=== PATIENT | male | born 2000 | race African-American/Black ===

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

== ENCOUNTER 2022-03-05 02:10 | Emergency (ER) | payer OTHER ==
--- OUTSIDE RECORDS SUMMARY | 2022-03-05 02:15 | XMS REPORT | Continuity of Care Document ---
:2000 Author Organization [facility] t Address [address] [place] [address] Care Team Providers Name Role Phone ZION Primary Care Physician Unavailable Provider, [facility] Attending Clinician Unavailable Zion OATES Attending Clinician Pita PROJECTION WELDING MACHINE OPERATOR Attending Clinician PITA Attending Clinician Unavailable Eddie CLARK, D Attending Clinician Unavailable Marko PROJECTION WELDING MACHINE OPERATOR Attending Clinician EBRAHIM Attending Clinician Unavailable Emely MEDINA Attending Clinician Roger MEDINA, N Attending Clinician Payers Payer Name Policy Type Policy Number Effective Date Expiration Date S ource Problems Condition Condition Condition Status Onset Resolution Last Treating Co mments Source Name Details Category Date Date Treatment Clinician Date No known No known Disease Unive rs active active ity of problems problems [facility] Allergies, Adverse Reactions, Alerts Allergy Allergy Status Severity Reaction(s) Onset Inactive Treating Comm ents Source Name Type Date Date Clinician NO KNOWN Drug Active Univers ALLERGIE Class ity of [facility] Social History Social Habit Start Date Stop Date Quantity Comments Source Exposure to 2022-01-21 2022-01-31 Not sure [facility] SARS-CoV-2 (event) 00:00:00 10:48:00 Medica l Branch Tobacco use and 2015-05-10 2015-05-10 Never used [facility] [place] exposure 00:00:00 00:00:00 Medical Branch Sex Assigned At [birth year] [facility] [place] 00:00:00 00:00:00 [facility] Branch Smoking Status Start Date Stop Date Source Never smoker [facility] Medications Ordered Filled Start Stop Current Ordering Indication Dosage Frequency Signature Comments Components Source Medication Medication Date Date Medication? Clinician (SIG) Name Name clotrimazol Yes Univer s e 1 % 12-18 ity of topical 00:00: [place] cream [facility] clotrimazol Yes Univer s e 1 % 12-18 ity of topical 00:00: [place] cream [facility] clotrimazol Yes Univer s e 1 % 12-18 ity of topical 00:00: [place] cream [facility] clotrimazol No [id number] Apply to Univers e 1 % 10-11 area(s) 2 ity of topical 00:00: 04:59 (two) [place] cream 00 :00 times Medical daily for Branch 28 days. azithromyci Yes [id number] Take 500 Univers n 9-13 mg day 1, ity of (ZITHROMAX 00:00: then 250 [facility] as Z-DEANNA) 250 00 mg days 2 Medi connor mg tablet to 5. [place] azithromyci Yes [id number] Take 500 Univers n 9-13 mg day 1, ity of (ZITHROMAX 00:00: then 250 [place] [facility] Z-DEANNA) 250 00 mg days 2 Medi connor mg tablet to 5. [place] azithromyci Yes [id number] Take 500 Univers n 9-13 mg day 1, ity of (ZITHROMAX 00:00: then 250 [place] [facility] Z-DEANNA) 250 00 mg days 2 Medi connor mg tablet to 5. [place] azithromyci Yes [id number] Take 500 Univers n 9-13 mg day 1, ity of (ZITHROMAX 00:00: then 250 [place] [facility] Z-DEANNA) 250 00 mg days 2 Medi connor mg tablet to 5. [place] azithromyci Yes [id number] Take 500 Univers n 9-13 mg day 1, ity of (ZITHROMAX 00:00: then 250 [place] [facility] Z-DEANNA) 250 00 mg days 2 Medi connor mg tablet to 5. Branch azithromyci Yes [id number] Take 500 Univers n 9-13 mg day 1, ity of (ZITHROMAX 00:00: then 250 [place] [facility] Z-DEANNA) 250 00 mg days 2 Medi connor mg tablet to 5. Branch azithromyci Yes [id number] Take 500 Univers n 9-13 mg day 1, ity of (ZITHROMAX 00:00: then 250 [place] [facility] Z-DEANNA) 250 00 mg days 2 Medi connor mg tablet to 5. Branch acetaminoph Yes Take by Un dunia en (TYLENOL 9-12 mouth. ity of CHILDREN'S 14:57: [place] ORAL) 59 Medical Branch acetaminoph Yes Take by Un [place] en (TYLENOL 9-12 mouth. ity of CHILDREN'S 14:57: [place] ORAL) 59 Medical Branch acetaminoph Yes Take by Un [place]ia en (TYLENOL 9-12 mouth. ity of CHILDREN'S 14:57: [place] ORAL) 59 Medical Branch acetaminoph Yes Take by Un [place] en (TYLENOL 9-12 mouth. ity of CHILDREN'S 14:57: [place] ORAL) 59 Medical Branch acetaminoph Yes Take by Un [place] en (TYLENOL 9-12 mouth. ity of CHILDREN'S 14:57: [place] ORAL) 59 Medical Branch acetaminoph Yes Take by Un [place] en (TYLENOL 9-12 mouth. ity of CHILDREN'S 14:57: [place] ORAL) 59 Medical Branch acetaminoph Yes Take by Un [place]ia en (TYLENOL 9-12 mouth. ity of CHILDREN'S 14:57: [place] ORAL) 59 Medical Branch PROAIR HFA Yes Univers 90 9-11 ity of mcg/actuati 00:00: [place] on inhaler 00 Medical Branch PROAIR HFA Yes Univers 90 9-11 ity of mcg/actuati 00:00: [place] on inhaler 00 Medical Branch PROAIR HFA Yes Univers 90 9-11 ity of mcg/actuati 00:00: [place] on inhaler 00 Medical Branch PROAIR HFA Yes Univers 90 9-11 ity of mcg/actuati 00:00: [place] on inhaler 00 Medical Branch PROAIR HFA 2019-0 Yes Univers 90 9-11 ity of mcg/actuati 00:00: [place] on inhaler 00 Medical Branch PROAIR HFA 2018-0 Yes Univers 90 9-11 ity of mcg/actuati 00:00: [place] on inhaler 00 Medical Branch PROAIR HFA 2018-0 Yes Univers 90 9-11 ity of mcg/actuati 00:00: [place] on inhaler 00 Medical Branch cetirizine Yes [id number] 10mg Take 1 U nivers (ZYRTEC) 10 1-30 tablet by [place] of mg tablet [place] bed[place] Medical needed for Branch Allergies or Runny nose. cetirizine Yes [id number] 10mg Take 1 U nivers (ZYRTEC) 10 1-30 tablet by [place] of mg tablet [place] bed[place] Medical needed for Branch Allergies or Runny nose. cetirizine Yes [id number] 10mg Take 1 U nivers (ZYRTEC) 10 1-30 tablet by [place] of mg tablet [place] bed[place] Medical needed for Branch Allergies or Runny nose. cetirizine Yes [id number] 10mg Take 1 U nivers (ZYRTEC) 10 1-30 tablet by [place]y of mg tablet [place] bed[place] Medical needed for Branch Allergies or Runny nose. cetirizine Yes [id number] 10mg Take 1 U nivers (ZYRTEC) 10 1-30 tablet by [place]y of mg tablet [place] bedtime as Medical needed for Branch Allergies or Runny nose. cetirizine Yes [id number] 10mg Take 1 U nivers (ZYRTEC) 10 1-30 tablet by [place]y of mg tablet [place] bedtime as Medical needed for Branch Allergies or Runny nose. cetirizine Yes [id number] 10mg Take 1 U nivers (ZYRTEC) 10 1-30 tablet by [place]y of mg tablet [place] bedtime as Medical needed for Branch Allergies or Runny nose. Immunizations Ordered Immunization Filled Immunization Date Status Commen ts Source Name Name SARS-COV-2 COVID-19 2021-10-11 Completed Unive rsity of PFIZER VACCINE 00:00:00 [facility] SARS-COV-2 COVID-19 2021-10-11 Completed Unive rsity of PFIZER VACCINE 00:00:00 [facility] SARS-COV-2 COVID-19 2021-10-11 Completed Unive rsity of PFIZER VACCINE 00:00:00 [facility] SARS-COV-2 COVID-19 2021-10-11 Completed Unive rsity of PFIZER VACCINE 00:00:00 [facility] SARS-COV-2 COVID-19 2021-10-11 Completed Unive rsity of PFIZER VACCINE 00:00:00 [facility] SARS-COV-2 COVID-19 2021-10-11 Completed Unive rsity of PFIZER VACCINE 00:00:00 [facility] SARS-COV-2 COVID-19 2021-10-11 Completed Unive rsity of PFIZER VACCINE 00:00:00 [facility] SARS-COV-2 COVID-19 2021-02-22 Completed Unive rsity of PFIZER VACCINE 00:00:00 [facility] SARS-COV-2 COVID-19 2021-02-22 Completed Unive rsity of PFIZER VACCINE 00:00:00 [facility] SARS-COV-2 COVID-19 2021-02-22 Completed Unive rsity of PFIZER VACCINE 00:00:00 [facility] SARS-COV-2 COVID-19 2021-02-22 Completed Unive rsity of PFIZER VACCINE 00:00:00 [facility] SARS-COV-2 COVID-19 2021-02-22 Completed Unive rsity of PFIZER VACCINE 00:00:00 [facility] SARS-COV-2 COVID-19 2021-02-22 Completed Unive rsity of PFIZER VACCINE 00:00:00 [facility] SARS-COV-2 COVID-19 2021-02-22 Completed Unive rsity of PFIZER VACCINE 00:00:00 [facility] Influenza Virus 2019-09-04 Completed Universit y of Vaccine Quad .5 mL IM 00:00:00 [facility] 6+ MO Branch Meningococcal B, OMV 2019-09-04 Completed Univ ersity of 00:00:00 [facility] Influenza Virus 2019-09-04 Completed Universit y of Vaccine Quad .5 mL IM 00:00:00 [place] [facility] 6+ MO Branch Meningococcal B, OMV 2019-09-04 Completed Univ ersity of 00:00:[address] [facility] Influenza Virus 2019-09-04 Completed Universit y of Vaccine Quad .5 mL IM 00:00:00 [place] [facility] 6+ MO Branch Meningococcal B, OMV 2019-09-04 Completed Univ ersity of 00:00:00 [facility] Influenza Virus 2019-09-04 Completed Universit y of Vaccine Quad .5 mL IM 00:00:00 [place] [facility] 6+ MO Branch Meningococcal B, OMV 2019-09-04 Completed Univ ersity of 00:00:00 [facility] Influenza Virus 2019-09-04 Completed Universit y of Vaccine Quad .5 mL IM 00:00:00 [place] [facility] 6+ MO Branch Meningococcal B, OMV 2019-09-04 Completed Univ ersity of 00:00:00 [facility] Influenza Virus 2019-09-04 Completed Universit y of Vaccine Quad .5 mL IM 00:00:00 [place] [facility] 6+ MO Branch Meningococcal B, OMV 2019-09-04 Completed Univ ersity of 00:00:00 [facility] Influenza Virus 2019-09-04 Completed Universit y of Vaccine Quad .5 mL IM 00:00:00 [place] [facility] 6+ MO Branch Meningococcal B, OMV 2019-09-04 Completed Univ ersity of 00:00:00 [facility] Meningococcal 2018-04-09 Completed University of Polysaccharide 00:00:00 [facility] connor (groups A, C, Y and Branc h W-135) conjugate vaccine (MCV4P) Meningococcal B, OMV 2018-04-09 Completed Univ ersity of 00:00:00 [facility] Meningococcal 2018-04-09 Completed University of Polysaccharide 00:00:00 [place] [facility] connor (groups A, C, Y and Branc h W-135) conjugate vaccine (MCV4P) Meningococcal B, OMV 2018-04-09 Completed Univ ersity of 00:00:[address] [facility] Meningococcal 2018-04-09 Completed University of Polysaccharide 00:00:00 [place] Med[facility] connor (groups A, C, Y and Branc h W-135) conjugate vaccine (MCV4P) Meningococcal B, OMV 2018-04-09 Completed Univ ersity of 00:00:[address] [facility] Meningococcal 2018-04-09 Completed University of Polysaccharide 00:00:00 [place] [facility] con[facility] (groups A, C, Y and Branc h W-135) conjugate vaccine (MCV4P) Meningococcal B, OMV 2018-04-09 Completed Univ ersity of 00:00:00 [facility] [place] [facility] Meningococcal 2018-04-09 Completed University of Polysaccharide 00:00:00 [place] [facility] (groups A, C, Y and Branc h W-135) conjugate vaccine (MCV4P) Meningococcal B, OMV 2018-04-09 Completed Univ ersity of 00:00:[address] [facility] Meningococcal 2018-04-09 Completed University of Polysaccharide 00:00:00 [place] [facility] (groups A, C, Y and Branc h W-135) conjugate vaccine (MCV4P) Meningococcal B, OMV 2018-04-09 Completed Univ ersity of 00:00:00 [facility] Meningococcal 2018-04-09 Completed University of Polysaccharide 00:00:00 [place] [facility] (groups A, C, Y and Branc h W-135) conjugate vaccine (MCV4P) Meningococcal B, OMV 2018-04-09 Completed Univ ersity of 00:00:00 [facility] HPV9 2017-03-27 Completed University of 00:00:00 [facility] HPV9 2017-03-27 Completed University of 00:00:00 [facility] [place] [facility] HPV9 2017-03-27 Completed University of 00:00:00 [facility] [place] [facility] HPV9 2017-03-27 Completed University of 00:00:00 [facility] [place] [facility] HPV9 2017-03-27 Completed University of 00:00:00 [facility] [place] [facility] HPV9 2017-03-27 Completed University of 00:00:00 [facility] [place] [facility] HPV9 2017-03-27 Completed University of 00:00:00 [facility] [place] [facility] HPV9 2016-03-08 Completed University of 00:00:00 [facility] [place] [facility] HPV 2016-03-08 Completed University of 00:00:00 [facility] [place] [facility] HPV9 2016-03-08 Completed University of 00:00:00 [facility] [place] [facility] HPV 2016-03-08 Completed University of 00:00:00 [facility] [place] [facility] HPV9 2016-03-08 Completed University of 00:00:00 [place] [facility] HPV 2016-03-08 Completed University of 00:00:00 [place] [facility] HPV9 2016-03-08 Completed University of 00:00:00 [place] [facility] HPV 2016-03-08 Completed University of 00:00:00 [place] [facility] HPV9 2016-03-08 Completed University of 00:00:00 [place] [facility] HPV 2016-03-08 Completed University of 00:00:00 [place] [facility] HPV9 2016-03-08 Completed University of 00:00:00 [place] [facility] HPV 2016-03-08 Completed University of 00:00:00 [place] [facility] HPV9 2016-03-08 Completed University of 00:00:00 [place] [facility] HPV 2016-03-08 Completed University of 00:00:00 [place] [facility] HPV 2014-04-07 Completed University of 00:00:00 [place] [facility] HPV 2014-04-07 Completed University of 00:00:00 [place] [facility] HPV 2014-04-07 Completed University of 00:00:00 [place] [facility] HPV 2014-04-07 Completed University of 00:00:00 [place] [facility] HPV 2014-04-07 Completed University of 00:00:00 [place] [facility] HPV 2014-04-07 Completed University of 00:00:00 [place] [facility] HPV 2014-04-07 Completed University of 00:00:00 [place] [facility] HPV 2013-11-11 Completed University of 00:00:00 [place] [facility] HPV 2013-11-11 Completed University of 00:00:00 [place] [facility] HPV 2013-11-11 Completed University of 00:00:00 [place] [facility] HPV 2013-11-11 Completed University of 00:00:00 [place] [facility] HPV 2013-11-11 Completed University of 00:00:00 [place] [facility] HPV 2013-11-11 Completed University of 00:00:00 [place] [facility] HPV 2013-11-11 Completed University of 00:00:00 [facility] Meningococcal Vaccine 2013-03-31 Completed Uni versity of 00:00:00 [facility] [place] [facility] TDAP 2013-03-31 Completed University of 00:00:00 [facility] [place] [facility] Meningococcal Vaccine 2013-03-31 Completed Uni versity of 00:00:00 [facility] [place] [facility] TDAP 2013-03-31 Completed University of 00:00:00 [facility] [place] [facility] Meningococcal Vaccine 2013-03-31 Completed Uni versity of 00:00:00 [facility] TDAP 2013-03-31 Completed University of 00:00:00 [facility] Meningococcal Vaccine 2013-03-31 Completed Uni versity of 00:00:00 [facility] TDAP 2013-03-31 Completed University of 00:00:00 [facility] Meningococcal Vaccine 2013-03-31 Completed Uni versity of 00:00:00 [facility] TDAP 2013-03-31 Completed University of 00:00:00 [facility] Meningococcal Vaccine 2013-03-31 Completed Uni versity of 00:00:00 [facility] TDAP 2013-03-31 Completed University of 00:00:00 [facility] Meningococcal Vaccine 2013-03-31 Completed Uni versity of 00:00:00 [facility] TDAP 2013-03-31 Completed University of 00:00:00 [facility] HEPATITIS A 2010-09-19 Completed University of 00:00:00 [facility] HEPATITIS A 2010-09-19 Completed University of 00:00:00 [facility] HEPATITIS A 2010-09-19 Completed University of 00:00:00 [facility] HEPATITIS A 2010-09-19 Completed University of 00:00:00 [facility] HEPATITIS A 2010-09-19 Completed University of 00:00:00 [facility] HEPATITIS A 2010-09-19 Completed University of 00:00:00 [facility] HEPATITIS A 2010-09-19 Completed University of 00:00:00 [facility] HEPATITIS A 2006-12-10 Completed University of 00:00:00 [facility] HEPATITIS A 2006-12-10 Completed University of 00:00:00 [facility] HEPATITIS A 2006-12-10 Completed University of 00:00:00 [facility] HEPATITIS A 2006-12-10 Completed University of 00:00:00 [facility] HEPATITIS A 2006-12-10 Completed University of 00:00:00 [facility] HEPATITIS A 2006-12-10 Completed University of 00:00:00 [facility] HEPATITIS A 2006-12-10 Completed University of 00:00:00 [facility] Varicella 2006-09-12 Completed University of (varivax)(chicken 00:00:00 [place] [facility] pox) Branch Varicella 2006-09-12 Completed University of (varivax)(chicken 00:00:00 [place] [facility] pox) Branch Varicella 2006-09-12 Completed University of (varivax)(chicken 00:00:00 [place] M [facility] pox) Branch Varicella 2006-09-12 Completed University of (varivax)(chicken 00:00:00 [place] M [facility] pox) Branch Varicella 2006-09-12 Completed University of (varivax)(chicken 00:00:00 [place] M [facility]ical pox) Branch Varicella 2006-09-12 Completed University of (varivax)(chicken 00:00:00 [place] M [facility]ical pox) Branch Varicella 2006-09-12 Completed University of (varivax)(chicken 00:00:00 [place] M [facility]ical pox) Branch DTAP 2006-02-04 Completed University of 00:00:00 [facility] HEPATITIS A 2006-02-04 Completed University of 00:00:00 [facility] MMR 2006-02-04 Completed University of 00:00:00 [facility] Polio (IPV/OPV) 2006-02-04 Completed Universit y of 00:00:00 [facility] DTAP 2006-02-04 Completed University of 00:00:00 [facility] HEPATITIS A 2006-02-04 Completed University of 00:00:00 [facility] MMR 2006-02-04 Completed University of 00:00:00 [facility] Polio (IPV/OPV) 2006-02-04 Completed Universit y of 00:00:00 [facility] DTAP 2006-02-04 Completed University of 00:00:00 [facility] HEPATITIS A 2006-02-04 Completed University of 00:00:00 [facility] MMR 2006-02-04 Completed University of 00:00:00 [facility] Polio (IPV/OPV) 2006-02-04 Completed Universit y of 00:00:00 [facility] DTAP 2006-02-04 Completed University of 00:00:00 [facility] HEPATITIS A 2006-02-04 Completed University of 00:00:00 [facility] MMR 2006-02-04 Completed University of 00:00:00 [facility] Polio (IPV/OPV) 2006-02-04 Completed Universit y of 00:00:00 [facility] DTAP 2006-02-04 Completed University of 00:00:00 [facility] HEPATITIS A 2006-02-04 Completed University of 00:00:00 [facility] MMR 2006-02-04 Completed University of 00:00:00 [facility] Polio (IPV/OPV) 2006-02-04 Completed Universit y of 00:00:00 [facility] DTAP 2006-02-04 Completed University of 00:00:00 [facility] HEPATITIS A 2006-02-04 Completed University of 00:00:00 [facility] MMR 2006-02-04 Completed University of 00:00:00 [facility] Polio (IPV/OPV) 2006-02-04 Completed Universit y of 00:00:00 [facility] DTAP 2006-02-04 Completed University of 00:00:00 [facility] HEPATITIS A 2006-02-04 Completed University of 00:00:00 [facility] MMR 2006-02-04 Completed University of 00:00:00 [facility] Polio (IPV/OPV) 2006-02-04 Completed Universit y of 00:00:00 [facility] DTAP 2003-06-15 Completed University of 00:00:00 [facility] HIB 4 Dose Schedule 2003-06-15 Completed Unive rsity of 00:00:00 [facility] Pneumococcal 13 2003-06-15 Completed Universit y of Conjugate, PCV13 00:00:00 [facility] dical (Prevnar 13) Branch DTAP 2003-06-15 Completed University of 00:00:00 [facility] HIB 4 Dose Schedule 2003-06-15 Completed Unive rsity of 00:00:00 [facility] Pneumococcal 13 2003-06-15 Completed Universit y of Conjugate, PCV13 00:00:00 [facility] dical (Prevnar 13) Branch DTAP 2003-06-15 Completed University of 00:00:00 [facility] HIB 4 Dose Schedule 2003-06-15 Completed Unive rsity of 00:00:00 [facility] Pneumococcal 13 2003-06-15 Completed Universit y of Conjugate, PCV13 00:00:00 [place] dical (Prevnar 13) Branch DTAP 2003-06-15 Completed University of 00:00:00 [facility] HIB 4 Dose Schedule 2003-06-15 Completed Unive rsity of 00:00:00 [facility] Pneumococcal 13 2003-06-15 Completed Universit y of Conjugate, PCV13 00:00:00 [place] [facility] dical (Prevnar 13) Branch DTAP 2003-06-15 Completed University of 00:00:00 [facility] HIB 4 Dose Schedule 2003-06-15 Completed Unive rsity of 00:00:00 [facility] Pneumococcal 13 2003-06-15 Completed Universit y of Conjugate, PCV13 00:00:00 [place] [facility] dical (Prevnar 13) Branch DTAP 2003-06-15 Completed University of 00:00:00 [facility] HIB 4 Dose Schedule 2003-06-15 Completed Unive rsity of 00:00:00 [facility] Pneumococcal 13 2003-06-15 Completed Universit y of Conjugate, PCV13 00:00:00 [place] [facility]ical (Prevnar 13) Branch DTAP 2003-06-15 Completed University of 00:00:00 [facility] HIB 4 Dose Schedule 2003-06-15 Completed Unive rsity of 00:00:00 [facility] Pneumococcal 13 2003-06-15 Completed Universit y of Conjugate, PCV13 00:00:00 [facility] dical (Prevnar 13) Branch MMR 2003-03-10 Completed University of 00:00:00 [facility] Polio (IPV/OPV) 2003-03-10 Completed Universit y of 00:00:00 [facility] Varicella 2003-03-10 Completed University of (varivax)(chicken 00:00:00 [place] [facility] [place] pox) Branch [facility] 2003-03-10 Completed University of 00:00:00 [facility] Polio (IPV/OPV) 2003-03-10 Completed Universit y of 00:00:00 [facility] Varicella 2003-03-10 Completed University of (varivax)(chicken 00:00:00 [place] [facility] [place] pox) Branch MMR 2003-03-10 Completed University of 00:00:00 [facility] Polio (IPV/OPV) 2003-03-10 Completed Universit y of 00:00:00 [facility] Varicella 2003-03-10 Completed University of (varivax)(chicken 00:00:00 [facility] edical pox) Branch MMR 2003-03-10 Completed University of 00:00:00 [facility] Polio (IPV/OPV) 2003-03-10 Completed Universit y of 00:00:00 [facility] Varicella 2003-03-10 Completed University of (varivax)(chicken 00:00:00 [place] [facility] [place] pox) Branch MMR 2003-03-10 Completed University of 00:00:00 [facility] Polio (IPV/OPV) 2003-03-10 Completed Universit y of 00:00:00 [facility] Varicella 2003-03-10 Completed University of (varivax)(chicken 00:00:00 [place] [facility] pox) Branch MMR 2003-03-10 Completed University of 00:00:00 [facility] Polio (IPV/OPV) 2003-03-10 Completed Universit y of 00:00:00 [facility] Varicella 2003-03-10 Completed University of (varivax)(chicken 00:00:00 [place] [facility] pox) Branch MMR 2003-03-10 Completed University of 00:00:00 [facility] Polio (IPV/OPV) 2003-03-10 Completed Universit y of 00:00:00 [facility] Varicella 2003-03-10 Completed University of (varivax)(chicken 00:00:00 [place] [facility] edical pox) Branch DTAP 2002 Completed University of 00:00:00 [facility] HIB 4 Dose Schedule 2002 Completed Unive rsity of 00:00:00 [facility] Hep B, Adol or Pedi 2002 Completed Unive rsity of Dosage 00:00:00 [facility] DTAP 2002 Completed University of 00:00:00 [facility] HIB 4 Dose Schedule 2002 Completed Unive rsity of 00:00:00 [facility] Hep B, Adol or Pedi 2002 Completed [facility]ive [facility]ity of Dosage 00:00:00 [facility] DTAP 2002 Completed [facility] 00:00:00 [facility] HIB 4 Dose Schedule 2002 Completed [facility] 00:00:00 [facility] Hep B, Adol or Pedi 2002 Completed [facility] of Dosage 00:00:00 [facility] DTAP 2002 Completed [facility] 00:00:00 [facility] HIB 4 Dose Schedule 2002 Completed [facility] of 00:00:00 [facility] Hep B, Adol or Pedi 2002 Completed [facility] of Dosage 00:00:00 [facility] DTAP 2002 Completed [facility] 00:00:00 [facility] HIB 4 Dose Schedule 2002 Completed [facility] 00:00:00 [facility] Hep B, Adol or Pedi 2002 Completed [facility] of Dosage 00:00:00 [facility] DTAP 2002 Completed [facility] 00:00:00 [facility] HIB 4 Dose Schedule 2002 Completed [facility] of 00:00:00 [facility] Hep B, Adol or Pedi 2002 Completed [facility] of Dosage 00:00:00 [facility] DTAP 2002 Completed [facility] 00:00:00 [facility] HIB 4 Dose Schedule 2002 Completed [facility] of 00:00:00 [facility] Hep B, Adol or Pedi 2002 Completed [facility] of Dosage 00:00:00 [facility] DTAP 2002 Completed [facility] 00:00:00 [facility] HIB 4 Dose Schedule 2002 Completed [facility] 00:00:00 [facility] Polio (IPV/OPV) 2002 Completed [facility] 00:00:00 [facility] DTAP 2002 Completed [facility] 00:00:00 [facility] HIB 4 Dose Schedule 2002 Completed [facility] 00:00:00 [facility] Polio (IPV/OPV) 2002 Completed [facility] 00:00:00 [facility] DTAP 2002 Completed [facility] 00:00:00 [facility] HIB 4 Dose Schedule 2002 Completed [facility] 00:00:00 [facility] Polio (IPV/OPV) 2002 Completed [facility] 00:00:00 [facility] DTAP 2002 Completed [facility] 00:00:00 [facility] HIB 4 Dose Schedule 2002 Completed [facility] 00:00:00 [facility] Polio (IPV/OPV) 2002 Completed [facility] 00:00:00 [facility] DTAP 2002 Completed [facility] 00:00:00 [facility] HIB 4 Dose Schedule 2002 Completed [facility] 00:00:00 [facility] Polio (IPV/OPV) 2002 Completed [facility] 00:00:00 [facility] DTAP 2002 Completed [facility] 00:00:00 [facility] [place] HIB 4 Dose Schedule 2002 Completed [facility] of 00:00:00 [facility] Polio (IPV/OPV) 2002 Completed [facility] 00:00:00 [facility] DTAP 2002 Completed [facility] 00:00:00 [facility] HIB 4 Dose Schedule 2002 Completed [facility] of 00:00:00 [facility] Polio (IPV/OPV) 2002 Completed [facility] 00:00:00 [facility] DTAP 2002 Completed [facility] 00:00:00 [facility] HIB 4 Dose Schedule 2002 Completed [facility] 00:00:00 [facility] Hep B, Adol or Pedi 2002 Completed [facility] of Dosage 00:00:00 [facility] Polio (IPV/OPV) 2002 Completed [facility] 00:00:00 [facility] DTAP 2002 Completed [facility] 00:00:00 [facility] HIB 4 Dose Schedule 2002 Completed [facility] 00:00:00 [facility] Hep B, Adol or Pedi 2002 Completed [facility] Dosage 00:00:00 [facility] Polio (IPV/OPV) 2002 Completed [facility] 00:00:00 [facility] DTAP 2002 Completed [facility] 00:00:00 [facility] HIB 4 Dose Schedule 2002 Completed [facility] 00:00:00 [facility] Hep B, Adol or Pedi 2002 Completed [facility] of Dosage 00:00:00 [facility] Polio (IPV/OPV) 2002 Completed [facility]it [facility] 00:00:00 [facility] DTAP 2002 Completed [facility] 00:00:00 [facility] HIB 4 Dose Schedule 2002 Completed [facility] of 00:00:00 [facility] Hep B, Adol or Pedi 2002 Completed [facility] of Dosage 00:00:00 [facility] Polio (IPV/OPV) 2002 Completed [facility] 00:00:00 [facility] DTAP 2002 Completed [facility] 00:00:00 [facility] HIB 4 Dose Schedule 2002 Completed [facility] 00:00:00 [facility] Hep B, Adol or Pedi 2002 Completed [facility] of Dosage 00:00:00 [facility] Polio (IPV/OPV) 2002 Completed [facility] 00:00:00 [facility] DTAP 2002 Completed [facility] 00:00:00 [facility] HIB 4 Dose Schedule 2002 Completed [facility] 00:00:00 [facility] Hep B, Adol or Pedi 2002 Completed [facility] of Dosage 00:00:00 [facility] Polio (IPV/OPV) 2002 Completed [facility] 00:00:00 [facility] DTAP 2002 Completed [facility] 00:00:00 [facility] HIB 4 Dose Schedule 2002 Completed [facility] 00:00:00 [facility] Hep B, Adol or Pedi 2002 Completed [facility] of Dosage 00:00:00 [facility] Polio (IPV/OPV) 2002 Completed [facility] 00:00:00 [facility] Hep B, Adol or Pedi 2002 Completed [facility] Dosage 00:00:00 [facility] Hep B, Adol or Pedi 2002 Completed [facility] of Dosage 00:00:00 [facility] Hep B, Adol or Pedi 2002 Completed [facility]ity of Dosage 00:00:00 [facility] Hep B, Adol or Pedi 2002 Completed [facility]ity of Dosage 00:00:00 [facility] Hep B, Adol or Pedi 2002 Completed [facility]ity of Dosage 00:00:00 [facility] Hep B, Adol or Pedi 2002 Completed [facility] of Dosage 00:00:00 [facility] Hep B, Adol or Pedi 2002 Completed [facility] Dosage 00:00:00 [facility] Vital Signs Vital Name Observation Time Observation Value Comments Source Systolic blood 2022-01-31 21:40:00 129 mm[Hg] Univer [facility]ity of pressure [facility] Diastolic blood 2022-01-31 21:40:00 79 mm[Hg] [facility] rs[facility] of pressure [facility] Heart rate 2022-01-31 21:40:00 94 /min [facility]i ty of [facility] Body temperature 2022-01-31 21:40:00 37.17 [address] [facility] Respiratory rate 2022-01-31 21:40:00 16 /min Univ ersity of [facility] Body height 2022-01-31 21:40:00 177.[address] [facility] Body weight 2022-01-31 21:40:00 85[address] [facility] BMI 2022-01-31 21:40:00 26.88 kg/m2 [facility]i ty of [facility] Body mass index 2022-01-31 21:40:00 84.21 % Unive rsity of (BMI) [Percentile] [place] [facility] Oxygen saturation in 2022-01-31 21:40:00 98 /min University Arterial blood by [facility] Pulse oximetry Branch Systolic blood 2021-12-19 22:56:00 117 mm[Hg] Univer sity of pressure [facility] Diastolic blood 2021-12-19 22:56:00 71 mm[Hg] Unive rsity of pressure [facility] Heart rate 2021-12-19 22:56:00 88 /min [facility]i ty of [facility] Body temperature 2021-12-19 22:56:00 36.56 Patricia [facility] [address] Respiratory rate 2021-12-19 22:56:00 18 /min Univ ersity of [facility] Body height 2021-12-19 22:56:00 177.[address] [facility] Body weight 2021-12-19 22:56:[address] [facility] BMI 2021-12-19 22:56:00 29.15 kg/m2 [facility]i ty of [facility] Body mass index 2021-12-19 22:56:00 92.52 % Unive rsity of (BMI) [Percentile] [place] [facility] Oxygen saturation in 2021-12-19 22:56:00 98 /min [facility] Arterial blood by [facility] Pulse oximetry Branch Oxygen saturation in 2021-10-11 20:22:00 95 /min [facility] Arterial blood by [facility] Pulse oximetry Branch Systolic blood 2021-10-11 20:22:00 125 mm[Hg] Univer sity of pressure [facility] Diastolic blood 2021-10-11 20:22:00 75 mm[Hg] Unive rsity of pressure [facility] Heart rate 2021-10-11 20:22:00 89 /min [facility] Body temperature 2021-10-11 20:22:00 36.5 [facility] 2021-10-11 20:22:00 177 cm [facility] Body weight 2021-10-11 20:22:00 85.73 kg [facility] BMI 2021-10-11 20:22:00 27.36 kg/m2 [facility] Body mass index 2021-10-11 20:22:00 87.40 % Unive rsity of (BMI) [Percentile] [place] [facility] Per [facility] Procedures Procedure Date / Time Performed Performing Clinician [facility] e SARS-COV-2 COVID-19 2021-10-11 20:43:25 Robert Han [facility] VACCINE,0.3ML,IM Medical Branch (PFIZER) Encounters Start End Encounter Admission Attending Care Care Encounter Source Date/Time Date/Time Type Type Clinicians Facility Department ID 2022 2022 Letter Provider, [facility] [id number] Univers 00:00:00 00:00:00 (Out) [facility] [id number] it y of Urgent Care [place] [id number] [place] DOV?BLEA [id number] [place] HOLT [facility] Branch MEDICAL OFFICE BUILDING 2022-02-01 2022-02-01 Telephone [place], [facility] [id number] Univers 00:00:00 00:00:00 Shivani ARAUZ [id number] [place] [facility] [id number] [facility] [id number] [facility] [address] 2022-01-31 2022-01-31 [facility] [id number] Univers 17:20:00 17:40:00 Care Herlinda HEALTH [id number] it y [facility] [id number] Jaret as DOV?BLEA [id number] [address] MEDICAL OFFICE [facility] 2022-01-31 2022-01-31 Outpatient R [facility] [id number] Univers 17:20:00 17:20:00 [id number] ity [facility] 2022-01-31 2022-01-31 [facility] [id number] Univers 17:20:00 17:11:16 HERLINDA ity [facility] 2021-12-20 2021-12-20 Telephone WESLY Morgan [id number] Univers 00:00:00 00:00:00 Nenita WOOD [id number] i ty of [facility] [id number] Jaret as [id number] [facility] [address] 2021-12-20 2021-12-20 Telephone Marko [facility] [id number] Univers 00:00:00 00:00:00 [facility] [id number] it y [facility] [id number] Jaret as DOV?BLEA [id number] [address] MEDICAL OFFICE [facility] 2021-12-19 2021-12-19 Outpatient R MARKO [facility] [id number] Univers 17:20:00 18:27:41 TRACI [facility] 2021-12-19 2021-12-19 Urgent Traci Zhu [facility] [id number] Univers 17:20:00 17:40:00 Care [place], Herlinda [facility] [id number] ity of [facility] [id number] Jaret as DOV?BLEA [id number] [address] MEDICAL OFFICE BUILDING 2021-12-19 2021-12-19 Outpatient R [facility] [id number] Univers 17:20:00 17:20:[id number] [facility] 2021-10-11 2021-10-11 Office Robert Han [facility] [id number] Univers 14:20:00 14:48:00 Visit JAYDE [id number] [id number] [id number] [address] 2020-12-06 2020-12-06 Telephone Roger [facility] [id number] 00:00:00 00:00:00 Ann Arauz [id number] Pediatric [id number] Clinic [id number] 2020-12-05 2020-12-05 [facility] [id number] 15:12:09 15:55:16 Visit Ann Arauz [id number] Pediatric [id number] Clinic [id number] Results This patient has no known results.
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
[2022-03-05 04:55] VITALS: TEMP 98.3
[2022-03-05 05:02] VITALS: BP 113/66; O2SAT 99
--- NOTE | 2022-03-05 15:34 | RAD REPORT ---
EXAM DESCRIPTION: RAD - Hand Right 3 View - 03/05/2022 2:38 am CLINICAL HISTORY: PAIN COMPARISON: None. TECHNIQUE: XR HAND 3 OR MORE VIEWS 03/05/2022 2:25 AM CDT FINDINGS: There is no fracture. Joint spaces are preserved. Soft tissues are unremarkable. IMPRESSION: No acute osseous findings. Electronically signed by: Jose E Sloan MD 03/05/2022 3:42 AM CDT Due to temporary technical issues with the PACS/Fluency reporting system, reports are being signed by the in house radiologists without review as a courtesy to insure prompt reporting. The interpreting radiologist is fully responsible for the content of the report.
== END 2022-03-05 04:24 | disposition home or self-care (01) ==
LOC: ER 02:10
DX: M79.644 Pain in right finger(s) (principal)
CPT/HCPCS: 99283

== ENCOUNTER 2022-12-19 18:01 | Emergency (ER) | payer OTHER ==
--- OUTSIDE RECORDS SUMMARY | 2022-12-19 18:08 | XMS REPORT | Continuity of Care Document ---
:2000 Author Organization [facility] t Address [address] [facility] [address] [place] [address] Care Team Providers Name Role Phone Ángel Christensen Primary Care Physician [phone] BHAKTI COOLEY III Attending Clinician Unavailable King SVETLANA MD, James C Attending Clinician Unknown, Attending Attending Clinician Unavailable Provider, [facility] Attending Clinician Unavailable JEAN BAUMANN Attending Clinician Unavailable JEAN BAUMANN Attending Clinician Unavailable Ame Sinha RN Attending Clinician Unavailable Nurse, [facility] Attending Clinician Unavailable Only, Ang Kevin Test Attending Clinician Unavailable Millie Rodriguez MD Attending Clinician UNKNOWN, ATTENDING Attending Clinician Unavailable MILLIE RODRIGUEZ Attending Clinician Unavailable Doctor Unassigned, [place] Attending Clinician Unavailable Ángel Christensen Attending Clinician ÁNGEL DONOVAN Attending Clinician Unavailable Herlinda Altamirano Attending Clinician HERLINDA LEMA Attending Clinician Unavailable Nenita Morgan RN Attending Clinician Unavailable Traci Newman Attending Clinician TRACI ZHU Attending Clinician Unavailable TERENCE HAN Attending Clinician Unavailable Terence Han MD Attending Clinician DORINA MILTON Attending Clinician Unavailable Dorina Milton PA-C Attending Clinician Lab, [facility] I Attending Clinician Unavailable Ann Hernandez MD Attending Clinician ANN HERNANDEZ Attending Clinician Unavailable Pob, [facility] Main Attending Clinician Unavailable Lexus Castillo MD Attending Clinician Payers Payer Name Policy Type Policy Number Effective Date Expiration Date S gagan CHAVEZ [id number] 2022 00:00:00 Problems Condition Condition Condition Status Onset Resolution Last Treating Co mments Source Name Details Category Date Date Treatment Clinician Date No known No known Disease Unive rs active active ity of problems problems [facility] Allergies, Adverse Reactions, Alerts Allergy Allergy Status Severity Reaction(s) Onset Inactive Treating Comm ents Source Name Type Date Date Clinician NO KNOWN Drug Active Univers ALLERGIE Class ity of S [facility] Social History Social Habit Start Date Stop Date Quantity Comments Source Exposure to 2022-08-15 2022-08-25 Not sure [facility] SARS-CoV-2 00:00:00 10:47:00 [facility] (event) [place] Tobacco use and 2022-03-06 2022-03-06 Smokeless tobacco Un iversity of exposure 00:00:00 00:00:00 non-user [facility] Sex Assigned At [birth year] Universit y of 00:00:00 00:00:00 [facility] Smoking Status Start Date Stop Date Source Never smoked tobacco [facility] Medications Ordered Filled Start Stop Current Ordering Indication Dosage Frequency Signature Comments Components Source Medication Medication Date Date Medication? Clinician (SIG) Name Name albuterol Yes [id number] 2{puff} Inhale 2 Univers 90 1-14 Puffs ity of mcg/actuati 00:00: every 6 [place] as on inhaler 00 (six) Medical hours as Branch needed for Wheezing or Shortness of Breath. albuterol Yes [id number] 2{puff} Inhale 2 Univers 90 1-14 Puffs ity of mcg/actuati 00:00: every 6 [place] as on inhaler 00 (six) Medical hours as Branch needed for Wheezing or Shortness of Breath. albuterol 0 Yes [id number] 2{puff} Inhale 2 Univers 90 1-14 Puffs ity of mcg/actuati 00:00: every 6 [place] on inhaler 00 (six) Medical hours as Branch needed for Wheezing or Shortness of Breath. Methylpredn 2022-0 2022- No [id number] 4mg Take 1 Univers isolone 4 -14 -20 tablet by ity of mg tablet 00:00: 05:59 mouth [place] 00 :00 every 12 Medical (twelve) Branch hours for 5 days. Methylpredn 2022-0 2022- No [id number] 4mg Take 1 Univers isolone 4 -14 -20 tablet by ity of mg tablet 00:00: 05:59 mouth [place] 00 :00 every 12 Medical (twelve) Branch hours for 5 days. Methylpredn 2022-0 2022- No [id number] 4mg Take 1 Univers isolone 4 -14 -20 tablet by ity of mg tablet 00:00: 05:59 mouth [place] 00 :00 every 12 Medical (twelve) Branch hours for 5 days. naproxen 2021-08 Yes [id number] 500mg Take 1 U nivers 500 mg 1-18 tablet by ity of tablet 00:00: mouth in [place] 00 the Medical morning Branch and 1 tablet in the evening. Take with meals. cyclobenzap 2021-08 Yes [id number] 10mg Take 1 Univers rine 10 mg 1-18 tablet by ity of tablet 00:00: mouth at [place] 00 bedtime as Medical needed for Branch Muscle Spasms. Diclofenac 2021-08 Yes [id number] Take 2-4 Univers Sodium 1-18 grams ity of (VOLTAREN) 00:00: three [place] 1 % gel 00 times a Medical day as Branch needed for pain naproxen 2021-08 Yes [id number] 500mg Take 1 U nivers 500 mg 1-18 tablet by ity of tablet 00:00: mouth in [place] 00 the Medical morning Branch and 1 tablet in the evening. Take with meals. cyclobenzap 2021-08 Yes [id number] 10mg Take 1 Univers rine 10 mg 1-18 tablet by ity of tablet 00:00: mouth at [place] 00 bedtime as Medical needed for Branch Muscle Spasms. Diclofenac 2021-08 Yes [id number] Take 2-4 Univers Sodium 1-18 grams ity of (VOLTAREN) 00:00: three [place] 1 % gel 00 times a Medical day as Branch needed for pain naproxen 2021-08 Yes [id number] 500mg Take 1 U nivers 500 mg 1-18 tablet by ity of tablet 00:00: mouth in [place] 00 the Medical morning Branch and 1 tablet in the evening. Take with meals. cyclobenzap 2021-08 Yes [id number] 10mg Take 1 Univers rine 10 mg 1-18 tablet by ity of tablet 00:00: mouth at [place] [address] bedtime as Medical needed for Branch Muscle Spasms. Diclofenac 2021-08 Yes [id number] Take 2-4 Univers Sodium 1-18 grams ity of (VOLTAREN) 00:00: three [place] 1 % gel 00 times a Medical day as Branch needed for pain naproxen 2021-08 Yes [id number] 500mg Take 1 U nivers 500 mg 1-18 tablet by ity of tablet 00:00: mouth in [place] 00 the Medical morning Branch and 1 tablet in the evening. Take with meals. cyclobenzap 2021-08 Yes [id number] 10mg Take 1 Univers rine 10 mg 1-18 tablet by ity of tablet 00:00: mouth at [place] [address] bedtime as Medical needed for Branch Muscle Spasms. Diclofenac 2021-08 Yes [id number] Take 2-4 Univers Sodium 1-18 grams ity of (VOLTAREN) 00:00: three [place] 1 % gel 00 times a Medical day as Branch needed for pain naproxen 2021-08 Yes [id number] 500mg Take 1 U nivers 500 mg 1-18 tablet by ity of tablet 00:00: mouth in [place] 00 the Medical morning Branch and 1 tablet in the evening. Take with meals. cyclobenzap 2021-08 Yes [id number] 10mg Take 1 Univers rine 10 mg 1-18 tablet by ity of tablet 00:00: mouth at [place] [address] bedtime as Medical needed for Branch Muscle Spasms. Diclofenac 2021-08 Yes [id number] Take 2-4 Univers Sodium 1-18 grams ity of (VOLTAREN) 00:00: three [place] 1 % gel 00 times a Medical day as Branch needed for pain naproxen 2021-08 Yes [id number] 500mg Take 1 U nivers 500 mg 1-18 tablet by ity of tablet 00:00: mouth in [place] 00 the Medical morning Branch and 1 tablet in the evening. Take with meals. cyclobenzap 2021-08 Yes [id number] 10mg Take 1 Univers rine 10 mg 1-18 tablet by ity of tablet 00:00: mouth at [place] [address] bedtime as Medical needed for Branch Muscle Spasms. Diclofenac 2021-08 Yes [id number] Take 2-4 Univers Sodium 1-18 grams ity of (VOLTAREN) 00:00: three [place] 1 % gel 00 times a Medical day as Branch needed for pain naproxen 2021-08 Yes [id number] 500mg Take 1 U nivers 500 mg 1-18 tablet by ity of tablet 00:00: mouth in [place] 00 the Medical morning Branch and 1 tablet in the evening. Take with meals. cyclobenzap 2021-08 Yes [id number] 10mg Take 1 Univers rine 10 mg 1-18 tablet by ity of tablet 00:00: mouth at [place] [address] bedtime as Medical needed for Branch Muscle Spasms. Diclofenac 2021-08 Yes [id number] Take 2-4 Univers Sodium 1-18 grams ity of (VOLTAREN) 00:00: three [place] 1 % gel 00 times a Medical day as Branch needed for pain naproxen 2021-08 Yes [id number] 500mg Take 1 U nivers 500 mg 1-18 tablet by ity of tablet 00:00: mouth in [place] 00 the Medical morning Branch and 1 tablet in the evening. Take with meals. cyclobenzap 2021-08 Yes [id number] 10mg Take 1 Univers rine 10 mg 1-18 tablet by ity of tablet 00:00: mouth at [place] [address] bedtime as Medical needed for Branch Muscle Spasms. Diclofenac 2021-08 Yes [id number] Take 2-4 Univers Sodium 1-18 grams ity of (VOLTAREN) 00:00: three [place] 1 % gel 00 times a Medical day as Branch needed for pain naproxen 2021-08 Yes [id number] 500mg Take 1 U nivers 500 mg 1-18 tablet by ity of tablet 00:00: mouth in [place] 00 the Medical morning Branch and 1 tablet in the evening. Take with meals. cyclobenzap 2021-08 Yes [id number] 10mg Take 1 Univers rine 10 mg 1-18 tablet by ity of tablet 00:00: mouth at [place] 00 bedtime as Medical needed for Branch Muscle Spasms. Diclofenac 2021-08 Yes [id number] Take 2-4 Univers Sodium 1-18 grams ity of (VOLTAREN) 00:00: three [place] 1 % gel 00 times a Medical day as Branch needed for pain naproxen 2021-08 Yes [id number] 500mg Take 1 U nivers 500 mg 1-18 tablet by ity of tablet 00:00: mouth in [place] 00 the Medical morning Branch and 1 tablet in the evening. Take with meals. cyclobenzap 2021-08 Yes [id number] 10mg Take 1 Univers rine 10 mg 1-18 tablet by ity of tablet 00:00: mouth at [place] 00 bedtime as Medical needed for Branch Muscle Spasms. Diclofenac 2021-08 Yes [id number] Take 2-4 Univers Sodium 1-18 grams ity of (VOLTAREN) 00:00: three [place] 1 % gel 00 times a Medical day as Branch needed for pain clotrimazol Yes Univer s e 1 % 5-09 ity of topical 00:00: [place] cream 00 Medical Branch clotrimazol Yes Univer s e 1 % 5-09 ity of topical 00:00: [place] cream Medical Branch clotrimazol Yes Univer s e 1 % 5-09 ity of topical 00:00: [place] cream 00 Medical Branch clotrimazol 0 Yes Univer s e 1 % 5-09 ity of topical 00:00: [place] cream 00 Medical Branch clotrimazol Yes Univer s e 1 % 5-09 ity of topical 00:00: [place] cream 00 Medical Branch clotrimazol Yes Univer s e 1 % 5-09 ity of topical 00:00: [place] cream 00 Medical Branch clotrimazol Yes Univer s e 1 % 5-09 ity of topical 00:00: [place] cream 00 Medical Branch clotrimazol Yes Univer s e 1 % 5-09 ity of topical 00:00: [place] cream 00 Medical Branch clotrimazol Yes Univer s e 1 % 5-09 ity of topical 00:00: [place] cream Medical Branch clotrimazol Yes Univer s e 1 % 5-09 ity of topical 00:00: [place] cream Medical Branch clotrimazol Yes Univer s e 1 % 5-09 ity of topical 00:00: [place] cream Medical Branch clotrimazol Yes Univer s e 1 % 5-09 ity of topical 00:00: [place] cream Medical Branch clotrimazol Yes Univer s e 1 % 5-09 ity of topical 00:00: [place] cream Medical Branch clotrimazol Yes Univer s e 1 % 5-09 ity of topical 00:00: [place] cream Medical Branch clotrimazol Yes Univer s e 1 % 5-09 ity of topical 00:00: [place] cream Medical Branch azithromyci Yes [id number] Take 500 Univers n 9-13 mg day 1, ity of (ZITHROMAX 00:00: then 250 [place] Z-DEANNA) 250 00 mg days 2 Medi connor mg tablet to 5. Branch azithromyci Yes [id number] Take 500 Univers n 9-13 mg day 1, ity of (ZITHROMAX 00:00: then 250 [place] Z-DEANNA) 250 00 mg days 2 Medi connor mg tablet to 5. Branch azithromyci Yes [id number] Take 500 Univers n 9-13 mg day 1, ity of (ZITHROMAX 00:00: then 250 [place] Z-DEANNA) 250 00 mg days 2 Medi connor mg tablet to 5. Branch azithromyci 2018- Yes [id number] Take 500 Univers n 9-13 mg day 1, ity of (ZITHROMAX 00:00: then 250 [place] Z-DEANNA) 250 00 mg days 2 Medi connor mg tablet to 5. Branch azithromyci Yes [id number] Take 500 Univers n 9-13 mg day 1, ity of (ZITHROMAX 00:00: then 250 [place] Z-DEANNA) 250 00 mg days 2 Medi connor mg tablet to 5. Branch azithromyci Yes [id number] Take 500 Univers n 9-13 mg day 1, ity of (ZITHROMAX 00:00: then 250 [place] Z-DEANNA) 250 00 mg days 2 Medi connor mg tablet to 5. Veronika yu Yes [id number] Take 500 Univers n 9-13 mg day 1, ity of (ZITHROMAX 00:00: then 250 [place] Z-DEANNA) 250 00 mg days 2 Medi connor mg tablet to 5. [place] yu Yes [id number] Take 500 Univers n 9-13 mg day 1, ity of (ZITHROMAX 00:00: then 250 [place] Z-DEANNA) 250 00 mg days 2 Medi connor mg tablet to 5. [place] yu Yes [id number] Take 500 Univers n 9-13 mg day 1, ity of (ZITHROMAX 00:00: then 250 [place] Z-DEANNA) 250 00 mg days 2 Medi connor mg tablet to 5. [place] yu Yes [id number] Take 500 Univers n 9-13 mg day 1, ity of (ZITHROMAX 00:00: then 250 [place] Z-DEANNA) 250 00 mg days 2 Medi connor mg tablet to 5. [place] yu Yes [id number] Take 500 Univers n 9-13 mg day 1, ity of (ZITHROMAX 00:00: then 250 [place] Z-DEANNA) 250 00 mg days 2 Medi connor mg tablet to 5. [place] yu Yes [id number] Take 500 Univers n 9-13 mg day 1, ity of (ZITHROMAX 00:00: then 250 [place] Z-DEANNA) 250 00 mg days 2 Medi connor mg tablet to 5. [place] yu Yes [id number] Take 500 Univers n 9-13 mg day 1, ity of (ZITHROMAX 00:00: then 250 [place] Z-DEANNA) 250 00 mg days 2 Medi connor mg tablet to 5. [place] yu Yes [id number] Take 500 Univers n 9-13 mg day 1, ity of (ZITHROMAX 00:00: then 250 [place] Z-DEANNA) 250 00 mg days 2 Medi connor mg tablet to 5. Branch azithromyci Yes [id number] Take 500 Univers n 9-13 mg day 1, ity of (ZITHROMAX 00:00: then 250 [place] Z-DEANNA) 250 00 mg days 2 Medi connor mg tablet to 5. Branch acetaminoph Yes Take by Uni vers en (TYLENOL 9-12 mouth. ity of CHILDREN'S 14:57: [place] ORAL) 59 Medical Branch acetaminoph Yes Take by Uni vers en (TYLENOL 9-12 mouth. ity of CHILDREN'S 14:57: [place] ORAL) 59 Medical Branch acetaminoph Yes Take by Uni vers en (TYLENOL 9-12 mouth. ity of CHILDREN'S 14:57: [place] ORAL) 59 Medical Branch acetaminoph Yes Take by Uni vers en (TYLENOL 9-12 mouth. ity of CHILDREN'S 14:57: [place] ORAL) 59 Medical Branch acetaminoph Yes Take by Uni vers en (TYLENOL 9-12 mouth. ity of CHILDREN'S 14:57: [place] ORAL) 59 Medical Branch acetaminoph Yes Take by Uni vers en (TYLENOL 9-12 mouth. ity of CHILDREN'S 14:57: [place] ORAL) 59 Medical Branch acetaminoph Yes Take by Uni vers en (TYLENOL 9-12 mouth. ity of CHILDREN'S 14:57: [place] ORAL) 59 Medical Branch acetaminoph Yes Take by Uni vers en (TYLENOL 9-12 mouth. ity of CHILDREN'S 14:57: [place] ORAL) 59 Medical Branch acetaminoph Yes Take by Uni vers en (TYLENOL 9-12 mouth. ity of CHILDREN'S 14:57: [place] ORAL) 59 Medical Branch acetaminoph Yes Take by Uni vers en (TYLENOL 9-12 mouth. ity of CHILDREN'S 14:57: [place] ORAL) 59 Medical Branch acetaminoph Yes Take by Uni vers en (TYLENOL 9-12 mouth. ity of CHILDREN'S 14:57: [place] ORAL) 59 Medical Branch acetaminoph Yes Take by Uni vers en (TYLENOL 9-12 mouth. ity of CHILDREN'S 14:57: [place] ORAL) 59 Medical Branch acetaminoph Yes Take by Uni vers en (TYLENOL 9-12 mouth. ity of CHILDREN'S 14:57: [place] ORAL) 59 Medical Branch acetaminoph 2018-0 Yes Take by Uni vers en (TYLENOL 9-12 mouth. ity of CHILDREN'S 14:57: [place] ORAL) 59 Medical Branch acetaminoph 2018-0 Yes Take by Uni vers en (TYLENOL 9-12 mouth. ity of CHILDREN'S [...] on inhaler 00 Medical Branch PROAIR HFA 2018- Yes Univers 90 9-11 ity of mcg/actuati 00:00: [place] on inhaler 00 Medical Branch PROAIR HFA 2018- Yes Univers 90 9-11 ity of mcg/actuati 00:00: [place] on inhaler 00 Medical Branch PROAIR HFA Yes Univers 90 9-11 ity of mcg/actuati 00:00: [place] on inhaler 00 Medical Branch PROAIR HFA Yes Univers 90 9-11 ity of mcg/actuati 00:00: [place] on inhaler 00 Medical Branch PROAIR HFA 2018-0 Yes Univers 90 9-11 ity of mcg/actuati 00:00: [place] on inhaler Medical Branch PROAIR HFA 2018-0 Yes Univers 90 9-11 ity of mcg/actuati 00:00: [place] on inhaler Medical Branch cetirizine Yes [id number] 10mg Take 1 U nivers (ZYRTEC) 10 1-30 tablet by ity of mg tablet 00:00: [place] 00 bedtime as Medical needed for Branch Allergies or Runny nose. cetirizine Yes [id number] 10mg Take 1 U nivers (ZYRTEC) 10 1-30 tablet by ity of mg tablet 00:00: [place] 00 bedtime as Medical needed for Branch Allergies or Runny nose. cetirizine Yes [id number] 10mg Take 1 U nivers (ZYRTEC) 10 1-30 tablet by ity of mg tablet 00:00: [place] 00 bedtime as Medical needed for Branch Allergies or Runny nose. cetirizine Yes [id number] 10mg Take 1 U nivers (ZYRTEC) 10 1-30 tablet by ity of mg tablet 00:00: [place] 00 bedtime as Medical needed for Branch Allergies or Runny nose. cetirizine Yes [id number] 10mg Take 1 U nivers (ZYRTEC) 10 1-30 tablet by ity of mg tablet 00:00: [place] 00 bedtime as Medical needed for Branch Allergies or Runny nose. cetirizine Yes [id number] 10mg Take 1 U nivers (ZYRTEC) 10 1-30 tablet by ity of mg tablet 00:00: [place] 00 bedtime as Medical needed for Branch Allergies or Runny nose. cetirizine Yes [id number] 10mg Take 1 U nivers (ZYRTEC) 10 1-30 tablet by ity of mg tablet 00:00: [place] 00 bedtime as Medical needed for Branch Allergies or Runny nose. cetirizine Yes [id number] 10mg Take 1 U nivers (ZYRTEC) 10 1-30 tablet by ity of mg tablet 00:00: [place] 00 bedtime as Medical needed for Branch Allergies or Runny nose. cetirizine Yes [id number] 10mg Take 1 U nivers (ZYRTEC) 10 1-30 tablet by ity of mg tablet 00:00: [place] 00 bedtime as Medical needed for Branch Allergies or Runny nose. cetirizine Yes [id number] 10mg Take 1 U nivers (ZYRTEC) 10 1-30 tablet by ity of mg tablet 00:00: [place] 00 bedtime as Medical needed for Branch Allergies or Runny nose. cetirizine Yes [id number] 10mg Take 1 U nivers (ZYRTEC) 10 1-30 tablet by ity of mg tablet 00:00: [place] bedtime as Medical needed for Branch Allergies or Runny nose. cetirizine Yes [id number] 10mg Take 1 U nivers (ZYRTEC) 10 1-30 tablet by ity of mg tablet 00:00: [place] 00 bedtime as Medical needed for Branch Allergies or Runny nose. cetirizine Yes [id number] 10mg Take 1 U nivers (ZYRTEC) 10 1-30 tablet by ity of mg tablet 00:00: [place] 00 bedtime as Medical needed for Branch Allergies or Runny nose. cetirizine Yes [id number] 10mg Take 1 U nivers (ZYRTEC) 10 1-30 tablet by ity of mg tablet 00:00: [place] bedtime as Medical needed for Branch Allergies or Runny nose. cetirizine Yes [id number] 10mg Take 1 U nivers (ZYRTEC) 10 1-30 tablet by ity of mg tablet 00:00: [place] bedtime as Medical needed for Branch Allergies or Runny nose. Immunizations Ordered Immunization Filled Immunization Date Status Commen ts Source Name Name SARS-COV-2 COVID-19 2021-10-11 Completed [facility] [employer] VACCINE 00:00:00 [place] Medi connor Branch SARS-COV-2 COVID-19 2021-10-11 Completed Unive rsity of PFIZER VACCINE 00:00:00 [facility] Branch SARS-COV-2 COVID-19 2021-10-11 Completed Unive rsity of PFIZER VACCINE 00:00:00 [facility] Branch SARS-COV-2 COVID-19 2021-10-11 Completed Unive rsity of PFIZER VACCINE 00:00:00 [facility] Branch SARS-COV-2 COVID-19 2021-10-11 Completed Unive rsity of PFIZER VACCINE 00:00:00 [facility] Branch SARS-COV-2 COVID-19 2021-10-11 Completed Unive rsity of PFIZER VACCINE 00:00:00 [facility] Branch SARS-COV-2 COVID-19 2021-10-11 Completed Unive rsity of PFIZER VACCINE 00:00:00 [facility] Branch SARS-COV-2 COVID-19 2021-10-11 Completed Unive rsity of PFIZER VACCINE 00:00:00 [facility] Branch SARS-COV-2 COVID-19 2021-10-11 Completed Unive rsity of PFIZER VACCINE 00:00:00 [facility] Branch SARS-COV-2 COVID-19 2021-10-11 Completed Unive rsity of PFIZER VACCINE 00:00:00 [facility] Branch SARS-COV-2 COVID-19 2021-10-11 Completed Unive rsity of PFIZER VACCINE 00:00:00 [facility] SARS-COV-2 COVID-19 2021-10-11 Completed Unive rsity of PFIZER VACCINE 00:00:00 [facility] Branch SARS-COV-2 COVID-19 2021-10-11 Completed Unive rsity of PFIZER VACCINE 00:00:00 [facility] Branch SARS-COV-2 COVID-19 2021-10-11 Completed Unive rsity of PFIZER VACCINE 00:00:00 [facility] Branch SARS-COV-2 COVID-19 2021-10-11 Completed Unive rsity of PFIZER VACCINE 00:00:00 [facility] SARS-COV-2 COVID-19 2021-02-22 Completed Unive rsity of PFIZER VACCINE 00:00:00 [facility] SARS-COV-2 COVID-19 2021-02-22 Completed Unive rsity of PFIZER VACCINE 00:00:00 [facility] SARS-COV-2 COVID-19 2021-02-22 Completed Unive rsity of PFIZER VACCINE 00:00:00 [facility] SARS-COV-2 COVID-19 2021-02-22 Completed Unive rsity of PFIZER VACCINE 00:00:00 [facility] SARS-COV-2 COVID-19 2021-02-22 Completed Unive rsity of PFIZER VACCINE 00:00:00 [facility] Branch SARS-COV-2 COVID-19 2021-02-22 Completed Unive rsity of PFIZER VACCINE 00:00:00 [facility] SARS-COV-2 COVID-19 2021-02-22 Completed Unive rsity of PFIZER VACCINE 00:00:00 [facility] SARS-COV-2 COVID-19 2021-02-22 Completed Unive rsity of PFIZER VACCINE 00:00:00 [facility] SARS-COV-2 COVID-19 2021-02-22 Completed Unive rsity of PFIZER VACCINE 00:00:00 [facility] SARS-COV-2 COVID-19 2021-02-22 Completed Unive rsity of PFIZER VACCINE 00:00:00 [facility] SARS-COV-2 COVID-19 2021-02-22 Completed Unive rsity of PFIZER VACCINE 00:00:00 [facility] SARS-COV-2 COVID-19 2021-02-22 Completed Unive rsity of PFIZER VACCINE 00:00:00 [facility] SARS-COV-2 COVID-19 2021-02-22 Completed Unive rsity of PFIZER VACCINE 00:00:00 [facility] SARS-COV-2 COVID-19 2021-02-22 Completed Unive rsity of PFIZER VACCINE 00:00:00 [facility] SARS-COV-2 COVID-19 2021-02-22 Completed Unive rsity of PFIZER VACCINE 00:00:00 [facility] Influenza Virus 2019-09-04 Completed Universit y of Vaccine Quad .5 mL IM 00:00:00 [place] [facility] Medical 6+ MO Branch Meningococcal B, OMV 2019-09-04 Completed Univ ersity of 00:00:00 [facility] Influenza Virus 2019-09-04 Completed Universit y of Vaccine Quad .5 mL IM 00:00:00 [place] as Medical 6+ MO Branch Meningococcal B, OMV 2019-09-04 Completed Univ ersity of 00:00:00 [facility] Influenza Virus 2019-09-04 Completed Universit y of Vaccine Quad .5 mL IM 00:00:00 [place] [facility] Medical 6+ MO Branch Meningococcal B, OMV 2019-09-04 Completed Univ ersity of 00:00:00 [facility] Influenza Virus 2019-09-04 Completed Universit y of Vaccine Quad .5 mL IM 00:00:00 [place] [facility] Medical 6+ MO Branch Meningococcal B, OMV 2019-09-04 Completed Univ ersity of 00:00:00 [facility] Influenza Virus 2019-09-04 Completed Universit y of Vaccine Quad .5 mL IM 00:00:00 [place] [facility] Medical 6+ MO Branch Meningococcal B, OMV 2019-09-04 Completed Univ ersity of 00:00:00 [facility] Influenza Virus 2019-09-04 Completed Universit y of Vaccine Quad .5 mL IM 00:00:00 [place] [facility] Medical 6+ MO Branch Meningococcal B, OMV 2019-09-04 Completed Univ ersity of 00:00:00 [facility] Influenza Virus 2019-09-04 Completed Universit y of Vaccine Quad .5 mL IM 00:00:00 [place] [facility] Medical 6+ MO Branch Meningococcal B, OMV 2019-09-04 Completed Univ ersity of 00:00:00 [facility] Influenza Virus 2019-09-04 Completed Universit y of Vaccine Quad .5 mL IM 00:00:00 [place] [facility] Medical 6+ MO Branch Meningococcal B, OMV 2019-09-04 Completed Univ ersity of 00:00:00 [facility] Influenza Virus 2019-09-04 Completed Universit y of Vaccine Quad .5 mL IM 00:00:00 [place] [facility] Medical 6+ MO Branch Meningococcal B, OMV 2019-09-04 Completed Univ ersity of 00:00:00 [facility] Influenza Virus 2019-09-04 Completed [facility] Vacc[facility] Quad .5 mL IM 00:00:00 [facility] Meningococcal B, OMV 2019-09-04 Completed [facility] ers[facility] of 00:00:00 [facility] Influenza Virus 2019-09-04 Completed [facility] Vaccine Quad .5 mL IM 00:00:00 [facility] Meningococcal B, OMV 2019-09-04 Completed [facility] ers[facility] of 00:00:00 [facility] Influenza Virus 2019-09-04 Completed [facility] Vaccine Quad .5 mL IM 00:00:00 [facility] Meningococcal B, OMV 2019-09-04 Completed [facility] 00:00:00 [facility] Influenza Virus 2019-09-04 Completed [facility] Vaccine Quad .5 mL IM 00:00:00 [facility] Meningococcal B, OMV 2019-09-04 Completed [facility] 00:00:00 [facility] Influenza Virus 2019-09-04 Completed [facility] Vaccine Quad .5 mL IM 00:00:00 [facility] Meningococcal B, OMV 2019-09-04 Completed [facility] ers[facility] of 00:00:00 [facility] Influenza Virus 2019-09-04 Completed [facility] Vaccine Quad .5 mL IM 00:00:00 [facility] Meningococcal B, OMV 2019-09-04 Completed [facility] 00:00:00 [facility] Meningococcal 2018-04-09 Completed [facility] Polysaccharide 00:00:00 [place] [facility] (groups A, C, Y and Branc h W-135) conjugate vaccine (MCV4P) Meningococcal B, OMV 2018-04-09 Completed [facility] ers[facility] of 00:00:00 [facility] Meningococcal 2018-04-09 Completed [facility] of Polysaccharide 00:00:00 [place] [facility] (groups A, C, Y and Branc h W-135) conjugate vaccine (MCV4P) Meningococcal B, OMV 2018-04-09 Completed [facility] 00:00:00 [facility] Meningococcal 2018-04-09 Completed [facility] Polysaccharide 00:00:00 [place] [facility] (groups A, C, Y and Branc h W-135) conjugate vaccine (MCV4P) Meningococcal B, OMV 2018-04-09 Completed [facility] 00:00:00 [facility] Meningococcal 2018-04-09 Completed [facility] Polysaccharide 00:00:00 [place] [facility] (groups A, C, Y and Branc h W-135) conjugate vaccine (MCV4P) Meningococcal B, OMV 2018-04-09 Completed [facility] ers[facility] 00:00:00 [facility] Meningococcal 2018-04-09 Completed [facility] of Polysaccharide 00:00:00 [place] [facility] (groups A, C, Y and Branc h W-135) conjugate vaccine (MCV4P) Meningococcal B, OMV 2018-04-09 Completed [facility] 00:00:00 [facility] Meningococcal 2018-04-09 Completed [facility] Polysaccharide 00:00:00 [place] [facility] (groups A, C, Y and Branc h W-135) conjugate vaccine (MCV4P) Meningococcal B, OMV 2018-04-09 Completed [facility] ers[facility] 00:00:00 [facility] Meningococcal 2018-04-09 Completed [facility] Polysaccharide 00:00:00 [place] [facility] (groups A, C, Y and Branc h W-135) conjugate vaccine (MCV4P) Meningococcal B, OMV 2018-04-09 Completed [facility] ers[facility] of 00:00:00 [facility] Meningococcal 2018-04-09 Completed [facility] of Polysaccharide 00:00:00 [place] [facility] (groups A, C, Y and Branc h W-135) conjugate vaccine (MCV4P) Meningococcal B, OMV 2018-04-09 Completed [facility] ers[facility] of 00:00:00 [facility] Meningococcal 2018-04-09 Completed [facility] Polysaccharide 00:00:00 [place] [facility] (groups A, C, Y and Branc h W-135) conjugate vaccine (MCV4P) Meningococcal B, OMV 2018-04-09 Completed [facility] 00:00:00 [facility] Meningococcal 2018-04-09 Completed [facility] Polysaccharide 00:00:00 [place] [facility] (groups A, C, Y and Branc h W-135) conjugate vaccine (MCV4P) Meningococcal B, OMV 2018-04-09 Completed [facility] ers[facility] of 00:00:00 [facility] Meningococcal 2018-04-09 Completed [facility] Polysaccharide 00:00:00 [place] [facility] (groups A, C, Y and Branc h W-135) conjugate vaccine (MCV4P) Meningococcal B, OMV 2018-04-09 Completed [facility] 00:00:00 [facility] Meningococcal 2018-04-09 Completed [facility] Polysaccharide 00:00:00 [place] [facility] (groups A, C, Y and Branc h W-135) conjugate vaccine (MCV4P) Meningococcal B, OMV 2018-04-09 Completed [facility] ers[facility] 00:00:00 [facility] Meningococcal 2018-04-09 Completed [facility] of Polysaccharide 00:00:00 [place] [facility] (groups A, C, Y and Branc h W-135) conjugate vaccine (MCV4P) Meningococcal B, OMV 2018-04-09 Completed [facility] ers[facility] of 00:00:00 [facility] Meningococcal 2018-04-09 Completed [facility] of Polysaccharide 00:00:00 [place] [facility] (groups A, C, Y and Branc h W-135) conjugate vaccine (MCV4P) Meningococcal B, OMV 2018-04-09 Completed [facility] ers[facility] of 00:00:00 [facility] Meningococcal 2018-04-09 Completed [facility] of Polysaccharide 00:00:00 [place] [facility] (groups A, C, Y and Branc h W-135) conjugate vaccine (MCV4P) Meningococcal B, OMV 2018-04-09 Completed [facility] of 00:00:00 [facility] HPV9 2017-03-27 Completed [facility] of 00:00:00 [facility] HPV9 2017-03-27 Completed [facility] 00:00:00 [facility] HPV9 2017-03-27 Completed [facility] of 00:00:00 [facility] HPV9 2017-03-27 Completed [facility] of 00:00:00 [facility] HPV9 2017-03-27 Completed [facility] of 00:00:00 [facility] HPV9 2017-03-27 Completed [facility] of 00:00:00 [facility] HPV9 2017-03-27 Completed [facility] 00:00:00 [facility] HPV9 2017-03-27 Completed [facility] of 00:00:00 [facility] HPV9 2017-03-27 Completed [facility] of 00:00:00 [facility] HPV9 2017-03-27 Completed [facility] of 00:00:00 [facility] HPV9 2017-03-27 Completed [facility] of 00:00:00 [facility] HPV9 2017-03-27 Completed [facility] of 00:00:00 [facility] HPV9 2017-03-27 Completed [facility] of 00:00:00 [facility] HPV9 2017-03-27 Completed [facility] of 00:00:00 [facility] HPV9 2017-03-27 Completed [facility] of 00:00:00 [facility] HPV9 2016-03-08 Completed [facility] 00:00:00 [facility] HPV 2016-03-08 Completed [facility] 00:00:00 [facility] HPV9 2016-03-08 Completed [facility] 00:00:00 [facility] HPV 2016-03-08 Completed [facility] 00:00:00 [facility] HPV9 2016-03-08 Completed [facility] 00:00:00 [facility] HPV 2016-03-08 Completed [facility] 00:00:00 [facility] HPV9 2016-03-08 Completed [facility] 00:00:00 [facility] HPV 2016-03-08 Completed [facility] 00:00:00 [facility] HPV9 2016-03-08 Completed [facility] 00:00:00 [facility] HPV 2016-03-08 Completed [facility] 00:00:00 [facility] HPV9 2016-03-08 Completed [facility] 00:00:00 [facility] HPV 2016-03-08 Completed [facility] 00:00:00 [facility] HPV9 2016-03-08 Completed [facility] 00:00:00 [facility] HPV 2016-03-08 Completed [facility] 00:00:00 [facility] HPV9 2016-03-08 Completed [facility] 00:00:00 [facility] HPV 2016-03-08 Completed [facility] 00:00:00 [facility] HPV9 2016-03-08 Completed [facility] 00:00:00 [facility] HPV 2016-03-08 Completed [facility] 00:00:00 [facility] HPV9 2016-03-08 Completed [facility] 00:00:00 [facility] HPV 2016-03-08 Completed [facility] 00:00:00 [facility] HPV9 2016-03-08 Completed [facility] 00:00:00 [facility] HPV 2016-03-08 Completed [facility] 00:00:00 [facility] HPV9 2016-03-08 Completed [facility] 00:00:00 [facility] HPV 2016-03-08 Completed [facility] 00:00:00 [facility] HPV9 2016-03-08 Completed [facility] 00:00:00 [facility] HPV 2016-03-08 Completed [facility] 00:00:00 [facility] HPV9 2016-03-08 Completed [facility] 00:00:00 [facility] HPV 2016-03-08 Completed [facility] 00:00:00 [facility] HPV9 2016-03-08 Completed [facility] of [...] Branch HPV 2013-11-11 Completed [facility] 00:00:00 [facility] HPV 2013-11-11 Completed [facility] 00:00:00 [facility] HPV 2013-11-11 Completed [facility] 00:00:00 [facility] HPV 2013-11-11 Completed [facility] of [...] Completed [facility] of 00:00:00 [facility] Meningococcal Vaccine 2013-03-31 Completed Uni versity of 00:00:00 [facility] TDAP 2013-03-31 Completed [facility] 00:00:00 [facility] Meningococcal Vaccine 2013-03-31 Completed Uni versity [facility] 00:00:00 [facility] TDAP 2013-03-31 Completed [facility] 00:00:00 [facility] Meningococcal Vaccine 2013-03-31 Completed Uni vers[facility] of 00:00:00 [facility] TDAP 2013-03-31 Completed [facility] 00:00:00 [facility] Meningococcal Vaccine 2013-03-31 Completed Uni vers[facility] of 00:00:00 [facility] TDAP 2013-03-31 Completed [facility] 00:00:00 [facility] Meningococcal Vaccine 2013-03-31 Completed Uni vers[facility] of 00:00:00 [facility] TDAP 2013-03-31 Completed [facility] 00:00:00 [facility] Meningococcal Vaccine 2013-03-31 Completed Uni versity of 00:00:00 [facility] TDAP 2013-03-31 Completed [facility] 00:00:00 [facility] Meningococcal Vaccine 2013-03-31 Completed Uni versity of 00:00:00 [facility] TDAP 2013-03-31 Completed [facility] 00:00:00 [facility] Meningococcal Vaccine 2013-03-31 Completed Uni vers[facility] 00:00:00 [facility] TDAP 2013-03-31 Completed [facility] 00:00:00 [facility] Meningococcal Vaccine 2013-03-31 Completed Uni versity of 00:00:00 [facility] TDAP 2013-03-31 Completed [facility] 00:00:00 [facility] Meningococcal Vaccine 2013-03-31 Completed Uni vers[facility] 00:00:00 [facility] TDAP 2013-03-31 Completed [facility] 00:00:00 [facility] Meningococcal Vaccine 2013-03-31 Completed Uni vers[facility] 00:00:00 [facility] TDAP 2013-03-31 Completed [facility] 00:00:00 [facility] Meningococcal Vaccine 2013-03-31 Completed Uni vers[facility] of 00:00:00 [facility] TDAP 2013-03-31 Completed [facility] 00:00:00 [facility] Meningococcal Vaccine 2013-03-31 Completed Uni vers[facility] 00:00:00 [facility] TDAP 2013-03-31 Completed [facility] 00:00:00 [facility] Meningococcal Vaccine 2013-03-31 Completed Uni versity of 00:00:00 [facility] TDAP 2013-03-31 Completed [facility] of 00:00:00 [facility] Meningococcal Vaccine 2013-03-31 Completed Uni versity of 00:00:00 [facility] TDAP 2013-03-31 Completed [facility] of 00:00:00 [facility] HEPATITIS A 2010-09-19 Completed [facility] of 00:00:00 [facility] HEPATITIS A 2010-09-19 Completed [facility] 00:00:00 [facility] HEPATITIS A 2010-09-19 Completed [facility] of 00:00:00 [facility] HEPATITIS A 2010-09-19 Completed [facility] of 00:00:00 [facility] HEPATITIS A 2010-09-19 Completed [facility] of 00:00:00 [facility] HEPATITIS A 2010-09-19 Completed [facility] of 00:00:00 [facility] HEPATITIS A 2010-09-19 Completed [facility] of 00:00:00 [facility] HEPATITIS A 2010-09-19 Completed [facility] of 00:00:00 [facility] HEPATITIS A 2010-09-19 Completed [facility] of 00:00:00 [facility] HEPATITIS A 2010-09-19 Completed [facility] 00:00:00 [facility] HEPATITIS A 2010-09-19 Completed [facility] 00:00:00 [facility] HEPATITIS A 2010-09-19 Completed [facility] of 00:00:00 [facility] HEPATITIS A 2010-09-19 Completed [facility] of 00:00:00 [facility] HEPATITIS A 2010-09-19 Completed [facility] of 00:00:00 [facility] HEPATITIS A 2010-09-19 Completed [facility] 00:00:00 [facility] HEPATITIS A 2006-12-10 Completed [facility] 00:00:00 [facility] HEPATITIS A 2006-12-10 Completed [facility] 00:00:00 [facility] HEPATITIS A 2006-12-10 Completed [facility] 00:00:00 [facility] HEPATITIS A 2006-12-10 Completed [facility] 00:00:00 [facility] HEPATITIS A 2006-12-10 Completed [facility] 00:00:00 [facility] HEPATITIS A 2006-12-10 Completed [facility] 00:00:00 [facility] HEPATITIS A 2006-12-10 Completed [facility] 00:00:00 [facility] HEPATITIS A 2006-12-10 Completed [facility] of 00:00:00 [facility] HEPATITIS A 2006-12-10 Completed [facility] of 00:00:00 [facility] HEPATITIS A 2006-12-10 Completed [facility] of 00:00:00 [facility] HEPATITIS A 2006-12-10 Completed [facility] of 00:00:00 [facility] HEPATITIS A 2006-12-10 Completed [facility] of 00:00:00 [facility] HEPATITIS A 2006-12-10 Completed [facility] of 00:00:00 [facility] HEPATITIS A 2006-12-10 Completed [facility] of 00:00:00 [facility] HEPATITIS A 2006-12-10 Completed [facility] of 00:00:00 [facility] Varicella 2006-09-12 Completed University of (varivax)(chicken 00:00:00 [...] Branch DTAP 2006-02-04 Completed [facility] of 00:00:00 [facility] HEPATITIS A 2006-02-04 Completed [facility] of 00:00:00 [facility] MMR 2006-02-04 Completed [facility] of 00:00:00 [facility] Polio (IPV/OPV) 2006-02-04 Completed [facility] 00:00:00 [facility] DTAP 2006-02-04 Completed [facility] of 00:00:00 [facility] HEPATITIS A 2006-02-04 Completed [facility] of 00:00:00 [facility] MMR 2006-02-04 Completed [facility] of 00:00:00 [facility] Polio (IPV/OPV) 2006-02-04 Completed [facility] 00:00:00 [facility] DTAP 2006-02-04 Completed [facility] of 00:00:00 [facility] HEPATITIS A 2006-02-04 Completed [facility] of 00:00:00 [facility] MMR 2006-02-04 Completed [facility] of 00:00:00 [facility] Polio (IPV/OPV) 2006-02-04 Completed [facility] 00:00:00 [facility] DTAP 2006-02-04 Completed [facility] of 00:00:00 [facility] HEPATITIS A 2006-02-04 Completed [facility] of 00:00:00 [facility] MMR 2006-02-04 Completed [facility] of 00:00:00 [facility] Polio (IPV/OPV) 2006-02-04 Completed [facility] of 00:00:00 [facility] DTAP 2006-02-04 Completed [facility] of 00:00:00 [facility] HEPATITIS A 2006-02-04 Completed [facility] of 00:00:00 [facility] MMR 2006-02-04 Completed [facility] of 00:00:00 [facility] Polio (IPV/OPV) 2006-02-04 Completed [facility] 00:00:00 [facility] DTAP 2006-02-04 Completed [facility] of 00:00:00 [facility] HEPATITIS A 2006-02-04 Completed [facility] of 00:00:00 [facility] MMR 2006-02-04 Completed [facility] of 00:00:00 [facility] Polio (IPV/OPV) 2006-02-04 Completed [facility] 00:00:00 [facility] DTAP 2006-02-04 Completed [facility] 00:00:00 [facility] HEPATITIS A 2006-02-04 Completed [facility] of 00:00:00 [facility] MMR 2006-02-04 Completed [facility] 00:00:00 [facility] Polio (IPV/OPV) 2006-02-04 Completed [facility] 00:00:00 [facility] DTAP 2006-02-04 Completed [facility] 00:00:00 [facility] HEPATITIS A 2006-02-04 Completed [facility] of 00:00:00 [facility] MMR 2006-02-04 Completed [facility] of 00:00:00 [facility] Polio (IPV/OPV) 2006-02-04 Completed [facility] of 00:00:00 [facility] DTAP 2006-02-04 Completed [facility] of 00:00:00 [facility] HEPATITIS A 2006-02-04 Completed [facility] of 00:00:00 [facility] MMR 2006-02-04 Completed [facility] of 00:00:00 [facility] Polio (IPV/OPV) 2006-02-04 Completed [facility] 00:00:00 [facility] DTAP 2006-02-04 Completed [facility] of 00:00:00 [facility] HEPATITIS A 2006-02-04 Completed [facility] of 00:00:00 [facility] MMR 2006-02-04 Completed [facility] of 00:00:00 [facility] Polio (IPV/OPV) 2006-02-04 Completed [facility] 00:00:00 [facility] DTAP 2006-02-04 Completed [facility] 00:00:00 [facility] HEPATITIS A 2006-02-04 Completed [facility] 00:00:00 [facility] [place] [facility] MMR 2006-02-04 Completed [facility] 00:00:00 [facility] Polio (IPV/OPV) 2006-02-04 Completed [facility] 00:00:00 [facility] DTAP 2006-02-04 Completed [facility] 00:00:00 [facility] HEPATITIS A 2006-02-04 Completed [facility] of 00:00:00 [facility] MMR 2006-02-04 Completed [facility] of 00:00:00 [facility] Polio (IPV/OPV) 2006-02-04 Completed [facility] 00:00:00 [facility] DTAP 2006-02-04 Completed [facility] 00:00:00 [facility] HEPATITIS A 2006-02-04 Completed [facility] of 00:00:00 [facility] MMR 2006-02-04 Completed [facility] of 00:00:00 [facility] Polio (IPV/OPV) 2006-02-04 Completed [facility] of 00:00:00 [facility] DTAP 2006-02-04 Completed [facility] of 00:00:00 [facility] HEPATITIS A 2006-02-04 Completed [facility] of 00:00:00 [facility] MMR 2006-02-04 Completed [facility] of 00:00:00 [facility] Polio (IPV/OPV) 2006-02-04 Completed [facility] of 00:00:00 [facility] DTAP 2006-02-04 Completed [facility] of 00:00:00 [facility] HEPATITIS A 2006-02-04 Completed [facility] of 00:00:00 [facility] MMR 2006-02-04 Completed [facility] of 00:00:00 [facility] Polio (IPV/OPV) 2006-02-04 Completed [facility] of 00:00:00 [facility] DTAP 2003-06-15 Completed [facility] of 00:00:00 [facility] HIB 4 Dose Schedule 2003-06-15 Completed Unive rsity of 00:00:00 [facility] Pneumococcal 13 2003-06-15 Completed Universit y of Conjugate, PCV13 00:00:00 [facility] dical (Prevnar 13) Branch DTAP 2003-06-15 Completed [facility] of 00:00:00 [facility] HIB 4 Dose Schedule 2003-06-15 Completed Unive rsity of 00:00:00 [facility] Pneumococcal 13 2003-06-15 Completed [facility]it [facility] of Conjugate, PCV13 00:00:00 [facility] dical (Prevnar 13) Branch DTAP 2003-06-15 Completed [facility] of 00:00:00 [facility] HIB 4 Dose Schedule 2003-06-15 Completed Unive rsity of 00:00:00 [facility] Pneumococcal 13 2003-06-15 Completed [facility]it [facility] of Conjugate, PCV13 00:00:00 [facility] dical (Prevnar 13) Branch DTAP 2003-06-15 Completed [facility] of 00:00:00 [facility] HIB 4 Dose Schedule 2003-06-15 Completed Unive rsity of 00:00:00 [facility] Pneumococcal 13 2003-06-15 Completed [facility] of Conjugate, PCV13 00:00:00 [place] [facility] (Prevnar 13) [facility] DTAP 2003-06-15 Completed [facility] 00:00:00 [facility] HIB 4 Dose Schedule 2003-06-15 Completed Unive rsity of 00:00:00 [facility] Pneumococcal 13 2003-06-15 Completed [facility]it [facility] of Conjugate, PCV13 00:00:00 [place] [facility] (Prevnar 13) Branch DTAP 2003-06-15 Completed [facility] 00:00:00 [facility] HIB 4 Dose Schedule 2003-06-15 Completed Unive rsity of 00:00:00 [facility] Pneumococcal 13 2003-06-15 Completed Universit [facility] of Conjugate, PCV13 00:00:00 [place] [facility] (Prevnar 13) Branch DTAP 2003-06-15 Completed [facility] 00:00:00 [facility] HIB 4 Dose Schedule 2003-06-15 Completed Unive rsity of 00:00:00 [facility] Pneumococcal 13 2003-06-15 Completed Universit y of Conjugate, PCV13 00:00:00 [place] [facility] (Prevnar 13) Branch DTAP 2003-06-15 Completed [facility] 00:00:00 [facility] HIB 4 Dose Schedule 2003-06-15 Completed Unive rsity of 00:00:00 [facility] Pneumococcal 13 2003-06-15 Completed [facility]it y of Conjugate, PCV13 00:00:00 [place] [facility] (Prevnar 13) Branch DTAP 2003-06-15 Completed [facility] 00:00:00 [facility] HIB 4 Dose Schedule 2003-06-15 Completed Unive rsity of 00:00:00 [facility] Pneumococcal 13 2003-06-15 Completed Universit y of Conjugate, PCV13 00:00:00 [place] [facility] (Prevnar 13) Branch DTAP 2003-06-15 Completed [facility] 00:00:00 [facility] HIB 4 Dose Schedule 2003-06-15 Completed Unive rsity of 00:00:00 [facility] Pneumococcal 13 2003-06-15 Completed Universit y of Conjugate, PCV13 00:00:00 [place] [facility] (Prevnar 13) Branch DTAP 2003-06-15 Completed [facility] 00:00:00 [facility] HIB 4 Dose Schedule 2003-06-15 Completed Unive rsity of 00:00:00 [facility] Pneumococcal 13 2003-06-15 Completed Universit y of Conjugate, PCV13 00:00:00 [facility] dical (Prevnar 13) Branch DTAP 2003-06-15 Completed University of 00:00:00 [facility] HIB 4 Dose Schedule 2003-06-15 Completed Unive rsity of 00:00:00 [facility] Pneumococcal 13 2003-06-15 Completed Universit y of Conjugate, PCV13 00:00:00 [facility] dical (Prevnar 13) Branch DTAP 2003-06-15 Completed University of 00:00:00 [facility] HIB 4 Dose Schedule 2003-06-15 Completed Unive rsity of 00:00:00 [facility] Pneumococcal 13 2003-06-15 Completed Universit y of Conjugate, PCV13 00:00:00 [place] [facility] (Prevnar 13) [facility] DTAP 2003-06-15 Completed University of 00:00:00 [facility] HIB 4 Dose Schedule 2003-06-15 Completed Unive rsity of 00:00:00 [facility] Pneumococcal 13 2003-06-15 Completed Universit y of Conjugate, PCV13 00:00:00 [facility] dical (Prevnar 13) Branch DTAP 2003-06-15 Completed University of 00:00:00 [facility] HIB 4 Dose Schedule 2003-06-15 Completed Unive rsity of 00:00:00 [facility] Pneumococcal 13 2003-06-15 Completed Universit y of Conjugate, PCV13 00:00:00 [facility] dical (Prevnar 13) Branch MMR 2003-03-10 Completed University of 00:00:00 [facility] Polio (IPV/OPV) 2003-03-10 Completed Universit y of 00:00:00 [facility] Varicella 2003-03-10 Completed University of (varivax)(chicken 00:00:00 [place] [facility] pox) [facility] MMR 2003-03-10 Completed University of 00:00:00 [facility] Polio (IPV/OPV) 2003-03-10 Completed Universit y of 00:00:00 [facility] Varicella 2003-03-10 Completed University of (varivax)(chicken 00:00:00 [place] [facility] pox) [facility] MMR 2003-03-10 Completed University of 00:00:00 [facility] Polio (IPV/OPV) 2003-03-10 Completed Universit y of 00:00:00 [facility] Varicella 2003-03-10 Completed University of (varivax)(chicken 00:00:00 [place] [facility] pox) [facility] 2003-03-10 Completed University of 00:00:00 [facility] Polio (IPV/OPV) 2003-03-10 Completed Universit y of 00:00:00 [facility] Varicella 2003-03-10 Completed University of (varivax)(chicken 00:00:00 [place] [facility] pox) [facility] 2003-03-10 Completed University of 00:00:00 [facility] Polio (IPV/OPV) 2003-03-10 Completed Universit y of 00:00:00 [facility] Varicella 2003-03-10 Completed University of (varivax)(chicken 00:00:00 [place] [facility] pox) [facility] 2003-03-10 Completed University of 00:00:00 [facility] Polio (IPV/OPV) 2003-03-10 Completed Universit y of 00:00:00 [facility] Varicella 2003-03-10 Completed University of (varivax)(chicken 00:00:00 [place] [facility] pox) [facility] 2003-03-10 Completed University of 00:00:00 [facility] Polio (IPV/OPV) 2003-03-10 Completed Universit y of 00:00:00 [facility] Varicella 2003-03-10 Completed University of (varivax)(chicken 00:00:00 [place] [facility] pox) [facility] 2003-03-10 Completed University of 00:00:00 [facility] Polio (IPV/OPV) 2003-03-10 Completed Universit y of 00:00:00 [facility] Varicella 2003-03-10 Completed University of (varivax)(chicken 00:00:00 [place] [facility] pox) [facility] 2003-03-10 Completed University of 00:00:00 [facility] Polio (IPV/OPV) 2003-03-10 Completed Universit y of 00:00:00 [facility] Varicella 2003-03-10 Completed University of (varivax)(chicken 00:00:00 [place] [facility] pox) Branch [facility] 2003-03-10 Completed University of 00:00:00 [facility] Polio (IPV/OPV) 2003-03-10 Completed Universit y of 00:00:00 [facility] Varicella 2003-03-10 Completed University of (varivax)(chicken 00:00:00 [place] [facility] pox) Branch MMR 2003-03-10 Completed University of 00:00:00 [facility] Polio (IPV/OPV) 2003-03-10 Completed Universit y of 00:00:00 [facility] Varicella 2003-03-10 Completed University of (varivax)(chicken 00:00:00 [place] [facility] pox) Branch MMR 2003-03-10 Completed University of 00:00:00 [facility] Polio (IPV/OPV) 2003-03-10 Completed Universit y of 00:00:00 [facility] Varicella 2003-03-10 Completed University of (varivax)(chicken 00:00:00 [place] [facility] pox) Branch [facility] 2003-03-10 Completed University of 00:00:00 [facility] Polio (IPV/OPV) 2003-03-10 Completed Universit y of 00:00:00 [facility] Varicella 2003-03-10 Completed University of (varivax)(chicken 00:00:[address] [facility] edical pox) Branch [facility] 2003-03-10 Completed University of 00:00:00 [facility] Polio (IPV/OPV) 2003-03-10 Completed Universit y of 00:00:00 [facility] Varicella 2003-03-10 Completed University of (varivax)(chicken 00:00:[address] [facility] edical pox) Branch [facility] 2003-03-10 Completed University of 00:00:00 [facility] Polio (IPV/OPV) 2003-03-10 Completed Universit y of 00:00:00 [facility] Varicella 2003-03-10 Completed University of (varivax)(chicken 00:00:[address] [facility] edical pox) Branch DTAP 2002 Completed University of 00:00:00 [facility] HIB 4 Dose Schedule 2002 Completed Unive rsity of 00:00:00 [facility] Hep B, Adol or Pedi 2002 Completed Unive rsity of Dosage 00:00:00 [facility] DTAP 2002 Completed University of 00:00:00 [facility] HIB 4 Dose Schedule 2002 Completed Unive rsity of 00:00:00 [facility] Hep B, Adol or Pedi 2002 Completed Unive rsity of Dosage 00:00:00 [facility] [place] [facility] DTAP 2002 Completed University [facility] 00:00:00 [facility] [place] [facility] HIB 4 Dose Schedule 2002 Completed Unive rsity of 00:00:00 [place] [facility] Hep B, Adol or Pedi 2002 Completed Unive rsity of Dosage 00:00:00 [facility] [place] [facility] DTAP 2002 Completed University of 00:00:00 [facility] [place] [facility] HIB 4 Dose Schedule 2002 Completed Unive rsity of 00:00:00 [place] [facility] Hep B, Adol or Pedi 2002 Completed Unive rsity of Dosage 00:00:00 [facility] [place] [facility] DTAP 2002 Completed University of 00:00:00 [facility] HIB 4 Dose Schedule 2002 Completed Unive rsity of 00:00:00 [facility] Hep B, Adol or Pedi 2002 Completed Unive rsity of Dosage 00:00:00 [facility] [place] [facility] DTAP 2002 Completed [facility] 00:00:00 [facility] HIB 4 Dose Schedule 2002 Completed Unive rsity of 00:00:00 [facility] Hep B, Adol or Pedi 2002 Completed Unive rsity of Dosage 00:00:00 [facility] DTAP 2002 Completed University [facility] 00:00:00 [facility] HIB 4 Dose Schedule 2002 Completed Unive rsity of 00:00:00 [facility] [place] [facility] Hep B, Adol or Pedi 2002 Completed Unive rsity of Dosage 00:00:00 [facility] [place] [facility] DTAP 2002 Completed [facility] 00:00:00 [facility] HIB 4 Dose Schedule 2002 Completed Unive rsity of 00:00:00 [place] [facility] Hep B, Adol or Pedi 2002 Completed Unive rsity of Dosage 00:00:00 [facility] [place] [facility] DTAP 2002 Completed [facility] of 00:00:00 [facility] HIB 4 Dose Schedule 2002 Completed Unive rsity of 00:00:00 [place] [facility] Hep B, Adol or Pedi 2002 Completed Unive rsity of Dosage 00:00:00 [place] [facility] DTAP 2002 Completed [facility] 00:00:00 [facility] [place] [facility] HIB 4 Dose Schedule 2002 Completed Unive rsity of 00:00:00 [place] [facility] Hep B, Adol or Pedi 2002 Completed Unive rsity of Dosage 00:00:00 [facility] DTAP 2002 Completed University of 00:00:00 [facility] [place] [facility] HIB 4 Dose Schedule 2002 Completed Unive rsity of 00:00:00 [place] [facility] Hep B, Adol or Pedi 2002 Completed Unive rsity of Dosage 00:00:00 [facility] DTAP 2002 Completed University of 00:00:00 [facility] HIB 4 Dose Schedule 2002 Completed Unive rsity of 00:00:00 [facility] [place] [facility] Hep B, Adol or Pedi 2002 Completed Unive rsity of Dosage 00:00:00 [facility] DTAP 2002 Completed University of 00:00:00 [facility] HIB 4 Dose Schedule 2002 Completed Unive rsity of 00:00:00 [facility] [place] [facility] Hep B, Adol or Pedi 2002 Completed Unive rsity of Dosage 00:00:00 [facility] DTAP 2002 Completed University of 00:00:00 [facility] HIB 4 Dose Schedule 2002 Completed Unive rsity of 00:00:00 [facility] Hep B, Adol or Pedi 2002 Completed Unive rsity of Dosage 00:00:00 [facility] DTAP 2002 Completed University of 00:00:00 [facility] HIB 4 Dose Schedule 2002 Completed Unive rsity of 00:00:00 [facility] Hep B, Adol or Pedi 2002 Completed Unive rsity of Dosage 00:00:00 [facility] DTAP 2002 Completed University of 00:00:00 [facility] HIB 4 Dose Schedule 2002 Completed Unive rsity of 00:00:00 [facility] Polio (IPV/OPV) 2002 Completed Universit [facility] of 00:00:00 [facility] DTAP 2002 Completed University [facility] 00:00:00 [place] [facility] HIB 4 Dose Schedule 2002 Completed Unive rsity of 00:00:00 [facility] Polio (IPV/OPV) 2002 Completed Universit [facility] of 00:00:00 [facility] DTAP 2002 Completed University of 00:00:00 [facility] HIB 4 Dose Schedule 2002 Completed Unive rsity of 00:00:00 [facility] Polio (IPV/OPV) 2002 Completed Universit [facility] of 00:00:00 [facility] DTAP 2002 Completed [facility] of 00:00:00 [facility] HIB 4 Dose Schedule 2002 Completed Unive rsity of 00:00:00 [facility] Polio (IPV/OPV) 2002 Completed Universit [facility] of 00:00:00 [facility] DTAP 2002 Completed University of 00:00:00 [facility] HIB 4 Dose Schedule 2002 Completed Unive rsity of 00:00:00 [facility] Polio (IPV/OPV) 2002 Completed Universit [facility] of 00:00:00 [facility] DTAP 2002 Completed University of 00:00:00 [facility] HIB 4 Dose Schedule 2002 Completed Unive rsity of 00:00:00 [facility] Polio (IPV/OPV) 2002 Completed Universit [facility] of 00:00:00 [facility] DTAP 2002 Completed [facility] 00:00:00 [facility] HIB 4 Dose Schedule 2002 Completed Unive rsity of 00:00:00 [facility] Polio (IPV/OPV) 2002 Completed Universit [facility] of 00:00:00 [facility] DTAP 2002 Completed University of 00:00:00 [facility] HIB 4 Dose Schedule 2002 Completed Unive rsity of 00:00:00 [facility] Polio (IPV/OPV) 2002 Completed Universit [facility] of 00:00:00 [facility] DTAP 2002 Completed University of 00:00:00 [facility] HIB 4 Dose Schedule 2002 Completed Unive rsity of 00:00:00 [facility] Polio (IPV/OPV) 2002 Completed Universit [facility] of 00:00:00 [facility] DTAP 2002 Completed University of 00:00:00 [facility] HIB 4 Dose Schedule 2002 Completed Unive rsity of 00:00:00 [facility] Polio (IPV/OPV) 2002 Completed Universit [facility] of 00:00:00 [facility] DTAP 2002 Completed University of 00:00:00 [facility] HIB 4 Dose Schedule 2002 Completed Unive rsity of 00:00:00 [facility] Polio (IPV/OPV) 2002 Completed Universit [facility] of 00:00:00 [facility] DTAP 2002 Completed University of 00:00:00 [facility] HIB 4 Dose Schedule 2002 Completed Unive rsity of 00:00:00 [facility] Polio (IPV/OPV) 2002 Completed Universit [facility] of 00:00:00 [facility] DTAP 2002 Completed University of 00:00:00 [facility] HIB 4 Dose Schedule 2002 Completed Unive rsity of 00:00:00 [facility] Polio (IPV/OPV) 2002 Completed Universit [facility] of 00:00:00 [facility] DTAP 2002 Completed University of 00:00:00 [facility] HIB 4 Dose Schedule 2002 Completed Unive rsity of 00:00:00 [facility] Polio (IPV/OPV) 2002 Completed Universit [facility] of 00:00:00 [facility] DTAP 2002 Completed University of 00:00:00 [facility] HIB 4 Dose Schedule 2002 Completed Unive rsity of 00:00:00 [facility] Polio (IPV/OPV) 2002 Completed Universit [facility] of 00:00:00 [facility] DTAP 2002 Completed University of 00:00:00 [facility] HIB 4 Dose Schedule 2002 Completed Unive rsity of 00:00:00 [facility] Hep B, Adol or Pedi 2002 Completed Unive rsity of Dosage 00:00:00 [facility] Polio (IPV/OPV) 2002 Completed Universit [facility] of 00:00:00 [facility] [place] [facility] DTAP 2002 Completed University [facility] 00:00:00 [facility] HIB 4 Dose Schedule 2002 Completed Unive rsity of 00:00:00 [facility] [place] [facility] Hep B, Adol or Pedi 2002 Completed Unive rsity of Dosage 00:00:00 [facility] Polio (IPV/OPV) 2002 Completed Univers[facility] of 00:00:00 [place] [facility] DTAP 2002 Completed [facility] of 00:00:00 [facility] HIB 4 Dose Schedule 2002 Completed Unive rsity of 00:00:00 [facility] [place] [facility] Hep B, Adol or Pedi 2002 Completed Unive rsity of Dosage 00:00:00 [facility] Polio (IPV/OPV) 2002 Completed Universit [facility] of 00:00:00 [facility] DTAP 2002 Completed [facility] of 00:00:00 [facility] HIB 4 Dose Schedule 2002 Completed Unive rsity of 00:00:00 [facility] [place] [facility] Hep B, Adol or Pedi 2002 Completed Unive rsity of Dosage 00:00:00 [facility] Polio (IPV/OPV) 2002 Completed Universit [facility] of 00:00:00 [facility] DTAP 2002 Completed University of 00:00:00 [facility] HIB 4 Dose Schedule 2002 Completed Unive rsity of 00:00:00 [facility] [place] [facility] Hep B, Adol or Pedi 2002 Completed Unive rsity of Dosage 00:00:00 [facility] Polio (IPV/OPV) 2002 Completed Universit [facility] of 00:00:00 [facility] [place] [facility] DTAP 2002 Completed [facility] of 00:00:00 [facility] HIB 4 Dose Schedule 2002 Completed Unive rsity of 00:00:00 [facility] [place] [facility] Hep B, Adol or Pedi 2002 Completed Unive rsity of Dosage 00:00:00 [facility] Polio (IPV/OPV) 2002 Completed Universit [facility] of 00:00:00 [facility] [place] [facility] DTAP 2002 Completed [facility] of 00:00:00 [place] [facility] HIB 4 Dose Schedule 2002 Completed Unive rsity of 00:00:00 [place] [facility] Hep B, Adol or Pedi 2002 Completed Unive rsity of Dosage 00:00:00 [facility] Polio (IPV/OPV) 2002 Completed Universit [facility] of 00:00:00 [facility] DTAP 2002 Completed [facility] 00:00:00 [facility] HIB 4 Dose Schedule 2002 Completed Unive rsity of 00:00:00 [facility] [place] [facility] Hep B, Adol or Pedi 2002 Completed Unive rsity of Dosage 00:00:00 [facility] Polio (IPV/OPV) 2002 Completed [facility] of 00:00:00 [facility] DTAP 2002 Completed University of 00:00:00 [facility] HIB 4 Dose Schedule 2002 Completed Unive rsity of 00:00:00 [facility] [place] [facility] Hep B, Adol or Pedi 2002 Completed Unive rsity of Dosage 00:00:00 [facility] Polio (IPV/OPV) 2002 Completed Univers[facility] of 00:00:00 [facility] DTAP 2002 Completed [facility] of 00:00:00 [facility] HIB 4 Dose Schedule 2002 Completed Unive rsity of 00:00:00 [facility] [place] [facility] Hep B, Adol or Pedi 2002 Completed Unive rsity of Dosage 00:00:00 [facility] Polio (IPV/OPV) 2002 Completed Universit [facility] of 00:00:00 [facility] [place] [facility] DTAP 2002 Completed [facility] 00:00:00 [facility] HIB 4 Dose Schedule 2002 Completed Unive rsity of 00:00:00 [place] [facility] Hep B, Adol or Pedi 2002 Completed Unive rsity of Dosage 00:00:00 [facility] Polio (IPV/OPV) 2002 Completed Universit [facility] of 00:00:00 [facility] [place] [facility] DTAP 2002 Completed University of 00:00:00 [facility] HIB 4 Dose Schedule 2002 Completed Unive rsity of 00:00:00 [place] [facility] Hep B, Adol or Pedi 2002 Completed Unive rsity of Dosage 00:00:00 [facility] Polio (IPV/OPV) 2002 Completed Universit [facility] of 00:00:00 [facility] DTAP 2002 Completed University of 00:00:00 [facility] HIB 4 Dose Schedule 2002 Completed Unive rsity of 00:00:00 [facility] Hep B, Adol or Pedi 2002 Completed Unive rsity of Dosage 00:00:00 [facility] Polio (IPV/OPV) 2002 Completed Univers[facility] of 00:00:00 [facility] DTAP 2002 Completed [facility] of 00:00:00 [facility] HIB 4 Dose Schedule 2002 Completed Unive rsity of 00:00:00 [facility] Hep B, Adol or Pedi 2002 Completed Unive rsity of Dosage 00:00:00 [facility] Polio (IPV/OPV) 2002 Completed [facility] of 00:00:00 [facility] DTAP 2002 Completed [facility] 00:00:00 [facility] HIB 4 Dose Schedule 2002 Completed Unive rsity of 00:00:00 [facility] Hep B, Adol or Pedi 2002 Completed Unive rsity of Dosage 00:00:00 [facility] Polio (IPV/OPV) 2002 Completed [facility] of 00:00:00 [facility] Hep B, Adol or Pedi 2002 Completed Unive rsity of Dosage 00:00:00 [facility] Hep B, Adol or Pedi 2002 Completed Unive rsity of Dosage 00:00:00 [facility] [place] [facility] Hep B, Adol or Pedi 2002 Completed Unive rsity of Dosage 00:00:00 [place] [facility] Hep B, Adol or Pedi 2002 Completed Unive rsity of Dosage 00:00:00 [facility] [place] [facility] Hep B, Adol or Pedi 2002 Completed Unive rsity of Dosage 00:00:00 [place] [facility] Hep B, Adol or Pedi 2002 Completed Unive rsity of Dosage 00:00:00 [facility] Hep B, Adol or Pedi 2002 Completed Unive rsity of Dosage 00:00:00 [facility] [place] [facility] Hep B, Adol or Pedi 2002 Completed Unive rsity of Dosage 00:00:00 [facility] [place] [facility] Hep B, Adol or Pedi 2002 Completed Unive rsity of Dosage 00:00:00 [facility] [place] [facility] Hep B, Adol or Pedi 2002 Completed Unive rsity of Dosage 00:00:00 [facility] [place] [facility] Hep B, Adol or Pedi 2002 Completed Unive rsity of Dosage 00:00:00 [facility] [place] [facility] Hep B, Adol or Pedi 2002 Completed Unive rsity of Dosage 00:00:00 [facility] Hep B, Adol or Pedi 2002 Completed Unive rsity of Dosage 00:00:00 [facility] Hep B, Adol or Pedi 2002 Completed Unive rsity of Dosage 00:00:00 [facility] [place] [facility] Hep B, Adol or Pedi 2002 Completed Unive rsity of Dosage 00:00:00 [facility] Vital Signs Vital Name Observation Time Observation Value Comments Source Systolic blood 2022-08-25 16:53:00 132 mm[Hg] Univer sity of pressure [facility] Diastolic blood 2022-08-25 16:53:00 77 mm[Hg] Unive rsity of pressure [facility] Heart rate 2022-08-25 16:53:00 89 /min [facility] Body temperature 2022-08-25 16:53:00 36.56 Patricia [facility] rate 2022-08-25 16:53:00 18 /min [facility] height 2022-08-25 16:53:00 177.8 cm [facility] Body weight 2022-08-25 16:53:00 87.544 kg [facility] BMI 2022-08-25 16:53:00 27.69 kg/m2 [facility] Oxygen saturation in 2022-08-25 16:53:00 96 /min [facility] blood by [facility] Pulse oximetry Branch Systolic blood 2022-06-29 20:38:00 132 mm[Hg] Univer sity of pressure [facility] Diastolic blood 2022-06-29 20:38:00 89 mm[Hg] Unive rsity of pressure [facility] Heart rate 2022-06-29 20:38:00 98 /min [facility] Respiratory rate 2022-06-29 20:38:00 18 /min Univ ersity of [facility] Body weight 2022-06-29 20:38:00 86.183 kg [facility] [place] [facility] Oxygen saturation in 2022-06-29 20:38:00 99 /min University of Arterial blood by [facility] Pulse oximetry Branch Systolic blood 2022-03-06 16:11:00 126 mm[Hg] Univer [facility]ity of pressure [facility] Diastolic blood 2022-03-06 16:11:00 81 mm[Hg] [facility]ity [facility] Heart rate 2022-03-06 16:11:00 70 /min [facility] Respiratory rate 2022-03-06 16:11:00 18 /min [facility] Body weight 2022-03-06 16:11:00 82.373 kg [facility] Oxygen saturation in 2022-03-06 16:11:00 98 /min [facility] of Arterial blood by [facility] Pulse oximetry Branch Procedures Procedure Date / Time Performed Performing Clinician Sourc e POCT MOLECULAR FLU 2022-08-25 17:01:00 Unknown, Attending [facility] MEDICAL 2022-06-29 06:01:00 Doctor Unassigned, No [facility] RELEASE/CLEARANCE Name Medical Branch FORMS EXTERNAL PROVIDER 2022-03-07 05:01:00 Doctor Unassigned, No [facility] RECORDS Name Medical Branch Encounters Start End Encounter Admission Attending Care Care Encounter Source Date/Time Date/Time Type Type Clinicians Facility Department ID 2022-08-25 2022-08-25 Outpatient Alejandro COOLEY III [facility] [id number] [facility] 11:00:00 11:58:10 BHAKTI jordan [facility] 2022-08-25 2022-08-[address] [facility] 1.2.840.114 [id number] Univers 11:00:00 11:58:10 Care Unknown, Attending HEALTH 350.1.13.10 ity of [place] 4.2.7.2.686 Jaret as DOV?BLEA [phone] [address] MEDICAL OFFICE [facility] 2022-08-25 2022-08-[address] [facility] 1.2.840.114 [id number] Univers 00:00:00 00:00:00 (Out) C HEALTH 350.1.13.10 it y of [place] 4.2.7.2.686 Jaret as DOV?BLEA [phone] [address] MEDICAL OFFICE [facility] 2022-08-25 2022-08-25 Letter Provider, [facility] 1.2.788.573 [id number] Univers 00:00:00 00:00:00 (Out) Ang Db HEALTH 350.1.13.10 it y of Urgent Care [place] 4.2.7.2.686 [place] DOV?BLEA [phone] [address] MEDICAL OFFICE [facility] 2022-07-04 2022-07-04 Letter WESLY Sinha 1.2.840.114 [id number] Univers 00:00:00 00:00:00 (Out) Ame ISRAEL 350.1.13.10 it y of HOSPITAL 4.2.7.2.686 Jaret as [phone] [address] 2022-07-04 2022-07-04 Telephone Nurse, Prasanna [facility] 1.2.840.114 [id number] Univers 00:00:00 00:00:00 Db Urgent HEALTH 350.1.13.10 ity of Care [place] 4.2.7.2.686 Jarte as DOV?BLEA [phone] [address] MEDICAL OFFICE [facility] 2022-07-04 2022-07-04 Letter Provider, [facility] 1.2.115.585 [id number] Univers 00:00:00 00:00:00 (Out) Ang Db HEALTH 350.1.13.10 it y of Urgent Care [place] 4.2.7.2.686 [place] DOV?BLEA [phone] [address] MEDICAL OFFICE [facility] 2022-07-032022-07-03 Laboratory Only, Ang Db Test [facility] 1.2.8 40.114 [id number] Univers 11:00:00 11:15:00 Only Unknown, Attending HEALTH 350.1.13.10 ity of Millie Rodriguez 4.2.7.2.686 [place] DOV?BLEA [phone] Nd dical KNEY [address] MEDICAL OFFICE BUILDING 2022-07-03 2022-07-03 Outpatient R CHANO [facility] [id number] Univers 11:00:00 11:00:00 MILLIE ity [facility] 2022-06-29 2022-06-29 Outpatient R JEAN BAUMANN [facility] [id number] Univers 15:00:00 15:49:30 JEAN BAUMANN [facility] 2022-06-29 2022-06-[address] [facility] 1.2.840.114 [id number] Univers 15:00:00 15:49:30 Visit Jean JUNG 350.1.13.10 ity [facility] 4.2.7.2.[place] [phone] Nd meganlaney [facility] [address] BUILDING 2022-06-29 2022-06-29 Outpatient R JEAN BAUMANN [facility] [id number] Univers 09:00:00 09:00:00 JEAN BAUMANN [facility] 2022-06-29 2022-06-29 Orders Doctor JARRELL 1.2.840.114 [id number] Univers 00:00:00 00:00:00 Only Unassigned, ISRAEL 350.1.13.10 ity of [place] [facility] 4.2.7.2.686 Jaret as [phone] [address] 2022-06-05 2022-06-05 Outpatient R SHEA [facility] [id number] Univers 13:00:00 13:00:00 ATTENDING ity of [facility] 2022-03-07 2022-03-07 Telephone Debra [facility] 1.2.840.11 [id number] Univers 00:00:00 00:00:00 Ángel ARAUZ 350.1.13.10 it [place] [phone] [facility] [address] 2022-03-07 2022-03-07 Orders Doctor WESLY 1.2.840.114 [id number] Univers 00:00:00 00:00:00 Only Unassigned, ISRAEL 350.1.13.10 ity of [place] [facility] 4.2.7.2.686 Jaret as [phone] [facility] [address] 2022-03-07 2022-03-07 Letter [facility] 1.2.840.114 [id number] Univers 00:00:00 00:00:00 (Out) Ángel ARAUZ 350.1.13.10 it [place] [id number] [address] 2022-03-06 2022-03-06 Outpatient R [facility] [id number] Univers 10:40:00 11:18:26 ÁNGEL jordan of [facility] 2022-03-06 2022-03-06 Office [facility] 1.2.840.114 [id number] Univers 10:40:00 11:18:26 Visit Ángel ARAUZ 350.1.13.10 it [place] [id number] [address] 2022 2022 Letter [facility] 1.2.181.850 [id number] Univers 00:00:00 00:00:00 (Out) [facility] 350.1.13.10 it y [facility] 4.2.7.2.686 [place] DOV?BLEA [phone] Nd josé miguel [address] MEDICAL OFFICE BUILDING 2022-02-01 2022-02-01 Telephone [facility] 1.2.840.11 [id number] Univers 00:00:00 00:00:00 Ángel ARAUZ 350.1.13.10 it [place] [phone] [address] 2022-01-31 2022-01-31 Urgent [facility] 1.2.840.114 [id number] Univers 17:20:00 17:40:00 Care Herlinda HEALTH 350.1.13.10 it y [facility] 4.2.7.2.686 Jaret as DOV?BLEA [phone] [address] MEDICAL OFFICE [facility] 2022-01-31 2022-01-31 Outpatient [facility] [id number] Univers 17:20:00 17:11:16 [facility] 2021-12-20 2021-12-20 Telephone WESLY Morgan 1.2.150.397 [id number] Univers 00:00:00 00:00:00 Nenita WOOD 350.1.13.10 i ty [facility] 4.2.7.2.686 Jaret as [phone] [address] 2021-12-20 2021-12-[address] [facility] 1.2.840.114 [id number] Univers 00:00:00 00:00:00 Randc HEALTH 350.1.13.10 it y of [place] 4.2.7.2.686 Jaret as DOV?BLEA [id number] [address] OFFICE [facility] 2021-12-19 2021-12-19 Outpatient R MARKO [facility] [id number] Univers 17:20:00 18:27:41 TRACI [facility] 2021-12-19 2021-12-[address] [facility] 1.2.840.114 [id number] Univers 17:20:00 17:40:00 Care Pita [facility] 350.1.13.10 ity of [place] 4.2.7.2.686 Jaret as DOV?BLEA [phone] [address] MEDICAL OFFICE [facility] 2021-10-11 2021-10-11 Outpatient R TERENCE HAN [facility] [id number] Univers 14:20:00 14:48:00 ity [facility] 2021-10-11 2021-10-11 Office Terence Han [facility] 1.2.840.114 [id number] Univers 14:20:00 14:48:00 Visit DAVONTE 350.1.13.10 it [place] [id number] [address] 2021-10-11 2021-10-11 Samia LunaTerence tipton [facility] 1.2.840.114 [id number] Univers 00:00:00 00:00:00 (Out) DAVONTE 350.1.13.10 it [place] [id number] [address] 2021-09-12 2021-09-12 Outpatient R [facility] [id number] Univers 10:10:00 10:46:20 , DORINA jordan [facility] 2021-09-12 2021-09-12 Office [facility] 1.2.840.114 [id number] Univers 10:10:00 10:46:20 Visit , Dorina ARAUZ 350.1.13.10 it [place] [id number] [address] 2021-09-12 2021-09-12 Orders Doctor WESLY 1.2.840.114 [id number] Univers 00:00:00 00:00:00 Only Unassigned, ISRAEL 350.1.13.10 ity of [place] [facility] 4.2.7.2.686 Jaret as [phone] [place] [address] [address] 2021-08-23 2021-08-23 Outpatient TERENCE ACKERMAN [facility] [id number] Univers 16:00:00 16:00:00 ity [facility] 2021-08-23 2021-08-23 Outpatient TERENCE ACKERMAN [facility] [id number] Univers 08:00:00 08:00:00 ity [facility] 2021-07-25 2021-07-25 Outpatient TERENCE ACKERMAN [facility] [id number] Univers 08:00:00 08:00:00 ity [facility] 2021-03-17 2021-03-17 Laboratory Lab, Adc [facility] Pob I [facility] 1.2. 840.114 [id number] Univers 11:20:04 11:40:04 Only Millie Rodriguez [facility] 350.1.13.10 ity of [place] 4.2.7.2.686 Jaret as Professio [phone] [facility] [address] Office [facility] 2021-03-17 2021-03-17 Outpatient R CHANO [facility] [id number] Univers 11:40:00 11:40:00 MILLIE [facility] 2020-12-06 2020-12-06 Telephone [facility] 1.2.840.114 [id number] 00:00:00 00:00:00 Ann Arauz 350.1.13.10 Pediatric 4.2.7.2.686 Clinic [id number] [facility] 2020-12-06 2020-12-06 [facility]phone [facility] 1.2.840.114 [id number] Univers 00:00:00 00:00:00 Ann Arauz 350.1.13.10 [place] [phone] [address] 2020-12-05 2020-12-05 [facility] 1.2.840.114 [id number] 15:12:09 15:55:16 Visit Ann Arauz 350.1.13.10 Pediatric 4.2.7.2.686 Clinic [id number] [facility] 2020-12-05 2020-12-05 Office [facility] 1.2.840.114 [id number] Univers 15:12:09 15:55:16 Visit Ann Arauz 350.1.13.10 [place] [id number] [address] 2020-12-05 2020-12-05 Outpatient R DAVID [facility] [id number] Univers 15:20:00 15:20:00 ANN jordan [facility] 2020-11-29 2020-11-29 Outpatient R DE [facility] [id number] Univers 10:40:00 10:40:00 SARMIENTO, ity [facility] 2020-11-24 2020-11-24 Telephone de [facility] 1.2.840.114 [id number] Univers 00:00:00 00:00:00 Davonte Sarmiento 350.1.13.10 ity of [place].2.[place] [id number] [facility] [address] 2020-11-16 2020-11-16 Telephone de [facility] 1.2.840.114 [id number] Univers 00:00:00 00:00:00 Davonte Sarmiento 350.1.13.10 ity of [facility] [place].2.[place] [id number] [address] 2020-11-15 2020-11-15 Office de [facility] 1.2.225.243 [id number] Univers 10:08:10 10:46:44 Visit Davonte Sarmiento 350.1.13.10 ity of [place]2.[place] [phone] [address] 2020-11-15 2020-11-15 Outpatient R DE [facility] [id number] Univers 10:20:00 10:20:00 nikki SARMIENTO [facility] 2020-09-27 2020-09-27 Outpatient R DE [facility] [id number] Univers 16:00:00 16:00:00 nikki SARMIENTO [facility] 2020-09-22 2020-09-22 Public Health Informatician Ira Burleson Lab Main [facility] 1.2.8 40.114 [id number] Univers 13:57:56 14:12:56 Visit Ángel Root 350.1.13 .10 ity of [place] 4.2.7.2.686 Neftali Connessalize [id number] [address] 2020-09-22 2020-09-22 Outpatient R DE [facility] [id number] Univers 14:00:00 14:00:00 nikki SARMIENTO [facility] 2020-09-21 2020-09-21 Office de [facility] 1.2.716.034 [id number] Univers 15:08:11 15:47:29 Visit Davonte Sarmiento 350.1.13.10 ity of [place]2.[place] [id number] [address] 2020-09-21 2020-09-21 Outpatient R DE [facility] [id number] Univers 15:20:00 15:20:00 mann SARMIENTOy of [facility] 2020-09-21 2020-09-21 Outpatient R [facility] [id number] Univers 08:00:00 08:00:00 GUILLERMINA ity of [facility] 2020-08-19 2020-08-19 Letter [facility] 1.2.100.293 [id number] Univers 00:00:00 00:00:00 (Out) Davonte Sarmiento 350.1.13.10 ity of [place]2.[place] [facility] [id number] [address] 2020-08-18 2020-08-18 Letter [facility] 1.2.840.114 [id number] Univers 00:00:00 00:00:00 (Out) Ann Arauz 350.1.13.10 it[place]2.[place] [id number] [address] 2020-08-18 2020-08-18 Telephone [facility] 1.2.840.114 [id number] Univers 00:00:00 00:00:00 Ann Arauz 350.1.13.10 [place]2.[place] [facility] [phone] [address] 2020-08-16 2020-08-16 Office [facility] 1.2.840.114 [id number] Univers 13:22:21 13:48:03 Visit Ann Arauz 350.1.13.10 ity [place].2.[place] [facility] [id number] [address] 2020-08-16 2020-08-16 Outpatient R [facility] [id number] Univers 13:20:00 13:20:00 ANN jordan of [facility] 2020-08-16 2020-08-16 Orders Doctor WESLY 1.2.840.114 [id number] Univers 00:00:00 00:00:00 Only Unassigned, ISRAEL 350.1.13.10 ity of [place] [facility] 4.2.7.2.686 Jaret as [phone] [address] 2020-08-16 2020-08-16 [facility] 1.2.840.114 [id number] Univers 00:00:00 00:00:00 (Out) Ann Arauz 350.1.13.10 it[place].2.[place] [facility] [id number] [address] 2020-05-30 2020-05-30 Orders Doctor JARRELL 1.2.840.114 [id number] Univers 00:00:00 00:00:00 Only Unassigned, ISRAEL 350.1.13.10 ity of [place] [facility] 4.2.7.2.686 Jaret as [phone] [address] 2020-05-11 2020-05-11 Telephone de [facility] 1.2.840.114 [id number] Univers 00:00:00 00:00:00 aDvonte Sarmiento 350.1.13.10 ity of [place] [facility] [place]7.2.[place] [facility] [id number] [address] 2020-05-11 2020-05-11 Orders Doctor JARRELL 1.2.840.114 [id number] Univers 00:00:00 00:00:00 Only Unassigned, ISRAEL 350.1.13.10 ity of [place] [facility] 4.2.7.2.686 Jaret as [id number] [address] 2019-12-10 2019-12-10 Orders Doctor WESLY Swanson.2.840.114 [id number] Univers 00:00:00 00:00:00 Only Unassigned, ISRAEL 350.1.13.10 ity of [place] [facility] 4.2.7.2.686 Jaret as [phone] [address] 2019-09-04 2019-09-04 Office [facility] 1.2.840.114 [id number] Univers 14:00:09 14:35:25 Visit Ann Arauz 350.1.13.10 ity [place]2.[place] [facility] [id number] [address] 2019-09-04 2019-09-04 Orders Doctor WESLY 1.2.840.114 [id number] Univers 00:00:00 00:00:00 Only Unassigned, ISRAEL 350.1.13.10 ity of [place] [facility] 4.2.7.2.686 Jaret as [id number] [address] 2019-04-24 2019-04-24 Office [facility] 1.2.247.376 [id number] Univers 15:50:53 16:37:49 Visit Davonte Sarmiento 350.1.13.10 ity of [place] [facility] [place]7.2.[place] [facility] [id number] [address] 2019-04-23 2019-04-23 Office [facility] 1.2.233.893 [id number] Univers 14:50:35 15:25:37 Visit Davonte Sarmiento 350.1.13.10 ity of [place] [facility] [place]7.2.[place] [facility] [id number] [address] 2019-04-23 2019-04-23 Letter de [facility] 1.2.919.527 [id number] Univers 00:00:00 00:00:00 (Out) Davonte Sarmiento 350.1.13.10 ity of [place] [facility] [place].7.2.[place] [facility] [id number] [address] 2019-04-23 2019-04-23 Orders Doctor WESLY 1.2.840.114 [id number] Univers 00:00:00 00:00:00 Only Unassigned, ISRAEL 350.1.13.10 ity of [place] [facility] 4.2.7.2.686 Jaret as [id number] [address] 2019-04-20 2019-04-20 Telephone [facility] 1.2.840.11 [id number] [facility] 00:00:00 00:00:00 Yovany Lexusjosh Arauz 350.1.13.10 ity of Pediatric 4.2.7.2.686 [facility] [phone] [address] Results Test Description Test Time Test Comments Results Result Comments Source POCT MOLECULAR FLU 2022-08-25 17:13:25 Test Item Value Reference Range Interpretation Comme nts POCT Molecular FluA (test code = 44095-2) Negative Negative POCT Molecular FluB (test code = 71288-2) Negative Negative Lab Interpretation (test code = 49996-1) Normal [facility]
[2022-12-19] MEDS ORDERED: AMOX/K CLAV 875 MG TAB ONE (19:18)
[2022-12-19] MEDS ORDERED: IBUPROFEN 400 MG TAB ONE (19:18)
--- NOTE | 2022-12-19 19:46 | RAD REPORT ---
EXAM DESCRIPTION: RAD - Knee Right 3 View - 12/19/2022 7:36 pm CLINICAL HISTORY: bite wound Pain and swelling COMPARISON: <Comparisons> FINDINGS: No fracture, dislocation or joint effusion.
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
[2022-12-19] MEDS ORDERED: NA CHLORIDE 0.9% 250 ML ONE (20:33)
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
[2022-12-19 21:03] VITALS: TEMP 98.1
[2022-12-19 21:04] VITALS: BP 134/77; O2SAT 100
== END 2022-12-19 20:58 | disposition home or self-care (01) ==
LOC: ER 18:01
DX: S80.212A Abrasion, left knee, initial encounter (principal); S80.211A Abrasion, right knee, initial encounter; S60.512A Abrasion of left hand, initial encounter; S60.511A Abrasion of right hand, initial encounter; Y04.1XXA Assault by human bite, initial encounter; M25.562 Pain in left knee; M25.561 Pain in right knee; M79.642 Pain in left hand; M79.641 Pain in right hand
CPT/HCPCS: 73130 ×2; 73562 ×2; J7050

== ENCOUNTER 2023-04-12 16:58 | Emergency (ER) | payer OTHER, SELFPAY ==
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
--- OUTSIDE RECORDS SUMMARY | 2023-04-12 17:15 | XMS REPORT | Continuity of Care Document ---
:2000 Author Organization [facility] t Address [address] [place] [address] Care Team Providers Name Role Phone ÁNGEL DONOVAN Primary Care Physician Unavailable JEAN BAUMANN Attending Clinician Unavailable JEAN BAUMANN Attending Clinician Unavailable 2, [facility] Attending Clinician Unavailable Doctor Unassigned, [place] Attending Clinician Unavailable BHAKTI COOLEY III Attending Clinician Unavailable King SVETLANA MD, James C Attending Clinician Unknown, Attending Attending Clinician Unavailable Provider, [facility] Attending Clinician Unavailable Ame Sinha RN Attending Clinician Unavailable Nurse, [facility] Attending Clinician Unavailable Only, [facility] Attending Clinician Unavailable Millie Rodriguez MD Attending Clinician UNKNOWN, ATTENDING Attending Clinician Unavailable MILLIE RODRIGUEZ Attending Clinician Unavailable Ángel Christensen Attending Clinician [...] Effective Date Expiration Date S gagan CHAVEZ [id number] 2022 00:00:00 Problems Condition Condition Condition Status Onset Resolution Last Treating Co mments Source Name Details Category Date Date Treatment Clinician Date No known No known Disease Unive rs active active ity of problems problems [facility] Allergies, Adverse Reactions, Alerts Allergy Allergy Status Severity Reaction(s) Onset Inactive Treating Comm ents Source Name Type Date Date Clinician NO KNOWN Drug Active Univers ALLERGIE Class ity of S [facility] Social History Social Habit Start Date Stop Date Quantity Comments Source Exposure to 2022-12-14 2022-12-24 Not sure [facility] SARS-CoV-2 00:00:00 14:56:00 [facility] (event) [place] Tobacco use and 2022-03-06 2022-03-06 Smokeless tobacco Un iversity of exposure 00:00:00 00:00:00 non-user [facility] Sex Assigned At [birth year] Universit y of 00:00:00 00:00:00 [facility] Smoking Status Start Date Stop Date Source Never smoked tobacco [facility] Medications Ordered Filled Start Stop Current Ordering Indication Dosage Frequency Signature Comments Components Source Medication Medication Date Date Medication? Clinician (SIG) Name Name mupirocin 2 Yes [id number] Apply to Univers % ointment 5-12 area(s) 3 ity of 00:00: (three) [place] 00 times Medical daily. Branch mupirocin 2 2022- Yes [id number] Apply to Univers % ointment 5-12 area(s) 3 ity of 00:00: (three) [place] 00 times Medical daily. Branch mupirocin 2 2022- Yes [id number] Apply to Univers % ointment 5-12 area(s) 3 ity of 00:00: (three) [place] 00 times Medical daily. Branch mupirocin 2 2022-0 Yes [id number] Apply to Univers % ointment 5-12 area(s) 3 ity of 00:00: (three) [place] 00 times Medical daily. Branch mupirocin 2 3-0 Yes [id number] Apply to Univers % ointment 5-12 area(s) 3 ity of 00:00: (three) [place] 00 times Medical daily. Branch mupirocin 2 3-0 Yes [id number] Apply to Univers % ointment 5-12 area(s) 3 ity of 00:00: (three) [place] 00 times Medical daily. Branch amoxicillin 2022-0 2022- No [id number] 1{tbl} Take 1 Univers -clavulanat 5-12 05-23 tablet by it y of e 00:00: 04:59 mouth in [place] (AUGMENTIN) 00 :00 the Medical 875-125 mg morning Branch per tablet and 1 tablet in the evening. Do all this for 10 days. amoxicillin 2022-2022- No [id number] 1{tbl} Take 1 Univers -clavulanat 5-12 05-23 tablet by it y of e 00:00: 04:59 mouth in [place] (AUGMENTIN) 00 :00 the Medical 875-125 mg morning Branch per tablet and 1 tablet in the evening. Do all this for 10 days. amoxicillin 2022-0 2022- No [id number] 1{tbl} Take 1 Univers -clavulanat 5-12 05-23 tablet by it y of e 00:00: 04:59 mouth in [place] (AUGMENTIN) 00 :00 the Medical 875-125 mg morning Branch per tablet and 1 tablet in the evening. Do all this for 10 days. amoxicillin 2022-0 2022- No [id number] 1{tbl} Take 1 Univers -clavulanat 5-12 05-23 tablet by it y of e 00:00: 04:59 mouth in [place] (AUGMENTIN) 00 :00 the Medical 875-125 mg morning Branch per tablet and 1 tablet in the evening. Do all this for 10 days. amoxicillin 2022-0 2022- No [id number] 1{tbl} Take 1 Univers -clavulanat 5-12 05-23 tablet by it y of e 00:00: 04:59 mouth in [place] (AUGMENTIN) 00 :00 the Medical 875-125 mg morning Branch per tablet and 1 tablet in the evening. Do all this for 10 days. amoxicillin 2022- No [id number] 1{tbl} Take 1 Univers -clavulanat 5-12 05-23 tablet by it y of e 00:00: 04:59 mouth in [place] (AUGMENTIN) 00 :00 the Medical 875-125 mg morning Branch per tablet and 1 tablet in the evening. Do all this for 10 days. albuterol Yes [id number] 2{puff} Inhale 2 Univers 90 1-14 Puffs ity of mcg/actuati 00:00: every 6 [place] as on inhaler 00 (six) Medical hours as Branch needed for Wheezing or Shortness of Breath. albuterol Yes [id number] 2{puff} Inhale 2 Univers 90 1-14 Puffs ity of mcg/actuati 00:00: every 6 [place] as on inhaler 00 (six) Medical hours as Branch needed for Wheezing or Shortness of Breath. albuterol Yes [id number] 2{puff} Inhale 2 Univers 90 1-14 Puffs ity of mcg/actuati 00:00: every 6 [place] on inhaler 00 (six) Medical hours as Branch needed for Wheezing or Shortness of Breath. albuterol Yes [id number] 2{puff} Inhale 2 Univers 90 1-14 Puffs ity of mcg/actuati 00:00: every 6 [place] on inhaler 00 (six) Medical hours as Branch needed for Wheezing or Shortness of Breath. albuterol Yes [id number] 2{puff} Inhale 2 Univers 90 1-14 Puffs ity of mcg/actuati 00:00: every 6 [place] on inhaler 00 (six) Medical hours as Branch needed for Wheezing or Shortness of Breath. albuterol Yes [id number] 2{puff} Inhale 2 Univers 90 1-14 Puffs ity of mcg/actuati 00:00: every 6 [place] on inhaler 00 (six) Medical hours as Branch needed for Wheezing or Shortness of Breath. albuterol Yes [id number] 2{puff} Inhale 2 Univers 90 1-14 Puffs ity of mcg/actuati 00:00: every 6 [place] on inhaler 00 (six) Medical hours as Branch needed for Wheezing or Shortness of Breath. albuterol Yes [id number] 2{puff} Inhale 2 Univers 90 1-14 Puffs ity of mcg/actuati 00:00: every 6 [place] on inhaler 00 (six) Medical hours as Branch needed for Wheezing or Shortness of Breath. albuterol Yes [id number] 2{puff} Inhale 2 Univers 90 1-14 Puffs ity of mcg/actuati 00:00: every 6 [place] on inhaler 00 (six) Medical hours as Branch needed for Wheezing or Shortness of Breath. albuterol Yes [id number] 2{puff} Inhale 2 Univers 90 1-14 Puffs ity of mcg/actuati 00:00: every 6 [place] on inhaler 00 (six) Medical hours as Branch needed for Wheezing or Shortness of Breath. Methylpredn 0 2022- No [id number] 4mg Take 1 Univers isolone 4 1-14 01-20 tablet by ity of mg tablet 00:00: 05:59 mouth [place] 00 :00 every 12 Medical (twelve) Branch hours for 5 days. Methylpredn 2022-0 3- No [id number] 4mg Take 1 Univers isolone 4 1-14 -20 tablet by ity of mg tablet 00:00: 05:59 mouth [place] 00 :00 every 12 Medical (twelve) Branch hours for 5 days. Methylpredn 2022-0 2022- No [id number] 4mg Take 1 Univers isolone 4 1-14 01-20 tablet by ity of mg tablet 00:00: 05:59 mouth [place] 00 :00 every 12 Medical (twelve) Branch hours for 5 days. naproxen 2021-08 Yes [id number] 500mg Take 1 U nivers 500 mg 1-18 tablet by ity of tablet 00:00: mouth in [place] 00 the Medical morning Branch and 1 tablet in the evening. Take with meals. cyclobenzap 2021-08 Yes [id number] 10mg Take 1 Univers rine 10 mg 1-18 tablet by ity of tablet 00:00: mouth at [place] [address] bedtime as Medical needed for Branch Muscle Spasms. Diclofenac 2021-08 Yes [id number] Take 2-4 Univers Sodium 1-18 grams ity of (VOLTAREN) 00:00: three [place] 1 % gel 00 times a Medical day as Branch needed for pain naproxen 2021-08 Yes [id number] 500mg Take 1 U nivers 500 mg 1-18 tablet by ity of tablet 00:00: mouth in [place] 00 the Medical morning Branch and 1 tablet in the evening. Take with meals. cyclobenzap 2021-08 Yes [id number] 10mg Take 1 Univers rine 10 mg 1-18 tablet by ity of tablet 00:00: mouth at [place] [address] bedtime as Medical needed for Branch Muscle Spasms. Diclofenac 2021-08 Yes [id number] Take 2-4 Univers Sodium 1-18 grams ity of (VOLTAREN) 00:00: three [place] 1 % gel 00 times a Medical day as Branch needed for pain naproxen 2021-08 Yes [id number] 500mg Take 1 U nivers 500 mg 1-18 tablet by ity of tablet 00:00: mouth in [place] 00 the Medical morning Branch and 1 tablet in the evening. Take with meals. cyclobenzap 2021-08 Yes [id number] 10mg Take 1 Univers rine 10 mg 1-18 tablet by ity of tablet 00:00: mouth at [place] [address] bedtime as Medical needed for Branch Muscle Spasms. Diclofenac 2021-08 Yes [id number] Take 2-4 Univers Sodium 1-18 grams ity of (VOLTAREN) 00:00: three [place] 1 % gel 00 times a Medical day as Branch needed for pain naproxen 2021-08 Yes [id number] 500mg Take 1 U nivers 500 mg 1-18 tablet by ity of tablet 00:00: mouth in [place] 00 the Medical morning Branch and 1 tablet in the evening. Take with meals. cyclobenzap 2021-08 Yes [id number] 10mg Take 1 Univers rine 10 mg 1-18 tablet by ity of tablet 00:00: mouth at [place] [address] bedtime as Medical needed for Branch Muscle Spasms. Diclofenac 2021-08 Yes [id number] Take 2-4 Univers Sodium 1-18 grams ity of (VOLTAREN) 00:00: three [place] 1 % gel 00 times a Medical day as Branch needed for pain naproxen 2021-08 Yes [id number] 500mg Take 1 U nivers 500 mg 1-18 tablet by ity of tablet 00:00: mouth in [place] 00 the Medical morning Branch and 1 tablet in the evening. Take with meals. cyclobenzap 2021-08 Yes [id number] 10mg Take 1 Univers rine 10 mg 1-18 tablet by ity of tablet 00:00: mouth at [place] [address] bedtime as Medical needed for Branch Muscle Spasms. Diclofenac 2021-08 Yes [id number] Take 2-4 Univers Sodium 1-18 grams ity of (VOLTAREN) 00:00: three [place] 1 % gel 00 times a Medical day as Branch needed for pain naproxen 2021-08 Yes [id number] 500mg Take 1 U nivers 500 mg 1-18 tablet by ity of tablet 00:00: mouth in [place] 00 the Medical morning Branch and 1 tablet in the evening. Take with meals. cyclobenzap 2021-08 Yes [id number] 10mg Take 1 Univers rine 10 mg 1-18 tablet by ity of tablet 00:00: mouth at [place] [address] bedtime as Medical needed for Branch Muscle Spasms. Diclofenac 2021-08 Yes [id number] Take 2-4 Univers Sodium 1-18 grams ity of (VOLTAREN) 00:00: three [place] 1 % gel 00 times a Medical day as Branch needed for pain naproxen 2021-08 Yes [id number] 500mg Take 1 U nivers 500 mg 1-18 tablet by ity of tablet 00:00: mouth in [place] 00 the Medical morning Branch and 1 tablet in the evening. Take with meals. cyclobenzap 2021-08 Yes [id number] 10mg Take 1 Univers rine 10 mg 1-18 tablet by ity of tablet 00:00: mouth at [place] 00 bedtime as Medical needed for Branch Muscle Spasms. Diclofenac 2021-08 Yes [id number] Take 2-4 Univers Sodium 1-18 grams ity of (VOLTAREN) 00:00: three [place] 1 % gel 00 times a Medical day as Branch needed for pain naproxen 2021-08 Yes [id number] 500mg Take 1 U nivers 500 mg 1-18 tablet by ity of tablet 00:00: mouth in [place] 00 the Medical morning Branch and 1 tablet in the evening. Take with meals. cyclobenzap 2021-08 Yes [id number] 10mg Take 1 Univers rine 10 mg 1-18 tablet by ity of tablet 00:00: mouth at [place] [address] bedtime as Medical needed for Branch Muscle Spasms. Diclofenac 2021-08 Yes [id number] Take 2-4 Univers Sodium 1-18 grams ity of (VOLTAREN) 00:00: three [place] 1 % gel 00 times a Medical day as Branch needed for pain naproxen 2021-08 Yes [id number] 500mg Take 1 U nivers 500 mg 1-18 tablet by ity of tablet 00:00: mouth in [place] 00 the Medical morning Branch and 1 tablet in the evening. Take with meals. cyclobenzap 2021-08 Yes [id number] 10mg Take 1 Univers rine 10 mg 1-18 tablet by ity of tablet 00:00: mouth at [place] [address] bedtime as Medical needed for Branch Muscle Spasms. Diclofenac 2021-08 Yes [id number] Take 2-4 Univers Sodium 1-18 grams ity of (VOLTAREN) 00:00: three [place] 1 % gel 00 times a Medical day as Branch needed for pain naproxen 2021-08 Yes [id number] 500mg Take 1 U nivers 500 mg 1-18 tablet by ity of tablet 00:00: mouth in [place] 00 the Medical morning Branch and 1 tablet in the evening. Take with meals. cyclobenzap 2021-08 Yes [id number] 10mg Take 1 Univers rine 10 mg 1-18 tablet by ity of tablet 00:00: mouth at [place] [address] bedtime as Medical needed for Branch Muscle Spasms. Diclofenac 2021-08 Yes [id number] Take 2-4 Univers Sodium 1-18 grams ity of (VOLTAREN) 00:00: three [place] 1 % gel 00 times a Medical day as Branch needed for pain naproxen 2021-08 Yes [id number] 500mg Take 1 U nivers 500 mg 1-18 tablet by ity of tablet 00:00: mouth in [place] 00 the Medical morning Branch and 1 tablet in the evening. Take with meals. cyclobenzap 2021-08 Yes [id number] 10mg Take 1 Univers rine 10 mg 1-18 tablet by ity of tablet 00:00: mouth at [place] [address] bedtime as Medical needed for Branch Muscle Spasms. Diclofenac 2021-08 Yes [id number] Take 2-4 Univers Sodium 1-18 grams ity of (VOLTAREN) 00:00: three [place] 1 % gel 00 times a Medical day as Branch needed for pain naproxen 2021-08 Yes [id number] 500mg Take 1 U nivers 500 mg 1-18 tablet by ity of tablet 00:00: mouth in [place] 00 the Medical morning Branch and 1 tablet in the evening. Take with meals. cyclobenzap 2021-08 Yes [id number] 10mg Take 1 Univers rine 10 mg 1-18 tablet by ity of tablet 00:00: mouth at [place] [address] bedtime as Medical needed for Branch Muscle Spasms. Diclofenac 2021-08 Yes [id number] Take 2-4 Univers Sodium 1-18 grams ity of (VOLTAREN) 00:00: three [place] 1 % gel 00 times a Medical day as Branch needed for pain naproxen 2021-08 Yes [id number] 500mg Take 1 U nivers 500 mg 1-18 tablet by ity of tablet 00:00: mouth in [place] [address] the Medical morning Branch and 1 tablet in the evening. Take with meals. cyclobenzap 2021-08 Yes [id number] 10mg Take 1 Univers rine 10 mg 1-18 tablet by ity of tablet 00:00: mouth at [place] [address] bedtime as Medical needed for Branch Muscle Spasms. Diclofenac 2021-08 Yes [id number] Take 2-4 Univers Sodium 1-18 grams ity of (VOLTAREN) 00:00: three [place] 1 % gel 00 times a Medical day as Branch needed for pain naproxen 2021-08 Yes [id number] 500mg Take 1 U nivers 500 mg 1-18 tablet by ity of tablet 00:00: mouth in [place] 00 the Medical morning Branch and 1 tablet in the evening. Take with meals. cyclobenzap 2021-08 Yes [id number] 10mg Take 1 Univers rine 10 mg 1-18 tablet by ity of tablet 00:00: mouth at [place] [address] bedtime as Medical needed for Branch Muscle Spasms. Diclofenac 2021-08 Yes [id number] Take 2-4 Univers Sodium 1-18 grams ity of (VOLTAREN) 00:00: three [place] 1 % gel 00 times a Medical day as Branch needed for pain naproxen 2021-08 Yes [id number] 500mg Take 1 U nivers 500 mg 1-18 tablet by ity of tablet 00:00: mouth in [place] 00 the Medical morning Branch and 1 tablet in the evening. Take with meals. cyclobenzap 2021-08 Yes [id number] 10mg Take 1 Univers rine 10 mg 1-18 tablet by ity of tablet 00:00: mouth at [place] [address] bedtime as Medical needed for Branch Muscle Spasms. Diclofenac 2021-08 Yes [id number] Take 2-4 Univers Sodium 1-18 grams ity of (VOLTAREN) 00:00: three [place] 1 % gel 00 times a Medical day as Branch needed for pain naproxen 2021-08 Yes [id number] 500mg Take 1 U nivers 500 mg 1-18 tablet by ity of tablet 00:00: mouth in [place] 00 the Medical morning Branch and 1 tablet in the evening. Take with meals. cyclobenzap 2021-08 Yes [id number] 10mg Take 1 Univers rine 10 mg 1-18 tablet by ity of tablet 00:00: mouth at [place] [address] bedtime as Medical needed for Branch Muscle Spasms. Diclofenac 2021-08 Yes [id number] Take 2-4 Univers Sodium 1-18 grams ity of (VOLTAREN) 00:00: three [place] 1 % gel 00 times a Medical day as Branch needed for pain naproxen 2021-08 Yes [id number] 500mg Take 1 U nivers 500 mg 1-18 tablet by ity of tablet 00:00: mouth in [place] 00 the Medical morning Branch and 1 tablet in the evening. Take with meals. cyclobenzap 2021-08 Yes [id number] 10mg Take 1 Univers rine 10 mg 1-18 tablet by ity of tablet 00:00: mouth at [place] [address] bedtime as Medical needed for Branch Muscle Spasms. Diclofenac 2021-08 Yes [id number] Take 2-4 Univers Sodium 1-18 grams ity of (VOLTAREN) 00:00: three [place] 1 % gel 00 times a Medical day as Branch needed for pain clotrimazol Yes Univer s e 1 % 5-09 ity of topical 00:00: [place] cream 00 Medical Branch clotrimazol 0 Yes Univer s e 1 % 5-09 ity of topical 00:00: [place] cream 00 Medical Branch clotrimazol 2021-0 Yes Univer s e 1 % 5-09 ity of topical 00:00: [place] cream 00 Medical Branch clotrimazol 0 Yes Univer s e 1 % 5-09 ity of topical 00:00: [place] cream 00 Medical Branch clotrimazol 0 Yes Univer s e 1 % 5-09 ity of topical 00:00: [place] cream Medical Branch clotrimazol 0 Yes Univer s e 1 % 5-09 ity of topical 00:00: [place] cream 00 Medical Branch clotrimazol 0 Yes Univer s e 1 % 5-09 ity of topical 00:00: [place] cream Medical Branch clotrimazol 0 Yes Univer s e 1 % 5-09 ity of topical 00:00: [place] cream Medical Branch clotrimazol 0 Yes Univer s [...] 00:00: [place] cream 00 Medical Branch clotrimazol 2021-0 Yes Univer s e 1 % 5-09 ity of topical 00:00: [place] cream 00 Medical Branch clotrimazol 2021-0 Yes Univer s e 1 % 5-09 ity of topical 00:00: [place] cream 00 Medical Branch clotrimazol 2021-0 Yes Univer s e 1 % 5-09 ity of topical 00:00: [place] cream 00 Medical Branch clotrimazol 0 Yes Univer s e 1 % 5-09 ity of topical 00:00: [place] cream 00 Medical Branch clotrimazol 2021-0 Yes Univer s e 1 % 5-09 ity of topical 00:00: [place] cream Medical Branch clotrimazol Yes Univer s e 1 % 5-09 ity of topical 00:00: [place] cream Medical Branch clotrimazol Yes Univer s e 1 % -09 ity of topical 00:00: [place] cream Medical Branch clotrimazol Yes Univer s e 1 % 5-09 ity of topical 00:00: [place] cream Medical Branch clotrimazol Yes Univer s e 1 % -09 ity of topical 00:00: [place] cream Medical Branch clotrimazol Yes Univer s e 1 % -09 ity of topical 00:00: [place] cream Medical Branch azithromyci Yes [id number] Take 500 Univers n 9-13 mg day 1, ity of (ZITHROMAX 00:00: then 250 [place] as Z-DEANNA) 250 00 mg days 2 Medi connor mg tablet to 5. Branch azithromyci Yes [id number] Take 500 Univers n 9-13 mg day 1, ity of (ZITHROMAX 00:00: then 250 [place] Z-DEANNA) 250 00 mg days 2 Medi connor mg tablet to 5. Branch azithromyci Yes [id number] Take 500 Univers n 9-13 mg day 1, ity of (ZITHROMAX 00:00: then 250 [place] as Z-DEANNA) 250 00 mg days 2 Medi connor mg tablet to 5. Branch azithromyci Yes [id number] Take 500 Univers n 9-13 mg day 1, ity of (ZITHROMAX 00:00: then 250 [place] as Z-DEANNA) 250 00 mg days 2 Medi connor mg tablet to 5. Branch azithromyci Yes [id number] Take 500 Univers n 9-13 mg day 1, ity of (ZITHROMAX 00:00: then 250 [place] Z-DEANNA) 250 00 mg days 2 Medi connor mg tablet to 5. Branch azithromyci Yes [id number] Take 500 Univers n 9-13 mg day 1, ity of (ZITHROMAX 00:00: then 250 [place] Z-DEANNA) 250 00 mg days 2 Medi connor mg tablet to 5. [place] yu Yes [id number] Take 500 Univers n 9-13 mg day 1, ity of (ZITHROMAX 00:00: then 250 [place] Z-DEANNA) 250 00 mg days 2 Medi connor mg tablet to 5. [place] yu Yes [id number] Take 500 Univers n 9-13 mg day 1, ity of (ZITHROMAX 00:00: then 250 [place] as Z-DEANNA) 250 00 mg days 2 Medi connor mg tablet to 5. [place] yu Yes [id number] Take 500 Univers n 9-13 mg day 1, ity of (ZITHROMAX 00:00: then 250 [place] as Z-DEANNA) 250 00 mg days 2 Medi connor mg tablet to 5. [place] yu Yes [id number] Take 500 Univers n 9-13 mg day 1, ity of (ZITHROMAX 00:00: then 250 [place] Z-DEANNA) 250 00 mg days 2 Medi connor mg tablet to 5. [place] yu Yes [id number] Take 500 Univers n 9-13 mg day 1, ity of (ZITHROMAX 00:00: then 250 [place] Z-DEANNA) 250 00 mg days 2 Medi connor mg tablet to 5. [place] yu Yes [id number] Take 500 Univers n 9-13 mg day 1, ity of (ZITHROMAX 00:00: then 250 [place] Z-DEANNA) 250 00 mg days 2 Medi connor mg tablet to 5. [place] yu Yes [id number] Take 500 Univers n 9-13 mg day 1, ity of (ZITHROMAX 00:00: then 250 [place] as Z-DEANNA) 250 00 mg days 2 Medi connor mg tablet to 5. [place] yu Yes [id number] Take 500 Univers n 9-13 mg day 1, ity of (ZITHROMAX 00:00: then 250 [place] Z-DEANNA) 250 00 mg days 2 Medi connor mg tablet to 5. [place] yu Yes [id number] Take 500 Univers n 9-13 mg day 1, ity of (ZITHROMAX 00:00: then 250 [place] Z-DEANNA) 250 00 mg days 2 Medi connor mg tablet to 5. [place] weinerithromyci Yes [id number] Take 500 Univers n 9-13 mg day 1, ity of (ZITHROMAX 00:00: then 250 [place] Z-DEANNA) 250 00 mg days 2 Medi connor mg tablet to 5. Branch husamithromyci Yes [id number] Take 500 Univers n 9-13 mg day 1, ity of (ZITHROMAX 00:00: then 250 [place] Z-DEANNA) 250 00 mg days 2 Medi connor mg tablet to 5. Branch husamithromyci Yes [id number] Take 500 Univers n 9-13 mg day 1, ity of (ZITHROMAX 00:00: then 250 [place] Z-DEANNA) 250 00 mg days 2 Medi connor mg tablet to 5. [place] enriqueyci Yes [id number] Take 500 Univers n 9-13 mg day 1, ity of (ZITHROMAX 00:00: then 250 [place] Z-DEANNA) 250 00 mg days 2 Medi connor mg tablet to 5. [place] weinerithromyci Yes [id number] Take 500 Univers n 9-13 mg day 1, ity of (ZITHROMAX 00:00: then 250 [place] as Z-DEANNA) 250 00 mg days 2 Medi connor mg tablet to 5. [place] weinerithromyci Yes [id number] Take 500 Univers n 9-13 mg day 1, ity of (ZITHROMAX 00:00: then 250 [place] as Z-DEANNA) 250 00 mg days 2 Medi connor mg tablet to 5. [place] husamithromyci Yes [id number] Take 500 Univers n 9-13 mg day [...] 14:57: [place] ORAL) 59 Medical Branch acetaminoph 2018- Yes Take by Uni vers en (TYLENOL [...] 14:57: [place] ORAL) 59 Medical Branch acetaminoph 0 Yes Take by Uni vers en (TYLENOL [...] 14:57: [place] ORAL) 59 Medical Branch acetaminoph 2018- Yes Take by Uni vers en (TYLENOL [...] on inhaler 00 Medical Branch PROAIR HFA 0 Yes Univers 90 9-11 ity of mcg/actuati 00:00: [place] on inhaler 00 Medical Branch PROAIR HFA 2018-0 Yes Univers 90 9-11 ity of mcg/actuati 00:00: [place] on inhaler 00 Medical Branch cetirizine Yes [id number] 10mg Take 1 U nivers (ZYRTEC) 10 1-30 tablet by ity of mg tablet 00:00[place] bedtime as Medical needed for Branch Allergies or Runny nose. cetirizine Yes [id number] 10mg Take 1 U nivers (ZYRTEC) 10 1-30 tablet by ity of mg tablet 00:00: [place] bedtime as Medical needed for Branch Allergies or Runny nose. cetirizine Yes [id number] 10mg Take 1 U nivers (ZYRTEC) 10 1-30 tablet by ity of mg tablet 00:00: [place] bedtime as Medical needed for Branch Allergies or Runny nose. cetirizine Yes [id number] 10mg Take 1 U nivers (ZYRTEC) 10 1-30 tablet by [place]y of mg tablet 00:00: [place] bedtime as Medical needed for Branch Allergies or Runny nose. cetirizine Yes [id number] 10mg Take 1 U nivers (ZYRTEC) 10 1-30 tablet by [place]y of mg tablet 00:00: [place] bedtime as Medical needed for Branch Allergies or Runny nose. cetirizine Yes [id number] 10mg Take 1 U nivers (ZYRTEC) 10 1-30 tablet by [place]y of mg tablet 00:00: [place] bedtime as Medical needed for Branch Allergies or Runny nose. cetirizine Yes [id number] 10mg Take 1 U nivers (ZYRTEC) 10 1-30 tablet by [place]y of mg tablet 00:00: [place] bedtime as Medical needed for Branch Allergies or Runny nose. cetirizine Yes [id number] 10mg Take 1 U nivers (ZYRTEC) 10 1-30 tablet by [place]y of mg tablet 00:00: [place] bedtime as Medical needed for Branch Allergies or Runny nose. cetirizine Yes [id number] 10mg Take 1 U nivers (ZYRTEC) 10 1-30 tablet by [place]y of mg tablet 00:00: [place] bedtime as Medical needed for Branch Allergies or Runny nose. cetirizine Yes [id number] 10mg Take 1 U nivers (ZYRTEC) 10 1-30 tablet by [place]y of mg tablet 00:00: [place] bedtime as Medical needed for Branch Allergies or Runny nose. cetirizine Yes [id number] 10mg Take 1 U nivers (ZYRTEC) 10 1-30 tablet by [place]y of mg tablet 00:00: [place] bedtime as Medical needed for Branch Allergies or Runny nose. cetirizine Yes [id number] 10mg Take 1 U nivers (ZYRTEC) 10 1-30 tablet by ity of mg tablet 00:[place] [facility] needed for [facility] Allergies or Runny nose. cetirizine Yes [id number] 10mg Take 1 [facility] (ZYRTEC) 10 1-30 tablet by [facility] mg tablet 00:[place] [facility] needed for [facility] Allergies or Runny nose. cetirizine Yes [id number] 10mg Take 1 [facility] (ZYRTEC) 10 1-30 tablet by [facility] mg tablet 00:[place] [facility] needed for [facility] Allergies or Runny nose. cetirizine Yes [id number] 10mg Take 1 [facility] (ZYRTEC) 10 1-30 tablet by [facility] mg tablet 00:[place] [facility] needed for [facility] Allergies or Runny nose. cetirizine Yes [id number] 10mg Take 1 [facility] (ZYRTEC) 10 1-30 tablet by [facility] mg tablet 00:[place] as [facility] needed for [facility] Allergies or Runny nose. cetirizine Yes [id number] 10mg Take 1 [facility] (ZYRTEC) 10 1-30 tablet by [facility] mg tablet 00:[place] bed[place] as [facility] needed for [facility] Allergies or Runny nose. cetirizine Yes [id number] 10mg Take 1 [facility] (ZYRTEC) 10 1-30 tablet by [facility] mg tablet 00:[place]: [place] bed[place] as [facility] needed for [facility] Allergies or Runny nose. cetirizine Yes [id number] 10mg Take 1 [facility] (ZYRTEC) 10 1-30 tablet by [facility] mg tablet 00:[place]: [place] bed[place] as [facility] needed for [facility] Allergies or Runny nose. cetirizine Yes [id number] 10mg Take 1 [facility] (ZYRTEC) 10 1-30 tablet by [facility] mg tablet 00:00: [place] bed[place] as [facility] needed for [facility] Allergies or Runny nose. cetirizine Yes [id number] 10mg Take 1 [facility] (ZYRTEC) 10 1-30 tablet by [facility] mg tablet 00:00: [place] bed[place] as [facility] needed for [facility] Allergies or Runny nose. cetirizine Yes [id number] 10mg Take 1 [facility] (ZYRTEC) 10 1-30 tablet by [facility] mg tablet 00:[place] bed[place] as [facility] needed for [facility] Allergies or Runny nose. Immunizations Ordered Immunization Filled Immunization Date Status Commen ts Source Name Name TDAP 2022-12-21 Completed [facility] 00:[facility]00 [facility] TDAP 2022-12-21 Completed [facility] 00:00:00 [facility] TDAP 2022-12-21 Completed [facility] 00:00:00 [facility] TDAP 2022-12-21 Completed [facility] 00[facility]00:00 [facility] TDAP 2022-12-21 Completed [facility] 00:00:00 [facility] TDAP 2022-12-21 Completed [facility] 00:00:00 [facility] SARS-COV-2 COVID-19 2021-10-11 Completed [facility] of PFIZER VACCINE 00:00:00 [facility] SARS-COV-2 COVID-19 2021-10-11 Completed [facility] of PFIZER VACCINE 00:00:00 [facility] SARS-COV-2 COVID-19 2021-10-11 Completed [facility] of PFIZER VACCINE 00:00:00 [facility] SARS-COV-2 COVID-19 2021-10-11 Completed [facility] of PFIZER VACCINE 00:00:00 [facility] SARS-COV-2 COVID-19 2021-10-11 Completed [facility] of PFIZER VACCINE 00:00:00 [facility] SARS-COV-2 COVID-19 2021-10-11 Completed [facility] of PFIZER VACCINE 00:00:00 [facility] SARS-COV-2 COVID-19 2021-10-11 Completed [facility] of PFIZER VACCINE 00:00:00 [facility] SARS-COV-2 COVID-19 2021-10-11 Completed [facility] of PFIZER VACCINE 00:00:00 [facility] SARS-COV-2 COVID-19 2021-10-11 Completed [facility]ive rs[facility] of PFIZER VACCINE 00:00:00 [facility] SARS-COV-2 COVID-19 2021-10-11 Completed [facility] of PFIZER VACCINE 00:00:00 [facility] SARS-COV-2 COVID-19 2021-10-11 Completed [facility] of PFIZER VACCINE 00:00:00 [facility] SARS-COV-2 COVID-19 2021-10-11 Completed [facility] of PFIZER VACCINE 00:00:00 [facility] SARS-COV-2 COVID-19 2021-10-11 Completed [facility] of PFIZER VACCINE 00:00:00 [facility] SARS-COV-2 COVID-19 2021-10-11 Completed [facility] of PFIZER VACCINE 00:00:00 [facility] SARS-COV-2 COVID-19 2021-10-11 Completed [facility] of PFIZER VACCINE 00:00:00 [facility] SARS-COV-2 COVID-19 2021-10-11 Completed [facility] of PFIZER VACCINE 00:00:00 [facility] SARS-COV-2 COVID-19 2021-10-11 Completed [facility] of PFIZER VACCINE 00:00:00 [facility] SARS-COV-2 COVID-19 2021-10-11 Completed [facility] of PFIZER VACCINE 00:00:00 [facility] SARS-COV-2 COVID-19 2021-10-11 Completed [facility] of PFIZER VACCINE 00:00:00 [facility] SARS-COV-2 COVID-19 2021-10-11 Completed [facility] of PFIZER VACCINE 00:00:00 [facility] SARS-COV-2 COVID-19 2021-10-11 Completed [facility] of PFIZER VACCINE 00:00:00 [facility] SARS-COV-2 COVID-19 2021-10-11 Completed [facility] of PFIZER VACCINE 00:00:00 [facility] SARS-COV-2 COVID-19 2021-02-22 Completed [facility] of PFIZER VACCINE 00:00:00 [facility] SARS-COV-2 COVID-19 2021-02-22 Completed [facility]ive [facility] of PFIZER VACCINE 00:00:00 [facility] SARS-COV-2 COVID-19 2021-02-22 Completed [facility] of PFIZER VACCINE 00:00:00 [facility] SARS-COV-2 COVID-19 2021-02-22 Completed [facility]ive [facility] of PFIZER VACCINE 00:00:00 [facility] SARS-COV-2 COVID-19 2021-02-22 Completed [facility] of PFIZER VACCINE 00:00:00 [facility] SARS-COV-2 COVID-19 2021-02-22 Completed [facility] of PFIZER VACCINE 00:00:00 [facility] SARS-COV-2 COVID-19 2021-02-22 Completed [facility] of PFIZER VACCINE 00:00:00 [facility] SARS-COV-2 COVID-19 2021-02-22 Completed [facility] of PFIZER VACCINE 00:00:00 [facility] SARS-COV-2 COVID-19 2021-02-22 Completed [facility] of PFIZER VACCINE 00:00:00 [facility] SARS-COV-2 COVID-19 2021-02-22 Completed [facility] of PFIZER VACCINE 00:00:00 [facility] SARS-COV-2 COVID-19 2021-02-22 Completed [facility]ive [facility] of PFIZER VACCINE 00:00:00 [facility] SARS-COV-2 COVID-19 2021-02-22 Completed [facility] of PFIZER VACCINE 00:00:00 [facility] SARS-COV-2 COVID-19 2021-02-22 Completed [facility] of PFIZER VACCINE 00:00:00 [facility] SARS-COV-2 COVID-19 2021-02-22 Completed [facility] of PFIZER VACCINE 00:00:00 [facility] SARS-COV-2 COVID-19 2021-02-22 Completed [facility] of PFIZER VACCINE 00:00:00 [facility] SARS-COV-2 COVID-19 2021-02-22 Completed [facility] of PFIZER VACCINE 00:00:00 [facility] SARS-COV-2 COVID-19 2021-02-22 Completed [facility] of PFIZER VACCINE 00:00:00 [facility] SARS-COV-2 COVID-19 2021-02-22 Completed [facility] of PFIZER VACCINE 00:00:00 [facility] SARS-COV-2 COVID-19 2021-02-22 Completed [facility] of PFIZER VACCINE 00:00:00 [facility] SARS-COV-2 COVID-19 2021-02-22 Completed [facility] of PFIZER VACCINE 00:00:00 [facility] SARS-COV-2 COVID-19 2021-02-22 Completed [facility] of PFIZER VACCINE 00:00:00 [facility] SARS-COV-2 COVID-19 2021-02-22 Completed [facility] of PFIZER VACCINE 00:00:00 [facility] Influenza Virus 2019-09-04 Completed [facility] of Vaccine Quad .5 mL IM 00:00:[facility] Meningococcal B, OMV 2019-09-04 Completed [facility] ers[facility] of 00:00:00 [facility] Influenza Virus 2019-09-04 Completed [facility] of Vaccine Quad .5 mL IM 00:00:00 [facility] Meningococcal B, OMV 2019-09-04 Completed [facility] ers[facility] of 00:00:00 [facility] Influenza Virus 2019-09-04 Completed [facility] of Vaccine Quad .5 mL IM 00:00:00 [facility] Meningococcal B, OMV 2019-09-04 Completed [facility] ers[facility] of 00:00:00 [facility] Influenza Virus 2019-09-04 Completed [facility] of Vaccine Quad .5 mL IM 00:00:00 [facility] Meningococcal B, OMV 2019-09-04 Completed [facility] ers[facility] of 00:00:00 [facility] Influenza Virus 2019-09-04 Completed [facility] of Vaccine Quad .5 mL IM 00:00:00 [facility] Meningococcal B, OMV 2019-09-04 Completed [facility] ers[facility] of 00:00:00 [facility] Influenza Virus 2019-09-04 Completed [facility] of Vaccine Quad .5 mL IM 00:00:00 [facility] Meningococcal B, OMV 2019-09-04 Completed Univ ers[facility] of 00:00:00 [facility] Influenza Virus 2019-09-04 Completed [facility] of Vaccine Quad .5 mL IM 00:00:00 [facility] Meningococcal B, OMV 2019-09-04 Completed [facility] ers[facility] of 00:00:00 [facility] Influenza Virus 2019-09-04 Completed [facility] of Vaccine Quad .5 mL IM 00:00:00 [facility] Meningococcal B, OMV 2019-09-04 Completed [facility] of 00:00:00 [facility] Influenza Virus 2019-09-04 Completed [facility] of Vaccine Quad .5 mL IM 00:00:00 [facility] Meningococcal B, OMV 2019-09-04 Completed [facility] ers[facility] of 00:00:00 [facility] Influenza Virus 2019-09-04 Completed [facility] of Vaccine Quad .5 mL IM 00:00:00 [facility] Meningococcal B, OMV 2019-09-04 Completed [facility] of 00:00:00 [facility] Influenza Virus 2019-09-04 Completed [facility] of Vaccine Quad .5 mL IM 00:00:00 [facility] Meningococcal B, OMV 2019-09-04 Completed [facility] ers[facility] of 00:00:00 [facility] Influenza Virus 2019-09-04 Completed [facility] of Vaccine Quad .5 mL IM 00:00:00 [facility] Meningococcal B, OMV 2019-09-04 Completed [facility] of 00:00:00 [facility] Influenza Virus 2019-09-04 Completed [facility] of Vaccine Quad .5 mL IM 00:00:00 [facility] Meningococcal B, OMV 2019-09-04 Completed [facility] of 00:00:00 [facility] Influenza Virus 2019-09-04 Completed [facility] of Vaccine Quad .5 mL IM 00:00:00 [facility] Meningococcal B, OMV 2019-09-04 Completed [facility] ers[facility] of 00:00:00 [facility] Influenza Virus 2019-09-04 Completed [facility] of Vaccine Quad .5 mL IM 00:00:00 [facility] Meningococcal B, OMV 2019-09-04 Completed [facility] of 00:00:00 [facility] Influenza Virus 2019-09-04 Completed [facility] of Vaccine Quad .5 mL IM 00:00:00 [facility] Meningococcal B, OMV 2019-09-04 Completed [facility] of 00:00:00 [facility] Influenza Virus 2019-09-04 Completed [facility] of Vaccine Quad .5 mL IM 00:00:00 [facility] Meningococcal B, OMV 2019-09-04 Completed [facility] ers[facility] of 00:00:00 [facility] Influenza Virus 2019-09-04 Completed [facility] of Vaccine Quad .5 mL IM 00:00:00 [facility] Meningococcal B, OMV 2019-09-04 Completed [facility] of 00:00:00 [facility] Influenza Virus 2019-09-04 Completed [facility] of Vaccine Quad .5 mL IM 00:00:00 [facility] Meningococcal B, OMV 2019-09-04 Completed [facility] ers[facility] of 00:00:00 [facility] Influenza Virus 2019-09-04 Completed [facility] of Vaccine Quad .5 mL IM 00:00:00 [facility] Meningococcal B, OMV 2019-09-04 Completed [facility] ers[facility] of 00:00:00 [facility] Influenza Virus 2019-09-04 Completed [facility] of Vaccine Quad .5 mL IM 00:00:00 [facility] Meningococcal B, OMV 2019-09-04 Completed [facility] of 00:00:00 [facility] Influenza Virus 2019-09-04 Completed [facility] of Vaccine Quad .5 mL IM 00:00:00 [facility] Meningococcal B, OMV 2019-09-04 Completed [facility] ers[facility] of 00:00:00 [facility] Meningococcal 2018-04-09 Completed [facility] Polysaccharide 00:00:00 [place] [facility] (groups A, C, Y and Branc h W-135) conjugate vaccine (MCV4P) Meningococcal B, OMV 2018-04-09 Completed [facility] ers[facility] of 00:00:00 [facility] Meningococcal 2018-04-09 Completed [facility] Polysaccharide 00:00:00 [place] [facility] (groups A, C, Y and Branc h W-135) conjugate vaccine (MCV4P) Meningococcal B, OMV 2018-04-09 Completed [facility] of 00:00:00 [facility] Meningococcal 2018-04-09 Completed [facility] Polysaccharide 00:00:00 [place] [facility] (groups A, C, Y and Branc h W-135) conjugate vaccine (MCV4P) Meningococcal B, OMV 2018-04-09 Completed [facility] ers[facility] of 00:00:00 [facility] Meningococcal 2018-04-09 Completed [facility] Polysaccharide 00:00:00 [place] [facility] (groups A, C, Y and Branc h W-135) conjugate vaccine (MCV4P) Meningococcal B, OMV 2018-04-09 Completed [facility] of 00:00:00 [facility] Meningococcal 2018-04-09 Completed [facility] Polysaccharide 00:00:00 [place] [facility] (groups A, C, Y and Branc h W-135) conjugate vaccine (MCV4P) Meningococcal B, OMV 2018-04-09 Completed [facility] 00:00:00 [facility] Meningococcal 2018-04-09 Completed [facility] Polysaccharide 00:00:00 [place] [facility] (groups A, C, Y and Branc h W-135) conjugate vaccine (MCV4P) Meningococcal B, OMV 2018-04-09 Completed [facility] of 00:00:00 [facility] Meningococcal 2018-04-09 Completed [facility] Polysaccharide 00:00:00 [place] [facility] (groups A, C, Y and Branc h W-135) conjugate vaccine (MCV4P) Meningococcal B, OMV 2018-04-09 Completed [facility] of 00:00:00 [facility] Meningococcal 2018-04-09 Completed [facility] Polysaccharide 00:00:00 [place] [facility] (groups A, C, Y and Branc h W-135) conjugate vaccine (MCV4P) Meningococcal B, OMV 2018-04-09 Completed [facility] of 00:00:00 [facility] Meningococcal 2018-04-09 Completed [facility] Polysaccharide 00:00:00 [place] [facility] (groups A, C, Y and Branc h W-135) conjugate vaccine (MCV4P) Meningococcal B, OMV 2018-04-09 Completed [facility] 00:00:00 [facility] Meningococcal 2018-04-09 Completed [facility] Polysaccharide 00:00:00 [place] [facility] (groups A, C, Y and Branc h W-135) conjugate vaccine (MCV4P) Meningococcal B, OMV 2018-04-09 Completed [facility] 00:00:00 [facility] Meningococcal 2018-04-09 Completed [facility] Polysaccharide 00:00:00 [place] [facility] (groups A, C, Y and Branc h W-135) conjugate vaccine (MCV4P) Meningococcal B, OMV 2018-04-09 Completed [facility] 00:00:00 [facility] Meningococcal 2018-04-09 Completed [facility] Polysaccharide 00:00:00 [place] [facility] (groups A, C, Y and Branc h W-135) conjugate vaccine (MCV4P) Meningococcal B, OMV 2018-04-09 Completed [facility] 00:00:00 [facility] Meningococcal 2018-04-09 Completed [facility] Polysaccharide 00:00:00 [place] [facility] (groups A, C, Y and Branc h W-135) conjugate vaccine (MCV4P) Meningococcal B, OMV 2018-04-09 Completed [facility] 00:00:00 [facility] Meningococcal 2018-04-09 Completed [facility] Polysaccharide 00:00:00 [place] [facility] (groups A, C, Y and Branc h W-135) conjugate vaccine (MCV4P) Meningococcal B, OMV 2018-04-09 Completed [facility] 00:00:00 [facility] Meningococcal 2018-04-09 Completed [facility] Polysaccharide 00:00:00 [place] [facility] (groups A, C, Y and Branc h W-135) conjugate vaccine (MCV4P) Meningococcal B, OMV 2018-04-09 Completed [facility] of 00:00:00 [facility] Meningococcal 2018-04-09 Completed [facility] Polysaccharide 00:00:00 [place] [facility] (groups A, C, Y and Branc h W-135) conjugate vaccine (MCV4P) Meningococcal B, OMV 2018-04-09 Completed [facility] 00:00:00 [facility] Meningococcal 2018-04-09 Completed [facility] Polysaccharide 00:00:00 [place] [facility] (groups A, C, Y and Branc h W-135) conjugate vaccine (MCV4P) Meningococcal B, OMV 2018-04-09 Completed [facility] 00:00:00 [facility] Meningococcal 2018-04-09 Completed [facility] Polysaccharide 00:00:00 [place] [facility] (groups A, C, Y and Branc h W-135) conjugate vaccine (MCV4P) Meningococcal B, OMV 2018-04-09 Completed [facility] 00:00:00 [facility] Meningococcal 2018-04-09 Completed [facility] Polysaccharide 00:00:00 [place] [facility] (groups A, C, Y and Branc h W-135) conjugate vaccine (MCV4P) Meningococcal B, OMV 2018-04-09 Completed [facility] 00:00:00 [facility] Meningococcal 2018-04-09 Completed [facility] Polysaccharide 00:00:00 [place] [facility] (groups A, C, Y and Branc h W-135) conjugate vaccine (MCV4P) Meningococcal B, OMV 2018-04-09 Completed [facility] 00:00:00 [facility] Meningococcal 2018-04-09 Completed [facility] Polysaccharide 00:00:00 [place] [facility] (groups A, C, Y and Branc h W-135) conjugate vaccine (MCV4P) Meningococcal B, OMV 2018-04-09 Completed [facility] 00:00:00 [facility] Meningococcal 2018-04-09 Completed [facility] Polysaccharide 00:00:00 [place] [facility] (groups A, C, Y and Branc h W-135) conjugate vaccine (MCV4P) Meningococcal B, OMV 2018-04-09 Completed [facility] 00:00:00 [facility] HPV9 2017-03-27 Completed [facility] 00:00:00 [facility] HPV9 2017-03-27 Completed [facility] 00:00:00 [facility] HPV9 2017-03-27 Completed [facility] 00:00:00 [facility] HPV9 2017-03-27 Completed [facility] 00:00:00 [facility] HPV9 2017-03-27 Completed [facility] 00:00:00 [facility] HPV9 2017-03-27 Completed [facility] 00:00:00 [facility] HPV9 2017-03-27 Completed [facility] 00:00:00 [facility] HPV9 2017-03-27 Completed [facility] 00:00:00 [facility] HPV9 2017-03-27 Completed [facility] 00:00:00 [facility] HPV9 2017-03-27 Completed [facility] 00:00:00 [facility] HPV9 2017-03-27 Completed [facility] 00:00:00 [facility] HPV9 2017-03-27 Completed [facility] 00:00:00 [facility] HPV9 2017-03-27 Completed [facility] 00:00:00 [facility] HPV9 2017-03-27 Completed [facility] 00:00:00 [facility] HPV9 2017-03-27 Completed [facility] 00:00:00 [facility] HPV9 2017-03-27 Completed [facility] 00:00:00 [facility] HPV9 2017-03-27 Completed [facility] 00:00:00 [facility] HPV9 2017-03-27 Completed [facility] 00:00:00 [facility] HPV9 2017-03-27 Completed [facility] 00:00:00 [facility] HPV9 2017-03-27 Completed [facility] 00:00:00 [facility] HPV9 2017-03-27 Completed [facility] 00:00:00 [facility] HPV9 2017-03-27 Completed [facility] 00:00:00 [facility] [...] Branch HPV 2016-03-08 Completed [facility] 00:00:00 [facility] HPV9 2016-03-08 Completed [facility] 00:00:00 [facility] HPV 2016-03-08 Completed [facility] 00:00:00 [facility] HPV9 2016-03-08 Completed [facility] 00:00:00 [facility] HPV 2016-03-08 Completed [facility] 00:00:00 [facility] HPV9 2016-03-08 Completed [facility] 00:00:00 [facility] HPV 2016-03-08 Completed [facility] 00:00:00 [facility] HPV9 2016-03-08 Completed [facility] 00:00:00 [facility] HPV 2016-03-08 Completed [facility] 00:00:00 [facility] HPV9 2016-03-08 Completed [facility] 00:00:00 [facility] HPV 2016-03-08 Completed [facility] 00:00:00 [facility] HPV9 2016-03-08 Completed [facility] 00:00:00 [facility] HPV 2016-03-08 Completed [facility] 00:00:00 [facility] HPV9 2016-03-08 Completed [facility] 00:00:00 [facility] HPV 2016-03-08 Completed [facility] 00:00:00 [facility] HPV9 2016-03-08 Completed [facility] 00:00:00 [facility] HPV 2016-03-08 Completed [facility] 00:00:00 [facility] HPV9 2016-03-08 Completed [facility] 00:00:00 [facility] HPV 2016-03-08 Completed [facility] 00:00:00 [facility] HPV9 2016-03-08 Completed [facility] 00:00:00 [facility] HPV 2016-03-08 Completed [facility] 00:00:00 [facility] HPV9 2016-03-08 Completed [facility] 00:00:00 [facility] HPV 2016-03-08 Completed University of [...] Branch HPV 2013-11-11 Completed [facility] 00:00:00 [facility] HPV 2013-11-11 Completed [facility] 00:00:00 [facility] Meningococcal Vaccine 2013-03-31 Completed [facility] 00:00:00 [facility] TDAP 2013-03-31 Completed [facility] 00:00:00 [facility] Meningococcal Vaccine 2013-03-31 Completed [facility] 00:00:00 [facility] TDAP 2013-03-31 Completed [facility] 00:00:00 [facility] Meningococcal Vaccine 2013-03-31 Completed [facility] 00:00:00 [facility] TDAP 2013-03-31 Completed [facility] 00:00:00 [facility] Meningococcal Vaccine 2013-03-31 Completed [facility] 00:00:00 [facility] TDAP 2013-03-31 Completed [facility] 00:00:00 [facility] Meningococcal Vaccine 2013-03-31 Completed [facility] 00:00:00 [facility] TDAP 2013-03-31 Completed [facility] 00:00:00 [facility] Meningococcal Vaccine 2013-03-31 Completed [facility] 00:00:00 [facility] TDAP 2013-03-31 Completed [facility] 00:00:00 [facility] Meningococcal Vaccine 2013-03-31 Completed [facility] 00:00:00 [facility] TDAP 2013-03-31 Completed [facility] 00:00:00 [facility] Meningococcal Vaccine 2013-03-31 Completed [facility] vers[facility] of 00:00:00 [facility] TDAP 2013-03-31 Completed [facility] 00:00:00 [facility] Meningococcal Vaccine 2013-03-31 Completed [facility] 00:00:00 [facility] TDAP 2013-03-31 Completed [facility] 00:00:00 [facility] Meningococcal Vaccine 2013-03-31 Completed [facility] vers[facility] 00:00:00 [facility] TDAP 2013-03-31 Completed [facility] 00:00:00 [facility] Meningococcal Vaccine 2013-03-31 Completed [facility] 00:00:00 [facility] TDAP 2013-03-31 Completed [facility] 00:00:00 [facility] Meningococcal Vaccine 2013-03-31 Completed [facility] 00:00:00 [facility] TDAP 2013-03-31 Completed [facility] 00:00:00 [facility] Meningococcal Vaccine 2013-03-31 Completed [facility] 00:00:00 [facility] TDAP 2013-03-31 Completed [facility] 00:00:00 [facility] Meningococcal Vaccine 2013-03-31 Completed [facility] 00:00:00 [facility] TDAP 2013-03-31 Completed [facility] 00:00:00 [facility] Meningococcal Vaccine 2013-03-31 Completed [facility] 00:00:00 [facility] TDAP 2013-03-31 Completed [facility] 00:00:00 [facility] Meningococcal Vaccine 2013-03-31 Completed [facility] 00:00:00 [facility] Branch TDAP 2013-03-31 Completed [facility] 00:[facility]00 [facility] Meningococcal Vaccine 2013-03-31 Completed Uni versity of 00:00:00 [facility] TDAP 2013-03-31 Completed [facility] 00:00:00 [facility] Meningococcal Vaccine 2013-03-31 Completed [facility] vers[facility] 00:00:00 [facility] TDAP 2013-03-31 Completed [facility] 00:00:00 [facility] Meningococcal Vaccine 2013-03-31 Completed Uni versity of 00:00:00 [facility] TDAP 2013-03-31 Completed [facility] 00:00:00 [facility] Meningococcal Vaccine 2013-03-31 Completed Uni versity of 00:00:00 [facility] TDAP 2013-03-31 Completed [facility] 00:00:00 [facility] Meningococcal Vaccine 2013-03-31 Completed Uni versity of 00:00:00 [facility] TDAP 2013-03-31 Completed [facility] of 00:00:00 [facility] Meningococcal Vaccine 2013-03-31 Completed Uni versity of 00:00:00 [facility] TDAP 2013-03-31 Completed [facility] of 00:00:00 [facility] HEPATITIS A 2010-09-19 Completed [facility] 00:00:00 [facility] HEPATITIS A 2010-09-19 Completed [facility] 00:00:00 [facility] HEPATITIS A 2010-09-19 Completed [facility] 00:00:00 [facility] HEPATITIS A 2010-09-19 Completed [facility] 00:00:00 [facility] HEPATITIS A 2010-09-19 Completed [facility] 00:00:00 [facility] HEPATITIS A 2010-09-19 Completed [facility] 00:00:00 [facility] HEPATITIS A 2010-09-19 Completed [facility] of 00:00:00 [facility] HEPATITIS A 2010-09-19 Completed [facility] 00:00:00 [facility] HEPATITIS A 2010-09-19 Completed [facility] 00:00:00 [facility] HEPATITIS A 2010-09-19 Completed [facility] 00:00:00 [facility] HEPATITIS A 2010-09-19 Completed [facility] 00:00:00 [facility] HEPATITIS A 2010-09-19 Completed [facility] 00:00:00 [facility] HEPATITIS A 2010-09-19 Completed [facility] 00:00:00 [facility] HEPATITIS A 2010-09-19 Completed [facility] 00:00:00 [facility] HEPATITIS A 2010-09-19 Completed [facility] 00:00:00 [facility] HEPATITIS A 2010-09-19 Completed [facility] 00:00:00 [facility] HEPATITIS A 2010-09-19 Completed [facility] 00:00:00 [facility] HEPATITIS A 2010-09-19 Completed [facility] 00:00:00 [facility] HEPATITIS A 2010-09-19 Completed [facility] 00:00:00 [facility] HEPATITIS A 2010-09-19 Completed [facility] 00:00:00 [facility] HEPATITIS A 2010-09-19 Completed [facility] 00:00:00 [facility] HEPATITIS A 2010-09-19 Completed [facility] 00:00:00 [facility] HEPATITIS A 2006-12-10 Completed [facility] 00:00:00 [facility] HEPATITIS A 2006-12-10 Completed [facility] 00:00:00 [facility] HEPATITIS A 2006-12-10 Completed [facility] 00:00:00 [facility] HEPATITIS A 2006-12-10 Completed [facility] 00:00:00 [facility] HEPATITIS A 2006-12-10 Completed [facility] 00:00:00 [facility] HEPATITIS A 2006-12-10 Completed [facility] 00:00:00 [facility] HEPATITIS A 2006-12-10 Completed [facility] 00:00:00 [facility] HEPATITIS A 2006-12-10 Completed [facility] 00:00:00 [facility] HEPATITIS A 2006-12-10 Completed [facility] 00:00:00 [facility] HEPATITIS A 2006-12-10 Completed [facility] 00:00:00 [facility] HEPATITIS A 2006-12-10 Completed [facility] 00:00:00 [facility] HEPATITIS A 2006-12-10 Completed [facility] 00:00:00 [facility] HEPATITIS A 2006-12-10 Completed [facility] 00:00:00 [facility] HEPATITIS A 2006-12-10 Completed [facility] of 00:00:00 [facility] HEPATITIS A 2006-12-10 Completed [facility] 00:00:00 [facility] HEPATITIS A 2006-12-10 Completed [facility] 00:00:00 [facility] HEPATITIS A 2006-12-10 Completed [facility] 00:00:00 [facility] HEPATITIS A 2006-12-10 Completed [facility] 00:00:00 [facility] HEPATITIS A 2006-12-10 Completed [facility] 00:00:00 [facility] HEPATITIS A 2006-12-10 Completed [facility] of 00:00:00 [facility] HEPATITIS A 2006-12-10 Completed [facility] of 00:00:00 [facility] HEPATITIS A 2006-12-10 Completed [facility] of 00:00:00 [facility] Varicella 2006-09-12 Completed University of (varivax)(chicken 00:00:00 [...] Branch DTAP 2006-02-04 Completed [facility] 00:00:00 [facility] HEPATITIS A 2006-02-04 Completed [facility] 00:00:00 [facility] MMR 2006-02-04 Completed [facility] 00:00:00 [facility] Polio (IPV/OPV) 2006-02-04 Completed Universit y [facility] 00:00:00 [facility] DTAP 2006-02-04 Completed [facility] 00:00:00 [facility] HEPATITIS A 2006-02-04 Completed [facility] 00:00:00 [facility] MMR 2006-02-04 Completed [facility] 00:00:00 [facility] Polio (IPV/OPV) 2006-02-04 Completed [facility]it [facility] 00:00:00 [facility] DTAP 2006-02-04 Completed [facility] 00:00:00 [facility] HEPATITIS A 2006-02-04 Completed [facility] 00:00:00 [facility] MMR 2006-02-04 Completed [facility] 00:00:00 [facility] Polio (IPV/OPV) 2006-02-04 Completed [facility] 00:00:00 [facility] DTAP 2006-02-04 Completed [facility] 00:00:00 [facility] HEPATITIS A 2006-02-04 Completed [facility] 00:00:00 [facility] MMR 2006-02-04 Completed [facility] 00:00:00 [facility] Polio (IPV/OPV) 2006-02-04 Completed [facility] 00:00:00 [facility] DTAP 2006-02-04 Completed [facility] 00:00:00 [facility] HEPATITIS A 2006-02-04 Completed [facility] 00:00:00 [facility] MMR 2006-02-04 Completed [facility] 00:00:00 [facility] Polio (IPV/OPV) 2006-02-04 Completed [facility] 00:00:00 [facility] DTAP 2006-02-04 Completed [facility] 00:00:00 [facility] HEPATITIS A 2006-02-04 Completed [facility] 00:00:00 [facility] MMR 2006-02-04 Completed [facility] 00:00:00 [facility] Polio (IPV/OPV) 2006-02-04 Completed [facility] 00:00:00 [facility] DTAP 2006-02-04 Completed [facility] 00:00:00 [facility] HEPATITIS A 2006-02-04 Completed [facility] 00:00:00 [facility] MMR 2006-02-04 Completed [facility] 00:00:00 [facility] Polio (IPV/OPV) 2006-02-04 Completed [facility] 00:00:00 [facility] DTAP 2006-02-04 Completed [facility] 00:00:00 [facility] HEPATITIS A 2006-02-04 Completed [facility] 00:00:00 [facility] MMR 2006-02-04 Completed [facility] 00:00:00 [facility] Polio (IPV/OPV) 2006-02-04 Completed [facility] 00:00:00 [facility] DTAP 2006-02-04 Completed [facility] 00:00:00 [facility] HEPATITIS A 2006-02-04 Completed [facility] 00:00:00 [facility] MMR 2006-02-04 Completed [facility] 00:00:00 [facility] Polio (IPV/OPV) 2006-02-04 Completed [facility] 00:00:00 [facility] DTAP 2006-02-04 Completed [facility] 00:00:00 [facility] HEPATITIS A 2006-02-04 Completed [facility] 00:00:00 [facility] MMR 2006-02-04 Completed [facility] 00:00:00 [facility] Polio (IPV/OPV) 2006-02-04 Completed [facility] 00:00:00 [facility] DTAP 2006-02-04 Completed [facility] 00:00:00 [facility] HEPATITIS A 2006-02-04 Completed [facility] 00:00:00 [facility] MMR 2006-02-04 Completed [facility] 00:00:00 [facility] Polio (IPV/OPV) 2006-02-04 Completed [facility] 00:00:00 [facility] DTAP 2006-02-04 Completed [facility] 00:00:00 [facility] HEPATITIS A 2006-02-04 Completed [facility] 00:00:00 [facility] MMR 2006-02-04 Completed [facility] 00:00:00 [facility] Polio (IPV/OPV) 2006-02-04 Completed [facility] 00:00:00 [facility] DTAP 2006-02-04 Completed [facility] 00:00:00 [facility] HEPATITIS A 2006-02-04 Completed [facility] 00:00:00 [facility] MMR 2006-02-04 Completed [facility] 00:00:00 [facility] Polio (IPV/OPV) 2006-02-04 Completed [facility] 00:00:00 [facility] DTAP 2006-02-04 Completed [facility] 00:00:00 [facility] HEPATITIS A 2006-02-04 Completed [facility] 00:00:00 [facility] MMR 2006-02-04 Completed [facility] 00:00:00 [facility] Polio (IPV/OPV) 2006-02-04 Completed [facility] 00:00:00 [facility] DTAP 2006-02-04 Completed [facility] 00:00:00 [facility] HEPATITIS A 2006-02-04 Completed [facility] 00:00:00 [facility] MMR 2006-02-04 Completed [facility] 00:00:00 [facility] Polio (IPV/OPV) 2006-02-04 Completed [facility] 00:00:00 [facility] DTAP 2006-02-04 Completed [facility] 00:00:00 [facility] HEPATITIS A 2006-02-04 Completed [facility] of 00:00:00 [facility] MMR 2006-02-04 Completed [facility] 00:00:00 [facility] Polio (IPV/OPV) 2006-02-04 Completed [facility] 00:00:00 [facility] DTAP 2006-02-04 Completed [facility] of 00:00:00 [facility] HEPATITIS A 2006-02-04 Completed [facility] 00:00:00 [facility] MMR 2006-02-04 Completed [facility] 00:00:00 [facility] Polio (IPV/OPV) 2006-02-04 Completed [facility] 00:00:00 [facility] DTAP 2006-02-04 Completed [facility] 00:00:00 [facility] HEPATITIS A 2006-02-04 Completed [facility] 00:00:00 [facility] MMR 2006-02-04 Completed [facility] 00:00:00 [facility] Polio (IPV/OPV) 2006-02-04 Completed [facility] 00:00:00 [facility] DTAP 2006-02-04 Completed [facility] 00:00:00 [facility] HEPATITIS A 2006-02-04 Completed [facility] 00:00:00 [facility] MMR 2006-02-04 Completed [facility] 00:00:00 [facility] Polio (IPV/OPV) 2006-02-04 Completed [facility] 00:00:00 [facility] DTAP 2006-02-04 Completed [facility] 00:00:00 [facility] HEPATITIS A 2006-02-04 Completed [facility] of 00:00:00 [facility] MMR 2006-02-04 Completed [facility] 00:00:00 [facility] Polio (IPV/OPV) 2006-02-04 Completed [facility] 00:00:00 [facility] DTAP 2006-02-04 Completed [facility] 00:00:00 [facility] HEPATITIS A 2006-02-04 Completed [facility] 00:00:00 [facility] MMR 2006-02-04 Completed [facility] 00:00:00 [facility] Polio (IPV/OPV) 2006-02-04 Completed [facility] 00:00:00 [facility] DTAP 2006-02-04 Completed [facility] 00:00:00 [facility] HEPATITIS A 2006-02-04 Completed [facility] of 00:00:00 [facility] MMR 2006-02-04 Completed [facility] 00:00:00 [facility] Polio (IPV/OPV) 2006-02-04 Completed [facility]it [facility] of 00:00:00 [facility] DTAP 2003-06-15 Completed [facility] of 00:00:00 [facility] HIB 4 Dose Schedule 2003-06-15 Completed Unive rsity of 00:00:00 [facility] Pneumococcal 13 2003-06-15 Completed Universit y of Conjugate, PCV13 00:00:00 [facility] dical (Prevnar 13) Branch DTAP 2003-06-15 Completed [facility] of 00:00:00 [facility] HIB 4 Dose Schedule 2003-06-15 Completed Unive rsity of 00:00:00 [facility] Pneumococcal 13 2003-06-15 Completed Universit y of Conjugate, PCV13 00:00:00 [facility] dical (Prevnar 13) Branch DTAP 2003-06-15 Completed [facility] 00:00:00 [facility] HIB 4 Dose Schedule 2003-06-15 Completed Unive rsity of 00:00:00 [facility] Pneumococcal 13 2003-06-15 Completed Universit y of Conjugate, PCV13 00:00:00 [facility] dical (Prevnar 13) Branch DTAP 2003-06-15 Completed [facility] of 00:00:00 [facility] HIB 4 Dose Schedule 2003-06-15 Completed Unive rsity of 00:00:00 [facility] Pneumococcal 13 2003-06-15 Completed Universit y of Conjugate, PCV13 00:00:00 [place] [facility] (Prevnar 13) [facility] DTAP 2003-06-15 Completed [facility] 00:00:00 [facility] HIB 4 Dose Schedule 2003-06-15 Completed Unive rsity of 00:00:00 [facility] Pneumococcal 13 2003-06-15 Completed Universit y of Conjugate, PCV13 00:00:00 [facility] dical (Prevnar 13) Branch DTAP 2003-06-15 Completed [facility] of 00:00:00 [facility] HIB 4 Dose Schedule 2003-06-15 Completed Unive rsity of 00:00:00 [facility] Pneumococcal 13 2003-06-15 Completed Universit y of Conjugate, PCV13 00:00:00 [place] [facility] (Prevnar 13) Branch DTAP 2003-06-15 Completed [facility] 00:00:00 [facility] HIB 4 Dose Schedule 2003-06-15 Completed Unive rsity of 00:00:00 [facility] Pneumococcal 13 2003-06-15 Completed Universit y of Conjugate, PCV13 00:00:00 [facility] dical (Prevnar 13) Branch DTAP 2003-06-15 Completed [facility] 00:00:00 [facility] HIB 4 Dose Schedule 2003-06-15 Completed Unive rsity of 00:00:00 [facility] Pneumococcal 13 2003-06-15 Completed Universit y of Conjugate, PCV13 00:00:00 [facility] dical (Prevnar 13) Branch DTAP 2003-06-15 Completed [facility] of 00:00:00 [facility] HIB 4 Dose Schedule 2003-06-15 Completed Unive rsity of 00:00:00 [facility] Pneumococcal 13 2003-06-15 Completed Universit y of Conjugate, PCV13 00:00:00 [facility] dical (Prevnar 13) Branch DTAP 2003-06-15 Completed [facility] 00:00:00 [facility] HIB 4 Dose Schedule 2003-06-15 Completed Unive rsity of 00:00:00 [facility] Pneumococcal 13 2003-06-15 Completed Universit y of Conjugate, PCV13 00:00:00 [place] [facility] (Prevnar 13) Branch DTAP 2003-06-15 Completed [facility] 00:00:00 [facility] HIB 4 Dose Schedule 2003-06-15 Completed Unive rsity of 00:00:00 [facility] Pneumococcal 13 2003-06-15 Completed Universit y of Conjugate, PCV13 00:00:00 [facility] (Prevnar 13) Branch DTAP 2003-06-15 Completed [facility] 00:00:00 [facility] HIB 4 Dose Schedule 2003-06-15 Completed Unive rsity of 00:00:00 [facility] Pneumococcal 13 2003-06-15 Completed Univers[facility] y of Conjugate, PCV13 00:00:00 [place] [facility] (Prevnar 13) Branch DTAP 2003-06-15 Completed [facility] 00:00:00 [facility] HIB 4 Dose Schedule 2003-06-15 Completed Unive rsity of 00:00:00 [facility] Pneumococcal 13 2003-06-15 Completed Univers[facility] y of Conjugate, PCV13 00:00:00 [place] [facility] (Prevnar 13) Branch DTAP 2003-06-15 Completed [facility] 00:00:00 [facility] HIB 4 Dose Schedule 2003-06-15 Completed Unive rsity of 00:00:00 [facility] Pneumococcal 13 2003-06-15 Completed Universit y of Conjugate, PCV13 00:00:00 [place] [facility] (Prevnar 13) Branch DTAP 2003-06-15 Completed [facility] 00:00:00 [facility] HIB 4 Dose Schedule 2003-06-15 Completed Unive rsity of 00:00:00 [facility] Pneumococcal 13 2003-06-15 Completed Universit y of Conjugate, PCV13 00:00:00 [place] [facility] (Prevnar 13) Branch DTAP 2003-06-15 Completed [facility] 00:00:00 [facility] HIB 4 Dose Schedule 2003-06-15 Completed Unive rsity of 00:00:00 [facility] Pneumococcal 13 2003-06-15 Completed Universit y of Conjugate, PCV13 00:00:00 [place] [facility] (Prevnar 13) Branch DTAP 2003-06-15 Completed [facility] 00:00:00 [facility] HIB 4 Dose Schedule 2003-06-15 Completed Unive rsity of 00:00:00 [facility] Pneumococcal 13 2003-06-15 Completed Universit y of Conjugate, PCV13 00:00:00 [place] [facility] (Prevnar 13) Branch DTAP 2003-06-15 Completed [facility] 00:00:00 [facility] HIB 4 Dose Schedule 2003-06-15 Completed Unive rsity of 00:00:00 [facility] Pneumococcal 13 2003-06-15 Completed Universit y of Conjugate, PCV13 00:00:00 [facility] dical (Prevnar 13) Branch DTAP 2003-06-15 Completed [facility] 00:00:00 [facility] HIB 4 Dose Schedule 2003-06-15 Completed Unive rsity of 00:00:00 [facility] Pneumococcal 13 2003-06-15 Completed Universit y of Conjugate, PCV13 00:00:00 [facility] dical (Prevnar 13) Branch DTAP 2003-06-15 Completed [facility] 00:00:00 [facility] HIB 4 Dose Schedule 2003-06-15 Completed Unive rsity of 00:00:00 [facility] Pneumococcal 13 2003-06-15 Completed Universit y of Conjugate, PCV13 00:00:00 [facility] dical (Prevnar 13) Branch DTAP 2003-06-15 Completed [facility] 00:00:00 [facility] HIB 4 Dose Schedule 2003-06-15 Completed Unive rsity of 00:00:00 [facility] Pneumococcal 13 2003-06-15 Completed Universit y of Conjugate, PCV13 00:00:00 [facility] dical (Prevnar 13) Branch DTAP 2003-06-15 Completed [facility] 00:00:00 [facility] HIB 4 Dose Schedule 2003-06-15 Completed Unive rsity of 00:00:00 [facility] Pneumococcal 13 2003-06-15 Completed Universit y of Conjugate, PCV13 00:00:00 [facility] dical (Prevnar 13) Branch Polio (IPV/OPV) 2003-03-10 Completed Universit y of 00:00:00 [facility] Varicella 2003-03-10 Completed University of (varivax)(chicken 00:00:00 [facility] edical pox) Branch MMR 2003-03-10 Completed [facility] of 00:00:00 [facility] Polio (IPV/OPV) 2003-03-10 Completed Universit y of 00:00:00 [facility] Varicella 2003-03-10 Completed [facility] of (varivax)(chicken 00:00:00 [facility] edical pox) Branch MMR 2003-03-10 Completed [facility] of 00:00:00 [facility] Polio (IPV/OPV) 2003-03-10 Completed [facility]it y [facility] 00:00:00 [facility] Varicella 2003-03-10 Completed [facility] (varivax)(chicken 00:00:00 [place] [facility]ox[facility] 2003-03-10 Completed [facility] of 00:00:00 [facility] Polio (IPV/OPV) 2003-03-10 Completed Universit y of 00:00:00 [facility] Varicella 2003-03-10 Completed [facility] (varivax)(chicken 00:00:00 [place] [facility] pox) [facility] 2003-03-10 Completed [facility] 00:00:00 [facility] Polio (IPV/OPV) 2003-03-10 Completed Universit y of 00:00:00 [facility] Varicella 2003-03-10 Completed [facility] of (varivax)(chicken 00:00:00 [facility] edical pox) Branch [facility] 2003-03-10 Completed [facility] of 00:00:00 [facility] Polio (IPV/OPV) 2003-03-10 Completed Universit y of 00:00:00 [facility] Varicella 2003-03-10 Completed [facility] of (varivax)(chicken 00:00:00 [facility] edical pox) Branch [facility] 2003-03-10 Completed [facility] of 00:00:00 [facility] Polio (IPV/OPV) 2003-03-10 Completed [facility]it [facility] 00:00:00 [facility] Varicella 2003-03-10 Completed [facility] (varivax)(chicken 00:00:00 [place] [facility] pox[facility] 2003-03-10 Completed [facility] 00:00:00 [facility] Polio (IPV/OPV) 2003-03-10 Completed [facility]it y of 00:00:00 [facility] Varicella 2003-03-10 Completed [facility] of (varivax)(chicken 00:00:00 [facility] edical pox) Branch [facility] 2003-03-10 Completed [facility] of 00:00:00 [facility] Polio (IPV/OPV) 2003-03-10 Completed [facility] of 00:00:00 [facility] Varicella 2003-03-10 Completed [facility] of (varivax)(chicken 00:00:00 [facility] edical pox) Branch [facility] 2003-03-10 Completed [facility] 00:00:00 [facility] Polio (IPV/OPV) 2003-03-10 Completed [facility] 00:00:00 [facility] Varicella 2003-03-10 Completed [facility] (varivax)(chicken 00:00:00 [place] [facility] pox) [facility] 2003-03-10 Completed [facility] 00:00:00 [facility] Polio (IPV/OPV) 2003-03-10 Completed [facility] 00:00:00 [facility] Varicella 2003-03-10 Completed [facility] (varivax)(chicken 00:00:00 [place] [facility] pox) [facility] 2003-03-10 Completed [facility] 00:00:00 [facility] Polio (IPV/OPV) 2003-03-10 Completed [facility] 00:00:00 [facility] Varicella 2003-03-10 Completed [facility] of (varivax)(chicken 00:00:00 [facility] edical pox) Branch [facility] 2003-03-10 Completed [facility] of 00:00:00 [facility] Polio (IPV/OPV) 2003-03-10 Completed [facility] 00:00:00 [facility] Varicella 2003-03-10 Completed [facility] (varivax)(chicken 00:00:00 [place] [facility] 2003-03-10 Completed [facility] of 00:00:00 [facility] Polio (IPV/OPV) 2003-03-10 Completed [facility] 00:00:00 [facility] Varicella 2003-03-10 Completed [facility] (varivax)(chicken 00:00:00 [place] [facility] 2003-03-10 Completed [facility] 00:00:00 [facility] Polio (IPV/OPV) 2003-03-10 Completed [facility] 00:00:00 [facility] Varicella 2003-03-10 Completed [facility] (varivax)(chicken 00:00:00 [place] [facility] 2003-03-10 Completed [facility] of 00:00:00 [facility] Polio (IPV/OPV) 2003-03-10 Completed [facility] 00:00:00 [facility] Varicella 2003-03-10 Completed [facility] (varivax)(chicken 00:00:00 [facility] edical pox) Branch [facility] 2003-03-10 Completed [facility] of 00:00:00 [facility] Polio (IPV/OPV) 2003-03-10 Completed [facility] 00:00:00 [facility] Varicella 2003-03-10 Completed [facility] (varivax)(chicken 00:00:00 [facility] edical pox) Branch [facility] 2003-03-10 Completed [facility] of 00:00:00 [facility] Polio (IPV/OPV) 2003-03-10 Completed [facility] 00:00:00 [facility] Varicella 2003-03-10 Completed [facility] (varivax)(chicken 00:00:00 [place] [facility] 2003-03-10 Completed [facility] 00:00:00 [facility] Polio (IPV/OPV) 2003-03-10 Completed [facility] 00:00:00 [facility] Varicella 2003-03-10 Completed [facility] (varivax)(chicken 00:00:00 [place] [facility] pox[facility] 2003-03-10 Completed [facility] 00:00:00 [facility] Polio (IPV/OPV) 2003-03-10 Completed [facility] 00:00:00 [facility] Varicella 2003-03-10 Completed [facility] (varivax)(chicken 00:00:00 [place] [facility] pox[facility] 2003-03-10 Completed [facility] of 00:00:00 [facility] Polio (IPV/OPV) 2003-03-10 Completed [facility] 00:00:00 [facility] Varicella 2003-03-10 Completed [facility] (varivax)(chicken 00:00:00 [place] [facility]ox[facility] 2003-03-10 Completed [facility] of 00:00:00 [facility] Polio (IPV/OPV) 2003-03-10 Completed [facility] 00:00:00 [facility] Varicella 2003-03-10 Completed [facility] (varivax)(chicken 00:00:00 [place] [facility]ox[facility] 2003-03-10 Completed [facility] of 00:00:00 [facility] DTAP 2002 Completed [facility] of 00:00:00 [facility] HIB 4 Dose Schedule 2002 Completed Unive rsity of 00:00:00 [facility] Hep B, Adol or Pedi 2002 Completed Unive rsity of Dosage 00:00:00 [facility] DTAP 2002 Completed [facility] of 00:00:00 [facility] HIB 4 Dose Schedule 2002 Completed Unive rsity of 00:00:00 [facility] Hep B, Adol or Pedi 2002 Completed Unive rsity of Dosage 00:00:00 [facility] DTAP 2002 Completed [facility] 00:00:00 [facility] HIB 4 Dose Schedule 2002 Completed Unive rsity of 00:00:00 [facility] Hep B, Adol or Pedi 2002 Completed Unive rsity of Dosage 00:00:00 [facility] DTAP 2002 Completed [facility] 00:00:00 [facility] HIB 4 Dose Schedule 2002 Completed Unive rsity of 00:00:00 [facility] Hep B, Adol or Pedi 2002 Completed Unive rsity of Dosage 00:00:00 [facility] DTAP 2002 Completed [facility] 00:00:00 [facility] HIB 4 Dose Schedule 2002 Completed Unive rsity of 00:00:00 [facility] Hep B, Adol or Pedi 2002 Completed Unive rsity of Dosage 00:00:00 [facility] DTAP 2002 Completed [facility] 00:00:00 [facility] HIB 4 Dose Schedule 2002 Completed Unive rsity of 00:00:00 [facility] Hep B, Adol or Pedi 2002 Completed Unive rsity of Dosage 00:00:00 [facility] DTAP 2002 Completed [facility] 00:00:00 [facility] HIB 4 Dose Schedule 2002 Completed Unive rsity of 00:00:00 [facility] Hep B, Adol or Pedi 2002 Completed Unive rsity of Dosage 00:00:00 [facility] DTAP 2002 Completed [facility] 00:00:00 [facility] HIB 4 Dose Schedule 2002 Completed Unive rsity of 00:00:00 [facility] Hep B, Adol or Pedi 2002 Completed Unive rsity of Dosage 00:00:00 [facility] DTAP 2002 Completed [facility] 00:00:00 [facility] HIB 4 Dose Schedule 2002 Completed Unive rsity of 00:00:00 [facility] Hep B, Adol or Pedi 2002 Completed Unive rsity of Dosage 00:00:00 [facility] DTAP 2002 Completed [facility] 00:00:00 [facility] HIB 4 Dose Schedule 2002 Completed Unive rsity of 00:00:00 [facility] Hep B, Adol or Pedi 2002 Completed Unive rsity of Dosage 00:00:00 [facility] DTAP 2002 Completed [facility] 00:00:00 [facility] HIB 4 Dose Schedule 2002 Completed Unive rsity of 00:00:00 [facility] Hep B, Adol or Pedi 2002 Completed Unive rsity of Dosage 00:00:00 [facility] DTAP 2002 Completed [facility] 00:00:00 [facility] HIB 4 Dose Schedule 2002 Completed Unive rsity of 00:00:00 [facility] Hep B, Adol or Pedi 2002 Completed Unive rsity of Dosage 00:00:00 [facility] DTAP 2002 Completed [facility] of 00:00:00 [facility] HIB 4 Dose Schedule 2002 Completed Unive rsity of 00:00:00 [facility] Hep B, Adol or Pedi 2002 Completed Unive rsity of Dosage 00:00:00 [facility] DTAP 2002 Completed [facility] 00:00:00 [facility] HIB 4 Dose Schedule 2002 Completed Unive rsity of 00:00:00 [facility] Hep B, Adol or Pedi 2002 Completed Unive rsity of Dosage 00:00:00 [facility] DTAP 2002 Completed [facility] 00:00:00 [facility] HIB 4 Dose Schedule 2002 Completed [facility]ive rsity of 00:00:00 [facility] Hep B, Adol or Pedi 2002 Completed Unive rsity of Dosage 00:00:00 [facility] DTAP 2002 Completed [facility] 00:00:00 [facility] HIB 4 Dose Schedule 2002 Completed Unive rsity of 00:00:00 [facility] Hep B, Adol or Pedi 2002 Completed Unive rsity of Dosage 00:00:00 [facility] DTAP 2002 Completed [facility] 00:00:00 [facility] HIB 4 Dose Schedule 2002 Completed Unive rsity of 00:00:00 [facility] Hep B, Adol or Pedi 2002 Completed Unive rsity of Dosage 00:00:00 [facility] DTAP 2002 Completed [facility] 00:00:00 [facility] HIB 4 Dose Schedule 2002 Completed Unive rsity of 00:00:00 [facility] Hep B, Adol or Pedi 2002 Completed Unive rsity of Dosage 00:00:00 [facility] DTAP 2002 Completed [facility] 00:00:00 [facility] HIB 4 Dose Schedule 2002 Completed Unive rsity of 00:00:00 [facility] Hep B, Adol or Pedi 2002 Completed Unive rsity of Dosage 00:00:00 [facility] DTAP 2002 Completed [facility] 00:00:00 [facility] HIB 4 Dose Schedule 2002 Completed Unive rsity of 00:00:00 [facility] Hep B, Adol or Pedi 2002 Completed Unive rsity of Dosage 00:00:00 [facility] DTAP 2002 Completed [facility] 00:00:00 [facility] HIB 4 Dose Schedule 2002 Completed Unive rsity of 00:00:00 [facility] Hep B, Adol or Pedi 2002 Completed Unive rsity of Dosage 00:00:00 [facility] DTAP 2002 Completed [facility] 00:00:00 [facility] HIB 4 Dose Schedule 2002 Completed Unive rsity of 00:00:00 [facility] Hep B, Adol or Pedi 2002 Completed Unive rsity of Dosage 00:00:00 [facility] DTAP 2002 Completed [facility] of 00:00:00 [facility] HIB 4 Dose Schedule 2002 Completed Unive rsity of 00:00:00 [facility] Polio (IPV/OPV) 2002 Completed [facility] 00:00:00 [facility] DTAP 2002 Completed [facility] 00:00:00 [facility] HIB 4 Dose Schedule 2002 Completed Unive rsity of 00:00:00 [facility] Polio (IPV/OPV) 2002 Completed [facility] 00:00:00 [facility] DTAP 2002 Completed [facility] 00:00:00 [facility] HIB 4 Dose Schedule 2002 Completed Unive rsity of 00:00:00 [facility] Polio (IPV/OPV) 2002 Completed [facility] 00:00:00 [facility] DTAP 2002 Completed [facility] of 00:00:00 [facility] HIB 4 Dose Schedule 2002 Completed Unive rsity of 00:00:00 [facility] Polio (IPV/OPV) 2002 Completed [facility] 00:00:00 [facility] DTAP 2002 Completed [facility] 00:00:00 [facility] HIB 4 Dose Schedule 2002 Completed Unive rsity of 00:00:00 [facility] Polio (IPV/OPV) 2002 Completed [facility] 00:00:00 [facility] DTAP 2002 Completed [facility] 00:00:00 [facility] HIB 4 Dose Schedule 2002 Completed Unive rsity of 00:00:00 [facility] Polio (IPV/OPV) 2002 Completed [facility] 00:00:00 [facility] DTAP 2002 Completed [facility] 00:00:00 [facility] HIB 4 Dose Schedule 2002 Completed Unive rsity of 00:00:00 [facility] Polio (IPV/OPV) 2002 Completed [facility] 00:00:00 [facility] DTAP 2002 Completed [facility] 00:00:00 [facility] HIB 4 Dose Schedule 2002 Completed Unive rsity of 00:00:00 [facility] Polio (IPV/OPV) 2002 Completed [facility] 00:00:00 [facility] DTAP 2002 Completed [facility] of 00:00:00 [facility] HIB 4 Dose Schedule 2002 Completed Unive rsity of 00:00:00 [facility] Polio (IPV/OPV) 2002 Completed [facility] 00:00:00 [facility] DTAP 2002 Completed [facility] 00:00:00 [facility] HIB 4 Dose Schedule 2002 Completed Unive rsity of 00:00:00 [facility] Polio (IPV/OPV) 2002 Completed [facility] 00:00:00 [facility] DTAP 2002 Completed [facility] 00:00:00 [facility] HIB 4 Dose Schedule 2002 Completed Unive rsity of 00:00:00 [facility] Polio (IPV/OPV) 2002 Completed [facility] 00:00:00 [facility] DTAP 2002 Completed [facility] 00:00:00 [facility] HIB 4 Dose Schedule 2002 Completed [facility]ity of 00:00:00 [facility] Polio (IPV/OPV) 2002 Completed [facility] 00:00:00 [facility] DTAP 2002 Completed [facility] 00:00:00 [facility] HIB 4 Dose Schedule 2002 Completed [facility]ity of 00:00:00 [facility] Polio (IPV/OPV) 2002 Completed [facility] 00:00:00 [facility] DTAP 2002 Completed [facility] 00:00:00 [facility] HIB 4 Dose Schedule 2002 Completed Unive rsity of 00:00:00 [facility] Polio (IPV/OPV) 2002 Completed [facility] 00:00:00 [facility] DTAP 2002 Completed [facility] 00:00:00 [facility] HIB 4 Dose Schedule 2002 Completed [facility]ity of 00:00:00 [facility] Polio (IPV/OPV) 2002 Completed [facility] 00:00:00 [facility] DTAP 2002 Completed [facility] 00:00:00 [facility] HIB 4 Dose Schedule 2002 Completed Unive rsity of 00:00:00 [facility] Polio (IPV/OPV) 2002 Completed [facility] 00:00:00 [facility] DTAP 2002 Completed [facility] 00:00:00 [facility] HIB 4 Dose Schedule 2002 Completed [facility]ity of 00:00:00 [facility] Polio (IPV/OPV) 2002 Completed [facility] 00:00:00 [facility] DTAP 2002 Completed [facility] 00:00:00 [facility] HIB 4 Dose Schedule 2002 Completed [facility]ity of 00:00:00 [facility] Polio (IPV/OPV) 2002 Completed [facility] 00:00:00 [facility] DTAP 2002 Completed [facility] 00:00:00 [facility] HIB 4 Dose Schedule 2002 Completed [facility] of 00:00:00 [facility] Polio (IPV/OPV) 2002 Completed [facility] 00:00:00 [facility] DTAP 2002 Completed [facility] 00:00:00 [facility] HIB 4 Dose Schedule 2002 Completed [facility]ity of 00:00:00 [facility] Polio (IPV/OPV) 2002 Completed [facility] 00:00:00 [facility] DTAP 2002 Completed [facility] 00:00:00 [facility] HIB 4 Dose Schedule 2002 Completed [facility] of 00:00:00 [facility] Polio (IPV/OPV) 2002 Completed [facility] 00:00:00 [facility] DTAP 2002 Completed [facility] 00:00:00 [facility] HIB 4 Dose Schedule 2002 Completed [facility]ity of 00:00:00 [facility] Polio (IPV/OPV) 2002 Completed [facility] 00:00:00 [facility] DTAP 2002 Completed [facility] 00:00:00 [facility] HIB 4 Dose Schedule 2002 Completed [facility] of 00:00:00 [facility] Hep B, Adol or Pedi 2002 Completed Unive rsity of Dosage 00:00:00 [facility] Polio (IPV/OPV) 2002 Completed [facility] 00:00:00 [facility] DTAP 2002 Completed [facility] 00:00:00 [facility] HIB 4 Dose Schedule 2002 Completed [facility]ive [facility]ity of 00:00:00 [facility] Hep B, Adol or Pedi 2002 Completed [facility]ive rsity of Dosage 00:00:00 [facility] Polio (IPV/OPV) 2002 Completed [facility] 00:00:00 [facility] DTAP 2002 Completed [facility] 00:00:00 [facility] HIB 4 Dose Schedule 2002 Completed [facility]ity of 00:00:00 [facility] Hep B, Adol or Pedi 2002 Completed [facility] of Dosage 00:00:00 [facility] Polio (IPV/OPV) 2002 Completed [facility] 00:00:00 [facility] DTAP 2002 Completed [facility] 00:00:00 [facility] HIB 4 Dose Schedule 2002 Completed [facility] of 00:00:00 [facility] Hep B, Adol or Pedi 2002 Completed [facility] of Dosage 00:00:00 [facility] Polio (IPV/OPV) 2002 Completed [facility] 00:00:00 [facility] DTAP 2002 Completed [facility] 00:00:00 [facility] HIB 4 Dose Schedule 2002 Completed [facility] of 00:00:00 [facility] Hep B, Adol or Pedi 2002 Completed [facility] of Dosage 00:00:00 [facility] Polio (IPV/OPV) 2002 Completed [facility] 00:00:00 [facility] DTAP 2002 Completed [facility] 00:00:00 [facility] HIB 4 Dose Schedule 2002 Completed [facility]ity of 00:00:00 [facility] Hep B, Adol or Pedi 2002 Completed [facility] of Dosage 00:00:00 [facility] Polio (IPV/OPV) 2002 Completed [facility] 00:00:00 [facility] DTAP 2002 Completed [facility] 00:00:00 [facility] HIB 4 Dose Schedule 2002 Completed [facility] of 00:00:00 [facility] Hep B, Adol or Pedi 2002 Completed [facility] of Dosage 00:00:00 [facility] Polio (IPV/OPV) 2002 Completed [facility] 00:00:00 [facility] DTAP 2002 Completed [facility] 00:00:00 [facility] HIB 4 Dose Schedule 2002 Completed [facility] of 00:00:00 [facility] Hep B, Adol or Pedi 2002 Completed [facility] of Dosage 00:00:00 [facility] Polio (IPV/OPV) 2002 Completed [facility] 00:00:00 [facility] DTAP 2002 Completed [facility] 00:00:00 [facility] HIB 4 Dose Schedule 2002 Completed [facility] of 00:00:00 [facility] Hep B, Adol or Pedi 2002 Completed [facility] of Dosage 00:00:00 [facility] Polio (IPV/OPV) 2002 Completed [facility] 00:00:00 [facility] DTAP 2002 Completed [facility] 00:00:00 [facility] HIB 4 Dose Schedule 2002 Completed [facility] 00:00:00 [facility] Hep B, Adol or Pedi 2002 Completed [facility] of Dosage 00:00:00 [facility] Polio (IPV/OPV) 2002 Completed [facility] 00:00:00 [facility] DTAP 2002 Completed [facility] 00:00:00 [facility] HIB 4 Dose Schedule 2002 Completed [facility] of 00:00:00 [facility] Hep B, Adol or Pedi 2002 Completed [facility] of Dosage 00:00:00 [facility] Polio (IPV/OPV) 2002 Completed [facility] 00:00:00 [facility] DTAP 2002 Completed [facility] 00:00:00 [facility] HIB 4 Dose Schedule 2002 Completed [facility] of 00:00:00 [facility] Hep B, Adol or Pedi 2002 Completed [facility] of Dosage 00:00:00 [facility] Polio (IPV/OPV) 2002 Completed [facility] 00:00:00 [facility] DTAP 2002 Completed [facility] 00:00:00 [facility] HIB 4 Dose Schedule 2002 Completed [facility] of 00:00:00 [facility] Hep B, Adol or Pedi 2002 Completed [facility] of Dosage 00:00:00 [facility] Polio (IPV/OPV) 2002 Completed [facility] 00:00:00 [facility] DTAP 2002 Completed [facility] 00:00:00 [facility] HIB 4 Dose Schedule 2002 Completed [facility] 00:00:00 [facility] Hep B, Adol or Pedi 2002 Completed [facility] of Dosage 00:00:00 [facility] Polio (IPV/OPV) 2002 Completed [facility] 00:00:00 [facility] DTAP 2002 Completed [facility] 00:00:00 [facility] HIB 4 Dose Schedule 2002 Completed [facility] of 00:00:00 [facility] Hep B, Adol or Pedi 2002 Completed [facility] of Dosage 00:00:00 [facility] Polio (IPV/OPV) 2002 Completed [facility] 00:00:00 [facility] DTAP 2002 Completed [facility] 00:00:00 [facility] HIB 4 Dose Schedule 2002 Completed [facility] 00:00:00 [facility] Hep B, Adol or Pedi 2002 Completed [facility] of Dosage 00:00:00 [facility] Polio (IPV/OPV) 2002 Completed [facility] 00:00:00 [facility] DTAP 2002 Completed [facility] 00:00:00 [facility] HIB 4 Dose Schedule 2002 Completed [facility] of 00:00:00 [facility] Hep B, Adol or Pedi 2002 Completed [facility] of Dosage 00:00:00 [facility] Polio (IPV/OPV) 2002 Completed [facility] 00:00:00 [facility] DTAP 2002 Completed [facility] 00:00:00 [facility] HIB 4 Dose Schedule 2002 Completed [facility] 00:00:00 [facility] Hep B, Adol or Pedi 2002 Completed [facility] of Dosage 00:00:00 [facility] Polio (IPV/OPV) 2002 Completed [facility] 00:00:00 [facility] DTAP 2002 Completed [facility] 00:00:00 [facility] HIB 4 Dose Schedule 2002 Completed [facility] 00:00:00 [facility] Hep B, Adol or Pedi 2002 Completed [facility] of Dosage 00:00:00 [facility] Polio (IPV/OPV) 2002 Completed [facility] 00:00:00 [facility] DTAP 2002 Completed [facility] 00:00:00 [facility] HIB 4 Dose Schedule 2002 Completed [facility] 00:00:00 [facility] Hep B, Adol or Pedi 2002 Completed [facility] of Dosage 00:00:00 [facility] Polio (IPV/OPV) 2002 Completed [facility] 00:00:00 [facility] DTAP 2002 Completed [facility] 00:00:00 [facility] HIB 4 Dose Schedule 2002 Completed [facility] 00:00:00 [facility] Hep B, Adol or Pedi 2002 Completed [facility] of Dosage 00:00:00 [facility] Polio (IPV/OPV) 2002 Completed [facility] 00:00:00 [facility] DTAP 2002 Completed [facility] 00:00:00 [facility] HIB 4 Dose Schedule 2002 Completed [facility] of 00:00:00 [facility] Hep B, Adol or Pedi 2002 Completed [facility] of Dosage 00:00:00 [facility] Polio (IPV/OPV) 2002 Completed [facility] 00:00:00 [facility] Hep B, Adol or Pedi 2002 Completed [facility] of Dosage 00:00:00 [facility] Hep B, Adol or Pedi [...] Completed Unive rs[facility] of Dosage 00:00:00 [facility] Hep B, Adol or Pedi 2002 Completed [facility] of Dosage 00:00:00 [facility] Hep B, Adol or Pedi 2002 Completed [facility] of Dosage 00:00:00 [facility] Vital Signs Vital Name Observation Time Observation Value Comments Source Systolic blood 2022-12-24 20:14:00 112 mm[Hg] Univer [facility] of pressure [facility] Diastolic blood 2022-12-24 20:14:00 72 mm[Hg] Unive rsity of pressure [facility] Heart rate 2022-12-24 20:14:00 80 /min [facility] Body temperature 2022-12-24 20:14:00 36.61 Patricia [facility] ers[facility] of [facility] Respiratory rate 2022-12-24 20:14:00 18 /min [facility] ers[facility] of [facility] Body height 2022-12-24 20:14:00 177.8 cm Univers[facility] ty [facility] Body weight 2022-12-24 20:14:00 81.511 kg [facility] BMI 2022-12-24 20:14:00 25.78 kg/m2 [facility] ty [facility] Oxygen saturation in 2022-12-24 20:14:00 99 /min University of Arterial blood by [facility] Pulse oximetry Branch Systolic blood 2022-12-21 18:06:00 122 mm[Hg] Univer sity of pressure [facility] Branch Diastolic blood 2022-12-21 18:06:00 75 mm[Hg] Unive rsity of pressure [facility] Heart rate 2022-12-21 18:06:00 72 /min [facility] Respiratory rate 2022-12-21 18:06:00 18 /min Univ ersity of [facility] Body weight 2022-12-21 18:06:00 81.647 kg Universi ty [facility] Oxygen saturation in 2022-12-21 18:06:00 100 /min University of Arterial blood by [facility] Pulse oximetry Branch Systolic blood 2022-08-25 16:53:00 132 mm[Hg] Univer sity of pressure [facility] Diastolic blood 2022-08-25 16:53:00 77 mm[Hg] Unive rsity of pressure [facility] Heart rate 2022-08-25 16:53:00 89 /min [facility] Body temperature 2022-08-25 16:53:00 36.56 Patricia Univ [facility] Respiratory rate 2022-08-25 16:53:00 18 /min [facility] Body height 2022-08-25 16:53:00 177.8 cm [facility] Body weight 2022-08-25 16:53:00 87.544 kg [facility] BMI 2022-08-25 16:53:00 27.69 kg/m2 [facility] Oxygen saturation in 2022-08-25 16:53:00 96 /min [facility] of [facility] blood by [place] [facility] Pulse oximetry Branch Systolic blood 2022-06-29 20:38:00 132 mm[Hg] Univer sity of [facility] Diastolic blood 2022-06-29 20:38:00 89 mm[Hg] Unive rsity of pressure [facility] Heart rate 2022-06-29 20:38:00 98 /min [facility] Respiratory rate 2022-06-29 20:38:00 18 /min Univ [facility] Body weight 2022-06-29 20:38:00 86.183 kg [facility] Oxygen saturation in 2022-06-29 20:38:00 99 /min [facility] of [place] blood by [place] [facility] Pulse oximetry Branch Systolic blood 2022-03-06 16:11:00 126 mm[Hg] Univer sity of [facility] Diastolic blood 2022-03-06 16:11:00 81 mm[Hg] Unive rsity of [facility] Heart rate 2022-03-06 16:11:00 70 /min [facility] Respiratory rate 2022-03-06 16:11:00 18 /min [facility] Body weight 2022-03-06 16:11:00 82.373 kg [facility] Oxygen saturation in 2022-03-06 16:11:00 98 /min [facility] of Arterial blood by [place] [facility] Pulse oximetry Branch Procedures Procedure Date / Time Performed Performing Clinician Sourc e TDAP VACCINE, >11 YRS, 2022-12-21 18:59:57 Jean Baumann [facility] ASSIGNMENT OF BENEFITS 2022-12-21 17:37:24 Doctor Unassigned, No [facility] Name Medical Branch POCT MOLECULAR FLU 2022-08-25 17:01:00 Unknown, Attending [facility] MEDICAL 2022-06-29 06:01:00 Doctor Unassigned, No [facility] RELEASE/CLEARANCE Name Medical Branch 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 PROVIDER 2022-03-07 05:01:00 Doctor Unassigned, No [facility] RECORDS Name Medical Branch Encounters Start End Encounter Admission Attending Care Care Encounter Source Date/Time Date/Time Type Type Clinicians Facility Department ID 2023-01-16 2023-01-16 Outpatient R JEAN BAUMANN [facility] [id number] Univers 13:30:00 13:30:00 JEAN BAUMANN itjosh [facility] 2022-12-24 2022-12-24 Pharmacy Service Associate 2, Adc Lab [facility] 1.2.840.114 [id number] Univers 15:45:00 16:00:00 Visit Jean Baumann 350.1.13.1 0 it[place] of [place] [id number] Oh dical NAL [facility] 2022-12-24 2022-12-24 Office Jason [facility] 1.2.840.114 [id number] Univers 15:00:00 15:30:00 Visit Jean HILLMANALLI 350.1.13.10 it[place] [id number] Oh dical NAL 0[facility] 2022-12-24 2022-12-24 Outpatient R JEAN BAUMANN [facility] [id number] Univers 15:00:00 15:00:00 [facility] 2022-12-21 Pharmacy Service Associate 2, Adc Lab [facility] 1.2.840.114 [id number] Univers 14:15:00 14:30:00 Visit Jean Baumann 350.1.13.1 0 it[facility] of [facility] [place] [id number] Oh diclaney [facility] 2022-12-21 2022-12-21 Outpatient R JEAN BAUMANN [facility] [id number] Univers 12:00:00 13:58:34 JEAN BAUMANN ity [facility] 2022-12-21 2022-12-21 Office Jason [facility] 1.2.840.114 [id number] Univers 12:00:00 13:58:34 Visit Jean JUNG 350.1.13.10 ity of [facility] [place] [id number] [facility] 044 [facility] 2022-12-21 2022-12-21 Orders Doctor WESLY 1.2.840.114 [id number] Univers 00:00:00 00:00:00 Only Unassigned, ISRAEL 350.1.13.10 ity of [place] [facility] 4.2.7.2.686 Jaret as [phone] [address] 2022-08-25 2022-08-25 Outpatient R JUAN JOSE [facility] [id number] Univers 11:00:00 11:58:10 [facility] 2022-08-25 2022-08-25 Urgent Bhakti Cooley [facility] 1.2.840.114 [id number] Univers 11:00:00 11:58:10 Care Unknown, Attending HEALTH 350.1.13.10 ity of [place] 4.2.7.2.686 Jaret as DOV?BLEA [id number] [facility] [address] MEDICAL OFFICE BUILDING 2022-08-25 2022-08-25 Letter Bhakti Cooley [facility] 1.2.840.114 [id number] Univers 00:00:00 00:00:00 (Out) C HEALTH 350.1.13.10 it y of [facility] 4.2.7.2.686 Jaret as DOV?BLEA [id number] [address] MEDICAL OFFICE [facility] 2022-08-25 2022-08-25 Letter Provider, [facility] 1.2.904.240 [id number] Univers 00:00:00 00:00:00 (Out) Ang Db HEALTH 350.1.13.10 it y of Urgent Care [place] 4.2.7.2.686 [place] DOV?BLEA [id number] [address] OFFICE [facility] 2022-07-04 2022-07-04 Letter WESLY Sinha 1.2.840.114 [id number] Univers 00:00:00 00:00:00 (Out) Ame ISRAEL 350.1.13.10 it y of HOSPITAL 4.2.7.2.686 Jaret as [id number] [address] 2022-07-04 2022-07-04 Telephone Nurse, Prasanna [facility] 1.2.840.114 [id number] Univers 00:00:00 00:00:00 Db Urgent HEALTH 350.1.13.10 ity of Care [place] 4.2.7.2.686 Jaret as DOV?BLEA [id number] [address] OFFICE [facility] 2022-07-04 2022-07-04 Letter Provider, [facility] 1.2.784.885 [id number] Univers 00:00:00 00:00:00 (Out) Ang Db HEALTH 350.1.13.10 it y of Urgent Care [place] 4.2.7.2.686 [place] DOV?BLEA [id number] [address] OFFICE [facility] 2022-07-03 2022-07-03 Laboratory Only, Ang Kevin Test [facility] 1.2.8 40.114 [id number] Univers 11:00:00 11:15:00 Only Unknown, Attending HEALTH 350.1.13.10 ity of Millie Rodriguez 4.2.7.2.686 [place] DOV?BLEA [id number] [address] MEDICAL OFFICE [facility] 2022-07-03 2022-07-03 Outpatient R CHANO [facility] [id number] Univers 11:00:00 11:00:00 MILLIE jordan [facility] 2022-06-29 2022-06-29 Outpatient R JEAN BAUMANN [facility] [id number] Univers 15:00:00 15:49:30 JEAN BAUMANN ity [facility] 2022-06-29 2022-06-29 Office Jason, [facility] 1.2.840.114 [id number] Univers 15:00:00 15:49:30 Visit Fernandezjeremyhai ERICH 350.1.13.10 ity [facility] [place]2.7.2.[place] [facility] [phone] Oh dical [facility] 0[facility] 2022-06-29 2022-06-29 Outpatient R JEAN BAUMANN [facility] [id number] Univers 09:00:00 09:00:00 JEAN BAUMANN ity [facility] 2022-06-29 2022-06-29 Orders Doctor WESLY 1.2.840.114 [id number] Univers 00:00:00 00:00:00 Only Unassigned, ISRAEL 350.1.13.10 ity of [place] [facility] 4.2.7.2.686 Jaret as [id number] [facility] [address] 2022-06-05 2022-06-05 Outpatient R UNKNOWN, [facility] [id number] Univers 13:00:00 13:00:00 ATTENDING ity of [facility] 2022-03-07 2022-03-07 Telephone [facility] 1.2.840.11 [id number] Univers 00:00:00 00:00:00 Ángel ARAUZ 350.1.13.10 it [place] [id number] [facility] [address] 2022-03-07 2022-03-07 Orders Doctor JARRELL 1.2.840.114 [id number] Univers 00:00:00 00:00:00 Only Unassigned, ISRAEL 350.1.13.10 ity of [place] [facility] 4.2.7.2.686 Jaret as [id number] [facility] [address] 2022-03-07 2022-03-07 Letter [facility] 1.2.840.114 [id number] Univers 00:00:00 00:00:00 (Out) Ángel ARAUZ 350.1.13.10 it [place] [id number] [address] 2022-03-06 2022-03-06 Outpatient R [facility] [id number] Univers 10:40:00 11:18:26 ÁNGEL ity [facility] 2022-03-06 2022-03-06 Office [facility] 1.2.840.114 [id number] Univers 10:40:00 11:18:26 Visit Ángel ARAUZ 350.1.13.10 it [place] [id number] [address] 2022 2022 Letter [facility] 1.2.657.327 [id number] Univers 00:00:00 00:00:00 (Out) Ang Db HEALTH 350.1.13.10 it y of Urgent [facility] 4.2.7.2.686 [place] DOV?BLEA [id number] [address] MEDICAL OFFICE BUILDING 2022-02-01 2022-02-01 Telephone [facility] 1.2.840.11 [id number] Univers 00:00:00 00:00:00 Ángel ARAUZ 350.1.13.10 it [place] [id number] [address] 2022-01-31 2022-01-31 Urgent [facility] 1.2.840.114 [id number] Univers 17:20:00 17:40:00 Care Herlinda HEALTH 350.1.13.10 it y of [place] 4.2.7.2.686 Jaret as DOV?BLEA [id number] [address] MEDICAL OFFICE BUILDING 2022-01-31 2022-01-31 Outpatient R [facility] [id number] Univers 17:20:00 17:11:16 HERLINDA ity [facility] 2021-12-20 2021-12-20 Telephone WESLY Morgan 1.2.587.546 [id number] Univers 00:00:00 00:00:00 Nenita Wiley ISRAEL 350.1.13.10 i ty of [facility] 4.2.7.2.686 Jaret as [id number] [address] 2021-12-20 2021-12-20 Telephone Marko [facility] 1.2.840.114 [id number] Univers 00:00:00 00:00:00 [facility] 350.1.13.10 it y of [place] 4.2.7.2.686 Jaret as DOV?BLEA [phone] [address] MEDICAL OFFICE [facility] 2021-12-19 2021-12-19 Outpatient R MARKO [facility] [id number] Univers 17:20:00 18:27:41 TRACI [facility] 2021-12-19 2021-12-19 [facility] 1.2.840.114 [id number] Univers 17:20:00 17:40:00 Care [facility] 350.1.13.10 ity of [place] 4.2.7.2.686 Jaret as DOV?BLEA [id number] [address] MEDICAL OFFICE [facility] 2021-10-11 2021-10-11 Outpatient R TERENCE HAN [facility] [id number] Univers 14:20:00 14:48:00 ity of [facility] 2021-10-11 2021-10-11 Office Terence Han [facility] 1.2.840.114 [id number] Univers 14:20:00 14:48:00 Visit DAVONTE 350.1.13.10 it [place] [id number] [address] 2021-10-11 2021-10-11 Letter Terence Han [facility] 1.2.840.114 [id number] Univers 00:00:00 00:00:00 (Out) DAVONTE 350.1.13.10 it [place] [id number] [address] 2021-09-12 2021-09-12 Outpatient R [facility] [id number] Univers 10:10:00 10:46:20 , DORINA ity [facility] 2021-09-12 2021-09-12 Office [facility] 1.2.840.114 [id number] Univers 10:10:00 10:46:20 Visit , Dorina ARAUZ 350.1.13.10 it y [place] [id number] [address] 2021-09-12 2021-09-12 Orders Doctor WESLY 1.2.840.114 [id number] Univers 00:00:00 00:00:00 Only Unassigned, ISRAEL 350.1.13.10 ity of [place] [facility] 4.2.7.2.686 Jaret as [id number] [place] [address] [address] 2021-08-23 2021-08-23 Outpatient R [facility] [id number] Univers 16:00:00 16:00:00 ity of [facility] 2021-08-23 2021-08-23 Outpatient R [facility] [id number] Univers 08:00:00 08:00:00 ity [facility] 2021-07-25 2021-07-25 Outpatient R [facility] [id number] Univers 08:00:00 08:00:00 ity [facility] 2021-03-17 2021-03-17 Laboratory Lab, Adc Fam Pob I [facility] 1.2. 840.114 [id number] Univers 11:20:04 11:40:04 Only Millie Rodriguez [facility] 350.1.13.10 ity of [place] 4.2.7.2.686 Jaret as essalize [id number] [address] Office [address] 2021-03-17 2021-03-17 Outpatient Alejandro RODRIGUEZ [facility] [id number] Univers 11:40:00 11:40:00 [facility] 2020-12-06 2020-12-06 [facility] 1.2.840.114 [id number] 00:00:00 00:00:00 Ann Arauz 350.1.13.10 Pediatric 4.2.7.2.686 Clinic [id number] [facility] 2020-12-06 2020-12-06 Telephone [facility] 1.2.840.114 [id number] Univers 00:00:00 00:00:00 Ann Arauz 350.1.13.10 [place] [id number] [address] 2020-12-05 2020-12-05 Office [facility] 1.2.840.114 [id number] 15:12:09 15:55:16 Visit Ann Arauz 350.1.13.10 Pediatric 4.2.7.2.686 Clinic [id number] [facility] 2020-12-05 2020-12-05 Office [facility] 1.2.840.[id number] [facility] 15:12:09 15:55:16 Visit Ann Arauz 350.1.13.10 [place] [id number] [address] 2020-12-05 2020-12-05 [facility] [id number] Univers 15:20:00 15:20:00 ANN jordan [facility] 2020-11-29 2020-11-29 Outpatient R DE [facility] [id number] Univers 10:40:00 10:40:00 aleena SARMIENTO [facility] 2020-11-24 2020-11-24 Telephone [facility] 1.2.840.114 [id number] Univers 00:00:00 00:00:00 Davonte Sarmiento 350.1.13.10 ity of [facility] [place] [id number] [address] 2020-11-16 2020-11-16 Telephone [facility] 1.2.840.114 [id number] Univers 00:00:00 00:00:00 Davonte Sarmiento.1.13.10 ity of [place] [facility] [place]2.[place] [id number] [address] 2020-11-15 2020-11-15 Office de [facility] 1.2.674.674 [id number] Univers 10:08:10 10:46:44 Visit Davonte Sarmiento 350.1.13.10 ity of [place] [facility] [place]2.[place] [id number] [address] 2020-11-15 2020-11-15 Outpatient R DE [facility] [id number] Univers 10:20:00 10:20:00 nikki SARMIENTO [facility] 2020-09-27 2020-09-27 Outpatient R DE [facility] [id number] Univers 16:00:00 16:00:00 nikki SARMIENTO [facility] 2020-09-22 2020-09-22 Pharmacy Service Associate Ira Burleson Lab Main [facility] 1.2.8 40.114 [id number] Univers 13:57:56 14:12:56 Visit Ángel Root 350.1.13 .10 ity of [place]2.7.2.[place] Profess[place] [id number] [address] 2020-09-22 2020-09-22 Outpatient R DE [facility] [id number] Univers 14:00:00 14:00:00 nikki SARMIENTO [facility] 2020-09-21 2020-09-21 Office de [facility] 1.2.418.300 [id number] Univers 15:08:11 15:47:29 Visit Davonte Sarmiento 350.1.13.10 ity of [place] [id number] [address] 2020-09-21 2020-09-21 Outpatient R DE [facility] [id number] Univers 15:20:00 15:20:00 nikki SARMIENTO [facility] 2020-09-21 2020-09-21 Outpatient R DE [facility] [id number] Univers 08:00:00 08:00:00 GUILLERMINA ity of Á[place] [facility] 2020-08-19 2020-08-19 Letter de [facility] 1.2.412.758 [id number] Univers 00:00:00 00:00:00 (Out) Davonte Sarmiento 350.1.13.10 ity of [place] [facility] [place].2.[place] [facility] [id number] [facility] [address] 2020-08-18 2020-08-18 Letter David [facility] 1.2.840.114 [id number] Univers 00:00:00 00:00:00 (Out) Ann Arauz 350.1.13.10 it[place] [facility] [id number] [address] 2020-08-18 2020-08-18 Telephone David [facility] 1.2.840.114 [id number] Univers 00:00:00 00:00:00 Ann Arauz 350.1.13.10 ity [place]2.[place] [facility] [id number] [address] 2020-08-16 2020-08-16 Office David [facility] 1.2.840.114 [id number] Univers 13:22:21 13:48:03 Visit Ann Aaruz 350.1.13.10 ity [place]2.[place] [facility] [id number] [address] 2020-08-16 2020-08-16 Outpatient R DAVID [facility] [id number] Univers 13:20:00 13:20:00 ANN jordan of [facility] 2020-08-16 2020-08-16 Orders Doctor JARRELL 1.2.840.114 [id number] Univers 00:00:00 00:00:00 Only Unassigned, ISRAEL 350.1.13.10 ity of [place] [facility] 4.2.7.2.686 Jaret as [id number] [place] [address] [address] 2020-08-16 2020-08-16 [facility] 1.2.840.114 [id number] Univers 00:00:00 00:00:00 (Out) Ann Arauz 350.1.13.10 ity [place] [facility] [id number] [address] 2020-05-30 2020-05-30 Orders Doctor JARRELL 1.2.840.114 [id number] Univers 00:00:00 00:00:00 Only Unassigned, ISRAEL 350.1.13.10 ity of [place] [facility] 4.2.7.2.686 Jaret as [id number] [address] 2020-05-11 2020-05-11 Telephone de [facility] 1.2.840.114 [id number] Univers 00:00:00 00:00:00 Davonte Sarmiento 350.1.13.10 ity of [place] [facility] [place]7.2.[place] [facility] [id number] [address] 2020-05-11 2020-05-11 Orders Doctor JARRELL 1.2.840.114 [id number] Univers 00:00:00 00:00:00 Only Unassigned, ISRAEL 350.1.13.10 ity of [place] [facility] 4.2.7.2.686 Jaret as [id number] [address] 2019-12-10 2019-12-10 Orders Doctor JARRELL 1.2.840.114 [id number] Univers 00:00:00 00:00:00 Only Unassigned, ISRAEL 350.1.13.10 ity of [place] [facility] 4.2.7.2.686 Jaret as [id number] [address] 2019-09-04 2019-09-04 Office Hernandez [facility] 1.2.840.114 [id number] Univers 14:00:09 14:35:25 Visit Ann Arauz 350.1.13.10 ity [place]2.[place] [facility] [id number] [address] 2019-09-04 2019-09-04 Orders Doctor JARRELL 1.2.840.114 [id number] Univers 00:00:00 00:00:00 Only Unassigned, ISRAEL 350.1.13.10 ity of [place] [facility] 4.2.7.2.686 Jaret as [id number] [address] 2019-04-24 2019-04-24 Office [facility] 1.2.073.450 [id number] Univers 15:50:53 16:37:49 Visit Davonte Sarmiento 350.1.13.10 ity of [place] [facility] [place]2.7.2.[place] [facility] [id number] [address] 2019-04-23 2019-04-23 Office [facility] 1.2.361.126 [id number] Univers 14:50:35 15:25:37 Visit Davonte Sarmiento 350.1.13.10 ity of [place] [facility] [place]2.7.2.[place] [facility] [id number] [address] 2019-04-23 2019-04-23 Letter [facility] 1.2.886.713 [id number] Univers 00:00:00 00:00:00 (Out) Davonte Sarmiento 350.1.13.10 ity of [place] [facility] [place].7.2.[place] [facility] [id number] [address] 2019-04-23 2019-04-23 Orders Doctor WESLY 1.2.840.114 [id number] Univers 00:00:00 00:00:00 Only Unassigned, ISRAEL 350.1.13.10 ity of [place] [facility] 4.2.7.2.686 Jaret as [phone] [address] 2019-04-20 2019-04-20 Telephone [facility] 1.2.840.11 [id number] Univers 00:00:00 00:00:00 Lexus Pedroza 350.1.13.10 ity [place]2.[place] [facility] [phone] [address] Results Test Description Test Time Test Comments Results Result Comments Source POCT MOLECULAR FLU 2022-08-25 17:13:25 Test Item Value Reference Range Interpretation Comme nts POCT Molecular FluA (test code = 44828-9) Negative Negative POCT Molecular FluB (test code = 67477-6) Negative Negative Lab Interpretation (test code = 13994-7) Normal [facility]
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
[2023-04-12 17:38] VITALS: BP 117/89; TEMP 98.1; O2SAT 98
== END 2023-04-12 17:28 | disposition home or self-care (01) ==
LOC: ER 16:58
DX: T20.10XA Burn of first degree of head, face, and neck, unspecified site, initial encounter (principal)
CPT/HCPCS: 99283

== ENCOUNTER 2023-05-28 16:30 | Emergency (ER) | payer SELFPAY ==
--- OUTSIDE RECORDS SUMMARY | 2023-05-28 16:34 | XMS REPORT | Continuity of Care Document ---
:2000 Author Organization [facility] t Address [address] [place] [address] Care Team Providers Name Role Phone ÁNGLE DONOVAN Primary Care Physician Unavailable JEAN BAUMANN Attending Clinician Unavailable JEAN BAUMANN Attending Clinician Unavailable 2, [facility] Attending Clinician Unavailable Doctor Unassigned, [place] Attending Clinician Unavailable BHAKTI COOLEY III Attending [...] Effective Date Expiration Date S gagan CHAVEZ [id number] 2022 00:00:00 Problems Condition Condition Condition Status Onset Resolution Last Treating Co mments Source Name Details Category Date Date Treatment Clinician Date No known No known Disease Unive rs active active ity of problems problems [facility] Allergies, Adverse Reactions, Alerts Allergy Allergy Status Severity Reaction(s) Onset Inactive Treating Comm ents Source Name Type Date Date Clinician NO KNOWN Drug Active Univers ALLERGIE Class ity of S [facility] Social History Social Habit Start Date Stop Date Quantity Comments Source Exposure to 2022-12-14 2022-12-24 Not sure [facility] SARS-CoV-2 00:00:00 14:56:00 [facility] (event) [place] Tobacco use and 2022-03-06 2022-03-06 Smokeless tobacco Un iversity of exposure 00:00:00 00:00:00 non-user [facility] Sex Assigned At [birth year] Universit y of 00:00:00 00:00:00 [facility] Smoking Status Start Date Stop Date Source Never smoked tobacco [facility] Medications Ordered Filled Start Stop Current Ordering Indication Dosage Frequency Signature Comments Components Source Medication Medication Date Date Medication? Clinician (SIG) Name Name mupirocin 2 Yes [id number] Apply to Univers % ointment 5-12 area(s) 3 ity of 00:00: (three) [place] 00 times Medical daily. Branch mupirocin 2 2022- Yes [id number] Apply to Univers % ointment 5-12 area(s) 3 ity of 00:00: (three) [place] 00 times Medical daily. Branch mupirocin 2 2022- Yes [id number] Apply to Univers % ointment 5-12 area(s) 3 ity of 00:00: (three) [place] 00 times Medical daily. Branch mupirocin 2 2022-0 Yes [id number] Apply to Univers % ointment 5-12 area(s) 3 ity of 00:00: (three) [place] 00 times Medical daily. Branch mupirocin 2 3-0 Yes [id number] Apply to Univers % ointment 5-12 area(s) 3 ity of 00:00: (three) [place] 00 times Medical daily. Branch mupirocin 2 3-0 Yes [id number] Apply to Univers % ointment 5-12 area(s) 3 ity of 00:00: (three) [place] 00 times Medical daily. Branch amoxicillin 2022-0 2022- No [id number] 1{tbl} Take 1 Univers -clavulanat 5-12 05-23 tablet by it y of e 00:00: 04:59 mouth in [place] (AUGMENTIN) 00 :00 the Medical 875-125 mg morning Branch per tablet and 1 tablet in the evening. Do all this for 10 days. amoxicillin 2022-2022- No [id number] 1{tbl} Take 1 Univers -clavulanat 5-12 05-23 tablet by it y of e 00:00: 04:59 mouth in [place] (AUGMENTIN) 00 :00 the Medical 875-125 mg morning Branch per tablet and 1 tablet in the evening. Do all this for 10 days. amoxicillin 2022-0 2022- No [id number] 1{tbl} Take 1 Univers -clavulanat 5-12 05-23 tablet by it y of e 00:00: 04:59 mouth in [place] (AUGMENTIN) 00 :00 the Medical 875-125 mg morning Branch per tablet and 1 tablet in the evening. Do all this for 10 days. amoxicillin 2022-0 2022- No [id number] 1{tbl} Take 1 Univers -clavulanat 5-12 05-23 tablet by it y of e 00:00: 04:59 mouth in [place] (AUGMENTIN) 00 :00 the Medical 875-125 mg morning Branch per tablet and 1 tablet in the evening. Do all this for 10 days. amoxicillin 2022-0 2022- No [id number] 1{tbl} Take 1 Univers -clavulanat 5-12 05-23 tablet by it y of e 00:00: 04:59 mouth in [place] (AUGMENTIN) 00 :00 the Medical 875-125 mg morning Branch per tablet and 1 tablet in the evening. Do all this for 10 days. amoxicillin 2022- No [id number] 1{tbl} Take 1 Univers -clavulanat 5-12 05-23 tablet by it y of e 00:00: 04:59 mouth in [place] (AUGMENTIN) 00 :00 the Medical 875-125 mg morning Branch per tablet and 1 tablet in the evening. Do all this for 10 days. albuterol Yes [id number] 2{puff} Inhale 2 Univers 90 1-14 Puffs ity of mcg/actuati 00:00: every 6 [place] as on inhaler 00 (six) Medical hours as Branch needed for Wheezing or Shortness of Breath. albuterol Yes [id number] 2{puff} Inhale 2 Univers 90 1-14 Puffs ity of mcg/actuati 00:00: every 6 [place] as on inhaler 00 (six) Medical hours as Branch needed for Wheezing or Shortness of Breath. albuterol Yes [id number] 2{puff} Inhale 2 Univers 90 1-14 Puffs ity of mcg/actuati 00:00: every 6 [place] as on inhaler 00 (six) Medical hours as Branch needed for Wheezing or Shortness of Breath. albuterol Yes [id number] 2{puff} Inhale 2 Univers 90 1-14 Puffs ity of mcg/actuati 00:00: every 6 [place] as on inhaler 00 (six) Medical hours as Branch needed for Wheezing or Shortness of Breath. albuterol Yes [id number] 2{puff} Inhale 2 Univers 90 1-14 Puffs ity of mcg/actuati 00:00: every 6 [place] on inhaler 00 (six) Medical hours as Branch needed for Wheezing or Shortness of Breath. albuterol Yes [id number] 2{puff} Inhale 2 Univers 90 1-14 Puffs ity of mcg/actuati 00:00: every 6 [place] as on inhaler 00 (six) Medical hours as Branch needed for Wheezing or Shortness of Breath. albuterol Yes [id number] 2{puff} Inhale 2 Univers 90 1-14 Puffs ity of mcg/actuati 00:00: every 6 [place] as on inhaler 00 (six) Medical hours as Branch needed for Wheezing or Shortness of Breath. albuterol Yes [id number] 2{puff} Inhale 2 Univers 90 1-14 Puffs ity of mcg/actuati 00:00: every 6 [place] on inhaler 00 (six) Medical hours as Branch needed for Wheezing or Shortness of Breath. albuterol Yes [id number] 2{puff} Inhale 2 Univers 90 1-14 Puffs ity of mcg/actuati 00:00: every 6 [place] as on inhaler 00 (six) Medical hours as Branch needed for Wheezing or Shortness of Breath. albuterol Yes [id number] 2{puff} Inhale 2 Univers 90 1-14 Puffs ity of mcg/actuati 00:00: every 6 [place] on inhaler 00 (six) Medical hours as Branch needed for Wheezing or Shortness of Breath. Methylpredn 0 2022- No [id number] 4mg Take 1 Univers isolone 4 1-14 01-20 tablet by ity of mg tablet 00:00: 05:59 mouth [place] 00 :00 every 12 Medical (twelve) Branch hours for 5 days. Methylpredn 2022-0 3- No [id number] 4mg Take 1 Univers isolone 4 1-14 -20 tablet by ity of mg tablet 00:00: 05:59 mouth [place] 00 :00 every 12 Medical (twelve) Branch hours for 5 days. Methylpredn 2022-0 2022- No [id number] 4mg Take 1 Univers isolone 4 1-14 01-20 tablet by ity of mg tablet 00:00: 05:59 mouth [place] 00 :00 every 12 Medical (twelve) Branch hours for 5 days. naproxen 2021-08 Yes [id number] 500mg Take 1 U nivers 500 mg 1-18 tablet by ity of tablet 00:00: mouth in [place] 00 the Medical morning Branch and 1 tablet in the evening. Take with meals. cyclobenzap 2021-08 Yes [id number] 10mg Take 1 Univers rine 10 mg 1-18 tablet by ity of tablet 00:00: mouth at [place] [address] bedtime as Medical needed for Branch Muscle Spasms. Diclofenac 2021-08 Yes [id number] Take 2-4 Univers Sodium 1-18 grams ity of (VOLTAREN) 00:00: three [place] 1 % gel 00 times a Medical day as Branch needed for pain naproxen 2021-08 Yes [id number] 500mg Take 1 U nivers 500 mg 1-18 tablet by ity of tablet 00:00: mouth in [place] 00 the Medical morning Branch and 1 tablet in the evening. Take with meals. cyclobenzap 2021-08 Yes [id number] 10mg Take 1 Univers rine 10 mg 1-18 tablet by ity of tablet 00:00: mouth at [place] [address] bedtime as Medical needed for Branch Muscle Spasms. Diclofenac 2021-08 Yes [id number] Take 2-4 Univers Sodium 1-18 grams ity of (VOLTAREN) 00:00: three [place] 1 % gel 00 times a Medical day as Branch needed for pain naproxen 2021-08 Yes [id number] 500mg Take 1 U nivers 500 mg 1-18 tablet by ity of tablet 00:00: mouth in [place] 00 the Medical morning Branch and 1 tablet in the evening. Take with meals. cyclobenzap 2021-08 Yes [id number] 10mg Take 1 Univers rine 10 mg 1-18 tablet by ity of tablet 00:00: mouth at [place] [address] bedtime as Medical needed for Branch Muscle Spasms. Diclofenac 2021-08 Yes [id number] Take 2-4 Univers Sodium 1-18 grams ity of (VOLTAREN) 00:00: three [place] 1 % gel 00 times a Medical day as Branch needed for pain naproxen 2021-08 Yes [id number] 500mg Take 1 U nivers 500 mg 1-18 tablet by ity of tablet 00:00: mouth in [place] 00 the Medical morning Branch and 1 tablet in the evening. Take with meals. cyclobenzap 2021-08 Yes [id number] 10mg Take 1 Univers rine 10 mg 1-18 tablet by ity of tablet 00:00: mouth at [place] [address] bedtime as Medical needed for Branch Muscle Spasms. Diclofenac 2021-08 Yes [id number] Take 2-4 Univers Sodium 1-18 grams ity of (VOLTAREN) 00:00: three [place] 1 % gel 00 times a Medical day as Branch needed for pain naproxen 2021-08 Yes [id number] 500mg Take 1 U nivers 500 mg 1-18 tablet by ity of tablet 00:00: mouth in [place] 00 the Medical morning Branch and 1 tablet in the evening. Take with meals. cyclobenzap 2021-08 Yes [id number] 10mg Take 1 Univers rine 10 mg 1-18 tablet by ity of tablet 00:00: mouth at [place] [address] bedtime as Medical needed for Branch Muscle Spasms. Diclofenac 2021-08 Yes [id number] Take 2-4 Univers Sodium 1-18 grams ity of (VOLTAREN) 00:00: three [place] 1 % gel 00 times a Medical day as Branch needed for pain naproxen 2021-08 Yes [id number] 500mg Take 1 U nivers 500 mg 1-18 tablet by ity of tablet 00:00: mouth in [place] 00 the Medical morning Branch and 1 tablet in the evening. Take with meals. cyclobenzap 2021-08 Yes [id number] 10mg Take 1 Univers rine 10 mg 1-18 tablet by ity of tablet 00:00: mouth at [place] [address] bedtime as Medical needed for Branch Muscle Spasms. Diclofenac 2021-08 Yes [id number] Take 2-4 Univers Sodium 1-18 grams ity of (VOLTAREN) 00:00: three [place] 1 % gel 00 times a Medical day as Branch needed for pain naproxen 2021-08 Yes [id number] 500mg Take 1 U nivers 500 mg 1-18 tablet by ity of tablet 00:00: mouth in [place] 00 the Medical morning Branch and 1 tablet in the evening. Take with meals. cyclobenzap 2021-08 Yes [id number] 10mg Take 1 Univers rine 10 mg 1-18 tablet by ity of tablet 00:00: mouth at [place] 00 bedtime as Medical needed for Branch Muscle Spasms. Diclofenac 2021-08 Yes [id number] Take 2-4 Univers Sodium 1-18 grams ity of (VOLTAREN) 00:00: three [place] 1 % gel 00 times a Medical day as Branch needed for pain naproxen 2021-08 Yes [id number] 500mg Take 1 U nivers 500 mg 1-18 tablet by ity of tablet 00:00: mouth in [place] 00 the Medical morning Branch and 1 tablet in the evening. Take with meals. cyclobenzap 2021-08 Yes [id number] 10mg Take 1 Univers rine 10 mg 1-18 tablet by ity of tablet 00:00: mouth at [place] [address] bedtime as Medical needed for Branch Muscle Spasms. Diclofenac 2021-08 Yes [id number] Take 2-4 Univers Sodium 1-18 grams ity of (VOLTAREN) 00:00: three [place] 1 % gel 00 times a Medical day as Branch needed for pain naproxen 2021-08 Yes [id number] 500mg Take 1 U nivers 500 mg 1-18 tablet by ity of tablet 00:00: mouth in [place] 00 the Medical morning Branch and 1 tablet in the evening. Take with meals. cyclobenzap 2021-08 Yes [id number] 10mg Take 1 Univers rine 10 mg 1-18 tablet by ity of tablet 00:00: mouth at [place] [address] bedtime as Medical needed for Branch Muscle Spasms. Diclofenac 2021-08 Yes [id number] Take 2-4 Univers Sodium 1-18 grams ity of (VOLTAREN) 00:00: three [place] 1 % gel 00 times a Medical day as Branch needed for pain naproxen 2021-08 Yes [id number] 500mg Take 1 U nivers 500 mg 1-18 tablet by ity of tablet 00:00: mouth in [place] 00 the Medical morning Branch and 1 tablet in the evening. Take with meals. cyclobenzap 2021-08 Yes [id number] 10mg Take 1 Univers rine 10 mg 1-18 tablet by ity of tablet 00:00: mouth at [place] [address] bedtime as Medical needed for Branch Muscle Spasms. Diclofenac 2021-08 Yes [id number] Take 2-4 Univers Sodium 1-18 grams ity of (VOLTAREN) 00:00: three [place] 1 % gel 00 times a Medical day as Branch needed for pain naproxen 2021-08 Yes [id number] 500mg Take 1 U nivers 500 mg 1-18 tablet by ity of tablet 00:00: mouth in [place] 00 the Medical morning Branch and 1 tablet in the evening. Take with meals. cyclobenzap 2021-08 Yes [id number] 10mg Take 1 Univers rine 10 mg 1-18 tablet by ity of tablet 00:00: mouth at [place] [address] bedtime as Medical needed for Branch Muscle Spasms. Diclofenac 2021-08 Yes [id number] Take 2-4 Univers Sodium 1-18 grams ity of (VOLTAREN) 00:00: three [place] 1 % gel 00 times a Medical day as Branch needed for pain naproxen 2021-08 Yes [id number] 500mg Take 1 U nivers 500 mg 1-18 tablet by ity of tablet 00:00: mouth in [place] 00 the Medical morning Branch and 1 tablet in the evening. Take with meals. cyclobenzap 2021-08 Yes [id number] 10mg Take 1 Univers rine 10 mg 1-18 tablet by ity of tablet 00:00: mouth at [place] [address] bedtime as Medical needed for Branch Muscle Spasms. Diclofenac 2021-08 Yes [id number] Take 2-4 Univers Sodium 1-18 grams ity of (VOLTAREN) 00:00: three [place] 1 % gel 00 times a Medical day as Branch needed for pain naproxen 2021-08 Yes [id number] 500mg Take 1 U nivers 500 mg 1-18 tablet by ity of tablet 00:00: mouth in [place] [address] the Medical morning Branch and 1 tablet in the evening. Take with meals. cyclobenzap 2021-08 Yes [id number] 10mg Take 1 Univers rine 10 mg 1-18 tablet by ity of tablet 00:00: mouth at [place] [address] bedtime as Medical needed for Branch Muscle Spasms. Diclofenac 2021-08 Yes [id number] Take 2-4 Univers Sodium 1-18 grams ity of (VOLTAREN) 00:00: three [place] 1 % gel 00 times a Medical day as Branch needed for pain naproxen 2021-08 Yes [id number] 500mg Take 1 U nivers 500 mg 1-18 tablet by ity of tablet 00:00: mouth in [place] 00 the Medical morning Branch and 1 tablet in the evening. Take with meals. cyclobenzap 2021-08 Yes [id number] 10mg Take 1 Univers rine 10 mg 1-18 tablet by ity of tablet 00:00: mouth at [place] [address] bedtime as Medical needed for Branch Muscle Spasms. Diclofenac 2021-08 Yes [id number] Take 2-4 Univers Sodium 1-18 grams ity of (VOLTAREN) 00:00: three [place] 1 % gel 00 times a Medical day as Branch needed for pain naproxen 2021-08 Yes [id number] 500mg Take 1 U nivers 500 mg 1-18 tablet by ity of tablet 00:00: mouth in [place] 00 the Medical morning Branch and 1 tablet in the evening. Take with meals. cyclobenzap 2021-08 Yes [id number] 10mg Take 1 Univers rine 10 mg 1-18 tablet by ity of tablet 00:00: mouth at [place] [address] bedtime as Medical needed for Branch Muscle Spasms. Diclofenac 2021-08 Yes [id number] Take 2-4 Univers Sodium 1-18 grams ity of (VOLTAREN) 00:00: three [place] 1 % gel 00 times a Medical day as Branch needed for pain naproxen 2021-08 Yes [id number] 500mg Take 1 U nivers 500 mg 1-18 tablet by ity of tablet 00:00: mouth in [place] 00 the Medical morning Branch and 1 tablet in the evening. Take with meals. cyclobenzap 2021-08 Yes [id number] 10mg Take 1 Univers rine 10 mg 1-18 tablet by ity of tablet 00:00: mouth at [place] [address] bedtime as Medical needed for Branch Muscle Spasms. Diclofenac 2021-08 Yes [id number] Take 2-4 Univers Sodium 1-18 grams ity of (VOLTAREN) 00:00: three [place] 1 % gel 00 times a Medical day as Branch needed for pain naproxen 2021-08 Yes [id number] 500mg Take 1 U nivers 500 mg 1-18 tablet by ity of tablet 00:00: mouth in [place] 00 the Medical morning Branch and 1 tablet in the evening. Take with meals. cyclobenzap 2021-08 Yes [id number] 10mg Take 1 Univers rine 10 mg 1-18 tablet by ity of tablet 00:00: mouth at [place] [address] bedtime as Medical needed for Branch Muscle Spasms. Diclofenac 2021-08 Yes [id number] Take 2-4 Univers Sodium 1-18 grams ity [...] 00:00: [place] cream Medical Branch azithromyci Yes [id number] Take 500 Univers n 9-13 mg day 1, ity of (ZITHROMAX 00:00: then 250 [place] as Z-DEANNA) 250 00 mg days 2 Medi connor mg tablet to 5. Branch azithromyci Yes [id number] Take 500 Univers n 9-13 mg day 1, ity of (ZITHROMAX 00:00: then 250 [place] as Z-DEANNA) 250 00 mg days 2 Medi connor mg tablet to 5. Branch azithromyci Yes [id number] Take 500 Univers n 9-13 mg day 1, ity of (ZITHROMAX 00:00: then 250 [place] as Z-DEANNA) 250 00 mg days 2 Medi connor mg tablet to 5. Branch azithromyci Yes [id number] Take 500 Univers n 9-13 mg day 1, ity of (ZITHROMAX 00:00: then 250 [place] as Z-DEANNA) 250 00 mg days 2 Medi connor mg tablet to 5. Branch azithromyci Yes [id number] Take 500 Univers n 9-13 mg day 1, ity of (ZITHROMAX 00:00: then 250 [place] as Z-DEANNA) 250 00 mg days 2 Medi connor mg tablet to 5. Branch azithromyci Yes [id number] Take 500 Univers n 9-13 mg day 1, ity of (ZITHROMAX 00:00: then 250 [place] as Z-DEANNA) 250 00 mg days 2 Medi connor mg tablet to 5. [place] yu Yes [id number] Take 500 Univers n 9-13 mg day 1, ity of (ZITHROMAX 00:00: then 250 [place] as Z-DEANNA) 250 00 mg days 2 Medi connor mg tablet to 5. [place] yu Yes [id number] Take 500 Univers n 9-13 mg day 1, ity of (ZITHROMAX 00:00: then 250 [place] as Z-DEANNA) 250 00 mg days 2 Medi connor mg tablet to 5. [place] yu Yes [id number] Take 500 Univers n 9-13 mg day 1, ity of (ZITHROMAX 00:00: then 250 [place] as Z-DEANNA) 250 00 mg days 2 Medi connor mg tablet to 5. [place] yu Yes [id number] Take 500 Univers n 9-13 mg day 1, ity of (ZITHROMAX 00:00: then 250 [place] as Z-DEANNA) 250 00 mg days 2 Medi connor mg tablet to 5. [place] yu Yes [id number] Take 500 Univers n 9-13 mg day 1, ity of (ZITHROMAX 00:00: then 250 [place] as Z-DEANNA) 250 00 mg days 2 Medi connor mg tablet to 5. [place] yu Yes [id number] Take 500 Univers n 9-13 mg day 1, ity of (ZITHROMAX 00:00: then 250 [place] as Z-DEANNA) 250 00 mg days 2 Medi connor mg tablet to 5. [place] yu Yes [id number] Take 500 Univers n 9-13 mg day 1, ity of (ZITHROMAX 00:00: then 250 [place] as Z-DEANNA) 250 00 mg days 2 Medi connor mg tablet to 5. [place] yu Yes [id number] Take 500 Univers n 9-13 mg day 1, ity of (ZITHROMAX 00:00: then 250 [place] as Z-DEANNA) 250 00 mg days 2 Medi connor mg tablet to 5. [place] yu Yes [id number] Take 500 Univers n 9-13 mg day 1, ity of (ZITHROMAX 00:00: then 250 [place] as Z-DEANNA) 250 00 mg days 2 Medi connor mg tablet to 5. [place] weinerithromyci Yes [id number] Take 500 Univers n 9-13 mg day 1, ity of (ZITHROMAX 00:00: then 250 [place] as Z-DEANNA) 250 00 mg days 2 Medi connor mg tablet to 5. Branch husamithromyci Yes [id number] Take 500 Univers n 9-13 mg day 1, ity of (ZITHROMAX 00:00: then 250 [place] as Z-DEANNA) 250 00 mg days 2 Medi connor mg tablet to 5. Branch husamithromyci Yes [id number] Take 500 Univers n 9-13 mg day 1, ity of (ZITHROMAX 00:00: then 250 [place] as Z-DEANNA) 250 00 mg days 2 Medi connor mg tablet to 5. [place] enriqueyci Yes [id number] Take 500 Univers n 9-13 mg day 1, ity of (ZITHROMAX 00:00: then 250 [place] as Z-DEANNA) 250 00 mg days 2 Medi connor mg tablet to 5. [place] weinerithromyci Yes [id number] Take 500 Univers n 9-13 mg day 1, ity of (ZITHROMAX 00:00: then 250 [place] as Z-DEANNA) 250 00 mg days 2 Medi connor mg tablet to 5. [place] weinerithromyci Yes [id number] Take 500 Univers n 9-13 mg day 1, ity of (ZITHROMAX 00:00: then 250 [place] as Z-DEANNA) 250 00 mg days 2 Medi connor mg tablet to 5. [place] husamithromyci Yes [id number] Take 500 Univers n 9-13 mg day [...] on inhaler 00 Medical Branch cetirizine Yes [id number] 10mg Take 1 U nivers (ZYRTEC) 10 1-30 tablet by ity of mg tablet 00:00: [place] bedtime as Medical needed for Branch Allergies or Runny nose. cetirizine Yes [id number] 10mg Take 1 U nivers (ZYRTEC) 10 1-30 tablet by ity of mg tablet 00:00: [place] bedtime as Medical needed for Branch Allergies or Runny nose. cetirizine Yes [id number] 10mg Take 1 U nivers (ZYRTEC) 10 1-30 tablet by ity of mg tablet 00:00: [place] bedtime as Medical needed for Branch Allergies or Runny nose. cetirizine Yes [id number] 10mg Take 1 U nivers (ZYRTEC) 10 1-30 tablet by ity of mg tablet 00:00: [place] bedtime as Medical needed for Branch Allergies or Runny nose. cetirizine Yes [id number] 10mg Take 1 U nivers (ZYRTEC) 10 1-30 tablet by ity of mg tablet 00:00: [place] bedtime as Medical needed for Branch Allergies or Runny nose. cetirizine Yes [id number] 10mg Take 1 U nivers (ZYRTEC) 10 1-30 tablet by ity of mg tablet 00:00: [place] bedtime as Medical needed for Branch Allergies or Runny nose. cetirizine Yes [id number] 10mg Take 1 U nivers (ZYRTEC) 10 1-30 tablet by ity of mg tablet 00:00: [place] bedtime as Medical needed for Branch Allergies or Runny nose. cetirizine Yes [id number] 10mg Take 1 U nivers (ZYRTEC) 10 1-30 tablet by ity of mg tablet 00:00: [place] bedtime as Medical needed for Branch Allergies or Runny nose. cetirizine Yes [id number] 10mg Take 1 U nivers (ZYRTEC) 10 1-30 tablet by ity of mg tablet 00:00: [place] bedtime as Medical needed for Branch Allergies or Runny nose. cetirizine Yes [id number] 10mg Take 1 U nivers (ZYRTEC) 10 1-30 tablet by ity of mg tablet 00:00: [place] bedtime as Medical needed for Branch Allergies or Runny nose. cetirizine Yes [id number] 10mg Take 1 U nivers (ZYRTEC) 10 1-30 tablet by ity of mg tablet 00:00: [place] bedtime as Medical needed for Branch Allergies or Runny nose. cetirizine Yes [id number] 10mg Take 1 U nivers (ZYRTEC) 10 1-30 tablet by ity of mg tablet 00:00: [place] bedtime as Medical needed for Branch Allergies or Runny nose. cetirizine Yes [id number] 10mg Take 1 U nivers (ZYRTEC) 10 1-30 tablet by ity of mg tablet 00:00: [place] bedtime as Medical needed for Branch Allergies or Runny nose. cetirizine Yes [id number] 10mg Take 1 U nivers (ZYRTEC) 10 1-30 tablet by ity of mg tablet 00:00: [place] bedtime as Medical needed for Branch Allergies or Runny nose. cetirizine Yes [id number] 10mg Take 1 U nivers (ZYRTEC) 10 1-30 tablet by ity of mg tablet 00:00: [place] bedtime as Medical needed for Branch Allergies or Runny nose. cetirizine Yes [id number] 10mg Take 1 U nivers (ZYRTEC) 10 1-30 tablet by ity of mg tablet 00:00: [place] bedtime as Medical needed for Branch Allergies or Runny nose. cetirizine Yes [id number] 10mg Take 1 U nivers (ZYRTEC) 10 1-30 tablet by ity of mg tablet 00:00: [place] bedtime as Medical needed for Branch Allergies or Runny nose. cetirizine Yes [id number] 10mg Take 1 U nivers (ZYRTEC) 10 1-30 tablet by ity of mg tablet 00:00: [place] bedtime as Medical needed for Branch Allergies or Runny nose. cetirizine Yes [id number] 10mg Take 1 U nivers (ZYRTEC) 10 1-30 tablet by ity of mg tablet 00:00: [place] bedtime as Medical needed for Branch Allergies or Runny nose. cetirizine Yes [id number] 10mg Take 1 U nivers (ZYRTEC) 10 1-30 tablet by ity of mg tablet 00:00: [place] bedtime as Medical needed for Branch Allergies or Runny nose. cetirizine Yes [id number] 10mg Take 1 U nivers (ZYRTEC) 10 1-30 tablet by ity of mg tablet 00:00: [place] bedtime as Medical needed for Branch Allergies or Runny nose. cetirizine Yes [id number] 10mg Take 1 U nivers (ZYRTEC) 10 1-30 tablet by ity of mg tablet 00:00: [place] bedtime as Medical needed for Branch Allergies or Runny nose. Vital Signs Vital Name Observation Time Observation Value Comments Source Systolic blood 2022-12-24 20:14:00 112 mm[Hg] [facility] Diastolic blood 2022-12-24 20:14:00 72 [facility]14:00 80 /min [facility] Body temperature 2022-12-24 20:14:00 36.61 Patricia [facility] Respiratory rate 2022-12-24 20:14:00 18 /min [facility] Body height 2022-12-24 20:14:00 177.8 cm [facility] Body weight 2022-12-24 20:14:00 81.511 kg [facility] BMI 2022-12-24 20:14:00 25.78 kg/m2 [facility] Oxygen saturation in 2022-12-24 20:14:00 99 /min [facility] Arterial blood by [facility] Pulse oximetry Branch Systolic blood 2022-12-21 18:06:00 122 mm[Hg] [facility] [facility] Diastolic blood 2022-12-21 18:06:00 75 mm[facility]Hg] [facility] 2022-12-21 18:06:00 72 /min [facility] Respiratory rate 2022-12-21 18:06:00 18 /min [facility] Body weight 2022-12-21 18:06:00 81.647 kg [facility] Oxygen saturation in 2022-12-21 18:06:00 100 /min [facility] Arterial blood by [facility] Pulse oximetry Branch Systolic blood 2022-08-25 16:53:00 132 mm[Hg] [facility] Diastolic blood 2022-08-25 16:53:00 77 mm[Hg] [facility] Heart rate 2022-08-25 16:53:00 89 /min [facility] Body temperature 2022-08-25 16:53:00 36.56 Patricia [facility] Respiratory rate 2022-08-25 16:53:00 18 /min [facility] Body height 2022-08-25 16:53:00 177.8 cm [facility] Body weight 2022-08-25 16:53:00 87.544 kg [facility] BMI 2022-08-25 16:53:00 27.69 kg/m2 [facility] Oxygen saturation in 2022-08-25 16:53:00 96 /min [facility] Arterial blood by [facility] Pulse oximetry Branch Systolic blood 2022-06-29 20:38:00 132 mm[Hg] [facility] Diastolic blood 2022-06-29 20:38:00 89 mm[Hg] [facility] Heart rate 2022-06-29 20:38:00 98 /min [facility] Respiratory rate 2022-06-29 20:38:00 18 /min [facility] Body weight 2022-06-29 20:38:00 86.183 kg [facility] Oxygen saturation in 2022-06-29 20:38:00 99 /min [facility] Arterial blood by [facility] Pulse oximetry Branch Systolic blood 2022-03-06 16:11:00 126 mm[Hg] [facility] Diastolic blood 2022-03-06 16:11:00 81 mm[Hg] [facility] Heart rate 2022-03-06 16:11:00 70 /min [facility] Respiratory rate 2022-03-06 16:11:00 18 /min [facility] Body weight 2022-03-06 16:11:00 82.373 kg [facility] Oxygen saturation in 2022-03-06 16:11:00 98 /min [facility] blood by [facility] Pulse oximetry Branch Procedures Procedure Date / Time Performed Performing Clinician Yordan e TDAP VACCINE, >11 YRS, 2022-12-21 18:59:57 [facility]ENEFITS 2022-12-21 17:37:24 Doctor Unassigned, No [facility] Name [facility] Branch POCT MOLECULAR FLU 2022-08-25 17:01:00 Unknown, Attending [facility] 2022-06-29 06:01:00 Doctor Unassigned, No [facility] RELEASE/CLEARANCE Name [facility] [place] FORMS EXTERNAL PROVIDER 2022-03-07 05:01:00 Doctor Unassigned, No [facility] RECORDS Name [facility] Encounters Start End Encounter Admission Attending Care Care Encounter Source Date/Time Date/Time Type Type Clinicians Facility Department ID 2023-01-16 2023-01-16 Outpatient R [facility] [id number] [facility] 13:30:00 13:30:00 [facility] 2022-12-24 2022-12-24 Family And Marriage Counsellor 2, Adc Lab [facility] 1.2.840.114 [id number] [facility] 15:45:00 16:00:00 Visit Jean Baumann 350.1.13.1 0 ity of [facility] 4.2.7.2.686 Neftali OCASIO [phone] [address] 2022-12-24 2022-12-24 Office Jason [facility] 1.2.840.114 [id number] [facility] 15:00:00 15:30:00 Visit Jean JUNG 350.1.13.10 ity of [place] [phone] Dc diclaney NAL 044 [facility] 2022-12-24 2022-12-24 Outpatient R [facility] [id number] Univers 15:00:00 15:00:00 JEAN BAUMANN ity [facility] 2022-12-21 2022-12-21 Family And Marriage Counsellor 2, Adc Lab [facility] 1.2.840.114 [id number] Univers 14:15:00 14:30:00 Visit Jean Baumann 350.1.13.1 0 ity of [facility] [place] [phone] Dc josé miguel KRISHNAMURTHY 353 [facility] 2022-12-21 2022-12-21 Outpatient R [facility] [id number] Univers 12:00:00 13:58:34 [facility] 2022-12-21 2022-12-21 Office Jason [facility] 1.2.840.114 [id number] Univers 12:00:00 13:58:34 Visit Jean ERICH 350.1.13.10 ity of [facility] [place] [id number] Dc josé miguel KRISHNAMURTHY 044 [facility] 2022-12-21 2022-12-21 Orders Doctor WESLY 1.2.840.114 [id number] Univers 00:00:00 00:00:00 Only Unassigned, ISRAEL 350.1.13.10 ity of [place] [facility] 4.2.7.2.686 Jaret as [id number] [address] 2022-08-25 2022-08-25 Outpatient R [facility] [id number] Univers 11:00:00 11:58:10 BHAKTI jordan [facility] 2022-08-25 2022-08-25 Bhakti Romero [facility] 1.2.840.114 [id number] Univers 11:00:00 11:58:10 Care Unknown, Attending HEALTH 350.1.13.10 ity of [facility] 4.2.7.2.686 Jaret as DOV?BLEA [phone] [address] MEDICAL OFFICE [facility] 2022-08-25 2022-08-25 Letter Bhakti Cooley [facility] 1.2.840.114 [id number] Univers 00:00:00 00:00:00 (Out) C HEALTH 350.1.13.10 it y of [facility] 4.2.7.2.686 Jaret as DOV?BLEA [id number] [address] MEDICAL OFFICE [facility] 2022-08-25 2022-08-25 Letter Provider, [place] 1.2.496.043 [id number] Univers 00:00:00 00:00:00 (Out) Ang Db HEALTH 350.1.13.10 it y of Urgent Care [place] 4.2.7.2.686 [place] DOV?BLEA [id number] [address] OFFICE [facility] 2022-07-04 2022-07-04 Letter WESLY Sinha 1.2.840.114 [id number] Univers 00:00:00 00:00:00 (Out) Ame ISRAEL 350.1.13.10 it y of HOSPITAL 4.2.7.2.686 Jaret as [id number] [address] 2022-07-04 2022-07-04 Telephone Nurse, Prasanna [facility] 1.2.840.114 [id number] Univers 00:00:00 00:00:00 Db Urgent HEALTH 350.1.13.10 ity of Care [place] 4.2.7.2.686 Jaret as DOV?BLEA [phone] [address] MEDICAL OFFICE [facility] 2022-07-04 2022-07-04 Letter Provider, [facility] 1.2.806.408 [id number] Univers 00:00:00 00:00:00 (Out) Ang Db HEALTH 350.1.13.10 it y of Urgent Care [place] 4.2.7.2.686 [place] DOV?BLEA [id number] [address] OFFICE [facility] 2022-07-03 2022-07-03 Laboratory Only, Ang Db Test [facility] 1.2.8 40.114 [id number] Univers 11:00:00 11:15:00 Only Unknown, Attending HEALTH 350.1.13.10 ity of MichaelMillie ERICH 4.2.7.2.686 Mendez PADILLAE?SANTA [id number] Dc josé miguel KNEY [address] MEDICAL OFFICE BUILDING 2022-07-03 2022-07-03 Outpatient R [facility]HAEL [facility] [id number] Univers 11:00:00 11:00:00 MILLIE jordan [facility] 2022-06-29 2022-06-29 Outpatient R [facility] [id number] Univers 15:00:00 15:49:30 [facility] 2022-06-29 2022-06-29 Office Jason [facility] 1.2.840.114 [id number] Univers 15:00:00 15:49:30 Visit Jean JUNG 350.1.13.10 ity [facility] 4.2.7.2.686 Neftali OCASIO [phone] Dc josé miguel [facility] 0[address] Branch BUILDING 2022-06-29 2022-06-29 Outpatient R [facility] [id number] Univers 09:00:00 09:00:00 WILL BAUMANNNYLA darnelly [facility] 2022-06-29 2022-06-29 Orders Doctor JARRELL 1.2.840.114 [id number] Univers 00:00:00 00:00:00 Only Unassigned, ISRA[place] 350.1.13.10 ity of [place] [facility] 4.2.7.2.686 Jaret as [id number] [address] 2022-06-05 2022-06-05 Outpatient R SHEA [facility] [id number] Univers 13:00:00 13:00:00 ATTENDING ity of [facility] 2022-03-07 2022-03-07 Telephone Debra [facility] 1.2.840.11 [id number] Univers 00:00:00 00:00:00 Ángel ARAUZ 350.1.13.10 it y of PEDIATRIC 4.2.7.2.686 [facility] [id number] [facility] [address] 2022-03-07 2022-03-07 Orders Doctor WESLY 1.2.840.114 [id number] Univers 00:00:00 00:00:00 Only Unassigned, ISRA[place] 350.1.13.10 ity of [place] HOSPITAL 4.2.7.2.686 Jaret as [phone] [place] [address] Branch 2022-03-07 2022-03-07 Letter [facility] 1.2.840.114 [id number] Univers 00:00:00 00:00:00 (Out) Ángel ARAUZ 350.1.13.10 it [place] [facility] [phone] [address] 2022-03-06 2022-03-06 Outpatient R [facility] [id number] Univers 10:40:00 11:18:26 ÁNGEL jordan [facility] 2022-03-06 2022-03-06 Office [facility] 1.2.840.114 [id number] Univers 10:40:00 11:18:26 Visit Ángel ARAUZ 350.1.13.10 it [place] [phone] [address] 2022 2022 Letter [facility] 1.2.020.293 [id number] Univers 00:00:00 00:00:00 (Out) [facility] 350.1.13.10 it y of Urgent Care [place] 4.2.7.2.686 [facility]?BLEA [phone] Dc dical [address] MEDICAL OFFICE BUILDING 2022-02-01 2022-02-01 Telephone [facility] 1.2.840.11 [id number] Univers 00:00:00 00:00:00 Ángel DAVONTE 350.1.13.10 it [place] [phone] [address] 2022-01-31 2022-01-31 Urgent [facility] 1.2.840.114 [id number] Univers 17:20:00 17:40:00 Care [facility] 350.1.13.10 it y of [facility] 4.2.7.2.686 Jaret as DOV?BLEA [id number] [address] MEDICAL OFFICE [facility] 2022-01-31 2022-01-31 Outpatient R PITA [facility] [id number] Univers 17:20:00 17:11:[facility] 2021-12-20 2021-12-20 Telephone Eddie WESLY 1..540.860 [id number] Univers 00:00:00 00:00:00 Nenita WOOD 350.1.13.10 i ty [facility] 4.2.7.2.686 [place] as [phone] [address] 2021-12-20 2021-12-20 Telephone Marko MILEANDRA ..840.114 [id number] Univers 00:00:00 00:00:00 [facility] 350.1.13.10 it y of [place] 4.2.7.2.686 Jaret as DOV?BLEA [phone] [address] OFFICE [facility] 2021-12-19 2021-12-19 Outpatient R MARKO [facility] [id number] Univers 17:20:00 18:27:41 [facility] 2021-12-19 2021-12-19 [facility] ..840.114 [id number] Univers 17:20:00 17:40:00 Care Pita [facility] 350.1.13.10 ity of [place] 4.2.7.2.686 Jaret as DOV?BLEA [id number] [address] MEDICAL OFFICE [facility] 2021-10-11 2021-10-11 Outpatient R TERENCE [facility]AN [facility] [id number] Univers 14:20:00 14:48:00 ity [facility] 2021-10-11 2021-10-11 Office Terence Han [facility] ..840.114 [id number] Univers 14:20:00 14:48:00 Visit DAVONTE 350.1.13.10 it [place] [id number] [facility] [address] 2021-10-11 2021-10-11 Samia LunaTerence tipton [facility] MARILEE 1.2.840.114 [id number] Univers 00:00:00 00:00:00 (Out) DAVONTE 350.1.13.10 it [place] [id number] [facility] [address] 2021-09-12 2021-09-12 Outpatient R [facility] [id number] Univers 10:10:00 10:46:20 , DORINA jordan [facility] 2021-09-12 2021-09-12 Office [facility] 1.2.840.114 [id number] Univers 10:10:00 10:46:20 Visit , Dorina ARAUZ 350.1.13.10 it [place] [id number] [facility] [address] 2021-09-12 2021-09-12 Orders Doctor WESLY 1.2.840.114 [id number] Univers 00:00:00 00:00:00 Only Unassigned, [place]RA[place] 350.1.13.10 ity of [place] [facility] 4.2.7.2.686 Jaret as [phone] [place] [address] Branch 2021-08-23 2021-08-23 Outpatient [facility] [id number] Univers 16:00:00 16:00:00 ity [facility] 2021-08-23 2021-08-23 Outpatient [facility] [id number] Univers 08:00:00 08:00:00 ity [facility] 2021-07-25 2021-07-25 Outpatient [facility] [id number] Univers 08:00:00 08:00:00 ity [facility] 2021-03-17 2021-03-17 Laboratory Lab, Adc [facility] Pob I [facility] 1.2. 840.114 [id number] Univers 11:20:04 11:40:04 [facility] 350.1.13.10 ity of [place] 4.2.7.2.686 Jaret as Professio [phone] Dc dic[address] Office [facility] 2021-03-17 2021-03-17 Outpatient R MICHAEL [facility] [id number] Univers 11:40:00 11:40:00 MILLIE josh [facility] 2020-12-06 2020-12-06 Telephone [facility] 1.2.840.114 [id number] 00:00:00 00:00:00 Ann Arauz 350.1.13.10 Pediatric 4.2.7.2.686 Clinic [phone] [facility] 2020-12-06 2020-12-06 [facility] 1.2.840.114 [id number] [facility] 00:00:00 00:00:00 Ann Arauz 350.1.13.10 [place] [id number] [address] 2020-12-05 2020-12-05 [facility] 1.2.840.114 [id number] 15:12:09 15:55:16 Visit Ann Arauz 350.1.13.10 Pediatric 4.2.7.2.686 Clinic [id number] [facility] 2020-12-05 2020-12-05 Office [facility] 1.2.840.114 [id number] [facility] 15:12:09 15:55:16 Visit Ann Arauz 350.1.13.10 it[place]2.[place] [id number] [address] 2020-12-05 2020-12-05 Outpatient R DAVID [facility] [id number] Univers 15:20:00 15:20:00 ANN jordan [facility] 2020-11-29 2020-11-29 Outpatient R SIMON [facility] [id number] Univers 10:40:00 10:40:00 nikki SARMIENTO [facility] 2020-11-24 2020-11-24 Telephone [facility] 1.2.840.114 [id number] Univers 00:00:00 00:00:00 Davonte Sarmiento 350.1.13.10 ity of [place].2.[place] [id number] [address] 2020-11-16 2020-11-16 Telephone [facility] 1.2.840.114 [id number] Univers 00:00:00 00:00:00 Davonte Sarmiento 350.1.13.10 ity of [facility] [place].2.[place] [id number] [address] 2020-11-15 2020-11-15 Office de [facility] 1.2.029.722 [id number] Univers 10:08:10 10:46:44 Visit Davonte Sarmiento 350.1.13.10 ity of [facility] [place].7.2.[place] [phone] [address] 2020-11-15 2020-11-15 Outpatient R DE [facility] [id number] Univers 10:20:00 10:20:00 nikki SARMIENTO [facility] 2020-09-27 2020-09-27 Outpatient R DE [facility] [id number] Univers 16:00:00 16:00:00 nikki SARMIENTO [facility] 2020-09-22 2020-09-22 Family And Marriage Counsellor Sarah Beth, Ira Lab Main [facility] 1.2.8 40.114 [id number] Univers 13:57:56 14:12:56 Visit Ángel Root 350.1.13 .10 ity [place] [phone] Dc dical [address] 2020-09-22 2020-09-22 Outpatient R DE [facility] [id number] Univers 14:00:00 14:00:00 nikki SARMIENTO [facility] 2020-09-21 2020-09-21 Office de [facility] 1.2.125.102 [id number] Univers 15:08:11 15:47:29 Visit Davonte Sarmiento 350.1.13.10 ity of [place].2.[place] [id number] [address] 2020-09-21 2020-09-21 Outpatient R [facility] [id number] Univers 15:20:00 15:20:00 mann SARMIENTOy of [facility] 2020-09-21 2020-09-21 Outpatient R DE [facility] [id number] Univers 08:00:00 08:00:00 GUILLERMINA ity of [facility] 2020-08-19 2020-08-19 Letter [facility] 1.2.839.852 [id number] Univers 00:00:00 00:00:00 (Out) Davonte Sarmiento 350.1.13.10 ity of [place].2.[place] [id number] [address] 2020-08-18 2020-08-18 Letter [facility] 1.2.840.114 [id number] Univers 00:00:00 00:00:00 (Out) Ann Arauz 350.1.13.10 it[place].2.[place] [id number] [address] 2020-08-18 2020-08-18 Telephone [facility] 1.2.840.114 [id number] Univers 00:00:00 00:00:00 Ann Arauz 350.1.13.10 ity [place].2.[place] [id number] [address] 2020-08-16 2020-08-16 Office [facility] 1.2.840.114 [id number] Univers 13:22:21 13:48:03 Visit Ann Arauz 350.1.13.10 ity [place].2.[place] [facility] [id number] [address] 2020-08-16 2020-08-16 Outpatient R [facility] [id number] Univers 13:20:00 13:20:00 ANN jordan of [facility] 2020-08-16 2020-08-16 Orders Doctor WESLY 1.2.840.114 [id number] Univers 00:00:00 00:00:00 Only Unassigned, [place] 350.1.13.10 ity of [place] [facility] 4.2.7.2.686 Jaret as [id number] [address] 2020-08-16 2020-08-16 Letter [facility] 1.2.840.114 [id number] Univers 00:00:00 00:00:00 (Out) Ann Arauz 350.1.13.10 ity [place]7.2.[place] [facility] [id number] [address] 2020-05-30 2020-05-30 Orders Doctor JARRELL 1.2.840.114 [id number] Univers 00:00:00 00:00:00 Only Unassigned, [place]RA[place] 350.1.13.10 ity of [place] [facility]OSPITAL 4.2.7.2.686 Jaret as [id number] [address] 2020-05-11 2020-05-11 Telephone de [facility] 1.2.840.114 [id number] Univers 00:00:00 00:00:00 Davonte Sarmiento 350.1.13.10 ity of [place]2.7.2.686 [place] [facility] [phone] [address] 2020-05-11 2020-05-11 Orders Doctor JARRELL 1.2.840.114 [id number] Univers 00:00:00 00:00:00 Only Unassigned, [place] 350.1.13.10 ity of [place] [facility]OSPITAL 4.2.7.2.686 Jaret as [id number] [address] 2019-12-10 2019-12-10 Orders Doctor JARRELL 1.2.840.114 [id number] Univers 00:00:00 00:00:00 Only Unassigned, [place] 350.1.13.10 ity of [place] [facility]OSPITAL 4.2.7.2.686 Jaret as [id number] [address] 2019-09-04 2019-09-04 Office [facility] 1.2.840.114 [id number] Univers 14:00:09 14:35:25 Visit Ann Arauz 350.1.13.10 ity [place]7.2.[place] [facility] [id number] [address] 2019-09-04 2019-09-04 Orders Doctor WESLY 1.2.840.114 [id number] Univers 00:00:00 00:00:00 Only Unassigned, [place] 350.1.13.10 ity of [place] [facility] 4.2.7.2.686 Jaret as [id number] [address] 2019-04-24 2019-04-24 Office de [facility] 1.2.358.172 [id number] Univers 15:50:53 16:37:49 Visit Davonte Sarmiento 350.1.13.10 ity of [place]2.7.2.686 [place] [facility] [id number] [address] 2019-04-23 2019-04-23 Office [facility] 1.2.380.092 [id number] Univers 14:50:35 15:25:37 Visit Davonte Sarmiento 350.1.13.10 ity of [place]2.7.2.[place] [facility] [id number] [address] 2019-04-23 2019-04-23 Letter de [facility] 1.2.799.976 [id number] Univers 00:00:00 00:00:00 (Out) Davonte Sarmiento 350.1.13.10 ity of [place].7.2.[place] [facility] [id number] [address] 2019-04-23 2019-04-23 Orders Doctor WESLY 1.2.840.114 [id number] Univers 00:00:00 00:00:00 Only Unassigned, [place] 350.1.13.10 ity of [place] [facility]OS[facility]ITAL 4.2.7.2.686 Jaret as [phone] [address] 2019-04-20 2019-04-20 Telephone [facility] 1.2.840.11 [id number] Univers 00:00:00 00:00:00 Lexus Pedroza 350.1.13.10 ity of Pediatric 4.2.7.2.686 [facility] [phone] [place] [address] Branch Results Test Description Test Time Test Comments Results Result Comments Source POCT MOLECULAR FLU 2022-08-25 17:13:25 Test Item Value Reference Range Interpretation Comme nts POCT Molecular FluA (test code = 92135-4) Negative Negative POCT Molecular FluB (test code = 71485-2) Negative Negative Lab Interpretation (test code = 66071-0) Normal [facility]
--- NOTE | 2023-05-28 17:27 | ER ---
Nurse's Notes [facility] Name: Boni Salgado Age: 23 yrs Sex: Male : 2000 Arrival Date: 05/28/2023 Time: 16:30 Bed 11 Private MD: Diagnosis: Streptococcal pharyngitis Presentation: 05/28 16:48 Chief complaint: Patient states: he has had a sore throat for a few days. patient ap3 reports pain when swallowing. patient states his pain is currently a 4 on the pain scale at this time. Coronavirus screen: At this time, the client does not indicate any symptoms associated with coronavirus-19. Ebola Screen: No symptoms or risks identified at this time. Initial Sepsis Screen: Does the patient meet any 2 criteria? No. Patient's initial sepsis screen is negative. Does the patient have a suspected source of infection? No. Patient's initial sepsis screen is negative. Risk Assessment: Do you want to hurt yourself or someone else? Patient reports no desire to harm self or others. Onset of symptoms was May 24, 2023. 16:48 Method Of Arrival: Ambulatory ap3 16:48 Acuity: SHERIF 4 ap3 Triage Assessment: 16:50 General: Appears in no apparent distress. Behavior is calm, cooperative, appropriate ap3 for age. Pain: Complains of pain in throat. EENT: Reports pain when swallowing. Neuro: Level of Consciousness is awake, alert, obeys commands. Cardiovascular: Patient's skin is warm and dry. Respiratory: Airway is patent Respiratory effort is even, unlabored, Respiratory pattern is regular, symmetrical. Historical: - Allergies: 16:49 NKDA; ap3 - Home Meds: 16:49 None [Active]; ap3 - PMHx: 16:49 Asthma; ap3 - PSHx: 16:49 Appendectomy; ap3 - Immunization history:: Client reports receiving the 2nd dose of the Covid vaccine. - Social history:: Smoking status: Reported history of juuling and/or vaping. Screenin:50 [facility] [place] ED Fall Risk Assessment (Adult) History of falling in the last 3 months, ap3 including since admission No falls in past 3 months (0 pts). Abuse screen: Denies threats or abuse. Nutritional screening: No deficits noted. Tuberculosis screening: No symptoms or risk factors identified. Vital Signs: 16:48 BP 115 / 73; Pulse 83; Resp 17; Temp 98.4; Pulse Ox 100% ; Weight 80.74 kg; Pain 4/10; ap3 16:48 Pain Scale: Adult ap3 ED Course: 16:48 Patient arrived in ED. ap3 16:48 Nino Escobar PA is PHCP. cp 16:48 Cristobal Carr DO is Attending Physician. cp 16:49 Triage completed. ap3 16:50 Arm band placed on right wrist. ap3 17:07 Strep swab sent to lab. tm3 17:42 Patient has correct armband on for positive identification. Provided Education on: ER cm10 process and procedures. 17:42 No provider procedures requiring assistance completed. Patient did not have IV access cm10 during this emergency room visit. Administered Medications: No medications were administered Medication: 17:42 VIS not applicable for this client. cm10 Outcome: 17:26 Discharge ordered by MD. cp 17:43 Discharged to home ambulatory, cm10 17:43 Condition: good 17:43 Discharge instructions given to patient, Instructed on discharge instructions, follow up and referral plans. medication usage, Demonstrated understanding of instructions, follow-up care, medications, Prescriptions given X 2, 17:43 Patient left the ED. cm10 Signatures: Jm Toribio tm3 Nino Escobar PA PA cp Cara Pop RN RN ap3 Tawnya Vallecillo RN RN cm10
--- NOTE | 2023-05-28 17:27 | EDPHYS ---
Physician Documentation [facility] Name: Boni Salgado Age: 23 yrs Sex: Male : 2000 Arrival Date: 05/28/2023 Time: 16:30 Bed 11 Private MD: ED Physician Cristobal Carr HPI: 05/28 17:04 This 23 yrs old Black Male presents to ER via Ambulatory with complaints of Sore Throat.cp 17:04 The patient presents with sore throat. The patient describes throat pain as scratchy. cp 17:04 Onset: The symptoms/episode began/occurred 3 day(s) ago. cp 17:04 Severity of symptoms: in the emergency department the symptoms are unchanged, despite cp home interventions. Associated signs and symptoms: Pertinent negatives cough, diarrhea, fever, flu-like symptoms, headache, vomiting. Historical: - Allergies: 16:49 NKDA; ap3 - Home Meds: 16:49 None [Active]; ap3 - PMHx: 16:49 Asthma; ap3 - PSHx: 16:49 Appendectomy; ap3 - Immunization history:: Client reports receiving the 2nd dose of the Covid vaccine. - Social history:: Smoking status: Reported history of juuling and/or vaping. ROS: 17:07 Constitutional: Negative for body aches, chills, fever, poor PO intake, cp 17:07 ENT: Positive for sore throat, Negative for drainage from ear(s), ear pain, sinus cp congestion, sinus pain, difficulty swallowing, difficulty handling secretions, 17:07 Respiratory: Negative for cough, shortness of breath, wheezing, 17:07 Abdomen/GI: Negative for abdominal pain, vomiting, diarrhea, constipation, 17:07 Skin: Negative for rash, 17:07 All other systems are negative, Exam: 17:10 Constitutional: The patient appears in no acute distress, alert, awake, non-toxic, well cp developed, well nourished, 17:10 Head/Face: Normocephalic, atraumatic. cp 17:10 Eyes: Periorbital structures: appear normal, Conjunctiva: normal, no exudate, no injection, Sclera: no appreciated abnormality, Lids and lashes: appear normal, bilaterally, 17:10 ENT: External ear(s): are unremarkable, Ear canal(s): are normal, clear, TM's: dullness, bilaterally, Nose: is normal, Mouth: Lips: moist, Oral mucosa: moist, Posterior pharynx: Airway: no evidence of obstruction, patent, Tonsils: with erythema, no exudate, swelling, is not appreciated, erythema, that is moderate, exudate, is not appreciated, 17:10 Neck: ROM/movement: is normal, is supple, without pain, no range of motions limitations, no meningismus, 17:10 Chest/axilla: Inspection: normal, 17:10 Cardiovascular: Rate: normal, Rhythm: regular, 17:10 Respiratory: the patient does not display signs of respiratory distress, Respirations: normal, no use of accessory muscles, no retractions, labored breathing, is not present, Breath sounds: are clear throughout, no decreased breath sounds, 17:10 Abdomen/GI: Inspection: abdomen appears normal, Vital Signs: 16:48 BP 115 / 73; Pulse 83; Resp 17; Temp 98.4; Pulse Ox 100% ; Weight 80.74 kg; Pain 4/10; ap3 16:48 Pain Scale: Adult ap3 MDM: 16:54 Patient medically screened. cp 17:10 Differential diagnosis: group A strep tonsillitis, influenza, laryngitis, cp mononucleosis, peritonsillar abscess pharyngitis, retropharyngeal abcess tonsillitis, uvulitis. 17:25 Data reviewed: vital signs, nurses notes, lab test result(s). cp 17:25 Counseling: I had a detailed discussion with the patient and/or guardian regarding the cp historical points, exam findings, and any diagnostic results supporting the discharge/admit diagnosis, lab results, to return to the emergency department if symptoms worsen or persist or if there are any questions or concerns that arise at home. 05/28 17:00 Order name: Strep; Complete Time: 17:25 cp 05/28 17:25 Interpretation: Reviewed. cp Administered Medications: No medications were administered Disposition Summary: 05/28/23 17:26 Discharge Ordered Notes: Location: Home cp Problem: new cp Symptoms: have improved cp Condition: Stable cp Diagnosis - Streptococcal pharyngitis cp Followup: cp - With: Private Physician - When: 2 - 3 days - Reason: Worsening of condition Discharge Instructions: - Discharge Summary Sheet cp - Strep Throat, Adult cp Forms: - Medication Reconciliation Form cp - Thank You Letter cp - Antibiotic Education cp - Prescription Opioid Use cp - Patient Portal Instructions cp - Leadership Thank You Letter cp Prescriptions: - Augmentin 875-125 mg Oral Tablet - take 1 tablet ORAL route every 12 hours for 10 days; 20 tablet; Refills: 0, cp Product Selection Permitted - Ibuprofen 800 mg Oral Tablet - take 1 tablet ORAL route every 8 hours As needed take with food; 30 tablet; cp Refills: 0, Product Selection Permitted Signatures: Dispatcher [employer] EDMA Nino Escobar PA PA cp Prokisch, Amanda, RN RN ap3
[2023-05-28 18:09] VITALS: BP 115/73; TEMP 98.4; O2SAT 100
== END 2023-05-28 17:43 | disposition home or self-care (01) ==
LOC: ER 16:30
DX: J02.0 Streptococcal pharyngitis (principal)
CPT/HCPCS: 87081

== ENCOUNTER 2023-06-18 22:57 | Emergency (ER) | payer SELFPAY ==
--- OUTSIDE RECORDS SUMMARY | 2023-06-18 23:01 | XMS REPORT | Continuity of Care Document ---
:2000 Author Organization [facility] t Address [address] [facility] [address] [place] [address] Care Team Providers Name Role Phone ÁNGEL DONOVAN Primary Care Physician Unavailable JEAN BAUMANN Attending Clinician Unavailable JEAN BAUMANN Attending Clinician Unavailable 2, [facility] Attending Clinician Unavailable Doctor Unassigned, [place] Attending Clinician Unavailable BHAKTI COOLEY III Attending [...] Effective Date Expiration Date S gagan CHAVEZ [id number] 2022 00:00:00 Problems Condition Condition Condition Status Onset Resolution Last Treating Co mments Source Name Details Category Date Date Treatment Clinician Date No known No known Disease Unive rs active active ity of problems problems [facility] Allergies, Adverse Reactions, Alerts Allergy Allergy Status Severity Reaction(s) Onset Inactive Treating Comm ents Source Name Type Date Date Clinician NO KNOWN Drug Active Univers ALLERGIE Class ity of S [facility] Social History Social Habit Start Date Stop Date Quantity Comments Source Exposure to 2022-12-14 2022-12-24 Not sure [facility] SARS-CoV-2 00:00:00 14:56:[address] [facility] (event) [place] Tobacco use and 2022-03-06 2022-03-06 Smokeless tobacco Un iversity of exposure 00:00:00 00:00:00 non-user [facility] Sex Assigned At [birth year] Universit y of 00:00:00 00:00:00 [facility] Smoking Status Start Date Stop Date Source Never smoked tobacco [facility] Medications Ordered Filled Start Stop Current Ordering Indication Dosage Frequency Signature Comments Components Source Medication Medication Date Date Medication? Clinician (SIG) Name Name mupirocin 2 Yes [id number] Apply to Univers % ointment 5-12 area(s) 3 ity of 00:00: (three) [place] 00 times Medical daily. Branch mupirocin 2 2022- Yes [id number] Apply to Univers % ointment 5-12 area(s) 3 ity of 00:00: (three) [place] 00 times Medical daily. Branch mupirocin 2 2022- Yes [id number] Apply to Univers % ointment 5-12 area(s) 3 ity of 00:00: (three) [place] 00 times Medical daily. Branch mupirocin 2 2022-0 Yes [id number] Apply to Univers % ointment 5-12 area(s) 3 ity of 00:00: (three) [place] 00 times Medical daily. Branch mupirocin 2 3-0 Yes [id number] Apply to Univers % ointment 5-12 area(s) 3 ity of 00:00: (three) [place] 00 times Medical daily. Branch mupirocin 2 3-0 Yes [id number] Apply to Univers % ointment 5-12 area(s) 3 ity of 00:00: (three) [place] 00 times Medical daily. Branch amoxicillin 2022-0 2022- No [id number] 1{tbl} Take 1 Univers -clavulanat 5-12 05-23 tablet by it y of e 00:00: 04:59 mouth in [place] (AUGMENTIN) 00 :00 the Medical 875-125 mg morning Branch per tablet and 1 tablet in the evening. Do all this for 10 days. amoxicillin 2022-2022- No [id number] 1{tbl} Take 1 Univers -clavulanat 5-12 05-23 tablet by it y of e 00:00: 04:59 mouth in [place] (AUGMENTIN) 00 :00 the Medical 875-125 mg morning Branch per tablet and 1 tablet in the evening. Do all this for 10 days. amoxicillin 2022-0 2022- No [id number] 1{tbl} Take 1 Univers -clavulanat 5-12 05-23 tablet by it y of e 00:00: 04:59 mouth in [place] (AUGMENTIN) 00 :00 the Medical 875-125 mg morning Branch per tablet and 1 tablet in the evening. Do all this for 10 days. amoxicillin 2022-0 2022- No [id number] 1{tbl} Take 1 Univers -clavulanat 5-12 05-23 tablet by it y of e 00:00: 04:59 mouth in [place] (AUGMENTIN) 00 :00 the Medical 875-125 mg morning Branch per tablet and 1 tablet in the evening. Do all this for 10 days. amoxicillin 2022-0 2022- No [id number] 1{tbl} Take 1 Univers -clavulanat 5-12 05-23 tablet by it y of e 00:00: 04:59 mouth in [place] (AUGMENTIN) 00 :00 the Medical 875-125 mg morning Branch per tablet and 1 tablet in the evening. Do all this for 10 days. amoxicillin 2022- No [id number] 1{tbl} Take 1 Univers -clavulanat 5-12 05-23 tablet by it y of e 00:00: 04:59 mouth in [place] (AUGMENTIN) 00 :00 the Medical 875-125 mg morning Branch per tablet and 1 tablet in the evening. Do all this for 10 days. albuterol Yes [id number] 2{puff} Inhale 2 Univers 90 1-14 Puffs ity of mcg/actuati 00:00: every 6 [place] as on inhaler 00 (six) Medical hours as Branch needed for Wheezing or Shortness of Breath. albuterol Yes [id number] 2{puff} Inhale 2 Univers 90 1-14 Puffs ity of mcg/actuati 00:00: every 6 [place] as on inhaler 00 (six) Medical hours as Branch needed for Wheezing or Shortness of Breath. albuterol Yes [id number] 2{puff} Inhale 2 Univers 90 1-14 Puffs ity of mcg/actuati 00:00: every 6 [place] as on inhaler 00 (six) Medical hours as Branch needed for Wheezing or Shortness of Breath. albuterol Yes [id number] 2{puff} Inhale 2 Univers 90 1-14 Puffs ity of mcg/actuati 00:00: every 6 [place] on inhaler 00 (six) Medical hours as Branch needed for Wheezing or Shortness of Breath. albuterol Yes [id number] 2{puff} Inhale 2 Univers 90 1-14 Puffs ity of mcg/actuati 00:00: every 6 [place] on inhaler 00 (six) Medical hours as Branch needed for Wheezing or Shortness of Breath. albuterol Yes [id number] 2{puff} Inhale 2 Univers 90 1-14 Puffs ity of mcg/actuati 00:00: every 6 [place] on inhaler 00 (six) Medical hours as Branch needed for Wheezing or Shortness of Breath. albuterol Yes [id number] 2{puff} Inhale 2 Univers 90 1-14 Puffs ity of mcg/actuati 00:00: every 6 [place] on inhaler 00 (six) Medical hours as Branch needed for Wheezing or Shortness of Breath. albuterol Yes [id number] 2{puff} Inhale 2 Univers 90 1-14 Puffs ity of mcg/actuati 00:00: every 6 [place] on inhaler 00 (six) Medical hours as Branch needed for Wheezing or Shortness of Breath. albuterol Yes [id number] 2{puff} Inhale 2 Univers 90 1-14 Puffs ity of mcg/actuati 00:00: every 6 [place] on inhaler 00 (six) Medical hours as Branch needed for Wheezing or Shortness of Breath. albuterol Yes [id number] 2{puff} Inhale 2 Univers 90 1-14 Puffs ity of mcg/actuati 00:00: every 6 [place] on inhaler 00 (six) Medical hours as Branch needed for Wheezing or Shortness of Breath. Methylpredn 0 2022- No [id number] 4mg Take 1 Univers isolone 4 1-14 01-20 tablet by ity of mg tablet 00:00: 05:59 mouth [place] 00 :00 every 12 Medical (twelve) Branch hours for 5 days. Methylpredn 2022-0 3- No [id number] 4mg Take 1 Univers isolone 4 1-14 -20 tablet by ity of mg tablet 00:00: 05:59 mouth [place] 00 :00 every 12 Medical (twelve) Branch hours for 5 days. Methylpredn 2022-0 2022- No [id number] 4mg Take 1 Univers isolone 4 1-14 01-20 tablet by ity of mg tablet 00:00: 05:59 mouth [place] 00 :00 every 12 Medical (twelve) Branch hours for 5 days. naproxen 2021-08 Yes [id number] 500mg Take 1 U nivers 500 mg 1-18 tablet by ity of tablet 00:00: mouth in [place] 00 the Medical morning Branch and 1 tablet in the evening. Take with meals. cyclobenzap 2021-08 Yes [id number] 10mg Take 1 Univers rine 10 mg 1-18 tablet by ity of tablet 00:00: mouth at [place] [address] bedtime as Medical needed for Branch Muscle Spasms. Diclofenac 2021-08 Yes [id number] Take 2-4 Univers Sodium 1-18 grams ity of (VOLTAREN) 00:00: three [place] 1 % gel 00 times a Medical day as Branch needed for pain naproxen 2021-08 Yes [id number] 500mg Take 1 U nivers 500 mg 1-18 tablet by ity of tablet 00:00: mouth in [place] 00 the Medical morning Branch and 1 tablet in the evening. Take with meals. cyclobenzap 2021-08 Yes [id number] 10mg Take 1 Univers rine 10 mg 1-18 tablet by ity of tablet 00:00: mouth at [place] [address] bedtime as Medical needed for Branch Muscle Spasms. Diclofenac 2021-08 Yes [id number] Take 2-4 Univers Sodium 1-18 grams ity of (VOLTAREN) 00:00: three [place] 1 % gel 00 times a Medical day as Branch needed for pain naproxen 2021-08 Yes [id number] 500mg Take 1 U nivers 500 mg 1-18 tablet by ity of tablet 00:00: mouth in [place] 00 the Medical morning Branch and 1 tablet in the evening. Take with meals. cyclobenzap 2021-08 Yes [id number] 10mg Take 1 Univers rine 10 mg 1-18 tablet by ity of tablet 00:00: mouth at [place] [address] bedtime as Medical needed for Branch Muscle Spasms. Diclofenac 2021-08 Yes [id number] Take 2-4 Univers Sodium 1-18 grams ity of (VOLTAREN) 00:00: three [place] 1 % gel 00 times a Medical day as Branch needed for pain naproxen 2021-08 Yes [id number] 500mg Take 1 U nivers 500 mg 1-18 tablet by ity of tablet 00:00: mouth in [place] 00 the Medical morning Branch and 1 tablet in the evening. Take with meals. cyclobenzap 2021-08 Yes [id number] 10mg Take 1 Univers rine 10 mg 1-18 tablet by ity of tablet 00:00: mouth at [place] [address] bedtime as Medical needed for Branch Muscle Spasms. Diclofenac 2021-08 Yes [id number] Take 2-4 Univers Sodium 1-18 grams ity of (VOLTAREN) 00:00: three [place] 1 % gel 00 times a Medical day as Branch needed for pain naproxen 2021-08 Yes [id number] 500mg Take 1 U nivers 500 mg 1-18 tablet by ity of tablet 00:00: mouth in [place] 00 the Medical morning Branch and 1 tablet in the evening. Take with meals. cyclobenzap 2021-08 Yes [id number] 10mg Take 1 Univers rine 10 mg 1-18 tablet by ity of tablet 00:00: mouth at [place] [address] bedtime as Medical needed for Branch Muscle Spasms. Diclofenac 2021-08 Yes [id number] Take 2-4 Univers Sodium 1-18 grams ity of (VOLTAREN) 00:00: three [place] 1 % gel 00 times a Medical day as Branch needed for pain naproxen 2021-08 Yes [id number] 500mg Take 1 U nivers 500 mg 1-18 tablet by ity of tablet 00:00: mouth in [place] 00 the Medical morning Branch and 1 tablet in the evening. Take with meals. cyclobenzap 2021-08 Yes [id number] 10mg Take 1 Univers rine 10 mg 1-18 tablet by ity of tablet 00:00: mouth at [place] [address] bedtime as Medical needed for Branch Muscle Spasms. Diclofenac 2021-08 Yes [id number] Take 2-4 Univers Sodium 1-18 grams ity of (VOLTAREN) 00:00: three [place] 1 % gel 00 times a Medical day as Branch needed for pain naproxen 2021-08 Yes [id number] 500mg Take 1 U nivers 500 mg 1-18 tablet by ity of tablet 00:00: mouth in [place] 00 the Medical morning Branch and 1 tablet in the evening. Take with meals. cyclobenzap 2021-08 Yes [id number] 10mg Take 1 Univers rine 10 mg 1-18 tablet by ity of tablet 00:00: mouth at [place] 00 bedtime as Medical needed for Branch Muscle Spasms. Diclofenac 2021-08 Yes [id number] Take 2-4 Univers Sodium 1-18 grams ity of (VOLTAREN) 00:00: three [place] 1 % gel 00 times a Medical day as Branch needed for pain naproxen 2021-08 Yes [id number] 500mg Take 1 U nivers 500 mg 1-18 tablet by ity of tablet 00:00: mouth in [place] 00 the Medical morning Branch and 1 tablet in the evening. Take with meals. cyclobenzap 2021-08 Yes [id number] 10mg Take 1 Univers rine 10 mg 1-18 tablet by ity of tablet 00:00: mouth at [place] [address] bedtime as Medical needed for Branch Muscle Spasms. Diclofenac 2021-08 Yes [id number] Take 2-4 Univers Sodium 1-18 grams ity of (VOLTAREN) 00:00: three [place] 1 % gel 00 times a Medical day as Branch needed for pain naproxen 2021-08 Yes [id number] 500mg Take 1 U nivers 500 mg 1-18 tablet by ity of tablet 00:00: mouth in [place] 00 the Medical morning Branch and 1 tablet in the evening. Take with meals. cyclobenzap 2021-08 Yes [id number] 10mg Take 1 Univers rine 10 mg 1-18 tablet by ity of tablet 00:00: mouth at [place] [address] bedtime as Medical needed for Branch Muscle Spasms. Diclofenac 2021-08 Yes [id number] Take 2-4 Univers Sodium 1-18 grams ity of (VOLTAREN) 00:00: three [place] 1 % gel 00 times a Medical day as Branch needed for pain naproxen 2021-08 Yes [id number] 500mg Take 1 U nivers 500 mg 1-18 tablet by ity of tablet 00:00: mouth in [place] 00 the Medical morning Branch and 1 tablet in the evening. Take with meals. cyclobenzap 2021-08 Yes [id number] 10mg Take 1 Univers rine 10 mg 1-18 tablet by ity of tablet 00:00: mouth at [place] [address] bedtime as Medical needed for Branch Muscle Spasms. Diclofenac 2021-08 Yes [id number] Take 2-4 Univers Sodium 1-18 grams ity of (VOLTAREN) 00:00: three [place] 1 % gel 00 times a Medical day as Branch needed for pain naproxen 2021-08 Yes [id number] 500mg Take 1 U nivers 500 mg 1-18 tablet by ity of tablet 00:00: mouth in [place] 00 the Medical morning Branch and 1 tablet in the evening. Take with meals. cyclobenzap 2021-08 Yes [id number] 10mg Take 1 Univers rine 10 mg 1-18 tablet by ity of tablet 00:00: mouth at [place] [address] bedtime as Medical needed for Branch Muscle Spasms. Diclofenac 2021-08 Yes [id number] Take 2-4 Univers Sodium 1-18 grams ity of (VOLTAREN) 00:00: three [place] 1 % gel 00 times a Medical day as Branch needed for pain naproxen 2021-08 Yes [id number] 500mg Take 1 U nivers 500 mg 1-18 tablet by ity of tablet 00:00: mouth in [place] 00 the Medical morning Branch and 1 tablet in the evening. Take with meals. cyclobenzap 2021-08 Yes [id number] 10mg Take 1 Univers rine 10 mg 1-18 tablet by ity of tablet 00:00: mouth at [place] [address] bedtime as Medical needed for Branch Muscle Spasms. Diclofenac 2021-08 Yes [id number] Take 2-4 Univers Sodium 1-18 grams ity of (VOLTAREN) 00:00: three [place] 1 % gel 00 times a Medical day as Branch needed for pain naproxen 2021-08 Yes [id number] 500mg Take 1 U nivers 500 mg 1-18 tablet by ity of tablet 00:00: mouth in [place] [address] the Medical morning Branch and 1 tablet in the evening. Take with meals. cyclobenzap 2021-08 Yes [id number] 10mg Take 1 Univers rine 10 mg 1-18 tablet by ity of tablet 00:00: mouth at [place] [address] bedtime as Medical needed for Branch Muscle Spasms. Diclofenac 2021-08 Yes [id number] Take 2-4 Univers Sodium 1-18 grams ity of (VOLTAREN) 00:00: three [place] 1 % gel 00 times a Medical day as Branch needed for pain naproxen 2021-08 Yes [id number] 500mg Take 1 U nivers 500 mg 1-18 tablet by ity of tablet 00:00: mouth in [place] 00 the Medical morning Branch and 1 tablet in the evening. Take with meals. cyclobenzap 2021-08 Yes [id number] 10mg Take 1 Univers rine 10 mg 1-18 tablet by ity of tablet 00:00: mouth at [place] [address] bedtime as Medical needed for Branch Muscle Spasms. Diclofenac 2021-08 Yes [id number] Take 2-4 Univers Sodium 1-18 grams ity of (VOLTAREN) 00:00: three [place] 1 % gel 00 times a Medical day as Branch needed for pain naproxen 2021-08 Yes [id number] 500mg Take 1 U nivers 500 mg 1-18 tablet by ity of tablet 00:00: mouth in [place] 00 the Medical morning Branch and 1 tablet in the evening. Take with meals. cyclobenzap 2021-08 Yes [id number] 10mg Take 1 Univers rine 10 mg 1-18 tablet by ity of tablet 00:00: mouth at [place] [address] bedtime as Medical needed for Branch Muscle Spasms. Diclofenac 2021-08 Yes [id number] Take 2-4 Univers Sodium 1-18 grams ity of (VOLTAREN) 00:00: three [place] 1 % gel 00 times a Medical day as Branch needed for pain naproxen 2021-08 Yes [id number] 500mg Take 1 U nivers 500 mg 1-18 tablet by ity of tablet 00:00: mouth in [place] 00 the Medical morning Branch and 1 tablet in the evening. Take with meals. cyclobenzap 2021-08 Yes [id number] 10mg Take 1 Univers rine 10 mg 1-18 tablet by ity of tablet 00:00: mouth at [place] [address] bedtime as Medical needed for Branch Muscle Spasms. Diclofenac 2021-08 Yes [id number] Take 2-4 Univers Sodium 1-18 grams ity of (VOLTAREN) 00:00: three [place] 1 % gel 00 times a Medical day as Branch needed for pain naproxen 2021-08 Yes [id number] 500mg Take 1 U nivers 500 mg 1-18 tablet by ity of tablet 00:00: mouth in [place] 00 the Medical morning Branch and 1 tablet in the evening. Take with meals. cyclobenzap 2021-08 Yes [id number] 10mg Take 1 Univers rine 10 mg 1-18 tablet by ity of tablet 00:00: mouth at [place] [address] bedtime as Medical needed for Branch Muscle Spasms. Diclofenac 2021-08 Yes [id number] Take 2-4 Univers Sodium 1-18 grams ity [...] 00:00: [place] cream Medical Branch azithromyci Yes [id number] Take 500 Univers n 9-13 mg day 1, ity of (ZITHROMAX 00:00: then 250 [place] Z-DEANNA) 250 00 mg days 2 Medi connor mg tablet to 5. Branch azithromyci Yes [id number] Take 500 Univers n 9-13 mg day 1, ity of (ZITHROMAX 00:00: then 250 [place] as Z-DEANNA) 250 00 mg days 2 Medi connor mg tablet to 5. Branch azithromyci Yes [id number] Take 500 Univers n 9-13 mg day 1, ity of (ZITHROMAX 00:00: then 250 [place] Z-DEANNA) 250 00 mg days 2 Medi connor mg tablet to 5. Branch azithromyci Yes [id number] Take 500 Univers n 9-13 mg day 1, ity of (ZITHROMAX 00:00: then 250 [place] as Z-DEANNA) 250 00 mg days 2 Medi connor mg tablet to 5. Branch azithromyci Yes [id number] Take 500 Univers n 9-13 mg day 1, ity of (ZITHROMAX 00:00: then 250 [place] as Z-DEANNA) 250 00 mg days 2 Medi connor mg tablet to 5. Branch azithromyci Yes [id number] Take 500 Univers n 9-13 mg day 1, ity of (ZITHROMAX 00:00: then 250 [place] Z-DEANNA) 250 00 mg days 2 Medi connor mg tablet to 5. [place] yu Yes [id number] Take 500 Univers n 9-13 mg day 1, ity of (ZITHROMAX 00:00: then 250 [place] as Z-DEANNA) 250 00 mg days 2 Medi connor mg tablet to 5. [place] yu Yes [id number] Take 500 Univers n 9-13 mg day 1, ity of (ZITHROMAX 00:00: then 250 [place] as Z-DEANNA) 250 00 mg days 2 Medi connor mg tablet to 5. [place] yu Yes [id number] Take 500 Univers n 9-13 mg day 1, ity of (ZITHROMAX 00:00: then 250 [place] Z-DEANNA) 250 00 mg days 2 Medi connor mg tablet to 5. [place] yu Yes [id number] Take 500 Univers n 9-13 mg day 1, ity of (ZITHROMAX 00:00: then 250 [place] as Z-DEANNA) 250 00 mg days 2 Medi connor mg tablet to 5. [place] yu Yes [id number] Take 500 Univers n 9-13 mg day 1, ity of (ZITHROMAX 00:00: then 250 [place] as Z-DEANNA) 250 00 mg days 2 Medi connor mg tablet to 5. [place] yu Yes [id number] Take 500 Univers n 9-13 mg day 1, ity of (ZITHROMAX 00:00: then 250 [place] as Z-DEANNA) 250 00 mg days 2 Medi connor mg tablet to 5. [place] yu Yes [id number] Take 500 Univers n 9-13 mg day 1, ity of (ZITHROMAX 00:00: then 250 [place] as Z-DEANNA) 250 00 mg days 2 Medi connor mg tablet to 5. [place] yu Yes [id number] Take 500 Univers n 9-13 mg day 1, ity of (ZITHROMAX 00:00: then 250 [place] as Z-DEANNA) 250 00 mg days 2 Medi connor mg tablet to 5. [place] yu Yes [id number] Take 500 Univers n 9-13 mg day 1, ity of (ZITHROMAX 00:00: then 250 [place] as Z-DEANNA) 250 00 mg days 2 Medi connor mg tablet to 5. [place] weinerithromyci Yes [id number] Take 500 Univers n 9-13 mg day 1, ity of (ZITHROMAX 00:00: then 250 [place] as Z-DEANNA) 250 00 mg days 2 Medi connor mg tablet to 5. Branch husamithromyci Yes [id number] Take 500 Univers n 9-13 mg day 1, ity of (ZITHROMAX 00:00: then 250 [place] as Z-DEANNA) 250 00 mg days 2 Medi connor mg tablet to 5. Branch husamithromyci Yes [id number] Take 500 Univers n 9-13 mg day 1, ity of (ZITHROMAX 00:00: then 250 [place] as Z-DEANNA) 250 00 mg days 2 Medi connor mg tablet to 5. [place] enriqueyci Yes [id number] Take 500 Univers n 9-13 mg day 1, ity of (ZITHROMAX 00:00: then 250 [place] as Z-DEANNA) 250 00 mg days 2 Medi connor mg tablet to 5. [place] weinerithromyci Yes [id number] Take 500 Univers n 9-13 mg day 1, ity of (ZITHROMAX 00:00: then 250 [place] as Z-DEANNA) 250 00 mg days 2 Medi connor mg tablet to 5. [place] weinerithromyci Yes [id number] Take 500 Univers n 9-13 mg day 1, ity of (ZITHROMAX 00:00: then 250 [place] as Z-DEANNA) 250 00 mg days 2 Medi connor mg tablet to 5. [place] husamithromyci Yes [id number] Take 500 Univers n 9-13 mg day [...] on inhaler 00 Medical Branch cetirizine Yes [id number] 10mg Take 1 U nivers (ZYRTEC) 10 1-30 tablet by ity of mg tablet 00:00[place] bedtime as Medical needed for Branch Allergies or Runny nose. cetirizine Yes [id number] 10mg Take 1 U nivers (ZYRTEC) 10 1-30 tablet by ity of mg tablet 00:00: [place] bedtime as Medical needed for Branch Allergies or Runny nose. cetirizine Yes [id number] 10mg Take 1 U nivers (ZYRTEC) 10 1-30 tablet by ity of mg tablet 00:00: [place] bedtime as Medical needed for Branch Allergies or Runny nose. cetirizine Yes [id number] 10mg Take 1 U nivers (ZYRTEC) 10 1-30 tablet by ity of mg tablet 00:00: [place] bedtime as Medical needed for Branch Allergies or Runny nose. cetirizine Yes [id number] 10mg Take 1 U nivers (ZYRTEC) 10 1-30 tablet by ity of mg tablet 00:00: [place] bedtime as Medical needed for Branch Allergies or Runny nose. cetirizine Yes [id number] 10mg Take 1 U nivers (ZYRTEC) 10 1-30 tablet by ity of mg tablet 00:00: [place] bedtime as Medical needed for Branch Allergies or Runny nose. cetirizine Yes [id number] 10mg Take 1 U nivers (ZYRTEC) 10 1-30 tablet by ity of mg tablet 00:00: [place] bedtime as Medical needed for Branch Allergies or Runny nose. cetirizine Yes [id number] 10mg Take 1 U nivers (ZYRTEC) 10 1-30 tablet by ity of mg tablet 00:00: [place] bedtime as Medical needed for Branch Allergies or Runny nose. cetirizine Yes [id number] 10mg Take 1 U nivers (ZYRTEC) 10 1-30 tablet by ity of mg tablet 00:00: [place] bedtime as Medical needed for Branch Allergies or Runny nose. cetirizine Yes [id number] 10mg Take 1 U nivers (ZYRTEC) 10 1-30 tablet by ity of mg tablet 00:00: [place] bedtime as Medical needed for Branch Allergies or Runny nose. cetirizine Yes [id number] 10mg Take 1 U nivers (ZYRTEC) 10 1-30 tablet by ity of mg tablet 00:00: [place] bedtime as Medical needed for Branch Allergies or Runny nose. cetirizine Yes [id number] 10mg Take 1 U nivers (ZYRTEC) 10 1-30 tablet by ity of mg tablet 00:00: [place] bedtime as Medical needed for Branch Allergies or Runny nose. cetirizine Yes [id number] 10mg Take 1 U nivers (ZYRTEC) 10 1-30 tablet by ity of mg tablet 00:00: [place] bedtime as Medical needed for Branch Allergies or Runny nose. cetirizine Yes [id number] 10mg Take 1 U nivers (ZYRTEC) 10 1-30 tablet by ity of mg tablet 00:00: [place] bedtime as Medical needed for Branch Allergies or Runny nose. cetirizine Yes [id number] 10mg Take 1 U nivers (ZYRTEC) 10 1-30 tablet by ity of mg tablet 00:00: [place] bedtime as Medical needed for Branch Allergies or Runny nose. cetirizine Yes [id number] 10mg Take 1 U nivers (ZYRTEC) 10 1-30 tablet by ity of mg tablet 00:00: [place] bedtime as Medical needed for Branch Allergies or Runny nose. cetirizine Yes [id number] 10mg Take 1 U nivers (ZYRTEC) 10 1-30 tablet by ity of mg tablet 00:00: [place] bedtime as Medical needed for Branch Allergies or Runny nose. cetirizine Yes [id number] 10mg Take 1 U nivers (ZYRTEC) 10 1-30 tablet by ity of mg tablet 00:00: [place] bedtime as Medical needed for Branch Allergies or Runny nose. cetirizine Yes [id number] 10mg Take 1 U nivers (ZYRTEC) 10 1-30 tablet by ity of mg tablet 00:00: [place] bedtime as Medical needed for Branch Allergies or Runny nose. cetirizine Yes [id number] 10mg Take 1 U nivers (ZYRTEC) 10 1-30 tablet by ity of mg tablet 00:00: [place] bedtime as Medical needed for Branch Allergies or Runny nose. cetirizine Yes [id number] 10mg Take 1 U nivers (ZYRTEC) 10 1-30 tablet by ity of mg tablet 00:00: [place] bedtime as Medical needed for Branch Allergies or Runny nose. cetirizine Yes [id number] 10mg Take 1 U nivers (ZYRTEC) 10 1-30 tablet by [place]y of mg tablet 00:00: [place] bedtime as Medical needed for Branch Allergies or Runny nose. Vital Signs Vital Name Observation Time Observation Value Comments Source Systolic blood 2022-12-24 20:14:00 112 mm[Hg] Univer sity [facility] [place] [facility] Diastolic blood 2022-12-24 20:14:00 72 [facility]Hg[facility]:14:00 80 /min [facility] Body temperature 2022-12-24 20:14:00 36.61 [facility] Respiratory rate 2022-12-24 20:14:00 18 /min [facility] Body height 2022-12-24 20:14:00 177.8 cm [facility] Body weight 2022-12-24 20:14:00 81.511 kg [facility] BMI 2022-12-24 20:14:00 25.78 kg/m2 [facility] Oxygen saturation in 2022-12-24 20:14:00 99 /min [facility] Arterial blood by [facility] Pulse oximetry Branch Systolic blood 2022-12-21 18:06:00 122 mm[Hg] Univer sity [facility] Diastolic blood 2022-12-21 18:06:00 75 mm[Hg] [facility] 2022-12-21 18:06:00 72 /min [facility] Respiratory rate 2022-12-21 18:06:00 18 /min [facility] Body weight 2022-12-21 18:06:00 81.647 kg [facility] Oxygen saturation in 2022-12-21 18:06:00 100 /min University of Arterial blood by [facility] Pulse oximetry Branch Systolic blood 2022-08-25 16:53:00 132 mm[Hg] Univer [facility]ity [facility] Diastolic blood 2022-08-25 16:53:00 77 mm[Hg] Unive rsity [facility] Heart rate 2022-08-25 16:53:00 89 /min [facility] Body temperature 2022-08-25 16:53:00 36.56 Patricia [facility] Respiratory rate 2022-08-25 16:53:00 18 /min [facility] Body height 2022-08-25 16:53:00 177.8 cm [facility] Body weight 2022-08-25 16:53:00 87.544 kg [facility] [place] [facility] BMI 2022-08-25 16:53:00 27.69 kg/m2 [facility] Oxygen saturation in 2022-08-25 16:53:00 96 /min University of Arterial blood by [facility] Pulse oximetry Branch Systolic blood 2022-06-29 20:38:00 132 mm[Hg] Univer [facility]ity [facility] Diastolic blood 2022-06-29 20:38:00 89 mm[Hg] Unive rsity [facility] Heart rate 2022-06-29 20:38:00 98 /min [facility] Respiratory rate 2022-06-29 20:38:00 18 /min [facility] Body weight 2022-06-29 20:38:00 86.183 kg [facility] Oxygen saturation in 2022-06-29 20:38:00 99 /min [facility] of Arterial blood by [facility] Pulse oximetry Branch Systolic blood 2022-03-06 16:11:00 126 mm[Hg] Univer [facility] Diastolic blood 2022-03-06 16:11:00 81 mm[Hg] Unive [facility] Heart rate 2022-03-06 16:11:00 70 /min [facility] Respiratory rate 2022-03-06 16:11:00 18 /min [facility] Body weight 2022-03-06 16:11:00 82.373 kg [facility] Oxygen saturation in 2022-03-06 16:11:00 98 /min [facility] blood by [facility] Pulse oximetry Branch Procedures Procedure Date / Time Performed Performing Clinician Yordan e TDAP VACCINE, >11 YRS, 2022-12-21 18:59:57 [facility]ENEFITS 2022-12-21 17:37:24 Doctor Unassigned, No [facility] Name [facility] Branch POCT MOLECULAR FLU 2022-08-25 17:01:00 Unknown, Attending [facility] 2022-06-29 06:01:00 Doctor Unassigned, No [facility] RELEASE/CLEARANCE Name [facility] [place] FORMS EXTERNAL PROVIDER 2022-03-07 05:01:00 Doctor Unassigned, No 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, Adc Lab [facility] 1.2.840.114 [id number] [facility] 15:45:00 16:00:00 Visit Jean Baumann 350.1.13.1 0 [facility] 4.2.7.2.686 Neftali OCASIO [phone] [address] 2022-12-24 2022-12-24 Office Jason [facility] 1.2.840.114 [id number] [facility] 15:00:00 15:30:00 Visit Jena JUNG 350.1.13.10 [place] [phone] Oh diclaney NAL 044 [facility] 2022-12-24 2022-12-24 Outpatient R JEAN BAUMANN [facility] [id number] Univers 15:00:00 15:00:00 JEAN BAUMANN ity [facility] 2022-12-21 2022-12-21 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, 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 [facility] 1.2.840.114 [id number] Univers 14:15:00 14:30:00 Visit Jean Baumann 350.1.13.1 0 ity [facility] [place] [id number] Oh josé miguel KRISHNAMURTHY 353 [facility] 2022-12-21 2022-12-21 Outpatient R JEAN BAUMANN [facility] [id number] Univers 12:00:00 13:58:34 [facility] 2022-12-21 2022-12-21 Office Jason [facility] 1.2.840.114 [id number] Univers 12:00:00 13:58:34 Visit Jean ERICH 350.1.13.10 ity [facility] [place] [id number] Oh josé miguel KRISHNAMURTHY 044 [facility] 2022-12-21 2022-12-21 Orders Doctor WESLY 1.2.840.114 [id number] Univers 00:00:00 00:00:00 Only Unassigned, [place] 350.1.13.10 ity of [place] [facility] 4.2.7.2.686 Jaret as [phone] [address] 2022-08-25 2022-08-25 Outpatient R KING SVETLANA [facility] [id number] Univers 11:00:00 11:58:10 BHAKTI jordan [facility] 2022-08-25 2022-08-25 Bhakti Romero [facility] 1.2.840.114 [id number] Univers 11:00:00 11:58:10 Care Unknown, Attending HEALTH 350.1.13.10 ity of [facility] 4.2.7.2.686 Jaret as DOV?BLEA [id number] [address] MEDICAL OFFICE [facility] 2022-08-25 2022-08-25 Letter Bhakti Cooley [facility] 1.2.840.114 [id number] Univers 00:00:00 00:00:00 (Out) C HEALTH 350.1.13.10 it y of [facility] 4.2.7.2.686 Jaret as DOV?BLEA [id number] [address] MEDICAL OFFICE [facility] 2022-08-25 2022-08-25 Letter Provider, [place] 1.2.371.683 [id number] Univers 00:00:00 00:00:00 (Out) Ang Db HEALTH 350.1.13.10 it y of [facility]gent [facility] [place] 4.2.7.2.686 [place] DOV?BLEA [phone] [address] OFFICE [facility] 2022-07-04 2022-07-04 Letter WESLY Sinha 1.2.840.114 [id number] Univers 00:00:00 00:00:00 (Out) Ame ISRAEL 350.1.13.10 it y of HOSPITAL 4.2.7.2.686 Jaret as [phone] [address] 2022-07-04 2022-07-04 Telephone Nurse, Prasanna [facility] 1.2.840.114 [id number] Univers 00:00:00 00:00:00 Db Urgent HEALTH 350.1.13.10 ity of Care [place] 4.2.7.2.686 Jaret as DOV?BLEA [phone] [address] MEDICAL OFFICE [facility] 2022-07-04 2022-07-04 Letter Provider, [facility] 1.2.629.279 [id number] Univers 00:00:00 00:00:00 (Out) Ang Db HEALTH 350.1.13.10 it y of Urgent [place] 4.2.7.2.686 [place] DOV?BLEA [phone] [address] OFFICE [facility] 2022-07-03 2022-07-03 Laboratory Only, Ang Db Test [facility] 1.2.8 40.114 [id number] Univers 11:00:00 11:15:00 Only Unknown, Attending HEALTH 350.1.13.10 ity of [place]ie [place] 4.2.7.2.686 Mendez PADILLAE?SANTA [id number] Oh josé miguel KNEY [address] MEDICAL OFFICE BUILDING 2022-07-03 2022-07-03 Outpatient R MICHAEL [facility] [id number] Univers 11:00:00 11:00:00 MILLIE jordan [facility] 2022-06-29 2022-06-29 Outpatient R JEAN BAUMANN [facility] [id number] Univers 15:00:00 15:49:30 [facility] 2022-06-29 2022-06-29 Office Jason [facility] 1.2.840.114 [id number] Univers 15:00:00 15:49:30 Visit Jean JUNG 350.1.13.10 ity [facility] 4.2.7.2.686 Neftali OCASIO [phone] Oh josé miguel [facility] Branch BUILDING 2022-06-29 2022-06-29 Outpatient R JEAN BAUMANN [facility] [id number] Univers 09:00:00 09:00:00 WILL BAUMANNNYLA darnelly [facility] 2022-06-29 2022-06-29 Orders Doctor JARRELL 1.2.840.114 [id number] Univers 00:00:00 00:00:00 Only Unassigned, [place] 350.1.13.10 ity of [place] [facility] 4.2.7.2.686 Jaret as [phone] [address] 2022-06-05 2022-06-05 Outpatient R SHEA [facility] [id number] Univers 13:00:00 13:00:00 ATTENDING ity of [facility] 2022-03-07 2022-03-07 Telephone Debra [facility] 1.2.840.11 [id number] Univers 00:00:00 00:00:00 Ángel ARAUZ 350.1.13.10 it y of PEDIATRIC 4.2.7.2.686 [facility] [phone] [facility] [address] 2022-03-07 2022-03-07 Orders Doctor WESLY 1.2.840.114 [id number] Univers 00:00:00 00:00:00 Only Unassigned, [place]RA[place] 350.1.13.10 it[place] of [place] [facility] 4.2.7.2.686 Jaret as [phone] [place] [address] Branch 2022-03-07 2022-03-07 Letter [facility] 1.2.840.114 [id number] Univers 00:00:00 00:00:00 (Out) Ángel ARAUZ 350.1.13.10 [place] [facility] [id number] [address] 2022-03-06 2022-03-06 Outpatient R [facility] [id number] Univers 10:40:00 11:18:26 ÁNGEL jordan [facility] 2022-03-06 2022-03-06 Office [facility] 1.2.840.114 [id number] Univers 10:40:00 11:18:26 Visit Ángel ARAUZ 350.1.13.10 it [place] [facility] [id number] [address] 2022 2022 Letter [facility] 1.2.051.389 [id number] Univers 00:00:00 00:00:00 (Out) [facility] 350.1.13.10 it y of Urgent Care [place] 4.2.7.2.686 [place] [facility]?BLEA [phone] Oh dical [address] MEDICAL OFFICE BUILDING 2022-02-01 2022-02-01 Telephone [facility] 1.2.840.11 [id number] Univers 00:00:00 00:00:00 Ángel DAVONTE 350.1.13.10 it [place] [facility] [id number] [address] 2022-01-31 2022-01-31 Urgent [facility] 1.2.840.114 [id number] Univers 17:20:00 17:40:00 Care [facility] 350.1.13.10 it y of [facility] 4.2.7.2.686 Jaret as DOV?BLEA [id number] [address] MEDICAL OFFICE [facility] 2022-01-31 2022-01-31 Outpatient R PITA [facility] [id number] Univers 17:20:00 17:11:16 [facility] 2021-12-20 2021-12-20 Telephone Eddie WESLY 1..211.272 [id number] Univers 00:00:00 00:00:00 Nenita WOOD 350.1.13.10 i ty [facility] 4.2.7.2.686 Jaret as [id number] [address] 2021-12-20 2021-12-20 Telephone Marko KSLEANDRA ..840.114 [id number] Univers 00:00:00 00:00:00 [facility] 350.1.13.10 it y of [place] 4.2.7.2.686 Jaret as DOV?BLEA [phone] [address] OFFICE [facility] 2021-12-19 2021-12-19 Outpatient R MARKO [facility] [id number] Univers 17:20:00 18:27:41 [facility] 2021-12-19 2021-12-19 Urgent [facility] ..840.114 [id number] Univers 17:20:00 17:40:00 Care Pita [facility] 350.1.13.10 ity of [place] 4.2.7.2.686 Jaret as DOV?BLEA [id number] [address] MEDICAL OFFICE [facility] 2021-10-11 2021-10-11 Outpatient R TERENCE HAN [facility] [id number] Univers 14:20:00 14:48:00 ity [facility] 2021-10-11 2021-10-11 Office Terence Han [facility] ..840.114 [id number] Univers 14:20:00 14:48:00 Visit DAVONTE 350.1.13.10 it [place] [id number] [facility] [address] 2021-10-11 2021-10-11 Samia LunaTerence tipton [facility] 1.2.840.114 [id number] Univers 00:00:00 00:00:00 (Out) DAVONTE 350.1.13.10 [place] [facility] [id number] [facility] [address] 2021-09-12 2021-09-12 Outpatient R [facility] [id number] Univers 10:10:00 10:46:20 , DORINA jordan [facility] 2021-09-12 2021-09-12 Office [facility] 1.2.840.114 [id number] Univers 10:10:00 10:46:20 Visit , Dorina ARAUZ 350.1.13.10 it [place] [id number] [facility] [address] 2021-09-12 2021-09-12 Orders Doctor WESLY 1.2.840.114 [id number] Univers 00:00:00 00:00:00 Only Unassigned, [place]RA[place] 350.1.13.10 ity of [place] [facility] 4.2.7.2.686 Jaret as [phone] [place] [address] Branch 2021-08-23 2021-08-23 Outpatient TERENCE ACKERMAN [facility] [id number] Univers 16:00:00 16:00:00 ity [facility] 2021-08-23 2021-08-23 Outpatient TERENCE ACKERMAN [facility] [id number] Univers 08:00:00 08:00:00 ity [facility] 2021-07-25 2021-07-25 Outpatient TERENCE ACKERMAN [facility] [id number] Univers 08:00:00 08:00:00 ity [facility] 2021-03-17 2021-03-17 Laboratory Lab, Adc [facility] I [facility] 1.2. 840.114 [id number] Univers 11:20:04 11:40:04 [facility] 350.1.13.10 ity of [place] 4.2.7.2.686 Jaret as Professio [phone] Oh dic[address] Office [facility] 2021-03-17 2021-03-17 Outpatient R MICHAEL [facility] [id number] Univers 11:40:00 11:40:00 MILLIE josh [facility] 2020-12-06 2020-12-06 Telephone [facility] 1.2.840.114 [id number] 00:00:00 00:00:00 Ann Arauz 350.1.13.10 Pediatric 4.2.7.2.686 Clinic [id number] [facility] 2020-12-06 2020-12-[address] [facility] 1.2.840.114 [id number] [facility] 00:00:00 00:00:00 Ann Arauz 350.1.13.10 [place] [phone] [address] 2020-12-05 2020-12-[address] [facility] 1.2.840.114 [id number] 15:12:09 15:55:16 Visit Ann Arauz 350.1.13.10 Pediatric 4.2.7.2.686 Clinic [id number] [facility] 2020-12-05 2020-12-05 Office [facility] 1.2.840.114 [id number] [facility] 15:12:09 15:55:16 Visit Ann Arauz 350.1.13.10 it[place] [facility] [id number] [address] 2020-12-05 2020-12-05 Outpatient R DAVID [facility] [id number] Univers 15:20:00 15:20:00 ANN jordan [facility] 2020-11-29 2020-11-29 Outpatient R SIMON [facility] [id number] Univers 10:40:00 10:40:00 nikki SARMIENTO [facility] 2020-11-24 2020-11-24 Telephone [facility] 1.2.840.114 [id number] Univers 00:00:00 00:00:00 Davonte Sarmiento 350.1.13.10 ity of [place].2.[place] [facility] [id number] [address] 2020-11-16 2020-11-16 Telephone [facility] 1.2.840.114 [id number] Univers 00:00:00 00:00:00 Davonte Sarmietno 350.1.13.10 ity of [facility] [place].2.[place] [id number] [address] 2020-11-15 2020-11-15 Office de [facility] 1.2.754.641 [id number] Univers 10:08:10 10:46:44 Visit Davonte Sarmiento 350.1.13.10 ity of [facility] [place].7.2.[place] [facility] [id number] [address] 2020-11-15 2020-11-15 Outpatient R DE [facility] [id number] Univers 10:20:00 10:20:00 nikki SARMIENTO [facility] 2020-09-27 2020-09-27 Outpatient R DE [facility] [id number] Univers 16:00:00 16:00:00 nikki SARMIENTO [facility] 2020-09-22 2020-09-22 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 Sarah Beth, Ira Lab Main [facility] 1.2.8 40.114 [id number] Univers 13:57:56 14:12:56 Visit Ángel Root 350.1.13 .10 it[place] [phone] Oh dical [address] 2020-09-22 2020-09-22 Outpatient R DE [facility] [id number] Univers 14:00:00 14:00:00 nikki SARMIENTO [facility] 2020-09-21 2020-09-21 Office de [facility] 1.2.475.702 [id number] Univers 15:08:11 15:47:29 Visit Davonte Sarmiento 350.1.13.10 ity of [place].2.[place] [facility] [id number] [address] 2020-09-21 2020-09-21 Outpatient R DE [facility] [id number] Univers 15:20:00 15:20:00 mann SARMIENTOy of [facility] 2020-09-21 2020-09-21 Outpatient R DE [facility] [id number] Univers 08:00:00 08:00:00 GUILLERMINA ity of [facility] 2020-08-19 2020-08-19 Letter [facility] 1.2.708.649 [id number] Univers 00:00:00 00:00:00 (Out) Davonte Sarmiento 350.1.13.10 ity of [place] [facility] [id number] [address] 2020-08-18 2020-08-18 Letter [facility] 1.2.840.114 [id number] Univers 00:00:00 00:00:00 (Out) Ann Arauz 350.1.13.10 it[place] [facility] [id number] [address] 2020-08-18 2020-08-18 Telephone [facility] 1.2.840.114 [id number] Univers 00:00:00 00:00:00 Ann Arauz 350.1.13.10 ity [place]2.[place] [facility] [id number] [address] 2020-08-16 2020-08-16 Office [facility] 1.2.840.114 [id number] Univers 13:22:21 13:48:03 Visit Ann Arauz 350.1.13.10 ity [place]2.[place] [facility] [id number] [address] 2020-08-16 2020-08-16 Outpatient R [facility] [id number] Univers 13:20:00 13:20:00 ANN jordan of [facility] 2020-08-16 2020-08-16 Orders Doctor WESLY 1.2.840.114 [id number] Univers 00:00:00 00:00:00 Only Unassigned, [place] 350.1.13.10 ity of [place] [facility] 4.2.7.2.686 Jaret as [phone] [address] 2020-08-16 2020-08-16 Letter [facility] 1.2.840.114 [id number] Univers 00:00:00 00:00:00 (Out) Ann Arauz 350.1.13.10 it[place]2.[place] [facility] [id number] [address] 2020-05-30 2020-05-30 Orders Doctor JARRELL 1.2.840.114 [id number] Univers 00:00:00 00:00:00 Only Unassigned, [place] 350.1.13.10 ity of [place] [facility] 4.2.7.2.686 Jaret as [phone] [address] 2020-05-11 2020-05-11 Telephone de [facility] 1.2.840.114 [id number] Univers 00:00:00 00:00:00 Davonte Sarmiento 350.1.13.10 ity of [place]7.2.[place] [facility] [id number] [address] 2020-05-11 2020-05-11 Orders Doctor JARRELL 1.2.840.114 [id number] Univers 00:00:00 00:00:00 Only Unassigned, [place] 350.1.13.10 ity of [place] [facility] 4.2.7.2.686 Jaret as [id number] [address] 2019-12-10 2019-12-10 Orders Doctor JARRELL 1.2.840.114 [id number] Univers 00:00:00 00:00:00 Only Unassigned, [place] 350.1.13.10 ity of [place] [facility] 4.2.7.2.686 Jaret as [id number] [address] 2019-09-04 2019-09-04 Office [facility] 1.2.840.114 [id number] Univers 14:00:09 14:35:25 Visit Ann Arauz 350.1.13.10 ity [place]2.[place] [facility] [id number] [address] 2019-09-04 2019-09-04 Orders Doctor WESLY 1.2.840.114 [id number] Univers 00:00:00 00:00:00 Only Unassigned, [place] 350.1.13.10 ity of [place] [facility] 4.2.7.2.686 Jaret as [id number] [address] 2019-04-24 2019-04-24 Office de [facility] 1.2.205.502 [id number] Univers 15:50:53 16:37:49 Visit Davonte Sarmiento 350.1.13.10 ity of [place] 4[place]2.7.2.686 [place] [facility] [id number] [address] 2019-04-23 2019-04-23 Office [facility] 1.2.327.570 [id number] Univers 14:50:35 15:25:37 Visit Davonte Sarmiento 350.1.13.10 ity of [place] 4[place]2.7.2.686 [place] [facility] [id number] [address] 2019-04-23 2019-04-23 Letter de [facility] 1.2.576.819 [id number] Univers 00:00:00 00:00:00 (Out) Davonte Sarmiento 350.1.13.10 ity of [place]7.2.[place] [facility] [id number] [address] 2019-04-23 2019-04-23 Orders Doctor WESLY 1.2.840.114 [id number] Univers 00:00:00 00:00:00 Only Unassigned, [place] 350.1.13.10 ity of [place] [facility] 4.2.7.2.686 Jaret as [id number] [address] 2019-04-20 2019-04-20 Telephone [facility] 1.2.840.11 [id number] Univers 00:00:00 00:00:00 Lexus Pedroza 350.1.13.10 ity of Pediatric 4.2.7.2.686 [facility] [id number] [place] [address] Branch Results Test Description Test Time Test Comments Results Result Comments Source POCT MOLECULAR FLU 2022-08-25 17:13:25 Test Item Value Reference Range Interpretation Comme nts POCT Molecular FluA (test code = 34937-3) Negative Negative POCT Molecular FluB (test code = 61953-8) Negative Negative Lab Interpretation (test code = 01300-3) Normal [facility]
--- NOTE | 2023-06-18 23:20 | ER ---
Nurse's Notes [facility] Sg Name: Boni Salgado Age: 23 yrs Sex: Male : 2000 Arrival Date: 06/18/2023 Time: 22:57 Bed IW2 Private MD: Diagnosis: Unspecified sexually transmitted disease Presentation: 06/18 23:08 Chief complaint: Patient states: that he is here to be tested for STD. Pt states that cm10 he has no symptoms. Pt states that he wanted to get checked because his partner was here and treated for possible STD. Coronavirus screen: Vaccine status: Patient reports being unvaccinated. Client denies travel out of the [place] in the last 14 days. Client indicates they have traveled out of the [place] in the last 14 days. Ebola Screen: Patient denies travel to an Ebola-affected area in the 21 days before illness onset. No symptoms or risks identified at this time. Initial Sepsis Screen: Does the patient meet any 2 criteria? No. Patient's initial sepsis screen is negative. Does the patient have a suspected source of infection? No. Patient's initial sepsis screen is negative. Risk Assessment: Do you want to hurt yourself or someone else? Patient reports no desire to harm self or others. Onset of symptoms was June 18, 2023. 23:08 Method Of Arrival: Ambulatory cm10 23:08 Acuity: SHERIF 4 cm10 Triage Assessment: 23:10 General: Appears in no apparent distress. comfortable, Behavior is calm, cooperative. cm10 Pain: Denies pain. EENT: No deficits noted. No signs and/or symptoms were reported regarding the EENT system. Neuro: No deficits noted. Balderrama Agitation-Sedation Scale (RASS): 0 - Alert and Calm Level of Consciousness is awake, alert, obeys commands, Oriented to person, place, time, situation. Cardiovascular: No deficits noted. Patient's skin is warm and dry. Respiratory: No deficits noted. Airway is patent Respiratory effort is even, unlabored, Respiratory pattern is regular, symmetrical. GI: No deficits noted. No signs and/or symptoms were reported involving the gastrointestinal system. : No deficits noted. No signs and/or symptoms were reported regarding the genitourinary system. Derm: No deficits noted. No signs and/or symptoms reported regarding the dermatologic system. Skin is intact, Skin is pink, warm \T\ dry. Musculoskeletal: No deficits noted. No signs and/or symptoms reported regarding the musculoskeletal system. Range of motion: intact in all extremities. Historical: - Allergies: 23:10 NKDA; cm10 - PMHx: 23:10 Asthma; cm10 - PSHx: 23:10 Appendectomy; cm10 - Immunization history:: Adult Immunizations unknown. - Social history:: Smoking status: Reported history of juuling and/or vaping. Screenin:11 [facility] ED Fall Risk Assessment (Adult) History of falling in the last 3 months, cm10 including since admission No falls in past 3 months (0 pts) Confusion or Disorientation No (0 pts) Intoxicated or Sedated No (0 pts) Impaired Gait No (0 pts) Mobility Assist Device Used No (0 pt) Altered Elimination No (0 pt) Score/Fall Risk Level 0 - 2 = Low Risk Oriented to surroundings, Maintained a safe environment, Hourly rounding (assess needs \T\ fall precautionary measures) done. Abuse screen: Denies threats or abuse. Denies injuries from another. Nutritional screening: No deficits noted. Tuberculosis screening: No symptoms or risk factors identified. Vital Signs: 23:08 BP 124 / 76; Pulse 65; Resp 18; Temp 97.3; Pulse Ox 98% on R/A; Weight 81.65 kg; Height cm10 5 ft. 10 in. ; Pain 0/10; 23:08 Body Mass Index 25.83 (81.65 kg, 177.8 cm) cm10 23:08 Pain Scale: Adult cm10 ED Course: 23:01 Patient arrived in ED. gm2 23:04 Carol Ann Arauz FNP-C is PHCP. kb 23:04 Nino Velázquez MD is Attending Physician. kb 23:10 Triage completed. cm10 23:10 Arm band placed on Patient placed in waiting room. cm10 23:11 Patient has correct armband on for positive identification. Provided Education on: ER cm10 process and procedures. . 23:11 No provider procedures requiring assistance completed. Patient did not have IV access cm10 during this emergency room visit. Administered Medications: 23:37 Drug: Rocephin (cefTRIAXone) IM 1 grams IM once Route: IM; Site: right gluteus; bp 23:46 Follow up: Response: No adverse reaction bp 23:37 Drug: AZITHromycin PO 1 grams PO once Route: PO; bp 23:46 Follow up: Response: No adverse reaction bp Medication: 23:11 VIS not applicable for this client. cm10 Outcome: 23:20 Discharge ordered by . angelo 23:47 Discharged to home ambulatory, with family, bp 23:47 Condition: stable 23:47 Discharge instructions given to patient, Instructed on discharge instructions, follow up and referral plans. Demonstrated understanding of instructions, follow-up care, 23:48 Patient left the ED. bp Signatures: Carol Ann Arauz, LASHON-C LASHON-Suman Longo, RN RN bp Tawnya Vallecillo RN RN cm10 Karla Aguiar [facility]
--- NOTE | 2023-06-18 23:20 | EDPHYS ---
Physician Documentation [facility] Name: Boni Salgado Age: 23 yrs Sex: Male : 2000 Arrival Date: 06/18/2023 Time: 22:57 Bed IW2 Private MD: ED Physician Nino Velázquez HPI: 06/18 23:59 This 23 yrs old Black Male presents to ER via Ambulatory with complaints of STD kb Exposure. 23:59 Pt reports his girlfriend has STI symptoms and was treated so he wanted to get tested. kb States he has no symptoms. Historical: - Allergies: 23:10 NKDA; cm10 - PMHx: 23:10 Asthma; cm10 - PSHx: 23:10 Appendectomy; cm10 - Immunization history:: Adult Immunizations unknown. - Social history:: Smoking status: Reported history of juuling and/or vaping. ROS: 23:58 Constitutional: Negative for fever, chills, and weight loss, kb 23:58 All other systems are negative, Exam: 23:58 Constitutional: This is a well developed, well nourished patient who is awake, alert, kb and in no acute distress. Head/Face: Normocephalic, atraumatic. ENT: Moist Mucous membranes Cardiovascular: Regular rate Respiratory: Respirations even and unlabored. No increased work of breathing. Talking in full sentences Abdomen/GI: Soft, non-tender. No distention Skin: Warm, dry with normal turgor. Normal color. MS/ Extremity: Pulses equal, no cyanosis. Neurovascular intact. Full, normal range of motion. Neuro: Awake and alert, GCS 15, oriented to person, place, time, and situation. Moves all extremities. Normal gait. Vital Signs: 23:08 BP 124 / 76; Pulse 65; Resp 18; Temp 97.3; Pulse Ox 98% on R/A; Weight 81.65 kg; Height cm10 5 ft. 10 in. ; Pain 0/10; 23:08 Body Mass Index 25.83 (81.65 kg, 177.8 cm) cm10 23:08 Pain Scale: Adult cm10 MDM: 23:04 Patient medically screened. kb 23:58 Differential diagnosis: UTI, sti. Data reviewed: vital signs, nurses notes. Counseling: kb I had a detailed discussion with the patient and/or guardian regarding the historical points, exam findings, and any diagnostic results supporting the discharge/admit diagnosis, the need for outpatient follow up, a family practitioner, to return to the emergency department if symptoms worsen or persist or if there are any questions or concerns that arise at home. Administered Medications: 23:37 Drug: Rocephin (cefTRIAXone) IM 1 grams IM once Route: IM; Site: right gluteus; bp 23:46 Follow up: Response: No adverse reaction bp 23:37 Drug: AZITHromycin PO 1 grams PO once Route: PO; bp 23:46 Follow up: Response: No adverse reaction bp Disposition Summary: 06/18/23 23:20 Discharge Ordered Notes: Location: Home kb Condition: Stable kb Diagnosis - Unspecified sexually transmitted disease kb Followup: kb - With: Emergency Department - When: As needed - Reason: Worsening of condition Followup: kb - With: Private Physician - When: 2 - 3 days - Reason: Recheck today's complaints, Continuance of care, Re-evaluation by your physician Discharge Instructions: - Discharge Summary Sheet kb - Preventing Sexually Transmitted Infections, Adult kb Forms: - Medication Reconciliation Form kb - Thank You Letter kb - Antibiotic Education kb - Prescription Opioid Use kb - Patient Portal Instructions kb - Leadership Thank You Letter kb Signatures: Carol Ann Arauz FNP-C FNP-Suman Longo, RN RN Tawnya Pepe RN RN cm10
[2023-06-18] MEDS ORDERED: CEFTRIAXONE 1000 MG/VIAL ONE (23:40)
[2023-06-18] MEDS ORDERED: AZITHROMYCIN 250 MG TAB ONE (23:40)
[2023-06-19 00:17] VITALS: BP 124/76; TEMP 97.3; O2SAT 98
== END 2023-06-18 23:48 | disposition home or self-care (01) ==
LOC: ER 22:57
DX: A64 Unspecified sexually transmitted disease (principal)
CPT/HCPCS: 96372; 99284; J0696

== ENCOUNTER 2023-07-22 07:43 | Emergency (ER) | payer SELFPAY ==
--- OUTSIDE RECORDS SUMMARY | 2023-07-22 07:47 | XMS REPORT | Continuity of Care Document ---
Author Name Unknown Address [address] [address] [place] [address] [facility] thconnect Address [address] [address] [place] [address] Care Team Providers Care Trains Service Conductor Name Role Phone ÁNGEL RICHARDSON Primary Care Physician Unava ilJEAN Cates Attending Clinician Unavailab JEAN Potter Attending Clinician Unavailab alvarez 2, [facility] Attending Clinician Unavailable Doctor Unassigned, [place] Attending Clinician U BHAKTI Feliz III Attending Clinician Unavailhina Cooley III, MD, Bhakti Price Attending Clinician [phone] Unknown, Attending Attending Clinician Unavailab pino Provider, [facility] Attending Clinician Unavailable Ame Sinha RN Attending Clinician Unavailable Nurse, [facility] Attending Clinician Un available Only, [facility] Test Attending Clinician UnavailMillie Chairez MD Attending Clinician [phone] UNKNOWN, ATTENDING Attending Clinician UnavailMILLIE Car Attending Clinician Unavailable Ángel Christensen Attending Clinician [phone] ÁNGEL RICHARDSON Attending Clinician UnavailHerlinda Poole Attending Clinician [phone] HERLINDA LEMA Attending Clinician Unavailable Nenita Morgan RN Attending Clinician Unavaila rTaci Ramirez Attending Clinician [phone] TRACI MATOS Attending Clinician Unavailable TERENCE HAN Attending Clinician Unavailable Terence Han MD Attending Clinician [phone] DORINA MILTON Attending Clinician Unavailab Dorina Morris PA-C Attending Clinician [phone] Lab, [facility] Pob I Attending Clinician Unavailab Ann Justin MD Attending Clinician [phone] ANN HERNANDEZ Attending Clinician Unavail able Pob, [facility] Main Attending Clinician Unavailhina Castillo MD, [place] Attending Clinician [phone] Payers Payer Name Policy Type Policy Number Effective Date Expirati on Date Source [place] [employer] [id number] 2022 00:00:00 Problems Condition Name Condition Details Condition Category Status Onset Date Resolution Date Last Treatment Date Treating Clinician Comments Source No known active problems No known active problems Disease [facility] Allergies, Adverse Reactions, Alerts Allergy Name Allergy Type Status Severity Reaction(s) Onset Date Inactive Date Treating Clinician Comments Source NO KNOWN ALLERGIE S Drug Class Active [facility] Social History Social Habit Start Date Stop Date Quantity Comments Source Exposure to SARS-CoV-2 (event) 2022-12-14 00:00:00 2022-12-24 14:56:00 Not sure [facility] Tobacco use and exposure 2022-03-06 00:00:00 2022-03-06 00:00:00 Smokeless tobacco non-user [facility] Sex Assigned At 2000 00:00:00 2000 00:00:00 [facility] Smoking Status Start Date Stop Date Source Never smoked tobacco [facility] Medications Ordered Medication Name Filled Medication Name Start Date Stop Date Current Medication? Ordering Clinician Indication Dosage Frequency Signature (SIG) Comments Components Source mupirocin 2 % ointment 12-21 00:00: 00 Yes [id number] Apply to area(s) 3 (three) times daily. [facility] mupirocin 2 % ointment 12-21 00:00: 00 Yes [id number] Apply to area(s) 3 (three) times daily. [facility] mupirocin 2 % ointment 0 12-21 00:00: 00 Yes [id number] Apply to area(s) 3 (three) times daily. [facility] mupirocin 2 % ointment 0 12-21 00:00: 00 Yes [id number] Apply to area(s) 3 (three) times daily. [facility] mupirocin 2 % ointment 0 12-21 00:00: 00 Yes [id number] Apply to area(s) 3 (three) times daily. [facility] mupirocin 2 % ointment 12-21 00:00: 00 Yes [id number] Apply to area(s) 3 (three) times daily. [facility] amoxicillin -clavulanat e (AUGMENTIN) 875-125 mg per tablet 0 12-21 00:00: 00 01-01 04:59 :00 No [id number] 1{tbl} Take 1 tablet by mouth in the morning and 1 tablet in the evening. Do all this for 10 days. [facility] amoxicillin -clavulanat e (AUGMENTIN) 875-125 mg per tablet 12-21 00:00: 00 01-01 04:59 :00 No [id number] 1{tbl} Take 1 tablet by mouth in the morning and 1 tablet in the evening. Do all this for 10 days. [facility] amoxicillin -clavulanat e (AUGMENTIN) 875-125 mg per tablet 0 12-21 00:00: 00 01-01 04:59 :00 No [id number] 1{tbl} Take 1 tablet by mouth in the morning and 1 tablet in the evening. Do all this for 10 days. [facility] amoxicillin -clavulanat e (AUGMENTIN) 875-125 mg per tablet 0 12-21 00:00: 00 01-01 04:59 :00 No [id number] 1{tbl} Take 1 tablet by mouth in the morning and 1 tablet in the evening. Do all this for 10 days. [facility] amoxicillin -clavulanat e (AUGMENTIN) 875-125 mg per tablet 12-21 00:00: 00 01-01 04:59 :00 No [id number] 1{tbl} Take 1 tablet by mouth in the morning and 1 tablet in the evening. Do all this for 10 days. [facility] amoxicillin -clavulanat e (AUGMENTIN) 875-125 mg per tablet 12-21 00:00: 00 01-01 04:59 :00 No [id number] 1{tbl} Take 1 tablet by mouth in the morning and 1 tablet in the evening. Do all this for 10 days. [facility] albuterol 90 mcg/actuati on inhaler 08-25 00:00: 00 Yes [id number] 2{puff} Inhale 2 Puffs every 6 (six) hours as needed for Wheezing or Shortness of Breath. [facility] albuterol 90 mcg/actuati on inhaler 08-25 00:00: 00 Yes [id number] 2{puff} Inhale 2 Puffs every 6 (six) hours as needed for Wheezing or Shortness of Breath. [facility] albuterol 90 mcg/actuati on inhaler 08-25 00:00: 00 Yes [id number] 2{puff} Inhale 2 Puffs every 6 (six) hours as needed for Wheezing or Shortness of Breath. [facility] albuterol 90 mcg/actuati on inhaler 08-25 00:00: 00 Yes [id number] 2{puff} Inhale 2 Puffs every 6 (six) hours as needed for Wheezing or Shortness of Breath. [facility] albuterol 90 mcg/actuati on inhaler 08-25 00:00: 00 Yes [id number] 2{puff} Inhale 2 Puffs every 6 (six) hours as needed for Wheezing or Shortness of Breath. [facility] albuterol 90 mcg/actuati on inhaler 08-25 00:00: 00 Yes [id number] 2{puff} Inhale 2 Puffs every 6 (six) hours as needed for Wheezing or Shortness of Breath. [facility] albuterol 90 mcg/actuati on inhaler 08-25 00:00: 00 Yes [id number] 2{puff} Inhale 2 Puffs every 6 (six) hours as needed for Wheezing or Shortness of Breath. [facility] albuterol 90 mcg/actuati on inhaler 08-25 00:00: 00 Yes [id number] 2{puff} Inhale 2 Puffs every 6 (six) hours as needed for Wheezing or Shortness of Breath. [facility] albuterol 90 mcg/actuati on inhaler 08-25 00:00: 00 Yes [id number] 2{puff} Inhale 2 Puffs every 6 (six) hours as needed for Wheezing or Shortness of Breath. [facility] albuterol 90 mcg/actuati on inhaler 08-25 00:00: 00 Yes [id number] 2{puff} Inhale 2 Puffs every 6 (six) hours as needed for Wheezing or Shortness of Breath. [facility] Methylpredn isolone 4 mg tablet 08-25 00:00: 00 08-31 05:59 :00 No [id number] 4mg Take 1 tablet by mouth every 12 (twelve) hours for 5 days. [facility] Methylpredn isolone 4 mg tablet 08-25 00:00: 00 08-31 05:59 :00 No [id number] 4mg Take 1 tablet by mouth every 12 (twelve) hours for 5 days. [facility] Methylpredn isolone 4 mg tablet 08-25 00:00: 00 08-31 05:59 :00 No [id number] 4mg Take 1 tablet by mouth every 12 (twelve) hours for 5 days. [facility] naproxen 500 mg tablet 2021-08 00:00: 00 Yes [id number] 500mg Take 1 tablet by mouth in the morning and 1 tablet in the evening. Take with meals. [facility] cyclobenzap rine 10 mg tablet 2021-08 00:00: 00 Yes [id number] 10mg Take 1 tablet by mouth at bedtime as needed for Muscle Spasms. [facility] Diclofenac Sodium (VOLTAREN) 1 % gel 2021-08 00:00: 00 Yes [id number] Take 2-4 grams three times a day as needed for pain [facility] tablet 2021-08 00:00: 00 Yes [id number] 500mg Take 1 tablet by mouth in the morning and 1 tablet in the evening. Take with meals. [facility] cyclobenzap rine 10 mg tablet 2021-08 00:00: 00 Yes [id number] 10mg Take 1 tablet by mouth at bedtime as needed for Muscle Spasms. [facility] Diclofenac Sodium (VOLTAREN) 1 % gel 2021-08 00:00: 00 Yes [id number] Take 2-4 grams three times a day as needed for pain [facility] nap[facility]en [facility] mg tablet 2021-08 00:00: 00 Yes [id number] 500mg Take 1 tablet by mouth in the morning and 1 tablet in the evening. Take with meals. [facility] cyclobenzap rine 10 mg tablet 2021-08 00:00: 00 Yes [id number] 10mg Take 1 tablet by mouth at bedtime as needed for Muscle Spasms. [facility] Diclofenac Sodium (VOLTAREN) 1 % gel 2021-08 00:00: 00 Yes [id number] Take 2-4 grams three times a day as needed for pain [facility] mg tablet 2021-08 00:00: 00 Yes [id number] 500mg Take 1 tablet by mouth in the morning and 1 tablet in the evening. Take with meals. [facility] cyclobenzap rine 10 mg tablet 2021-08 00:00: 00 Yes [id number] 10mg Take 1 tablet by mouth at bedtime as needed for Muscle Spasms. [facility] Diclofenac Sodium (VOLTAREN) 1 % gel 2021-08 00:00: 00 Yes [id number] Take 2-4 grams three times a day as needed for pain [facility] naproxen 500 mg tablet 2021-08 00:00: 00 Yes [id number] 500mg Take 1 tablet by mouth in the morning and 1 tablet in the evening. Take with meals. [facility] cyclobenzap rine 10 mg tablet 2021-08 00:00: 00 Yes [id number] 10mg Take 1 tablet by mouth at bedtime as needed for Muscle Spasms. [facility] Diclofenac Sodium (VOLTAREN) 1 % gel 2021-08 00:00: 00 Yes [id number] Take 2-4 grams three times a day as needed for pain [facility] naproxen 500 mg tablet 2021-08 00:00: 00 Yes [id number] 500mg Take 1 tablet by mouth in the morning and 1 tablet in the evening. Take with meals. [facility]ine 10 mg tablet 2021-08 00:00: 00 Yes [id number] 10mg Take 1 tablet by mouth at bedtime as needed for Muscle Spasms. [facility] Diclofenac Sodium (VOLTAREN) 1 % gel 2021-08 00:00: 00 Yes [id number] Take 2-4 grams three times a day as needed for pain [facility] naproxen 500 mg tablet 2021-08 00:00: 00 Yes [id number] 500mg Take 1 tablet by mouth in the morning and 1 tablet in the evening. Take with meals. [facility]ine 10 mg tablet 2021-08 00:00: 00 Yes [id number] 10mg Take 1 tablet by mouth at bedtime as needed for Muscle Spasms. [facility] Diclofenac Sodium (VOLTAREN) 1 % gel 2021-08 00:00: 00 Yes [id number] Take 2-4 grams three times a day as needed for pain [facility] naproxen 500 mg tablet 2021-08 00:00: 00 Yes [id number] 500mg Take 1 tablet by mouth in the morning and 1 tablet in the evening. Take with meals. [facility] cyclobenzap rine 10 mg tablet 2021-08 00:00: 00 Yes [id number] 10mg Take 1 tablet by mouth at bedtime as needed for Muscle Spasms. [facility] Diclofenac Sodium (VOLTAREN) 1 % gel 2021-08 00:00: 00 Yes [id number] Take 2-4 grams three times a day as needed for pain [facility] naproxen 500 mg tablet 2021-08 00:00: 00 Yes [id number] 500mg Take 1 tablet by mouth in the morning and 1 tablet in the evening. Take with meals. [facility] cyclobenzap rine 10 mg tablet 2021-08 00:00: 00 Yes [id number] 10mg Take 1 tablet by mouth at bedtime as needed for Muscle Spasms. [facility] Diclofenac Sodium (VOLTAREN) 1 % gel 2021-08 00:00: 00 Yes [id number] Take 2-4 grams three times a day as needed for pain [facility] naproxen 500 mg tablet 2021-08 00:00: 00 Yes [id number] 500mg Take 1 tablet by mouth in the morning and 1 tablet in the evening. Take with meals. [facility] cyclobenzap rine 10 mg tablet 2021-08 00:00: 00 Yes [id number] 10mg Take 1 tablet by mouth at bedtime as needed for Muscle Spasms. [facility] Diclofenac Sodium (VOLTAREN) 1 % gel 2021-08 00:00: 00 Yes [id number] Take 2-4 grams three times a day as needed for pain [facility] naproxen 500 mg tablet 2021-08 00:00: 00 Yes [id number] 500mg Take 1 tablet by mouth in the morning and 1 tablet in the evening. Take with meals. [facility] cyclobenzap rine 10 mg tablet 2021-08 00:00: 00 Yes [id number] 10mg Take 1 tablet by mouth at bedtime as needed for Muscle Spasms. [facility] Diclofenac Sodium (VOLTAREN) 1 % gel 2021-08 00:00: 00 Yes [id number] Take 2-4 grams three times a day as needed for pain [facility] naproxen 500 mg tablet 2021-08 00:00: 00 Yes [id number] 500mg Take 1 tablet by mouth in the morning and 1 tablet in the evening. Take with meals. [facility] cyclobenzap rine 10 mg tablet 2021-08 00:00: 00 Yes [id number] 10mg Take 1 tablet by mouth at bedtime as needed for Muscle Spasms. [facility] Diclofenac Sodium (VOLTAREN) 1 % gel 2021-08 00:00: 00 Yes [id number] Take 2-4 grams three times a day as needed for pain [facility] naproxen 500 mg tablet 2021-08 00:00: 00 Yes [id number] 500mg Take 1 tablet by mouth in the morning and 1 tablet in the evening. Take with meals. [facility] cyclobenzap rine 10 mg tablet 2021-08 00:00: 00 Yes [id number] 10mg Take 1 tablet by mouth at bedtime as needed for Muscle Spasms. [facility] Diclofenac Sodium (VOLTAREN) 1 % gel 2021-08 00:00: 00 Yes [id number] Take 2-4 grams three times a day as needed for pain [facility] naproxen 500 mg tablet 2021-08 00:00: 00 Yes [id number] 500mg Take 1 tablet by mouth in the morning and 1 tablet in the evening. Take with meals. [facility] cyclobenzap rine 10 mg tablet 2021-08 00:00: 00 Yes [id number] 10mg Take 1 tablet by mouth at bedtime as needed for Muscle Spasms. [facility] Diclofenac Sodium (VOLTAREN) 1 % gel 2021-08 00:00: 00 Yes [id number] Take 2-4 grams three times a day as needed for pain [facility]en [facility] mg tablet 2021-08 00:00: 00 Yes [id number] 500mg Take 1 tablet by mouth in the morning and 1 tablet in the evening. Take with meals. [facility] cyclobenzap rine 10 mg tablet 2021-08 00:00: 00 Yes [id number] 10mg Take 1 tablet by mouth at bedtime as needed for Muscle Spasms. [facility] Diclofenac Sodium (VOLTAREN) 1 % gel 2021-08 00:00: 00 Yes [id number] Take 2-4 grams three times a day as needed for pain [facility]roxen 500 mg tablet 2021-08 00:00: 00 Yes [id number] 500mg Take 1 tablet by mouth in the morning and 1 tablet in the evening. Take with meals. [facility] cyclobenzap rine 10 mg tablet 2021-08 00:00: 00 Yes [id number] 10mg Take 1 tablet by mouth at bedtime as needed for Muscle Spasms. [facility] Diclofenac Sodium (VOLTAREN) 1 % gel 2021-08 00:00: 00 Yes [id number] Take 2-4 grams three times a day as needed for pain [facility]roxen [facility] mg tablet 2021-08 00:00: 00 Yes [id number] 500mg Take 1 tablet by mouth in the morning and 1 tablet in the evening. Take with meals. [facility] cyclobenzap rine 10 mg tablet 2021-08 00:00: 00 Yes [id number] 10mg Take 1 tablet by mouth at bedtime as needed for Muscle Spasms. [facility] Diclofenac Sodium (VOLTAREN) 1 % gel 2021-08 00:00: 00 Yes [id number] Take 2-4 grams three times a day as needed for pain [facility] clotrimazol e 1 % topical cream 12-18 00:00: 00 Yes [facility] clotrimazol e 1 % topical cream 2-0 12-18 00:00: 00 Yes [facility] clotrimazol e 1 % topical cream 2021-0 12-18 00:00: 00 Yes [facility] clotrimazol e 1 % topical cream 2021-0 12-18 00:00: 00 Yes [facility] clotrimazol e 1 % topical cream 2-0 12-18 00:00: 00 Yes [facility] clotrimazol e 1 % topical cream 2-0 12-18 00:00: 00 Yes [facility] clotrimazol e 1 % topical cream 2021-0 12-18 00:00: 00 Yes [facility] clotrimazol e 1 % topical cream 2021-0 12-18 00:00: 00 Yes [facility] clotrimazol e 1 % topical cream 2021-0 12-18 00:00: 00 Yes [facility] clotrimazol e 1 % topical cream 2021-0 12-18 00:00: 00 Yes [facility] clotrimazol e 1 % topical cream 2021-0 12-18 00:00: 00 Yes [facility] clotrimazol e 1 % topical cream 2021-0 12-18 00:00: 00 Yes [facility] clotrimazol e 1 % topical cream 2021-0 12-18 00:00: 00 Yes [facility] clotrimazol e 1 % topical cream 2021-0 12-18 00:00: 00 Yes [facility] clotrimazol e 1 % topical cream 2021-0 12-18 00:00: 00 Yes [facility] clotrimazol e 1 % topical cream 2021-0 12-18 00:00: 00 Yes [facility] clotrimazol e 1 % topical cream 2-0 12-18 00:00: 00 Yes [facility] clotrimazol e 1 % topical cream 2-0 12-18 00:00: 00 Yes [facility] clotrimazol e 1 % topical cream 12-18 00:00: 00 Yes [facility] clotrimazol e 1 % topical cream 12-18 00:00: 00 Yes [facility] clotrimazol e 1 % topical cream 12-18 00:00: 00 Yes [facility] clotrimazol e 1 % topical cream 12-18 00:00: 00 Yes [facility] azithromyci n (ZITHROMAX Z-DEANNA) 250 mg tablet 04-24 00:00: 00 Yes [id number] Take 500 mg day 1, then 250 mg days 2 to 5. [facility] azithromyci n (ZITHROMAX Z-DEANNA) 250 mg tablet 04-24 00:00: 00 Yes [id number] Take 500 mg day 1, then 250 mg days 2 to 5. [facility] azithromyci n (ZITHROMAX Z-DEANAN) 250 mg tablet 04-24 00:00: 00 Yes [id number] Take 500 mg day 1, then 250 mg days 2 to 5. [facility] azithromyci n (ZITHROMAX Z-DEANNA) 250 mg tablet 04-24 00:00: 00 Yes [id number] Take 500 mg day 1, then 250 mg days 2 to 5. [facility] azithromyci n (ZITHROMAX Z-DEANNA) 250 mg tablet 04-24 00:00: 00 Yes [id number] Take 500 mg day 1, then 250 mg days 2 to 5. [facility] azithromyci n (ZITHROMAX Z-DEANNA) 250 mg tablet 04-24 00:00: 00 Yes [id number] Take 500 mg day 1, then 250 mg days 2 to 5. [facility] azithromyci n (ZITHROMAX Z-DEANNA) 250 mg tablet 04-24 00:00: 00 Yes [id number] Take 500 mg day 1, then 250 mg days 2 to 5. [facility] azithromyci n (ZITHROMAX Z-DEANNA) 250 mg tablet 04-24 00:00: 00 Yes [id number] Take 500 mg day 1, then 250 mg days 2 to 5. [facility] azithromyci n (ZITHROMAX Z-DEANNA) 250 mg tablet 04-24 00:00: 00 Yes [id number] Take 500 mg day 1, then 250 mg days 2 to 5. [facility] azithromyci n (ZITHROMAX Z-DEANNA) 250 mg tablet 04-24 00:00: 00 Yes [id number] Take 500 mg day 1, then 250 mg days 2 to 5. [facility] azithromyci n (ZITHROMAX Z-DEANNA) 250 mg tablet 04-24 00:00: 00 Yes [id number] Take 500 mg day 1, then 250 mg days 2 to 5. [facility] azithromyci n (ZITHROMAX Z-DEANNA) 250 mg tablet 04-24 00:00: 00 Yes [id number] Take 500 mg day 1, then 250 mg days 2 to 5. [facility] azithromyci n (ZITHROMAX Z-DEANNA) 250 mg tablet 04-24 00:00: 00 Yes [id number] Take 500 mg day 1, then 250 mg days 2 to 5. [facility] azithromyci n (ZITHROMAX Z-DEANNA) 250 mg tablet 04-24 00:00: 00 Yes [id number] Take 500 mg day 1, then 250 mg days 2 to 5. [facility] azithromyci n (ZITHROMAX Z-DEANNA) 250 mg tablet 04-24 00:00: 00 Yes [id number] Take 500 mg day 1, then 250 mg days 2 to 5. [facility] azithromyci n (ZITHROMAX Z-DEANNA) 250 mg tablet 04-24 00:00: 00 Yes [id number] Take 500 mg day 1, then 250 mg days 2 to 5. [facility] azithromyci n (ZITHROMAX Z-DEANNA) 250 mg tablet 04-24 00:00: 00 Yes [id number] Take 500 mg day 1, then 250 mg days 2 to 5. [facility] azithromyci n (ZITHROMAX Z-DEANNA) 250 mg tablet 04-24 00:00: 00 Yes [id number] Take 500 mg day 1, then 250 mg days 2 to 5. [facility] azithromyci n (ZITHROMAX Z-DEANNA) 250 mg tablet 04-24 00:00: 00 Yes [id number] Take 500 mg day 1, then 250 mg days 2 to 5. [facility] azithromyci n (ZITHROMAX Z-DEANNA) 250 mg tablet 04-24 00:00: 00 Yes [id number] Take 500 mg day 1, then 250 mg days 2 to 5. [facility] azithromyci n (ZITHROMAX Z-DEANNA) 250 mg tablet 04-24 00:00: 00 Yes [id number] Take 500 mg day 1, then 250 mg days 2 to 5. [facility] azithromyci n (ZITHROMAX Z-DEANNA) 250 mg tablet 04-24 00:00: 00 Yes [id number] Take 500 mg day 1, then 250 mg days 2 to 5. [facility] acetaminoph en (TYLENOL CHILDREN'S ORAL) 04-23 14:57: 59 Yes Take by mouth. [facility] acetaminoph en (TYLENOL CHILDREN'S ORAL) 04-23 14:57: 59 Yes Take by mouth. [facility] acetaminoph en (TYLENOL CHILDREN'S ORAL) 04-23 14:57: 59 Yes Take by mouth. [facility] acetaminoph en (TYLENOL CHILDREN'S ORAL) 04-23 14:57: 59 Yes Take by mouth. [facility] acetaminoph en (TYLENOL CHILDREN'S ORAL) 04-23 14:57: 59 Yes Take by mouth. [facility] acetaminoph en (TYLENOL CHILDREN'S ORAL) 04-23 14:57: 59 Yes Take by mouth. [facility] acetaminoph en (TYLENOL CHILDREN'S ORAL) 04-23 14:57: 59 Yes Take by mouth. [facility] acetaminoph en (TYLENOL CHILDREN'S ORAL) 04-23 14:57: 59 Yes Take by mouth. [facility] acetaminoph en (TYLENOL CHILDREN'S ORAL) 04-23 14:57: 59 Yes Take by mouth. [facility] acetaminoph en (TYLENOL CHILDREN'S ORAL) 04-23 14:57: 59 Yes Take by mouth. [facility] acetaminoph en (TYLENOL CHILDREN'S ORAL) 04-23 14:57: 59 Yes Take by mouth. [facility] acetaminoph en (TYLENOL CHILDREN'S ORAL) 04-23 14:57: 59 Yes Take by mouth. [facility] acetaminoph en (TYLENOL CHILDREN'S ORAL) 04-23 14:57: 59 Yes Take by mouth. [facility] acetaminoph en (TYLENOL CHILDREN'S ORAL) 04-23 14:57: 59 Yes Take by mouth. [facility] acetaminoph en (TYLENOL CHILDREN'S ORAL) 04-23 14:57: 59 Yes Take by mouth. [facility] acetaminoph en (TYLENOL CHILDREN'S ORAL) 04-23 14:57: 59 Yes Take by mouth. [facility] acetaminoph en (TYLENOL CHILDREN'S ORAL) 04-23 14:57: 59 Yes Take by mouth. [facility] acetaminoph en (TYLENOL CHILDREN'S ORAL) 04-23 14:57: 59 Yes Take by mouth. [facility] acetaminoph en (TYLENOL CHILDREN'S ORAL) 04-23 14:57: 59 Yes Take by mouth. [facility] acetaminoph en (TYLENOL CHILDREN'S ORAL) 04-23 14:57: 59 Yes Take by mouth. [facility] acetaminoph en (TYLENOL CHILDREN'S ORAL) 2018-0 04-23 14:57: 59 Yes Take by mouth. [facility] acetaminoph en (TYLENOL CHILDREN'S ORAL) 2018-0 04-23 14:57: 59 Yes Take by mouth. [facility] PROAIR HFA 90 mcg/actuati on inhaler 0 04-22 00:00: 00 Yes [facility] PROAIR HFA 90 mcg/actuati on inhaler 2018-0 04-22 00:00: 00 Yes [facility] PROAIR HFA 90 mcg/actuati on inhaler 0 04-22 00:00: 00 Yes [facility] PROAIR HFA 90 mcg/actuati on inhaler 0 04-22 00:00: 00 Yes [facility] PROAIR HFA 90 mcg/actuati on inhaler 0 04-22 00:00: 00 Yes [facility] PROAIR HFA 90 mcg/actuati on inhaler 0 04-22 00:00: 00 Yes [facility] PROAIR HFA 90 mcg/actuati on inhaler 0 04-22 00:00: 00 Yes [facility] PROAIR HFA 90 mcg/actuati on inhaler 0 04-22 00:00: 00 Yes [facility] PROAIR HFA 90 mcg/actuati on inhaler 0 04-22 00:00: 00 Yes [facility] PROAIR HFA 90 mcg/actuati on inhaler 0 04-22 00:00: 00 Yes [facility] PROAIR HFA 90 mcg/actuati on inhaler 0 04-22 00:00: 00 Yes [facility] PROAIR HFA 90 mcg/actuati on inhaler 0 04-22 00:00: 00 Yes [facility] PROAIR HFA 90 mcg/actuati on inhaler 0 04-22 00:00: 00 Yes [facility] PROAIR HFA 90 mcg/actuati on inhaler 0 04-22 00:00: 00 Yes [facility] PROAIR HFA 90 mcg/actuati on inhaler 0 04-22 00:00: 00 Yes [facility] PROAIR HFA 90 mcg/actuati on inhaler 0 04-22 00:00: 00 Yes [facility] PROAIR HFA 90 mcg/actuati on inhaler 0 04-22 00:00: 00 Yes [facility] PROAIR HFA 90 mcg/actuati on inhaler 0 04-22 00:00: 00 Yes [facility] PROAIR HFA 90 mcg/actuati on inhaler 0 04-22 00:00: 00 Yes [facility] PROAIR HFA 90 mcg/actuati on inhaler 0 04-22 00:00: 00 Yes [facility] PROAIR HFA 90 mcg/actuati on inhaler 0 04-22 00:00: 00 Yes [facility] PROAIR HFA 90 mcg/actuati on inhaler 0 04-22 00:00: 00 Yes [facility] cetirizine (ZYRTEC) 10 mg tablet 09-10 00:00: 00 Yes [id number] 10mg Take 1 tablet by mouth at bedtime as needed for Allergies or Runny nose. [facility] ity [facility] cetirizine (ZYRTEC) 10 mg tablet 09-10 00:00: 00 Yes [id number] 10mg Take 1 tablet by mouth at bedtime as needed for Allergies or Runny nose. [facility] ity [facility] cetirizine (ZYRTEC) 10 mg tablet 09-10 00:00: 00 Yes [id number] 10mg Take 1 tablet by mouth at bedtime as needed for Allergies or Runny nose. [facility] ity [facility] cetirizine (ZYRTEC) 10 mg tablet 09-10 00:00: 00 Yes [id number] 10mg Take 1 tablet by mouth at bedtime as needed for Allergies or Runny nose. [facility] ity [facility] cetirizine (ZYRTEC) 10 mg tablet 09-10 00:00: 00 Yes [id number] 10mg Take 1 tablet by mouth at bedtime as needed for Allergies or Runny nose. [facility] cetirizine (ZYRTEC) 10 mg tablet 09-10 00:00: 00 Yes [id number] 10mg Take 1 tablet by mouth at bedtime as needed for Allergies or Runny nose. [facility] cetirizine (ZYRTEC) 10 mg tablet 09-10 00:00: 00 Yes [id number] 10mg Take 1 tablet by mouth at bedtime as needed for Allergies or Runny nose. [facility] cetirizine (ZYRTEC) 10 mg tablet 09-10 00:00: 00 Yes [id number] 10mg Take 1 tablet by mouth at bedtime as needed for Allergies or Runny nose. [facility] cetirizine (ZYRTEC) 10 mg tablet 09-10 00:00: 00 Yes [id number] 10mg Take 1 tablet by mouth at bedtime as needed for Allergies or Runny nose. [facility] cetirizine (ZYRTEC) 10 mg tablet 09-10 00:00: 00 Yes [id number] 10mg Take 1 tablet by mouth at bedtime as needed for Allergies or Runny nose. [facility] cetirizine (ZYRTEC) 10 mg tablet 09-10 00:00: 00 Yes [id number] 10mg Take 1 tablet by mouth at bedtime as needed for Allergies or Runny nose. [facility] cetirizine (ZYRTEC) 10 mg tablet 09-10 00:00: 00 Yes [id number] 10mg Take 1 tablet by mouth at bedtime as needed for Allergies or Runny nose. [facility] cetirizine (ZYRTEC) 10 mg tablet 09-10 00:00: 00 Yes [id number] 10mg Take 1 tablet by mouth at bedtime as needed for Allergies or Runny nose. [facility] cetirizine (ZYRTEC) 10 mg tablet 09-10 00:00: 00 Yes [id number] 10mg Take 1 tablet by mouth at bedtime as needed for Allergies or Runny nose. [facility] cetirizine (ZYRTEC) 10 mg tablet 09-10 00:00: 00 Yes [id number] 10mg Take 1 tablet by mouth at bedtime as needed for Allergies or Runny nose. [facility] cetirizine (ZYRTEC) 10 mg tablet 09-10 00:00: 00 Yes [id number] 10mg Take 1 tablet by mouth at bedtime as needed for Allergies or Runny nose. [facility] cetirizine (ZYRTEC) 10 mg tablet 09-10 00:00: 00 Yes [id number] 10mg Take 1 tablet by mouth at bedtime as needed for Allergies or Runny nose. [facility] cetirizine (ZYRTEC) 10 mg tablet 09-10 00:00: 00 Yes [id number] 10mg Take 1 tablet by mouth at bedtime as needed for Allergies or Runny nose. [facility] cetirizine (ZYRTEC) 10 mg tablet 09-10 00:00: 00 Yes [id number] 10mg Take 1 tablet by mouth at bedtime as needed for Allergies or Runny nose. [facility] cetirizine (ZYRTEC) 10 mg tablet 09-10 00:00: 00 Yes [id number] 10mg Take 1 tablet by mouth at bedtime as needed for Allergies or Runny nose. [facility] cetirizine (ZYRTEC) 10 mg tablet 09-10 00:00: 00 Yes [id number] 10mg Take 1 tablet by mouth at bedtime as needed for Allergies or Runny nose. [facility] cetirizine (ZYRTEC) 10 mg tablet 09-10 00:00: 00 Yes [id number] 10mg Take 1 tablet by mouth at bedtime as needed for Allergies or Runny nose. [facility] Vital Signs Vital Name Observation Time Observation Value Comments S ource Systolic blood pressure 2022-12-24 20:14:00 112 mm[Hg] [facility] Diastolic blood pressure 2022-12-24 20:14:00 72 mm[Hg] [facility] Heart rate 2022-12-24 20:14:00 80 /min [facility] Body temperature 2022-12-24 20:14:00 36.61 Patricia [facility] Respiratory rate 2022-12-24 20:14:00 18 /min [facility] Body height 2022-12-24 20:14:00 177.8 cm [facility] Body weight 2022-12-24 20:14:00 81.511 kg [facility] BMI 2022-12-24 20:14:00 25.78 kg/m2 [facility] Oxygen saturation in Arterial blood by Pulse oximetry 2022-12-24 20:14:00 99 /min [facility] Systolic blood pressure 2022-12-21 18:06:00 122 mm[Hg] [facility] Diastolic blood pressure 2022-12-21 18:06:00 75 mm[Hg] [facility] Heart rate 2022-12-21 18:06:00 72 /min [facility] Respiratory rate 2022-12-21 18:06:00 18 /min [facility] Body weight 2022-12-21 18:06:00 81.647 kg [facility] Oxygen saturation in Arterial blood by Pulse oximetry 2022-12-21 18:06:00 100 /min [facility] Systolic blood pressure 2022-08-25 16:53:00 132 mm[Hg] [facility] Diastolic blood pressure 2022-08-25 16:53:00 77 mm[Hg] [facility] Heart rate 2022-08-25 16:53:00 89 /min [facility] Body temperature 2022-08-25 16:53:00 36.56 Patricia [facility] Respiratory rate 2022-08-25 16:53:00 18 /min [facility] Body height 2022-08-25 16:53:00 177.8 cm [facility] Body weight 2022-08-25 16:53:00 87.544 kg [facility] BMI 2022-08-25 16:53:00 27.69 kg/m2 [facility] Oxygen saturation in Arterial blood by Pulse oximetry 2022-08-25 16:53:00 96 /min [facility] Systolic blood pressure 2022-06-29 20:38:00 132 mm[Hg] [facility] Diastolic blood pressure 2022-06-29 20:38:00 89 mm[Hg] [facility] Heart rate 2022-06-29 20:38:00 98 /min [facility] Respiratory rate 2022-06-29 20:38:00 18 /min [facility] Body weight 2022-06-29 20:38:00 86.183 kg [facility] Oxygen saturation in Arterial blood by Pulse oximetry 2022-06-29 20:38:00 99 /min [facility] Systolic blood pressure 2022-03-06 16:11:00 126 mm[Hg] [facility] Diastolic blood pressure 2022-03-06 16:11:00 81 mm[Hg] [facility] Heart rate 2022-03-06 16:11:00 70 /min [facility] Respiratory rate 2022-03-06 16:11:00 18 /min [facility] Body weight 2022-03-06 16:11:00 82.373 kg [facility] Oxygen saturation in Arterial blood by Pulse oximetry 2022-03-06 16:11:00 98 /min [facility] Procedures Procedure Date / Time Performed Performing Clinicia n Source TDAP VACCINE, >11 YRS, IM 2022-12-21 18:59:57 Jean Baumann [facility] ASSIGNMENT OF BENEFITS 2022-12-21 17:37:24 Docto r Unassigned, [place] [facility] POCT MOLECULAR FLU 2022-08-25 17:01:00 Unknown, Attend ing [facility] MEDICAL RELEASE/CLEARANCE FORMS 2022-06-29 06:01:00 Doctor Unassigned, [place] [facility] EXTERNAL PROVIDER RECORDS 2022-03-07 05:01:00 Doctor Unassigned, [place] [facility] Encounters Start Date/Time End Date/Time Encounter Type Admission Type Attending Clinicians Care Facility Care Department Encounter ID Source 2023-01-16 13:30:00 2023-01-16 13:30:00 Outpatient R JEAN BAUMANN OGECHUKWU [facility] [id number] [facility] 2022-12-24 15:45:00 2022-12-24 16:00:00 Line Person Visit 2, Adc Lab [facility] 1.2.840.114 350.1.13.10 4.2.7.2.686 [id number] [facility] 2022-12-24 15:00:00 2022-12-24 15:30:00 Office Visit Jean Baumann [facility] 1.2.840.114 350.1.13.10 4.2.7.2.686 [id number] [facility] 2022-12-24 15:00:00 2022-12-24 15:00:00 Outpatient R JEAN BAUMANN OGECHUKWU [facility] [id number] [facility] 2022-12-21 14:15:00 2022-12-21 14:30:00 Line Person Visit 2, Adc Lab Jean Baumann [facility] 1.2.840.114 350.1.13.10 4.2.7.2.686 [id number] [facility] 2022-12-21 12:00:00 2022-12-21 13:58:34 Outpatient R JEAN BAUMANN OGECHUKWU [facility] [id number] [facility] 2022-12-21 12:00:00 2022-12-21 13:58:34 [facility] 1.84114 350.1.13.10 4.2.7.2.686 [id number] [facility] 2022-12-21 00:00:00 2022-12-21 00:00:00 Orders Only Doctor Unassigned, [place] [facility] 1.114 350.1.13.10 4.2.7.2.686 [id number] [facility] 2022-08-25 11:00:00 2022-08-25 11:58:10 Outpatient R BHAKTI COOLEY III [facility] [id number] [facility] 2022-08-25 11:00:00 2022-08-25 11:58:10 Urgent Care Bhakti Cooley Unknown, Attending [facility] 1.84114 350.1.13.10 4.2.7.2.686 [id number] [facility] 2022-08-25 00:00:00 2022-08-25 00:00:00 Letter (Out) Bhakti Cooley [facility] 1.84114 350.1.13.10 4.2.7.2.686 [id number] [facility] 2022-08-25 00:00:00 2022-08-25 00:00:00 Letter (Out) Prasanna Pittman Urgent Care [facility] OFF[facility] 1.84114 350.1.13.10 4.2.7.2.686 [id number] [facility] 2022-07-04 00:00:00 2022-07-04 00:00:00 Letter (Out) Ame Sinha [facility] 1.114 350.1.13.10 4.2.7.2.686 [id number] [facility] 2022-07-04 00:00:00 2022-07-04 00:00:00 Telephone Nurse, Prasanna Brown Urgent Care [facility] 1..840.114 350.1.13.10 4.2.7.2.686 [id number] [facility] 2022-07-04 00:00:00 2022-07-04 00:00:00 Letter (Out) Provider, Prasanna Brown Urgent Care [facility] 1..840.114 350.1.13.10 4.2.7.2.686 [id number] [facility] 2022-07-03 11:00:00 2022-07-03 11:15:00 Laboratory Only Only, Ang Db Test Unknown, Attending Michael Millie [facility] 1..840.114 350.1.13.10 4.2.7.2.686 [id number] [facility] 2022-07-03 11:00:00 2022-07-03 11:00:00 Outpatient R MILLIE RODRIGUEZ [facility] [id number] [facility] 2022-06-29 15:00:00 2022-06-29 15:49:30 Outpatient R JEAN BAUMANN OGECHUKWU [facility] [id number] [facility] 2022-06-29 15:00:00 2022-06-29 15:49:30 Office Visit Jean Baumann [facility] 1..840.114 350.1.13.10 4.2.7.2.686 [id number] [facility] 2022-06-29 09:00:00 2022-06-29 09:00:00 Outpatient R JEAN BAUMANN OGECHUKWU [facility] [id number] [facility] 2022-06-29 00:00:00 2022-06-29 00:00:00 Orders Only Doctor Unassigned, [place] [facility] 1.2.840.114 350.1.13.10 4.2.7.2.686 [id number] [facility] 2022-06-05 13:00:00 2022-06-05 13:00:00 Outpatient R UNKNOWN, ATTENDING [facility] [id number] [facility] 2022-03-07 00:00:00 2022-03-07 00:00:00 Telephone [facility] 1.2840.114 350.1.13.10 4.2.7.2.686 [id number] [facility] 2022-03-07 00:00:00 2022-03-07 00:00:00 Orders Only Doctor Unassigned, [place] [facility] 1.2840.114 350.1.13.10 4.2.7.2.686 [id number] [facility] 2022-03-07 00:00:00 2022-03-07 00:00:00 Letter (Out) [facility] 1.2840.114 350.1.13.10 4.2.7.2.686 [id number] [facility] 2022-03-06 10:40:00 2022-03-06 11:18:26 Outpatient R ZION [facility] [id number] [facility] 2022-03-06 10:40:00 2022-03-06 11:18:26 Office Visit [facility] 1.2840.114 350.1.13.10 4.2.7.2.686 [id number] [facility] 2022 00:00:00 2022 00:00:00 Letter (Out) Provider, Prasanna Brown Urgent Care [facility] 1.2.84.114 350.1.13.10 4.2.7.2.686 [id number] [facility] 2022-02-01 00:00:00 2022-02-01 00:00:00 Telephone Ángel Richardson [facility] 1.284.114 350.1.13.10 4.2.7.2.686 [id number] [facility] 2022-01-31 17:20:00 2022-01-31 17:40:00 Urgent Care Pita Herlinda [facility] 1.84.114 350.1.13.10 4.2.7.2.686 [id number] [facility] 2022-01-31 17:20:00 2022-01-31 17:11:16 Outpatient R PITA HERLINDA [facility] [id number] [facility] 2021-12-20 00:00:00 2021-12-20 00:00:00 Telephone Nenita Morgan [facility] 1.84.114 350.1.13.10 4.2.7.2.686 [id number] [facility] 2021-12-20 00:00:00 2021-12-20 00:00:00 Telephone Marko [facility] 1.2.840.114 350.1.13.10 4.2.7.2.686 [id number] [facility] 2021-12-19 17:20:00 2021-12-19 18:27:41 Outpatient R TRACI MATOS [facility] [id number] [facility] 2021-12-19 17:20:00 2021-12-19 17:40:00 Urgent Care MarkoTraci, [facility] 1.2840.114 350.1.13.10 4.2.7.2.686 [id number] [facility] 2021-10-11 14:20:00 2021-10-11 14:48:00 Outpatient R TERENCE HAN [facility] [id number] [facility] 2021-10-11 14:20:00 2021-10-11 14:48:00 Office Visit Terence Han [facility] 1.840.114 350.1.13.10 4.2.7.2.686 [id number] [facility] 2021-10-11 00:00:00 2021-10-11 00:00:00 Letter (Out) Terence Han [facility] 1..114 350.1.13.10 4.2.7.2.686 [id number] [facility] 2021-09-12 10:10:00 2021-09-12 10:46:20 Outpatient R DORINA MILTON [facility] [id number] [facility] 2021-09-12 10:10:00 2021-09-12 10:46:20 Office Visit Dorina Milton [facility] 1..114 350.1.13.10 4.2.7.2.686 [id number] [facility] 2021-09-12 00:00:00 2021-09-12 00:00:00 Orders Only Doctor Unassigned, [place] [facility] 1.840.114 350.1.13.10 4.2.7.2.686 [id number] [facility] 2021-08-23 16:00:00 2021-08-23 16:00:00 Outpatient Alejandro ESSENCE, TERENCE [facility] [id number] [facility] 2021-08-23 08:00:00 2021-08-23 08:00:00 Outpatient Alejandro HAN TERENCE [facility] [id number] [facility] 2021-07-25 08:00:00 2021-07-25 08:00:00 Outpatient Alejandro ESSENCE TERENCE [facility] [id number] [facility] 2021-03-17 11:20:04 2021-03-17 11:40:04 Laboratory Only Lab, Adc Fam Pob Dano Rodriguez [facility] Office [facility] 1..114 350.1.13.10 4.2.7.2.686 [id number] [facility] 2021-03-17 11:40:00 2021-03-17 11:40:00 Outpatient Alejandro RODRIGUEZ MILLIE [facility] [id number] [facility] 2020-12-06 00:00:00 2020-12-06 00:00:00 Telephone Ann Hernandez [facility] 1..114 350.1.13.10 4.2.7.2.686 [id number] 2020-12-06 00:00:00 2020-12-06 00:00:00 Telephone Ann Hernandez [facility] 1..114 350.1.13.10 4.2.7.2.686 [id number] [facility] 2020-12-05 15:12:09 2020-12-05 15:55:16 Office Visit Ann Hernandez [facility] 1..114 350.1.13.10 4.2.7.2.686 [id number] 2020-12-05 15:12:09 2020-12-05 15:55:16 Office Visit Ann Hernandez [facility] 1.2.840.114 350.1.13.10 4.2.7.2.686 [id number] [facility] 2020-12-05 15:20:00 2020-12-05 15:20:00 Outpatient R ANN HERNANDEZ [facility] [id number] [facility] 2020-11-29 10:40:00 2020-11-29 10:40:00 Outpatient Alejandro SOLANO ÁNGEL [facility] [id number] [facility] 2020-11-24 00:00:00 2020-11-24 00:00:00 Telephone Xiomara, [facility] 1.2.840.114 350.1.13.10 4.2.7.2.686 [id number] [facility] 2020-11-16 00:00:00 2020-11-16 00:00:00 Telephone Xiomara, [facility] 1.2.840.114 350.1.13.10 4.2.7.2.686 [id number] [facility] 2020-11-15 10:08:10 2020-11-15 10:46:44 Office Visit Solano Ángel [facility] 1.2.840.114 350.1.13.10 4.2.7.2.686 [id number] [facility] 2020-11-15 10:20:00 2020-11-15 10:20:00 Outpatient Alejandro SOLANO ÁNGEL [facility] [id number] [facility] 2020-09-27 16:00:00 2020-09-27 16:00:00 Outpatient Alejandro SOLANO [facility] [id number] [facility] 2020-09-22 13:57:56 2020-09-22 14:12:56 Line Person Visit Pob, Adc Lab Main Solano [facility] 1.2840.114 350.1.13.10 4.2.7.2.686 [id number] [facility] 2020-09-22 14:00:00 2020-09-22 14:00:00 Outpatient R XIOMARA, [facility] [id number] [facility] 2020-09-21 15:08:11 2020-09-21 15:47:29 Office Visit Solano [facility] 1.2840.114 350.1.13.10 4.2.7.2.686 [id number] [facility] 2020-09-21 15:20:00 2020-09-21 15:20:00 Outpatient R XIOMARA, [facility] [id number] [facility] 2020-09-21 08:00:00 2020-09-21 08:00:00 Outpatient R XIOMARA, [facility] [id number] [facility] 2020-08-19 00:00:00 2020-08-19 00:00:00 Letter (Out) Xiomara, [facility] 1.2.840.114 350.1.13.10 4.2.7.2.686 [id number] [facility] 2020-08-18 00:00:00 2020-08-18 00:00:00 Letter (Out) Ann Hernandez [facility] 1.2.840.114 350.1.13.10 4.2.7.2.686 [id number] [facility] 2020-08-18 00:00:00 2020-08-18 00:00:00 Telephone Ann Hernandez [facility] 1.2.840.114 350.1.13.10 4.2.7.2.686 [id number] [facility] 2020-08-16 13:22:21 2020-08-16 13:48:03 Office Visit HernandezAnn george Earlene [facility] 1.2.840.114 350.1.13.10 4.2.7.2.686 [id number] [facility] 2020-08-16 13:20:00 2020-08-16 13:20:00 Outpatient R DAVID ANN [facility] [id number] [facility] 2020-08-16 00:00:00 2020-08-16 00:00:00 Orders Only Doctor Unassigned, [place] [facility] 1.2.840.114 350.1.13.10 4.2.7.2.686 [id number] [facility] 2020-08-16 00:00:00 2020-08-16 00:00:00 Letter (Out) David Ann N [facility] 1.2.840.114 350.1.13.10 4.2.7.2.686 [id number] [facility] 2020-05-30 00:00:00 2020-05-30 00:00:00 Orders Only Doctor Unassigned, [place] [facility] 1.2.840.114 350.1.13.10 4.2.7.2.686 [id number] [facility] 2020-05-11 00:00:00 2020-05-11 00:00:00 Telephone Ángel Solano [facility] 1.2.840.114 350.1.13.10 4.2.7.2.686 [id number] [facility] 2020-05-11 00:00:00 2020-05-11 00:00:00 Orders Only Doctor Unassigned, [place] [facility] 1.2.840.114 350.1.13.10 4.2.7.2.686 [id number] [facility] 2019-12-10 00:00:00 2019-12-10 00:00:00 Orders Only Doctor Unassigned, [place] [facility] 1.2.840.114 350.1.13.10 4.2.7.2.686 [id number] [facility] 2019-09-04 14:00:09 2019-09-04 14:35:25 Office Visit Ann Hernandez [facility] 1.2.840.114 350.1.13.10 4.2.7.2.686 [id number] [facility] 2019-09-04 00:00:00 2019-09-04 00:00:00 Orders Only Doctor Unassigned, [place] [facility] 1.2.840.114 350.1.13.10 4.2.7.2.686 [id number] [facility] 2019-04-24 15:50:53 2019-04-24 16:37:49 [facility] [id number] 225 [id number] [facility] 2019-04-23 14:50:35 2019-04-23 15:25:37 [facility] [id number] 225 [id number] [facility] 2019-04-23 00:00:00 2019-04-23 00:00:00 Letter (Out) [facility] [id number] 225 [id number] [facility] 2019-04-23 00:00:2019-04-23 00:00:00 Orders Only Doctor Unassigned, [place] [facility] [id number] [facility] 2019-04-20 00:00:00 2019-04-20 00:00:00 Telephone Lexus Granado [facility] 1..840.114 [id number] 225 [id number] [facility] Results Test Description Test Time Test Comments Results Result Co mments Source [facility]
[2023-07-22 09:03] LABS: SARS-CoV-2 Antigen Rapid Res Negative (Negative)
--- NOTE | 2023-07-22 09:07 | EDPHYS ---
Physician Documentation [facility] Name: Boni Salgado Age: 23 yrs Sex: Male : 2000 Arrival Date: 07/22/2023 Time: 07:43 Bed 11 Private MD: ED Physician Cristobal Carr HPI: 07/22 08:08 This 23 yrs old Black Male presents to ER via Ambulatory with complaints of Congestion, sb4 Runny Nose. 08:08 patient states he woke up this morning with cough, congestion, runny nose, generally sb4 feeling ill. he does endorse sick contacts. he has not tried taking any OTC medications. denies fever, chills, nausea, vomiting, abd pain. Historical: - Allergies: 07:59 NKDA; hb - Home Meds: 07:59 None [Active]; hb - PMHx: 07:59 Asthma; hb - PSHx: 07:59 Appendectomy; hb - Immunization history:: Adult Immunizations up to date. - Social history:: Smoking status: Patient denies any tobacco usage or history of. ROS: 08:08 Constitutional: Negative for fever, chills, and weight loss, sb4 08:08 ENT: Positive for rhinorrhea, sinus congestion, 08:08 Respiratory: Positive for cough, 08:08 All other systems are negative, Exam: 08:08 Constitutional: This is a well developed, well nourished patient who is awake, alert, sb4 and in no acute distress. Head/Face: Normocephalic, atraumatic. Eyes: Extra-ocular motions intact. Periorbital areas with no swelling, redness, or edema. ENT: Mucous membranes moist. Cardiovascular: Regular rate and rhythm with a normal S1 and S2. Respiratory: Lungs have equal breath sounds bilaterally, clear to auscultation and percussion. No rales, rhonchi or wheezes noted. No increased work of breathing, no retractions or nasal flaring. Abdomen/GI: Soft, non-tender, no distension. Skin: Warm, dry with normal turgor. Normal color with no rashes, no lesions, and no evidence of cellulitis. MS/ Extremity: Pulses equal, no cyanosis. Neurovascular intact. Full, normal range of motion. Neuro: Awake and alert, GCS 15, oriented to person, place, time, and situation. Motor strength 5/5 in all extremities. Sensory grossly intact. Vital Signs: 07:58 BP 124 / 85; Pulse 84; Resp 16; Temp 97.7(TE); Pulse Ox 100% on R/A; Weight 81.19 kg; hb Height 5 ft. 11 in. ; Pain 0/10; 07:58 Body Mass Index 24.97 (81.19 kg, 180.34 cm) hb 07:58 Pain Scale: Adult hb MDM: 08:04 Patient medically screened. sb4 08:08 Differential diagnosis: viral Infection, bacterial infection. sb4 09:06 Data reviewed: vital signs, nurses notes, lab test result(s), and as a result, I will sb4 discharge patient. Counseling: I had a detailed discussion with the patient and/or guardian regarding the historical points, exam findings, and any diagnostic results supporting the discharge/admit diagnosis, lab results, to return to the emergency department if symptoms worsen or persist or if there are any questions or concerns that arise at home. 07/22 08:08 Order name: SARS RAPID; Complete Time: 09:06 sb4 07/22 08:08 Order name: Flu; Complete Time: 09:06 sb4 Administered Medications: No medications were administered Disposition: 14:03 I was immediately available on-site in the Emergency Department for consultation in the ms3 care of the patient. Disposition Summary: 07/22/23 09:06 Discharge Ordered Notes: Location: Home sb4 Problem: new sb4 Symptoms: are unchanged sb4 Condition: Stable sb4 Diagnosis - Acute upper respiratory infection, unspecified sb4 Followup: sb4 - With: Emergency Department - When: As needed - Reason: Trouble breathing, Worsening of condition Discharge Instructions: - Discharge Summary Sheet sb4 - Viral Respiratory Infection sb4 Forms: - Work release form hb - Medication Reconciliation Form sb4 - Thank You Letter sb4 - Antibiotic Education sb4 - Prescription Opioid Use sb4 - Patient Portal Instructions sb4 - Leadership Thank You Letter sb4 Prescriptions: - Tessalon Perles 100 mg Oral Capsule - take 1 capsule ORAL route every 8 hours As needed; 15 capsule; Refills: 0, sb4 Product Selection Permitted - Guaifenesin AC 10-100 mg/5 mL Oral Liquid - take 10 milliliters ORAL route every 4 hours As needed; 240 milliliter; sb4 Refills: 0, Product Selection Permitted Signatures: Dispatcher [employer] Liane Fuller, RN RN Cristobal Teresa, DO ESQUIVEL ms3 Sisi Das, JENNY ALVARADO sb4
--- NOTE | 2023-07-22 09:07 | ER ---
Nurse's Notes [facility] Name: Boni Salgado Age: 23 yrs Sex: Male : 2000 Arrival Date: 07/22/2023 Time: 07:43 Bed 11 Private MD: Diagnosis: Acute upper respiratory infection, unspecified Presentation: 07/22 07:58 Chief complaint: Cough, congestion, and runny nose upon waking today. Coronavirus hb screen: Client presents with at least one sign or symptom that may indicate coronavirus-19. Provider contacted for isolation considerations. Ebola Screen: No symptoms or risks identified at this time. Initial Sepsis Screen: Does the patient meet any 2 criteria? No. Patient's initial sepsis screen is negative. Does the patient have a suspected source of infection? No. Patient's initial sepsis screen is negative. Risk Assessment: Do you want to hurt yourself or someone else? Patient reports no desire to harm self or others. Onset of symptoms was July 22, 2023. 07:58 Method Of Arrival: Ambulatory hb 07:58 Acuity: SHERIF 4 hb Historical: - Allergies: 07:59 NKDA; hb - Home Meds: 07:59 None [Active]; hb - PMHx: 07:59 Asthma; hb - PSHx: 07:59 Appendectomy; hb - Immunization history:: Adult Immunizations up to date. - Social history:: Smoking status: Patient denies any tobacco usage or history of. Screenin:28 [facility] ED Fall Risk Assessment (Adult) Score/Fall Risk Level 0 - 2 = Low Risk hb Oriented to surroundings, Maintained a safe environment. Abuse screen: Denies threats or abuse. Denies injuries from another. Nutritional screening: No deficits noted. Tuberculosis screening: No symptoms or risk factors identified. Assessment: 08:00 General: Appears in no apparent distress. Behavior is calm, cooperative. Pain: Denies hb pain. Neuro: Level of Consciousness is awake, alert, obeys commands, Oriented to person, place, time, situation. Cardiovascular: Patient's skin is warm and dry. Respiratory: Reports cough that is Respiratory effort is even, unlabored, Respiratory pattern is regular, symmetrical. GI: No signs and/or symptoms were reported involving the gastrointestinal system. : No signs and/or symptoms were reported regarding the genitourinary system. EENT: Reports nasal congestion nasal discharge. Derm: Skin is pink, warm \T\ dry. Musculoskeletal: No signs and/or symptoms reported regarding the musculoskeletal system. 09:28 Reassessment: Patient appears in no apparent distress at this time. Patient and/or hb family updated on plan of care and expected duration. Pain level reassessed. Patient is alert, oriented x 3, equal unlabored respirations, skin warm/dry/pink. Vital Signs: 07:58 BP 124 / 85; Pulse 84; Resp 16; Temp 97.7(TE); Pulse Ox 100% on R/A; Weight 81.19 kg; hb Height 5 ft. 11 in. ; Pain 0/10; 07:58 Body Mass Index 24.97 (81.19 kg, 180.34 cm) hb 07:58 Pain Scale: Adult hb ED Course: 07:46 Patient arrived in ED. rg4 07:53 Cristobal Carr DO is Attending Physician. ms3 07:59 Triage completed. hb 08:00 Arm band placed on. hb 08:02 Sisi Das PA-C is PHCP. sb4 08:15 Patient has correct armband on for positive identification. Provided Education on: hb tests, result times. 08:20 Flu Sent. hb 08:20 SARS RAPID Sent. hb 09:28 No provider procedures requiring assistance completed. Patient did not have IV access hb during this emergency room visit. Administered Medications: No medications were administered Medication: 09:27 VIS not applicable for this client. hb Outcome: 09:06 Discharge ordered by MD. sb4 09:28 Discharged to home ambulatory, hb 09:28 Condition: stable 09:28 Discharge instructions given to patient, Instructed on discharge instructions, follow up and referral plans. medication usage, Demonstrated understanding of instructions, follow-up care, medications, Prescriptions given X 2, 09:29 Patient left the ED. hb Signatures: Liane Tidwell RN RN Marita Adame rg4 Cristobal Carr DO DO ms3 Sisi Das PA-C PA-C sb4
[2023-07-22 09:34] VITALS: BP 124/85; TEMP 97.7; O2SAT 100
== END 2023-07-22 09:29 | disposition home or self-care (01) ==
LOC: ER 07:43
DX: J06.9 Acute upper respiratory infection, unspecified (principal); Z11.52 Encounter for screening for COVID-19
CPT/HCPCS: 36415; 87804; 87811; 99283

== ENCOUNTER → 2023-08-08 | Emergency (ER) | payer SELFPAY ==
[~2023-08-08] MED LIST: KETOROLAC 30 MG/ML INJ ONE; METOCLOPRAMIDE 10 MG/2mL INJ ONE; NA CHLORIDE 0.9% 1,000 ML ONE
--- OUTSIDE RECORDS SUMMARY | 2023-08-08 10:56 | XMS REPORT | Continuity of Care Document ---
Author Name Unknown Address [address] [facility] [address] [place] [address] [facility] thconnect Address [address] [facility] [address] [place] [address] Care Team Providers Care Medical Coordinator Pesticide Use Name Role Phone ÁNGEL RICHARDSON Primary Care Physician Unava ilJEAN Cates Attending Clinician Unavailab JEAN Potter Attending Clinician Unavailab alvarez 2, [facility] Attending Clinician Unavailable Doctor Unassigned, [place] Attending Clinician U BHAKTI Feliz III Attending Clinician Unavailhina Cooley III, MD, Bhakti Price Attending Clinician [phone] Unknown, Attending Attending Clinician Unavailab pino Provider, [facility] Attending Clinician Unavailable Ame Sinha RN Attending Clinician Unavailable Nurse, [facility] Attending Clinician Un available Only, [facility] Test Attending Clinician UnavailMillie Chairez MD Attending Clinician [phone] UNKNOWN, ATTENDING Attending Clinician UnavailMILLIE Car Attending Clinician Unavailable Ángel Christensen Attending Clinician [phone] ÁNGEL RICHARDSON Attending Clinician UnavailHerlinda Poole Attending Clinician [phone] HERLINDA LEMA Attending Clinician Unavailable Nenita Morgan RN Attending Clinician Unavaila Traci Ramirez Attending Clinician [phone] TRACI MATOS Attending Clinician Unavailable TERENCE HAN Attending Clinician Unavailable Terence Han MD Attending Clinician [phone] DORINA MILTON Attending Clinician Unavailab Dorina Morris PA-C Attending Clinician [phone] Lab, [facility] Pob I Attending Clinician Unavailab Ann Justin MD Attending Clinician [phone] ANN HERNANDEZ Attending Clinician Unavail able Pob, [facility] Main Attending Clinician Unavailhina Castillo MD, [place] Attending Clinician [phone] Payers Payer Name Policy Type Policy Number Effective Date Expirati on Date Source [place] [employer] [id number] 2022 00:00:00 Problems Condition Name Condition Details Condition Category Status Onset Date Resolution Date Last Treatment Date Treating Clinician Comments Source No known active problems No known active problems Disease [facility] Allergies, Adverse Reactions, Alerts Allergy Name Allergy Type Status Severity Reaction(s) Onset Date Inactive Date Treating Clinician Comments Source NO KNOWN ALLERGIE S Drug Class Active [facility] Social History Social Habit Start Date Stop Date Quantity Comments Source Exposure to SARS-CoV-2 (event) 2022-12-14 00:00:00 2022-12-24 14:56:00 Not sure [facility] Tobacco use and exposure 2022-03-06 00:00:00 2022-03-06 00:00:00 Smokeless tobacco non-user [facility] Sex Assigned At 2002 00:00:00 2000 00:00:00 [facility] Smoking Status Start Date Stop Date Source Never smoked tobacco [facility] Medications Ordered Medication Name Filled Medication Name Start Date Stop Date Current Medication? Ordering Clinician Indication Dosage Frequency Signature (SIG) Comments Components Source mupirocin 2 % ointment 12-21 00:00: 00 Yes [id number] Apply to area(s) 3 (three) times daily. [facility] mupirocin 2 % ointment 12-21 00:00: 00 Yes [id number] Apply to area(s) 3 (three) times daily. [facility] mupirocin 2 % ointment 0 12-21 00:00: 00 Yes [id number] Apply to area(s) 3 (three) times daily. [facility] mupirocin 2 % ointment 0 12-21 00:00: 00 Yes [id number] Apply to area(s) 3 (three) times daily. [facility] mupirocin 2 % ointment 0 12-21 00:00: 00 Yes [id number] Apply to area(s) 3 (three) times daily. [facility] mupirocin 2 % ointment 12-21 00:00: 00 Yes [id number] Apply to area(s) 3 (three) times daily. [facility] amoxicillin -clavulanat e (AUGMENTIN) 875-125 mg per tablet 0 12-21 00:00: 00 01-01 04:59 :00 No [id number] 1{tbl} Take 1 tablet by mouth in the morning and 1 tablet in the evening. Do all this for 10 days. [facility] amoxicillin -clavulanat e (AUGMENTIN) 875-125 mg per tablet 12-21 00:00: 00 01-01 04:59 :00 No [id number] 1{tbl} Take 1 tablet by mouth in the morning and 1 tablet in the evening. Do all this for 10 days. [facility] amoxicillin -clavulanat e (AUGMENTIN) 875-125 mg per tablet 0 12-21 00:00: 00 01-01 04:59 :00 No [id number] 1{tbl} Take 1 tablet by mouth in the morning and 1 tablet in the evening. Do all this for 10 days. [facility] amoxicillin -clavulanat e (AUGMENTIN) 875-125 mg per tablet 0 12-21 00:00: 00 01-01 04:59 :00 No [id number] 1{tbl} Take 1 tablet by mouth in the morning and 1 tablet in the evening. Do all this for 10 days. [facility] amoxicillin -clavulanat e (AUGMENTIN) 875-125 mg per tablet 12-21 00:00: 00 01-01 04:59 :00 No [id number] 1{tbl} Take 1 tablet by mouth in the morning and 1 tablet in the evening. Do all this for 10 days. [facility] amoxicillin -clavulanat e (AUGMENTIN) 875-125 mg per tablet 12-21 00:00: 00 01-01 04:59 :00 No [id number] 1{tbl} Take 1 tablet by mouth in the morning and 1 tablet in the evening. Do all this for 10 days. [facility] albuterol 90 mcg/actuati on inhaler 08-25 00:00: 00 Yes [id number] 2{puff} Inhale 2 Puffs every 6 (six) hours as needed for Wheezing or Shortness of Breath. [facility] albuterol 90 mcg/actuati on inhaler 08-25 00:00: 00 Yes [id number] 2{puff} Inhale 2 Puffs every 6 (six) hours as needed for Wheezing or Shortness of Breath. [facility] albuterol 90 mcg/actuati on inhaler 08-25 00:00: 00 Yes [id number] 2{puff} Inhale 2 Puffs every 6 (six) hours as needed for Wheezing or Shortness of Breath. [facility] albuterol 90 mcg/actuati on inhaler 08-25 00:00: 00 Yes [id number] 2{puff} Inhale 2 Puffs every 6 (six) hours as needed for Wheezing or Shortness of Breath. [facility] albuterol 90 mcg/actuati on inhaler 08-25 00:00: 00 Yes [id number] 2{puff} Inhale 2 Puffs every 6 (six) hours as needed for Wheezing or Shortness of Breath. [facility] albuterol 90 mcg/actuati on inhaler 08-25 00:00: 00 Yes [id number] 2{puff} Inhale 2 Puffs every 6 (six) hours as needed for Wheezing or Shortness of Breath. [facility] albuterol 90 mcg/actuati on inhaler 08-25 00:00: 00 Yes [id number] 2{puff} Inhale 2 Puffs every 6 (six) hours as needed for Wheezing or Shortness of Breath. [facility] albuterol 90 mcg/actuati on inhaler 08-25 00:00: 00 Yes [id number] 2{puff} Inhale 2 Puffs every 6 (six) hours as needed for Wheezing or Shortness of Breath. [facility] albuterol 90 mcg/actuati on inhaler 08-25 00:00: 00 Yes [id number] 2{puff} Inhale 2 Puffs every 6 (six) hours as needed for Wheezing or Shortness of Breath. [facility] albuterol 90 mcg/actuati on inhaler 08-25 00:00: 00 Yes [id number] 2{puff} Inhale 2 Puffs every 6 (six) hours as needed for Wheezing or Shortness of Breath. [facility] Methylpredn isolone 4 mg tablet 08-25 00:00: 00 08-31 05:59 :00 No [id number] 4mg Take 1 tablet by mouth every 12 (twelve) hours for 5 days. [facility] Methylpredn isolone 4 mg tablet 08-25 00:00: 00 08-31 05:59 :00 No [id number] 4mg Take 1 tablet by mouth every 12 (twelve) hours for 5 days. [facility] Methylpredn isolone 4 mg tablet 08-25 00:00: 00 08-31 05:59 :00 No [id number] 4mg Take 1 tablet by mouth every 12 (twelve) hours for 5 days. [facility] naproxen 500 mg tablet 2021-08 00:00: 00 Yes [id number] 500mg Take 1 tablet by mouth in the morning and 1 tablet in the evening. Take with meals. [facility] cyclobenzap rine 10 mg tablet 2021-08 00:00: 00 Yes [id number] 10mg Take 1 tablet by mouth at bedtime as needed for Muscle Spasms. [facility] Diclofenac Sodium (VOLTAREN) 1 % gel 2021-08 00:00: 00 Yes [id number] Take 2-4 grams three times a day as needed for [facility] 2021-08 00:00: 00 Yes [id number] 500mg Take 1 tablet by mouth in the morning and 1 tablet in the evening. Take with meals. [facility] cyclobenzap rine 10 mg tablet 2021-08 00:00: 00 Yes [id number] 10mg Take 1 tablet by mouth at bedtime as needed for Muscle Spasms. [facility] Diclofenac Sodium (VOLTAREN) 1 % gel 2021-08 00:00: 00 Yes [id number] Take 2-4 grams three times a day as needed for pain [facility] mg tablet 2021-08 00:00: 00 Yes [id number] 500mg Take 1 tablet by mouth in the morning and 1 tablet in the evening. Take with meals. [facility] cyclobenzap rine 10 mg tablet 2021-08 00:00: 00 Yes [id number] 10mg Take 1 tablet by mouth at bedtime as needed for Muscle Spasms. [facility] Diclofenac Sodium (VOLTAREN) 1 % gel 2021-08 00:00: 00 Yes [id number] Take 2-4 grams three times a day as needed for pain [facility]en 500 mg tablet 2021-08 00:00: 00 Yes [id number] 500mg Take 1 tablet by mouth in the morning and 1 tablet in the evening. Take with meals. [facility] cyclobenzap rine 10 mg tablet 2021-08 00:00: 00 Yes [id number] 10mg Take 1 tablet by mouth at bedtime as needed for Muscle Spasms. [facility] Diclofenac Sodium (VOLTAREN) 1 % gel 2021-08 00:00: 00 Yes [id number] Take 2-4 grams three times a day as needed for pain [facility] naproxen 500 mg tablet 2021-08 00:00: 00 Yes [id number] 500mg Take 1 tablet by mouth in the morning and 1 tablet in the evening. Take with meals. [facility] cyclobenzap rine 10 mg tablet 2021-08 00:00: 00 Yes [id number] 10mg Take 1 tablet by mouth at bedtime as needed for Muscle Spasms. [facility] Diclofenac Sodium (VOLTAREN) 1 % gel 2021-08 00:00: 00 Yes [id number] Take 2-4 grams three times a day as needed for pain [facility]en 500 mg tablet 2021-08 00:00: 00 Yes [id number] 500mg Take 1 tablet by mouth in the morning and 1 tablet in the evening. Take with meals. [facility] 10 mg tablet 2021-08 00:00: 00 Yes [id number] 10mg Take 1 tablet by mouth at bedtime as needed for Muscle Spasms. [facility] Diclofenac Sodium (VOLTAREN) 1 % gel 2021-08 00:00: 00 Yes [id number] Take 2-4 grams three times a day as needed for pain [facility]en [facility] mg tablet 2021-08 00:00: 00 Yes [id number] 500mg Take 1 tablet by mouth in the morning and 1 tablet in the evening. Take with meals. [facility] mg tablet 2021-08 00:00: 00 Yes [id number] 10mg Take 1 tablet by mouth at bedtime as needed for Muscle Spasms. [facility] Diclofenac Sodium (VOLTAREN) 1 % gel 2021-08 00:00: 00 Yes [id number] Take 2-4 grams three times a day as needed for pain [facility] naproxen 500 mg tablet 2021-08 00:00: 00 Yes [id number] 500mg Take 1 tablet by mouth in the morning and 1 tablet in the evening. Take with meals. [facility] cyclobenzap rine 10 mg tablet 2021-08 00:00: 00 Yes [id number] 10mg Take 1 tablet by mouth at bedtime as needed for Muscle Spasms. [facility] Diclofenac Sodium (VOLTAREN) 1 % gel 2021-08 00:00: 00 Yes [id number] Take 2-4 grams three times a day as needed for pain [facility] naproxen 500 mg tablet 2021-08 00:00: 00 Yes [id number] 500mg Take 1 tablet by mouth in the morning and 1 tablet in the evening. Take with meals. [facility] cyclobenzap rine 10 mg tablet 2021-08 00:00: 00 Yes [id number] 10mg Take 1 tablet by mouth at bedtime as needed for Muscle Spasms. [facility] Diclofenac Sodium (VOLTAREN) 1 % gel 2021-08 00:00: 00 Yes [id number] Take 2-4 grams three times a day as needed for pain [facility] naproxen 500 mg tablet 2021-08 00:00: 00 Yes [id number] 500mg Take 1 tablet by mouth in the morning and 1 tablet in the evening. Take with meals. [facility] cyclobenzap rine 10 mg tablet 2021-08 00:00: 00 Yes [id number] 10mg Take 1 tablet by mouth at bedtime as needed for Muscle Spasms. [facility] Diclofenac Sodium (VOLTAREN) 1 % gel 2021-08 00:00: 00 Yes [id number] Take 2-4 grams three times a day as needed for pain [facility] naproxen 500 mg tablet 2021-08 00:00: 00 Yes [id number] 500mg Take 1 tablet by mouth in the morning and 1 tablet in the evening. Take with meals. [facility] cyclobenzap rine 10 mg tablet 2021-08 00:00: 00 Yes [id number] 10mg Take 1 tablet by mouth at bedtime as needed for Muscle Spasms. [facility] Diclofenac Sodium (VOLTAREN) 1 % gel 2021-08 00:00: 00 Yes [id number] Take 2-4 grams three times a day as needed for pain [facility] naproxen 500 mg tablet 2021-08 00:00: 00 Yes [id number] 500mg Take 1 tablet by mouth in the morning and 1 tablet in the evening. Take with meals. [facility] cyclobenzap rine 10 mg tablet 2021-08 00:00: 00 Yes [id number] 10mg Take 1 tablet by mouth at bedtime as needed for Muscle Spasms. [facility] Diclofenac Sodium (VOLTAREN) 1 % gel 2021-08 00:00: 00 Yes [id number] Take 2-4 grams three times a day as needed for pain [facility] naproxen 500 mg tablet 2021-08 00:00: 00 Yes [id number] 500mg Take 1 tablet by mouth in the morning and 1 tablet in the evening. Take with meals. [facility] cyclobenzap rine 10 mg tablet 2021-08 00:00: 00 Yes [id number] 10mg Take 1 tablet by mouth at bedtime as needed for Muscle Spasms. [facility] Diclofenac Sodium (VOLTAREN) 1 % gel 2021-08 00:00: 00 Yes [id number] Take 2-4 grams three times a day as needed for pain [facility] naproxen 500 mg tablet 2021-08 00:00: 00 Yes [id number] 500mg Take 1 tablet by mouth in the morning and 1 tablet in the evening. Take with meals. [facility] cyclobenzap rine 10 mg tablet 2021-08 00:00: 00 Yes [id number] 10mg Take 1 tablet by mouth at bedtime as needed for Muscle Spasms. [facility] Diclofenac Sodium (VOLTAREN) 1 % gel 2021-08 00:00: 00 Yes [id number] Take 2-4 grams three times a day as needed for pain [facility] mg tablet 2021-08 00:00: 00 Yes [id number] 500mg Take 1 tablet by mouth in the morning and 1 tablet in the evening. Take with meals. [facility] cyclobenzap rine 10 mg tablet 2021-08 00:00: 00 Yes [id number] 10mg Take 1 tablet by mouth at bedtime as needed for Muscle Spasms. [facility] Diclofenac Sodium (VOLTAREN) 1 % gel 2021-08 00:00: 00 Yes [id number] Take 2-4 grams three times a day as needed for pain [facility] mg tablet 2021-08 00:00: 00 Yes [id number] 500mg Take 1 tablet by mouth in the morning and 1 tablet in the evening. Take with meals. [facility] cyclobenzap rine 10 mg tablet 2021-08 00:00: 00 Yes [id number] 10mg Take 1 tablet by mouth at bedtime as needed for Muscle Spasms. [facility] Diclofenac Sodium (VOLTAREN) 1 % gel 2021-08 00:00: 00 Yes [id number] Take 2-4 grams three times a day as needed for pain [facility] mg tablet 2021-08 00:00: 00 Yes [id number] 500mg Take 1 tablet by mouth in the morning and 1 tablet in the evening. Take with meals. [facility] cyclobenzap rine 10 mg tablet 2021-08 00:00: 00 Yes [id number] 10mg Take 1 tablet by mouth at bedtime as needed for Muscle Spasms. [facility] Diclofenac Sodium (VOLTAREN) 1 % gel 2021-08 00:00: 00 Yes [id number] Take 2-4 grams three times a day as needed for pain [facility] clotrimazol e 1 % topical cream 12-18 00:00: 00 Yes [facility] clotrimazol e 1 % topical cream 2-0 12-18 00:00: 00 Yes [facility] clotrimazol e 1 % topical cream 2021-0 12-18 00:00: 00 Yes [facility] clotrimazol e 1 % topical cream 2021-0 12-18 00:00: 00 Yes [facility] clotrimazol e 1 % topical cream 2-0 12-18 00:00: 00 Yes [facility] clotrimazol e 1 % topical cream 2-0 12-18 00:00: 00 Yes [facility] clotrimazol e 1 % topical cream 2021-0 12-18 00:00: 00 Yes [facility] clotrimazol e 1 % topical cream 2021-0 12-18 00:00: 00 Yes [facility] clotrimazol e 1 % topical cream 2021-0 12-18 00:00: 00 Yes [facility] clotrimazol e 1 % topical cream 2021-0 12-18 00:00: 00 Yes [facility] clotrimazol e 1 % topical cream 2021-0 12-18 00:00: 00 Yes [facility] clotrimazol e 1 % topical cream 2021-0 12-18 00:00: 00 Yes [facility] clotrimazol e 1 % topical cream 2021-0 12-18 00:00: 00 Yes [facility] clotrimazol e 1 % topical cream 2021-0 12-18 00:00: 00 Yes [facility] clotrimazol e 1 % topical cream 2021-0 12-18 00:00: 00 Yes [facility] clotrimazol e 1 % topical cream 2021-0 12-18 00:00: 00 Yes [facility] clotrimazol e 1 % topical cream 2-0 12-18 00:00: 00 Yes [facility] clotrimazol e 1 % topical cream 2-0 12-18 00:00: 00 Yes [facility] clotrimazol e 1 % topical cream 12-18 00:00: 00 Yes [facility] clotrimazol e 1 % topical cream 12-18 00:00: 00 Yes [facility] clotrimazol e 1 % topical cream 12-18 00:00: 00 Yes [facility] clotrimazol e 1 % topical cream 12-18 00:00: 00 Yes [facility] azithromyci n (ZITHROMAX Z-DEANNA) 250 mg tablet 04-24 00:00: 00 Yes [id number] Take 500 mg day 1, then 250 mg days 2 to 5. [facility] azithromyci n (ZITHROMAX Z-DEANNA) 250 mg tablet 04-24 00:00: 00 Yes [id number] Take 500 mg day 1, then 250 mg days 2 to 5. [facility] azithromyci n (ZITHROMAX Z-DEANNA) 250 mg tablet 04-24 00:00: 00 Yes [id number] Take 500 mg day 1, then 250 mg days 2 to 5. [facility] azithromyci n (ZITHROMAX Z-DEANNA) 250 mg tablet 04-24 00:00: 00 Yes [id number] Take 500 mg day 1, then 250 mg days 2 to 5. [facility] azithromyci n (ZITHROMAX Z-DEANNA) 250 mg tablet 04-24 00:00: 00 Yes [id number] Take 500 mg day 1, then 250 mg days 2 to 5. [facility] azithromyci n (ZITHROMAX Z-DEANNA) 250 mg tablet 04-24 00:00: 00 Yes [id number] Take 500 mg day 1, then 250 mg days 2 to 5. [facility] azithromyci n (ZITHROMAX Z-DEANNA) 250 mg tablet 04-24 00:00: 00 Yes [id number] Take 500 mg day 1, then 250 mg days 2 to 5. [facility] azithromyci n (ZITHROMAX Z-DEANNA) 250 mg tablet 04-24 00:00: 00 Yes [id number] Take 500 mg day 1, then 250 mg days 2 to 5. [facility] azithromyci n (ZITHROMAX Z-DEANNA) 250 mg tablet 04-24 00:00: 00 Yes [id number] Take 500 mg day 1, then 250 mg days 2 to 5. [facility] azithromyci n (ZITHROMAX Z-DEANNA) 250 mg tablet 04-24 00:00: 00 Yes [id number] Take 500 mg day 1, then 250 mg days 2 to 5. [facility] azithromyci n (ZITHROMAX Z-DEANNA) 250 mg tablet 04-24 00:00: 00 Yes [id number] Take 500 mg day 1, then 250 mg days 2 to 5. [facility] azithromyci n (ZITHROMAX Z-DEANNA) 250 mg tablet 04-24 00:00: 00 Yes [id number] Take 500 mg day 1, then 250 mg days 2 to 5. [facility] azithromyci n (ZITHROMAX Z-DEANNA) 250 mg tablet 04-24 00:00: 00 Yes [id number] Take 500 mg day 1, then 250 mg days 2 to 5. [facility] azithromyci n (ZITHROMAX Z-DEANNA) 250 mg tablet 04-24 00:00: 00 Yes [id number] Take 500 mg day 1, then 250 mg days 2 to 5. [facility] azithromyci n (ZITHROMAX Z-DEANNA) 250 mg tablet 04-24 00:00: 00 Yes [id number] Take 500 mg day 1, then 250 mg days 2 to 5. [facility] azithromyci n (ZITHROMAX Z-DEANNA) 250 mg tablet 04-24 00:00: 00 Yes [id number] Take 500 mg day 1, then 250 mg days 2 to 5. [facility] azithromyci n (ZITHROMAX Z-DEANNA) 250 mg tablet 04-24 00:00: 00 Yes [id number] Take 500 mg day 1, then 250 mg days 2 to 5. [facility] azithromyci n (ZITHROMAX Z-DEANNA) 250 mg tablet 04-24 00:00: 00 Yes [id number] Take 500 mg day 1, then 250 mg days 2 to 5. [facility] azithromyci n (ZITHROMAX Z-DEANNA) 250 mg tablet 04-24 00:00: 00 Yes [id number] Take 500 mg day 1, then 250 mg days 2 to 5. [facility] azithromyci n (ZITHROMAX Z-DEANNA) 250 mg tablet 04-24 00:00: 00 Yes [id number] Take 500 mg day 1, then 250 mg days 2 to 5. [facility] azithromyci n (ZITHROMAX Z-DEANNA) 250 mg tablet 04-24 00:00: 00 Yes [id number] Take 500 mg day 1, then 250 mg days 2 to 5. [facility] azithromyci n (ZITHROMAX Z-DEANNA) 250 mg tablet 04-24 00:00: 00 Yes [id number] Take 500 mg day 1, then 250 mg days 2 to 5. [facility] acetaminoph en (TYLENOL CHILDREN'S ORAL) 04-23 14:57: 59 Yes Take by mouth. [facility] acetaminoph en (TYLENOL CHILDREN'S ORAL) 04-23 14:57: 59 Yes Take by mouth. [facility] acetaminoph en (TYLENOL CHILDREN'S ORAL) 04-23 14:57: 59 Yes Take by mouth. [facility] acetaminoph en (TYLENOL CHILDREN'S ORAL) 04-23 14:57: 59 Yes Take by mouth. [facility] acetaminoph en (TYLENOL CHILDREN'S ORAL) 04-23 14:57: 59 Yes Take by mouth. [facility] acetaminoph en (TYLENOL CHILDREN'S ORAL) 04-23 14:57: 59 Yes Take by mouth. [facility] acetaminoph en (TYLENOL CHILDREN'S ORAL) 04-23 14:57: 59 Yes Take by mouth. [facility] acetaminoph en (TYLENOL CHILDREN'S ORAL) 04-23 14:57: 59 Yes Take by mouth. [facility] acetaminoph en (TYLENOL CHILDREN'S ORAL) 04-23 14:57: 59 Yes Take by mouth. [facility] acetaminoph en (TYLENOL CHILDREN'S ORAL) 04-23 14:57: 59 Yes Take by mouth. [facility] acetaminoph en (TYLENOL CHILDREN'S ORAL) 04-23 14:57: 59 Yes Take by mouth. [facility] acetaminoph en (TYLENOL CHILDREN'S ORAL) 04-23 14:57: 59 Yes Take by mouth. [facility] acetaminoph en (TYLENOL CHILDREN'S ORAL) 04-23 14:57: 59 Yes Take by mouth. [facility] acetaminoph en (TYLENOL CHILDREN'S ORAL) 04-23 14:57: 59 Yes Take by mouth. [facility] acetaminoph en (TYLENOL CHILDREN'S ORAL) 04-23 14:57: 59 Yes Take by mouth. [facility] acetaminoph en (TYLENOL CHILDREN'S ORAL) 04-23 14:57: 59 Yes Take by mouth. [facility] acetaminoph en (TYLENOL CHILDREN'S ORAL) 04-23 14:57: 59 Yes Take by mouth. [facility] acetaminoph en (TYLENOL CHILDREN'S ORAL) 04-23 14:57: 59 Yes Take by mouth. [facility] acetaminoph en (TYLENOL CHILDREN'S ORAL) 04-23 14:57: 59 Yes Take by mouth. [facility] [facility] acetaminoph en (TYLENOL CHILDREN'S ORAL) 04-23 14:57: 59 Yes Take by mouth. [facility] acetaminoph en (TYLENOL CHILDREN'S ORAL) 2018-0 04-23 14:57: 59 Yes Take by mouth. [facility] acetaminoph en (TYLENOL CHILDREN'S ORAL) 2018-0 04-23 14:57: 59 Yes Take by mouth. [facility] PROAIR HFA 90 mcg/actuati on inhaler 0 04-22 00:00: 00 Yes [facility] PROAIR HFA 90 mcg/actuati on inhaler 2018-0 04-22 00:00: 00 Yes [facility] PROAIR HFA 90 mcg/actuati on inhaler 0 04-22 00:00: 00 Yes [facility] PROAIR HFA 90 mcg/actuati on inhaler 0 04-22 00:00: 00 Yes [facility] PROAIR HFA 90 mcg/actuati on inhaler 0 04-22 00:00: 00 Yes [facility] PROAIR HFA 90 mcg/actuati on inhaler 0 04-22 00:00: 00 Yes [facility] PROAIR HFA 90 mcg/actuati on inhaler 0 04-22 00:00: 00 Yes [facility] PROAIR HFA 90 mcg/actuati on inhaler 0 04-22 00:00: 00 Yes [facility] PROAIR HFA 90 mcg/actuati on inhaler 0 04-22 00:00: 00 Yes [facility] PROAIR HFA 90 mcg/actuati on inhaler 0 04-22 00:00: 00 Yes [facility] PROAIR HFA 90 mcg/actuati on inhaler 0 04-22 00:00: 00 Yes [facility] PROAIR HFA 90 mcg/actuati on inhaler 0 04-22 00:00: 00 Yes [facility] PROAIR HFA 90 mcg/actuati on inhaler 0 04-22 00:00: 00 Yes [facility] PROAIR HFA 90 mcg/actuati on inhaler 0 04-22 00:00: 00 Yes [facility] PROAIR HFA 90 mcg/actuati on inhaler 0 04-22 00:00: 00 Yes [facility] PROAIR HFA 90 mcg/actuati on inhaler 0 04-22 00:00: 00 Yes [facility] PROAIR HFA 90 mcg/actuati on inhaler 0 04-22 00:00: 00 Yes [facility] PROAIR HFA 90 mcg/actuati on inhaler 0 04-22 00:00: 00 Yes [facility] PROAIR HFA 90 mcg/actuati on inhaler 0 04-22 00:00: 00 Yes [facility] PROAIR HFA 90 mcg/actuati on inhaler 0 04-22 00:00: 00 Yes [facility] PROAIR HFA 90 mcg/actuati on inhaler 0 04-22 00:00: 00 Yes [facility] PROAIR HFA 90 mcg/actuati on inhaler 0 04-22 00:00: 00 Yes [facility] cetirizine (ZYRTEC) 10 mg tablet 09-10 00:00: 00 Yes [id number] 10mg Take 1 tablet by mouth at bedtime as needed for Allergies or Runny nose. [facility] cetirizine (ZYRTEC) 10 mg tablet 09-10 00:00: 00 Yes [id number] 10mg Take 1 tablet by mouth at bedtime as needed for Allergies or Runny nose. [facility] cetirizine (ZYRTEC) 10 mg tablet 09-10 00:00: 00 Yes [id number] 10mg Take 1 tablet by mouth at bedtime as needed for Allergies or Runny nose. [facility] cetirizine (ZYRTEC) 10 mg tablet 09-10 00:00: 00 Yes [id number] 10mg Take 1 tablet by mouth at bedtime as needed for Allergies or Runny nose. [facility] cetirizine (ZYRTEC) 10 mg tablet 09-10 00:00: 00 Yes [id number] 10mg Take 1 tablet by mouth at bedtime as needed for Allergies or Runny nose. [facility] cetirizine (ZYRTEC) 10 mg tablet 09-10 00:00: 00 Yes [id number] 10mg Take 1 tablet by mouth at bedtime as needed for Allergies or Runny nose. [facility] cetirizine (ZYRTEC) 10 mg tablet 09-10 00:00: 00 Yes [id number] 10mg Take 1 tablet by mouth at bedtime as needed for Allergies or Runny nose. [facility] cetirizine (ZYRTEC) 10 mg tablet 09-10 00:00: 00 Yes [id number] 10mg Take 1 tablet by mouth at bedtime as needed for Allergies or Runny nose. [facility] cetirizine (ZYRTEC) 10 mg tablet 09-10 00:00: 00 Yes [id number] 10mg Take 1 tablet by mouth at bedtime as needed for Allergies or Runny nose. [facility] cetirizine (ZYRTEC) 10 mg tablet 09-10 00:00: 00 Yes [id number] 10mg Take 1 tablet by mouth at bedtime as needed for Allergies or Runny nose. [facility] cetirizine (ZYRTEC) 10 mg tablet 09-10 00:00: 00 Yes [id number] 10mg Take 1 tablet by mouth at bedtime as needed for Allergies or Runny nose. [facility] cetirizine (ZYRTEC) 10 mg tablet 09-10 00:00: 00 Yes [id number] 10mg Take 1 tablet by mouth at bedtime as needed for Allergies or Runny nose. [facility] cetirizine (ZYRTEC) 10 mg tablet 09-10 00:00: 00 Yes [id number] 10mg Take 1 tablet by mouth at bedtime as needed for Allergies or Runny nose. [facility] cetirizine (ZYRTEC) 10 mg tablet 09-10 00:00: 00 Yes [id number] 10mg Take 1 tablet by mouth at bedtime as needed for Allergies or Runny nose. [facility] cetirizine (ZYRTEC) 10 mg tablet 09-10 00:00: 00 Yes [id number] 10mg Take 1 tablet by mouth at bedtime as needed for Allergies or Runny nose. [facility] cetirizine (ZYRTEC) 10 mg tablet 09-10 00:00: 00 Yes [id number] 10mg Take 1 tablet by mouth at bedtime as needed for Allergies or Runny nose. [facility] cetirizine (ZYRTEC) 10 mg tablet 09-10 00:00: 00 Yes [id number] 10mg Take 1 tablet by mouth at bedtime as needed for Allergies or Runny nose. [facility] cetirizine (ZYRTEC) 10 mg tablet 09-10 00:00: 00 Yes [id number] 10mg Take 1 tablet by mouth at bedtime as needed for Allergies or Runny nose. [facility] cetirizine (ZYRTEC) 10 mg tablet 09-10 00:00: 00 Yes [id number] 10mg Take 1 tablet by mouth at bedtime as needed for Allergies or Runny nose. [facility] cetirizine (ZYRTEC) 10 mg tablet 09-10 00:00: 00 Yes [id number] 10mg Take 1 tablet by mouth at bedtime as needed for Allergies or Runny nose. [facility] cetirizine (ZYRTEC) 10 mg tablet 09-10 00:00: 00 Yes [id number] 10mg Take 1 tablet by mouth at bedtime as needed for Allergies or Runny nose. [facility] cetirizine (ZYRTEC) 10 mg tablet 09-10 00:00: 00 Yes [id number] 10mg Take 1 tablet by mouth at bedtime as needed for Allergies or Runny nose. [facility] Vital Signs Vital Name Observation Time Observation Value Comments S ource Systolic blood pressure 2022-12-24 20:14:00 112 [facility] Di[facility] blood [facility] 2022-12-24 20:14:00 72 mm[facility]Hg[facility] Heart rate 2022-12-24 20:14:00 80 /min [facility] Body temperature 2022-12-24 20:14:00 36.61 Patricia [facility] Respiratory rate 2022-12-24 20:14:00 18 /min [facility] Body height 2022-12-24 20:14:00 177.8 cm [facility] Body weight 2022-12-24 20:14:00 81.511 kg [facility] BMI 2022-12-24 20:14:00 25.78 kg/m2 [facility] Oxygen saturation in Arterial blood by Pulse oximetry 2022-12-24 20:14:00 99 /min [facility] Systolic blood pressure 2022-12-21 18:06:00 122 mm[Hg[facility] Diastolic blood pressure 2022-12-21 18:06:00 75 mm[Hg[facility] Heart rate 2022-12-21 18:06:00 72 /min [facility] Respiratory rate 2022-12-21 18:06:00 18 /min [facility] Body weight 2022-12-21 18:06:00 81.647 kg [facility] Oxygen saturation in Arterial blood by Pulse oximetry 2022-12-21 18:06:00 100 /min [facility] Systolic blood pressure 2022-08-25 16:53:00 132 mm[Hg[facility] Diastolic blood pressure 2022-08-25 16:53:00 77 mm[Hg[facility] Heart rate 2022-08-25 16:53:00 89 /min [facility] Body temperature 2022-08-25 16:53:00 36.56 Patricia [facility] Respiratory rate 2022-08-25 16:53:00 18 /min [facility] Body height 2022-08-25 16:53:00 177.8 cm [facility] Body weight 2022-08-25 16:53:00 87.544 kg [facility] BMI 2022-08-25 16:53:00 27.69 kg/m2 [facility] Oxygen saturation in Arterial blood by Pulse oximetry 2022-08-25 16:53:00 96 /min [facility] Systolic blood pressure 2022-06-29 20:38:00 132 mm[Hg[facility] Diastolic blood pressure 2022-06-29 20:38:00 89 mm[Hg[facility] Heart rate 2022-06-29 20:38:00 98 /min [facility] Respiratory rate 2022-06-29 20:38:00 18 /min [facility] Body weight 2022-06-29 20:38:00 86.183 kg [facility] Oxygen saturation in Arterial blood by Pulse oximetry 2022-06-29 20:38:00 99 /min [facility] Systolic blood pressure 2022-03-06 16:11:00 126 mm[Hg[facility] Diastolic blood pressure 2022-03-06 16:11:00 81 mm[Hg[facility] Heart rate 2022-03-06 16:11:00 70 /min [facility] Respiratory rate 2022-03-06 16:11:00 18 /min [facility] Body weight 2022-03-06 16:11:00 82.373 kg [facility] Oxygen saturation in Arterial blood by Pulse oximetry 2022-03-06 16:11:00 98 /min [facility] Procedures Procedure Date / Time Performed Performing Clinicia n Source TDAP VACCINE, >11 YRS, IM 2022-12-21 18:59:57 Jean Baumann [facility] ASSIGNMENT OF BENEFITS 2022-12-21 17:37:24 Docto r Unassigned, [place] [facility] POCT MOLECULAR FLU 2022-08-25 17:01:00 Unknown, Attend ing [facility] MEDICAL RELEASE/CLEARANCE FORMS 2022-06-29 06:01:00 Doctor Unassigned, [place] [facility] EXTERNAL PROVIDER RECORDS 2022-03-07 05:01:00 Doctor Unassigned, [place] [facility] Encounters Start Date/Time End Date/Time Encounter Type Admission Type Attending Clinicians Care Facility Care Department Encounter ID Source 2023-01-16 13:30:00 2023-01-16 13:30:00 Outpatient R JEAN BAUMANN OGECHUKWU [facility] [id number] [facility] 2022-12-24 15:45:00 2022-12-24 16:00:00 Senior Project Leader/Team Lead Visit 2, [facility] 1.2.840.114 350.1.13.10 4.2.7.2.686 [id number] [facility] 2022-12-24 15:00:00 2022-12-24 15:30:00 Office Visit Jean Baumann [facility] N[facility] 1.2.840.114 350.1.13.10 4.2.7.2.686 [id number] [facility] 2022-12-24 15:00:00 2022-12-24 15:00:00 Outpatient R JEAN BAUMANN OGECHUKWU [facility] [id number] [facility] 2022-12-21 14:15:00 2022-12-21 14:30:00 Senior Project Leader/Team Lead Visit 2, Adc Lab Jean Baumann [facility] NAL BUILDING 1.2.840.114 350.1.13.10 4.2.7.2.686 [id number] [facility] 2022-12-21 12:00:00 2022-12-21 13:58:34 Outpatient R JEAN BAUMANN OGECHUKWU [facility] [id number] [facility] 2022-12-21 12:00:00 2022-12-21 13:58:34 [facility] 1.84114 350.1.13.10 4.2.7.2.686 [id number] [facility] 2022-12-21 00:00:00 2022-12-21 00:00:00 Orders Only Doctor Unassigned, [place] [facility] 1.114 350.1.13.10 4.2.7.2.686 [id number] [facility] 2022-08-25 11:00:00 2022-08-25 11:58:10 Outpatient R BHAKTI COOLEY III [facility] [id number] [facility] 2022-08-25 11:00:00 2022-08-25 11:58:10 Urgent Care Bhakti Cooley Unknown, Attending [facility] OFF[facility] BU[facility] 1.84114 350.1.13.10 4.2.7.2.686 [id number] [facility] 2022-08-25 00:00:00 2022-08-25 00:00:00 Letter (Out) [facility] 1.84114 350.1.13.10 4.2.7.2.686 [id number] [facility] 2022-08-25 00:00:00 2022-08-25 00:00:00 Letter (Out) Prasanna Pittman Urgent Care [facility] OFFICE BUILDING 1.84114 350.1.13.10 4.2.7.2.686 [id number] [facility] 2022-07-04 00:00:00 2022-07-04 00:00:00 Letter (Out) Ame Sinha [facility] 1.114 350.1.13.10 4.2.7.2.686 [id number] [facility] 2022-07-04 00:00:00 2022-07-04 00:00:00 Telephone Nurse, Prasanna Brown [facility] Care [facility] OFF[facility] 1..840.114 350.1.13.10 4.2.7.2.686 [id number] [facility] 2022-07-04 00:00:00 2022-07-04 00:00:00 Letter (Out) Provider, [facility]anna [facility] 1..840.114 350.1.13.10 4.2.7.2.686 [id number] [facility] 2022-07-03 11:00:00 2022-07-03 11:15:00 Laboratory Only Only, Ang Db Test Unknown, Attending Michael Millie [facility] MED[facility] OFFICE BUILD[facility] 1..840.114 350.1.13.10 4.2.7.2.686 [id number] [facility] 2022-07-03 11:00:00 2022-07-03 11:00:00 Outpatient R MILLIE RODRIGUEZ [facility] [id number] [facility] 2022-06-29 15:00:00 2022-06-29 15:49:30 Outpatient R JEAN BAUMANN OGECHUKWU [facility] [id number] [facility] 2022-06-29 15:00:00 2022-06-29 15:49:30 Office Visit Jean Baumann [facility] 1..840.114 350.1.13.10 4.2.7.2.686 [id number] [facility] 2022-06-29 09:00:00 2022-06-29 09:00:00 Outpatient R JEAN BAUMANN OGECHUKWU [facility] [id number] [facility] 2022-06-29 00:00:00 2022-06-29 00:00:00 Orders Only Doctor Unassigned, [place] [facility] 1.2.840.114 350.1.13.10 4.2.7.2.686 [id number] [facility] 2022-06-05 13:00:00 2022-06-05 13:00:00 Outpatient R UNKNOWN, ATTENDING [facility] [id number] [facility] 2022-03-07 00:00:00 2022-03-07 00:00:[address] [facility] 1.2840.114 350.1.13.10 4.2.7.2.686 [id number] [facility] 2022-03-07 00:00:00 2022-03-07 00:00:00 Orders Only Doctor Unassigned, [place] [facility] 1.2840.114 350.1.13.10 4.2.7.2.686 [id number] [facility] 2022-03-07 00:00:00 2022-03-07 00:00:00 Letter (Out) [facility] CL[facility] 1.2840.114 350.1.13.10 4.2.7.2.686 [id number] [facility] 2022-03-06 10:40:00 2022-03-06 11:18:26 Outpatient R ZION [facility] [id number] [facility] 2022-03-06 10:40:00 2022-03-06 11:18:26 Office Visit Zion [facility] CL[facility] 1.2840.114 350.1.13.10 4.2.7.2.686 [id number] [facility] 2022 00:00:00 2022 00:00:00 Letter (Out) Provider, Prasanna Brown Urgent Care [facility] OFF[facility] BUILD[facility] 1.2.84.114 350.1.13.10 4.2.7.2.686 [id number] [facility] 2022-02-01 00:00:00 2022-02-01 00:00:00 Telephone Ángel Richardson [facility] 1.284.114 350.1.13.10 4.2.7.2.686 [id number] [facility] 2022-01-31 17:20:00 2022-01-31 17:40:00 Urgent Care Pita Herlinda [facility] MEDICAL OFFICE BUILDING 1.84.114 350.1.13.10 4.2.7.2.686 [id number] [facility] 2022-01-31 17:20:00 2022-01-31 17:11:16 Outpatient R PITA HERLINDA [facility] [id number] [facility] 2021-12-20 00:00:00 2021-12-20 00:00:00 Telephone Nenita Morgan [facility] 1.84.114 350.1.13.10 4.2.7.2.686 [id number] [facility] 2021-12-20 00:00:00 2021-12-20 00:00:00 Telephone Marko [facility] MED[facility] OFFICE BUILDING 1.2.840.114 350.1.13.10 4.2.7.2.686 [id number] [facility] 2021-12-19 17:20:00 2021-12-19 18:27:41 Outpatient R TRACI MATOS [facility] [id number] [facility] 2021-12-19 17:20:00 2021-12-19 17:40:00 Urgent Care MarkoTraci, Critical access hospital [facility] 1.2840.114 350.1.13.10 4.2.7.2.686 [id number] [facility] 2021-10-11 14:20:00 2021-10-11 14:48:00 Outpatient R TERENCE HAN [facility] [id number] [facility] 2021-10-11 14:20:00 2021-10-11 14:48:00 Office Visit Terence Han [facility] 1.840.114 350.1.13.10 4.2.7.2.686 [id number] [facility] 2021-10-11 00:00:00 2021-10-11 00:00:00 Letter (Out) Terence Han [facility] 1..114 350.1.13.10 4.2.7.2.686 [id number] [facility] 2021-09-12 10:10:00 2021-09-12 10:46:20 Outpatient R DORINA MILTON [facility] [id number] [facility] 2021-09-12 10:10:00 2021-09-12 10:46:20 Office Visit Dorina Milton [facility] 1..114 350.1.13.10 4.2.7.2.686 [id number] [facility] 2021-09-12 00:00:00 2021-09-12 00:00:00 Orders Only Doctor Unassigned, [place] [facility] 1.840.114 350.1.13.10 4.2.7.2.686 [id number] [facility] 2021-08-23 16:00:00 2021-08-23 16:00:00 Outpatient Alejandro ESSENCE, TERENCE [facility] [id number] [facility] 2021-08-23 08:00:00 2021-08-23 08:00:00 Outpatient Alejandro HAN TERENCE [facility] [id number] [facility] 2021-07-25 08:00:00 2021-07-25 08:00:00 Outpatient Alejandro ESSENCE TERENCE [facility] [id number] [facility] 2021-03-17 11:20:04 2021-03-17 11:40:04 Laboratory Only Lab, Adc Fam Pob Dano Rodriguez [facility] Office [address] 1..114 350.1.13.10 4.2.7.2.686 [id number] [facility] 2021-03-17 11:40:00 2021-03-17 11:40:00 Outpatient Alejandro RODRIGUEZ MILLIE [facility] [id number] [facility] 2020-12-06 00:00:00 2020-12-06 00:00:00 Telephone Ann Hernandez [facility] 1..114 350.1.13.10 4.2.7.2.686 [id number] 2020-12-06 00:00:00 2020-12-06 00:00:00 Telephone Ann Hernandez [facility] 1..114 350.1.13.10 4.2.7.2.686 [id number] [facility] 2020-12-05 15:12:09 2020-12-05 15:55:16 Office Visit Ann Hernandez [facility] 1..114 350.1.13.10 4.2.7.2.686 [id number] 2020-12-05 15:12:09 2020-12-05 15:55:16 Office Visit Ann Hernandez [facility] 1.2.840.114 350.1.13.10 4.2.7.2.686 [id number] [facility] 2020-12-05 15:20:00 2020-12-05 15:20:00 Outpatient R ANN HERNANDEZ [facility] [id number] [facility] 2020-11-29 10:40:00 2020-11-29 10:40:00 Outpatient Alejandro SOLANO ÁNGEL [facility] [id number] [facility] 2020-11-24 00:00:00 2020-11-24 00:00:00 Telephone Xiomara, [facility] 1.2.840.114 350.1.13.10 4.2.7.2.686 [id number] [facility] 2020-11-16 00:00:00 2020-11-16 00:00:00 Telephone Xiomara, [facility] 1.2.840.114 350.1.13.10 4.2.7.2.686 [id number] [facility] 2020-11-15 10:08:10 2020-11-15 10:46:44 Office Visit Solano Ángel [facility] 1.2.840.114 350.1.13.10 4.2.7.2.686 [id number] [facility] 2020-11-15 10:20:00 2020-11-15 10:20:00 Outpatient Alejandro SOLANO ÁNGEL [facility] [id number] [facility] 2020-09-27 16:00:00 2020-09-27 16:00:00 Outpatient Alejandro SOLANO [facility] [id number] [facility] 2020-09-22 13:57:56 2020-09-22 14:12:56 Senior Project Leader/Team Lead Visit Pob, Adc Lab Main Solano [facility] 1.2840.114 350.1.13.10 4.2.7.2.686 [id number] [facility] 2020-09-22 14:00:00 2020-09-22 14:00:00 Outpatient R XIOMARA, [facility] [id number] [facility] 2020-09-21 15:08:11 2020-09-21 15:47:29 Office Visit Solano [facility] 1.2840.114 350.1.13.10 4.2.7.2.686 [id number] [facility] 2020-09-21 15:20:00 2020-09-21 15:20:00 Outpatient R XIOMARA, [facility] [id number] [facility] 2020-09-21 08:00:00 2020-09-21 08:00:00 Outpatient R XIOMARA, [facility] [id number] [facility] 2020-08-19 00:00:00 2020-08-19 00:00:00 Letter (Out) Xiomara, [facility] 1.2.840.114 350.1.13.10 4.2.7.2.686 [id number] [facility] 2020-08-18 00:00:00 2020-08-18 00:00:00 Letter (Out) Ann Hernandez [facility] 1.2.840.114 350.1.13.10 4.2.7.2.686 [id number] [facility] 2020-08-18 00:00:00 2020-08-18 00:00:00 Telephone Ann Hernandez [facility] 1.2.840.114 350.1.13.10 4.2.7.2.686 [id number] [facility] 2020-08-16 13:22:21 2020-08-16 13:48:03 Office Visit HernandezAnn george Earlene [facility] 1.2.840.114 350.1.13.10 4.2.7.2.686 [id number] [facility] 2020-08-16 13:20:00 2020-08-16 13:20:00 Outpatient R DAVID ANN [facility] [id number] [facility] 2020-08-16 00:00:00 2020-08-16 00:00:00 Orders Only Doctor Unassigned, [place] [facility] 1.2.840.114 350.1.13.10 4.2.7.2.686 [id number] [facility] 2020-08-16 00:00:00 2020-08-16 00:00:00 Letter (Out) David Ann N [facility] 1.2.840.114 350.1.13.10 4.2.7.2.686 [id number] [facility] 2020-05-30 00:00:00 2020-05-30 00:00:00 Orders Only Doctor Unassigned, [place] [facility] 1.2.840.114 350.1.13.10 4.2.7.2.686 [id number] [facility] 2020-05-11 00:00:00 2020-05-11 00:00:00 Telephone Ángel Solano [facility] 1.2.840.114 350.1.13.10 4.2.7.2.686 [id number] [facility] 2020-05-11 00:00:00 2020-05-11 00:00:00 Orders Only Doctor Unassigned, [place] [facility] 1.2.840.114 350.1.13.10 4.2.7.2.686 [id number] [facility] 2019-12-10 00:00:00 2019-12-10 00:00:00 Orders Only Doctor Unassigned, [place] [facility] 1.2.840.114 350.1.13.10 4.2.7.2.686 [id number] [facility] 2019-09-04 14:00:09 2019-09-04 14:35:25 Office Visit Ann Hernandez [facility] [facility] [id number] [facility] 2019-09-04 00:00:00 2019-09-04 00:00:00 Orders Only Doctor Unassigned, [place] [facility] [id number] [id number] [facility] 2019-04-24 15:50:53 2019-04-24 16:37:49 [facility] [id number] [id number] [facility] 2019-04-23 14:50:35 2019-04-23 15:25:37 [facility] [id number] [id number] [facility] 2019-04-23 00:00:00 2019-04-23 00:00:00 Letter (Out) [facility] [id number] [id number] [id number] [facility] 2019-04-23 00:00:2019-04-23 00:00:00 Orders Only Doctor Unassigned, [place] [facility] [id number] [id number] [id number] [facility] 2019-04-20 00:00:00 2019-04-20 00:00:00 Telephone Lexus Granado [facility] 1..840.114 [id number] [id number] [facility] Results Test Description Test Time Test Comments Results Result Co mments Source [facility]
[2023-08-08 12:38] LABS: Absolute Lymphocytes (CBC) 1.6 K/uL (0.7-4.9); Hematocrit 42.4 % (39.6-49.0); MCV 89.3 fL (80-100); MPV 9.5 fL (7.6-11.3); Platelets 170 thou/uL (152-406); RBC Red Blood Cell Count 4.75 M/uL (4.33-5.43)
[2023-08-08 12:57] LABS: Bilirubin Total 1.1 mg/dL (0.2-1.0); Potassium 4.2 mEq/L (3.5-5.1)
[2023-08-08 13:24] LABS: SARS-COV-2 RT PCR NEGATIVE (NEGATIVE)
--- NOTE | 2023-08-08 13:27 | ER ---
Nurse's Notes [facility] Sg Name: Boni Salgado Age: 23 yrs Sex: Male : 2000 Arrival Date: 08/08/2023 Time: 10:51 Bed 12 Private MD: Diagnosis: Viral infection, unspecified Presentation: 08/08 11:16 Chief complaint: Cough, congestion, and headache x 2-3 days, abdominal pain today. hb Coronavirus screen: Client presents with at least one sign or symptom that may indicate coronavirus-19. Provider contacted for isolation considerations. Ebola Screen: No symptoms or risks identified at this time. Initial Sepsis Screen: Does the patient meet any 2 criteria? No. Patient's initial sepsis screen is negative. Does the patient have a suspected source of infection? No. Patient's initial sepsis screen is negative. Risk Assessment: Do you want to hurt yourself or someone else? Patient reports no desire to harm self or others. Onset of symptoms was August 06, 2023. 11:16 Method Of Arrival: Ambulatory hb 11:16 Acuity: SHERIF 3 hb Triage Assessment: 12:40 General: Appears in no apparent distress. Behavior is calm, cooperative. tl4 Historical: - Allergies: 11:17 NKDA; hb - Home Meds: 11:17 None [Active]; hb - PMHx: 11:17 Asthma; hb - PSHx: 11:17 Appendectomy; hb - Immunization history:: Adult Immunizations up to date. - Social history:: Smoking status: Patient denies any tobacco usage or history of. Screenin:37 [facility] ED Fall Risk Assessment (Adult) History of falling in the last 3 months, tl4 including since admission No falls in past 3 months (0 pts) Confusion or Disorientation No (0 pts) Intoxicated or Sedated No (0 pts) Impaired Gait No (0 pts) Mobility Assist Device Used No (0 pt) Altered Elimination No (0 pt) Score/Fall Risk Level 0 - 2 = Low Risk Oriented to surroundings, Maintained a safe environment, Educated pt \T\ family on fall prevention, incl call for assistance when getting out of bed. Abuse screen: Denies threats or abuse. Denies injuries from another. Nutritional screening: No deficits noted. Tuberculosis screening: No symptoms or risk factors identified. Assessment: 12:35 Reassessment: No changes from previously documented assessment. Patient and/or family tl4 updated on plan of care and expected duration. Pain level reassessed. Patient is alert, oriented x 3, equal unlabored respirations, skin warm/dry/pink. Pain: Complains of pain in head and abdomen. GI: Bowel sounds present X 4 quads. Abd is soft Abd is non tender. Vital Signs: 11:16 BP 119 / 83; Pulse 74; Resp 16; Temp 97.9(O); Pulse Ox 100% on R/A; Weight 80.74 kg; hb Height 5 ft. 11 in. ; Pain 3/10; 12:41 BP 111 / 73; Pulse 69; Resp 16; Pulse Ox 100% on R/A; tl4 11:16 Body Mass Index 24.83 (80.74 kg, 180.34 cm) hb 11:16 Pain Scale: Adult hb David Coma Score: 12:41 Eye Response: spontaneous(4). Motor Response: obeys commands(6). Verbal Response: tl4 oriented(5). Total: 15. ED Course: 10:54 Patient arrived in ED. mg5 11:00 Kevin Mercer MD is Attending Physician. ec2 11:18 Arm band placed on. hb 11:19 Triage completed. hb 12:26 COVID-19/FLU A+B/RSV Sent. rv1 12:26 Lipase Sent. rv1 12:26 CMP Sent. rv1 12:26 CBC with Diff Sent. rv1 12:29 LogdahlJm is Primary Nurse. tl4 12:32 Inserted saline lock: 20 gauge in right antecubital area, using aseptic technique. tl4 Blood collected. 12:34 No provider procedures requiring assistance completed. tl4 12:38 Patient has correct armband on for positive identification. Placed in gown. Bed in low tl4 position. Call light in reach. Side rails up X 1. Provided Education on: ED process. 13:26 Door closed. Lights dimmed. Warm blanket given. tl4 13:42 IV discontinued, intact, bleeding controlled, No redness/swelling at site. Pressure tl4 dressing applied. Administered Medications: 12:30 Drug: metoCLOPramide IVP 10 mg IVP once; over 1 to 2 minutes Route: IVP; Site: right tl4 antecubital; 13:25 Follow up: Response: Marked relief of symptoms tl4 12:30 Drug: NS 0.9% IV 500 ml IV at 1 bolus Per protocol; 1000 mL bolus Route: IV; Rate: 1 tl4 bolus; Site: right antecubital; 13:35 Follow up: Response: No adverse reaction; IV Status: Completed infusion; IV Intake: tl4 500ml 12:32 Drug: Ketorolac IVP 15 mg IVP once Route: IVP; Site: right antecubital; tl4 13:26 Follow up: Response: Marked relief of symptoms tl4 Medication: 12:40 VIS not applicable for this client. tl4 Intake: 13:35 IV: 500ml; Total: 500ml. tl4 Outcome: 13:26 Discharge ordered by . ec2 13:42 Discharged to home ambulatory, tl4 13:42 Condition: stable 13:42 Discharge instructions given to patient, Instructed on discharge instructions, follow up and referral plans. medication usage, Demonstrated understanding of instructions, follow-up care, medications, 13:42 Patient left the ED. tl4 Signatures: Liane Tidwell RN RN Tish Mueller rv1 Kelly Wallace mg5 Kevin Mercer MD MD ec2 Logdaalli, Jm tl4 Corrections: (The following items were deleted from the chart) 11:19 11:16 BP 119 / 83; Pulse 74bpm; Resp 16bpm; Pulse Ox 100% RA; Temp 97.9F Oral; hb hb 12:28 12:26 Urinalysis W/Microscopic+U.LAB.BRZ drawn and sent. rv1 EDMS
--- NOTE | 2023-08-08 13:27 | EDPHYS ---
Physician Documentation [facility] Sg Name: Boni Salgado Age: 23 yrs Sex: Male : 2000 Arrival Date: 08/08/2023 Time: 10:51 Bed 12 Private MD: ED Physician Kevin Mercer HPI: 08/08 11:20 This 23 yrs old Black Male presents to ER via Ambulatory with complaints of Abdominal ec2 Pain, Headache. 11:20 Patient arrives today for evaluation of headache symptoms as well as abdominal ec2 discomfort. Patient reports been having a couple days of symptoms, states he is having an occasional cough as well. No fevers or chills, vomiting, no diarrhea. Patient reports p.o. intake has been adequate. Denies any urinary complaints. Reports that he has multiple sick contacts at home with similar symptoms. Reports he is not taking medications for symptoms.. Historical: - Allergies: 11:17 NKDA; hb - Home Meds: 11:17 None [Active]; hb - PMHx: 11:17 Asthma; hb - PSHx: 11:17 Appendectomy; hb - Immunization history:: Adult Immunizations up to date. - Social history:: Smoking status: Patient denies any tobacco usage or history of. ROS: 11:20 Constitutional: as per hpi ec2 Exam: 11:20 Constitutional: GEN: NAD Head: atraumatic Eyes: EOMI Ears: External ears are ec2 normal. CV: regular rate LUNGS: no respiratory distress ABD: non-distended, soft, nontender, not guarding, not rigid SKIN: no evidence of rashes MSK: no evidence of trauma NEURO: moves all extremities equally Vital Signs: 11:16 BP 119 / 83; Pulse 74; Resp 16; Temp 97.9(O); Pulse Ox 100% on R/A; Weight 80.74 kg; hb Height 5 ft. 11 in. ; Pain 3/10; 12:41 BP 111 / 73; Pulse 69; Resp 16; Pulse Ox 100% on R/A; tl4 11:16 Body Mass Index 24.83 (80.74 kg, 180.34 cm) hb 11:16 Pain Scale: Adult hb Jackson Coma Score: 12:41 Eye Response: spontaneous(4). Motor Response: obeys commands(6). Verbal Response: tl4 oriented(5). Total: 15. MDM: 11:20 Data reviewed: vital signs. ED course: Patient arrives today for URI symptoms as well ec2 as abdominal discomfort. Examination remarkable for well-appearing nontoxic dividual's otherwise in no acute distress. Will obtain lab work, viral swabs, treat the patient symptoms and reassess the patient. Currently considering processes such as URI, low suspicion for process such as intra-abdominal abscess or UTI. Additionally low suspicion for meningitis or encephalitis.. 11:24 Patient medically screened. ec2 13:01 ED course: Metabolic profile is reassuring. CBC is reassuring. Lipase within normal ec2 ranges. . 13:26 ED course: Viral swab negative. Suspect other viral process. Will discharge home. ec2 Return precautions given.. 08/08 11:19 Order name: CBC with Diff; Complete Time: 13:01 ec2 08/08 11:19 Order name: CMP; Complete Time: 13:01 ec2 08/08 11:19 Order name: Lipase; Complete Time: 13: ec2 08/08 11:19 Order name: COVID-19/FLU A+B/RSV; Complete Time: 13:26 ec2 Administered Medications: 12:30 Drug: metoCLOPramide IVP 10 mg IVP once; over 1 to 2 minutes Route: IVP; Site: right tl4 antecubital; 13:25 Follow up: Response: Marked relief of symptoms tl4 12:30 Drug: NS 0.9% IV 500 ml IV at 1 bolus Per protocol; 1000 mL bolus Route: IV; Rate: 1 tl4 bolus; Site: right antecubital; 13:35 Follow up: Response: No adverse reaction; IV Status: Completed infusion; IV Intake: tl4 500ml 12:32 Drug: Ketorolac IVP 15 mg IVP once Route: IVP; Site: right antecubital; tl4 13:26 Follow up: Response: Marked relief of symptoms tl4 Disposition Summary: 08/08/23 13:26 Discharge Ordered Notes: Location: Home ec2 Problem: new ec2 Symptoms: have improved ec2 Condition: Stable ec2 Diagnosis - Viral infection, unspecified ec2 Followup: ec2 - With: Private Physician - When: - Reason: Recheck today's complaints Discharge Instructions: - Discharge Summary Sheet ec2 - Viral Illness, Adult ec2 Forms: - Work release form ec2 - Medication Reconciliation Form ec2 - Thank You Letter ec2 - Antibiotic Education ec2 - Prescription Opioid Use ec2 - Patient Portal Instructions ec2 - Leadership Thank You Letter ec2 Prescriptions: - Reglan 10 mg Oral Tablet - take 1 tablet ORAL route every 6 hours take 30 minutes before meals and at ec2 bedtime; 20 tablet; Refills: 0, Product Selection Permitted Signatures: 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 EDNH EDMS
[2023-08-08 14:08] VITALS: BP 111/73; TEMP 97.9; O2SAT 100
== END ==
LOC: ER 10:51
DX: B34.9 Viral infection, unspecified (principal); Z11.52 Encounter for screening for COVID-19
CPT/HCPCS: 0241U; 36415; 80053; 83690; 85025; 96361; 96374; 96375; 99284; J2765; J7030

== ENCOUNTER 2023-11-16 14:00 | Emergency (ER) | payer SELFPAY ==
--- OUTSIDE RECORDS SUMMARY | 2023-11-16 14:03 | XMS REPORT | Continuity of Care Document ---
Author Name Unknown Address [address] [place] [address] [facility] thconnect Address 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 Name Role Phone ÁNGEL RICHARDSON Primary Care Physician Unava ilJEAN Cates Attending Clinician Unavailab JEAN Potter Attending Clinician Unavailab alvarez 2, [facility] Attending Clinician Unavailable Doctor Unassigned, [place] Attending Clinician U BHAKTI Feliz III Attending Clinician Unavailhina Cooley III, MD, Bhakti Price Attending Clinician [phone] Unknown, Attending Attending Clinician Unavailab pino Provider, [facility] Attending Clinician Unavailable Ame Sinha RN Attending Clinician Unavailable Nurse, [facility] Attending Clinician Un available Only, Pr[facility] Test Attending Clinician UnavailMillie Chairez MD Attending Clinician [phone] UNKNOWN, ATTENDING Attending Clinician UnavailMILLIE Car Attending Clinician Unavailable Ángel Christensen Attending Clinician [phone] ÁNGEL RICHARDSON Attending Clinician UnavailHerlinda Poole Attending Clinician [phone] HERLINDA LEMA Attending Clinician Unavailable Nenita Morgan RN Attending Clinician Unavaila Traci Ramirez Attending Clinician [phone] TRACI ZHU Attending Clinician Unavailable TERENCE HAN Attending Clinician Unavailable Terence Han MD Attending Clinician [phone] DORINA MILTON Attending Clinician Unavailab Dorina Morris PA-C Attending Clinician [phone] Lab, Adc Fam Pob I Attending Clinician Unavailab Ann Justin MD Attending Clinician [phone] ANN HERNANDEZ Attending Clinician Unavail able Pob, [facility] Lab Main Attending Clinician UnavailLexus Castillo MD Attending Clinician + [phone] Payers Payer Name Policy Type Policy Number Effective Date Expirati on Date Source [place] [employer] [id number] 2022 00:00:00 Problems Condition Name Condition Details Condition Category Status Onset Date Resolution Date Last Treatment Date Treating Clinician Comments Source No known active problems No known active problems Disease [facility] Allergies, Adverse Reactions, Alerts Allergy Name Allergy Type Status Severity Reaction(s) Onset Date Inactive Date Treating Clinician Comments Source NO KNOWN ALLERGIE S Drug Class Active [facility] Social History Social Habit Start Date Stop Date Quantity Comments Source Exposure to SARS-CoV-2 (event) 2022-12-14 00:00:00 2022-12-24 14:56:00 Not sure [facility] Tobacco use and exposure 2022-03-06 00:00:00 2022-03-06 00:00:00 Smokeless tobacco non-user [facility] Sex Assigned At 2000 00:00:00 2000 00:00:00 [facility] Smoking Status Start Date Stop Date Source Never smoked tobacco [facility] Medications Ordered Medication Name Filled Medication Name Start Date Stop Date Current Medication? Ordering Clinician Indication Dosage Frequency Signature (SIG) Comments Components Source mupirocin 2 % ointment 12-21 00:00: 00 Yes [id number] Apply to area(s) 3 (three) times daily. [facility] amoxicillin -clavulanat e (AUGMENTIN) 875-125 mg per tablet 12-21 00:00: 00 01-01 04:59 :00 No [id number] 1{tbl} Take 1 tablet by mouth in the morning and 1 tablet in the evening. Do all this for 10 days. [facility] albuterol 90 mcg/actuati on inhaler 08-25 00:00: 00 Yes [id number] 2{puff} Inhale 2 Puffs every 6 (six) hours as needed for Wheezing or Shortness of Breath. [facility] Methylpredn isolone 4 mg tablet 08-25 00:00: 00 08-31 05:59 :00 No [id number] 4mg Take 1 tablet by mouth every 12 (twelve) hours for 5 days. [facility] naproxen 500 mg tablet 2021-08 00:00: 00 Yes [id number] 500mg Take 1 tablet by mouth in the morning and 1 tablet in the evening. Take with meals. [facility] cyclobenzap rine 10 mg tablet 2021-08 00:00: 00 Yes [id number] 10mg Take 1 tablet by mouth at bedtime as needed for Muscle Spasms. [facility] Diclofenac Sodium (VOLTAREN) 1 % gel 2021-08 00:00: 00 Yes [id number] Take 2-4 grams three times a day as needed for pain [facility] clotrimazol e 1 % topical cream 12-18 00:00: 00 Yes [facility] azithromyci n (ZITHROMAX Z-DEANNA) 250 mg tablet 04-24 00:00: 00 Yes [id number] Take 500 mg day 1, then 250 mg days 2 to 5. [facility] acetaminoph en (TYLENOL CHILDREN'S ORAL) 04-23 14:57: 59 Yes Take by mouth. [facility] PROAIR HFA 90 mcg/actuati on inhaler 04-22 00:00: 00 Yes [facility] cetirizine (ZYRTEC) 10 mg tablet 09-10 00:00: 00 Yes [id number] 10mg Take 1 tablet by mouth at bedtime as needed for Allergies or Runny nose. [facility] Vital Signs Vital Name Observation Time Observation Value Comments Ava farah Systolic blood pressure 2022-12-24 20:14:00 112 mm[Hg] [facility] Diastolic blood pressure 2022-12-24 20:14:00 72 mm[Hg] [facility] Heart rate 2022-12-24 20:14:00 80 /min [facility] Body temperature 2022-12-24 20:14:00 36.61 Patricia [facility] Respiratory rate 2022-12-24 20:14:00 18 /min [facility] Body height 2022-12-24 20:14:00 177.8 cm [facility] Body weight 2022-12-24 20:14:00 81.511 kg [facility] BMI 2022-12-24 20:14:00 25.78 kg/m2 [facility] Oxygen saturation in Arterial blood by Pulse oximetry 2022-12-24 20:14:00 99 /min [facility] Systolic blood pressure 2022-12-21 18:06:00 122 mm[Hg] [facility] Diastolic blood pressure 2022-12-21 18:06:00 75 mm[Hg] [facility] Heart rate 2022-12-21 18:06:00 72 /min [facility] Respiratory rate 2022-12-21 18:06:00 18 /min [facility] Body weight 2022-12-21 18:06:00 81.647 kg [facility] Oxygen saturation in Arterial blood by Pulse oximetry 2022-12-21 18:06:00 100 /min [facility] Systolic blood pressure 2022-08-25 16:53:00 132 mm[Hg] [facility] Diastolic blood pressure 2022-08-25 16:53:00 77 mm[Hg] [facility] Heart rate 2022-08-25 16:53:00 89 /min [facility] Body temperature 2022-08-25 16:53:00 36.56 Patricia [facility] Respiratory rate 2022-08-25 16:53:00 18 /min [facility] Body height 2022-08-25 16:53:00 177.8 cm [facility] Body weight 2022-08-25 16:53:00 87.544 kg [facility] BMI 2022-08-25 16:53:00 27.69 kg/m2 [facility] Oxygen saturation in Arterial blood by Pulse oximetry 2022-08-25 16:53:00 96 /min [facility] Systolic blood pressure 2022-06-29 20:38:00 132 mm[Hg] [facility] Diastolic blood pressure 2022-06-29 20:38:00 89 mm[Hg] [facility] Heart rate 2022-06-29 20:38:00 98 /min [facility] Respiratory rate 2022-06-29 20:38:00 18 /min [facility] Body weight 2022-06-29 20:38:00 86.183 kg [facility] Oxygen saturation in Arterial blood by Pulse oximetry 2022-06-29 20:38:00 99 /min [facility] Systolic blood pressure 2022-03-06 16:11:00 126 mm[Hg] [facility] Diastolic blood pressure 2022-03-06 16:11:00 81 mm[Hg] [facility] Heart rate 2022-03-06 16:11:00 70 /min [facility] Respiratory rate 2022-03-06 16:11:00 18 /min [facility] Body weight 2022-03-06 16:11:00 82.373 kg [facility] Oxygen saturation in Arterial blood by Pulse oximetry 2022-03-06 16:11:00 98 /min [facility] Procedures Procedure Date / Time Performed Performing Clinicia n Source TDAP VACCINE, >11 YRS, IM 2022-12-21 18:59:57 Jean Baumann [facility] ASSIGNMENT OF BENEFITS 2022-12-21 17:37:24 Docto r Unassigned, [place] [facility] POCT MOLECULAR FLU 2022-08-25 17:01:00 Unknown, Attend ing [facility] MEDICAL RELEASE/CLEARANCE FORMS 2022-06-29 06:01:00 Doctor Unassigned, [place] [facility] EXTERNAL PROVIDER RECORDS 2022-03-07 05:01:00 Doctor Unassigned, [place] [facility] Encounters Start Date/Time End Date/Time Encounter Type Admission Type Attending Clinicians Care Facility Care Department Encounter ID Source 2023-01-16 13:30:00 2023-01-16 13:30:00 Outpatient R IBIS, OGNYLA IBIS, REJIBarbaraHai [facility] [id number] [facility] 2022-12-24 15:45:00 2022-12-24 16:00:00 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 1.2.840.114 350.1.13.10 4.2.7.2.686 [id number] [facility] 2022-12-24 15:00:00 2022-12-24 15:00:00 Outpatient R IBISWILLNYLA BAUMANN REJIBarbaraHai [facility] [id number] [facility] 2022-12-21 14:15:00 2022-12-21 14:30:00 Accounting Clerks Supervisor Visit 2, Adc Lab Jean Baumann [facility] N[facility] 1.2.840.114 350.1.13.10 4.2.7.2.686 [id number] [facility] 2022-12-21 12:00:00 2022-12-21 13:58:34 Outpatient R JEAN BAUMANN OGECHUKWU [facility] [id number] [facility] 2022-12-21 12:00:00 2022-12-21 13:58:34 Office Visit Jean Baumann [facility] 1.2840.114 350.1.13.10 4.2.7.2.686 [id number] [facility] 2022-12-21 00:00:00 2022-12-21 00:00:00 Orders Only Doctor Unassigned, [place] [facility] 1.2840.114 350.1.13.10 4.2.7.2.686 [id number] [facility] 2022-08-25 11:00:00 2022-08-25 11:58:10 Outpatient R BHAKTI COOLEY III [facility] [id number] [facility] 2022-08-25 11:00:00 2022-08-25 11:58:10 Urgent Care Bhakti Cooley Unknown, Attending [facility] 1.284.114 350.1.13.10 4.2.7.2.686 [id number] [facility] 2022-08-25 00:00:00 2022-08-25 00:00:00 Letter (Out) Bhakti Cooley [facility] 1.284.114 350.1.13.10 4.2.7.2.686 [id number] [facility] 2022-08-25 00:00:00 2022-08-25 00:00:00 Letter (Out) Prasanna Pittman Urgent Care [facility] 1.2840.114 350.1.13.10 4.2.7.2.686 [id number] [facility] 2022-07-04 00:00:00 2022-07-04 00:00:00 Letter (Out) Ame Sinha [facility] 1.840.114 350.1.13.10 4.2.7.2.686 [id number] [facility] 2022-07-04 00:00:00 2022-07-04 00:00:00 Telephone Nurse, Ang Kevin Urgent Care [facility] 1.84.114 350.1.13.10 4.2.7.2.686 [id number] [facility] 2022-07-04 00:00:00 2022-07-04 00:00:00 Letter (Out) Provider, Ang Kevin [facility] Care [facility] 1.840.114 350.1.13.10 4.2.7.2.686 [id number] [facility] 2022-07-03 11:00:00 2022-07-03 11:15:00 Laboratory Only Only, Ang Db Test Unknown, Attending Michael Millie [facility] OFFICE BUILDING 1.840.114 350.1.13.10 4.2.7.2.686 [id number] [facility] 2022-07-03 11:00:00 2022-07-03 11:00:00 Outpatient R MILLIE RODRIGUEZ [facility] [id number] [facility] 2022-06-29 15:00:00 2022-06-29 15:49:30 Outpatient R JEAN BAUMANN OGECHUKWU [facility] [id number] [facility] 2022-06-29 15:00:00 2022-06-29 15:49:30 Office Visit [facility] 1.840.114 350.1.13.10 4.2.7.2.686 [id number] [facility] 2022-06-29 09:00:00 2022-06-29 09:00:00 Outpatient R IBIS JEAN BAUMANN JEAN [facility] [id number] [facility] 2022-06-29 00:00:00 2022-06-29 00:00:00 Orders Only Doctor Unassigned, [place] [facility] 1.2.840.114 350.1.13.10 4.2.7.2.686 [id number] [facility] 2022-06-05 13:00:00 2022-06-05 13:00:00 Outpatient R UNKNOWN, ATTENDING [facility] [id number] [facility] 2022-03-07 00:00:00 2022-03-07 00:00:00 Telephone [facility] 1.2.840.114 350.1.13.10 4.2.7.2.686 [id number] [facility] 2022-03-07 00:00:00 2022-03-07 00:00:00 Orders Only Doctor Unassigned, [place] [facility] 1.2.840.114 350.1.13.10 4.2.7.2.686 [id number] [facility] 2022-03-07 00:00:00 2022-03-07 00:00:00 Letter (Out) [facility] 1.2.840.114 350.1.13.10 4.2.7.2.686 [id number] [facility] 2022-03-06 10:40:00 2022-03-06 11:18:26 Outpatient R ZION [facility] [id number] [facility] 2022-03-06 10:40:00 2022-03-06 11:18:26 Office Visit Ángel Richardson [facility] 1.2840.114 350.1.13.10 4.2.7.2.686 [id number] [facility] 2022 00:00:00 2022 00:00:00 Letter (Out) Provider, Prasanna Brown Urgent Care [facility] 1.2840.114 350.1.13.10 4.2.7.2.686 [id number] [facility] 2022-02-01 00:00:00 2022-02-01 00:00:00 Telephone Ángel Richardson [facility] 1.2840.114 350.1.13.10 4.2.7.2.686 [id number] [facility] 2022-01-31 17:20:00 2022-01-31 17:40:00 Urgent Care Herlinda Lema [facility] 1.0.114 350.1.13.10 4.2.7.2.686 [id number] [facility] 2022-01-31 17:20:00 2022-01-31 17:11:16 Outpatient R HERLINDA LEMA [facility] [id number] [facility] 2021-12-20 00:00:00 2021-12-20 00:00:00 Telephone Nenita Morgan [facility] 1.20.114 350.1.13.10 4.2.7.2.686 [id number] [facility] 2021-12-20 00:00:00 2021-12-20 00:00:00 Telephone Traci Zhu [facility] 1.2840.114 350.1.13.10 4.2.7.2.686 [id number] [facility] 2021-12-19 17:20:00 2021-12-19 18:27:41 Outpatient R ERLINTRACI LAO [facility] [id number] [facility] 2021-12-19 17:20:00 2021-12-19 17:40:00 [facility] 1.2.840.114 350.1.13.10 4.2.7.2.686 [id number] [facility] 2021-10-11 14:20:00 2021-10-11 14:48:00 Outpatient R EMELY TERENCE [facility] [id number] [facility] 2021-10-11 14:20:00 2021-10-11 14:48:00 Office Visit Terence Han [facility] 1.2840.114 350.1.13.10 4.2.7.2.686 [id number] [facility] 2021-10-11 00:00:00 2021-10-11 00:00:00 Letter (Out) Emely [facility] 1..840.114 350.1.13.10 4.2.7.2.686 [id number] [facility] 2021-09-12 10:10:00 2021-09-12 10:46:20 Outpatient R DORINA MILTON [facility] [id number] [facility] 2021-09-12 10:10:00 2021-09-12 10:46:20 Office Visit Dorina Milton [facility] 1.2.840.114 350.1.13.10 4.2.7.2.686 [id number] [facility] 2021-09-12 00:00:00 2021-09-12 00:00:00 Orders Only Doctor Unassigned, [place] [facility] 1.840.114 350.1.13.10 4.2.7.2.686 [id number] [facility] 2021-08-23 16:00:00 2021-08-23 16:00:00 Outpatient TERENCE ACKERMAN [facility] [id number] [facility] 2021-08-23 08:00:00 2021-08-23 08:00:00 Outpatient TERENCE ACKERMAN [facility] [id number] [facility] 2021-07-25 08:00:00 2021-07-25 08:00:00 Outpatient TERENCE ACKERMAN [facility] [id number] [facility] 2021-03-17 11:20:04 2021-03-17 11:40:04 Laboratory Only Lab, Adc [facility] Office [facility] 1.840.114 350.1.13.10 4.2.7.2.686 [id number] [facility] 2021-03-17 11:40:00 2021-03-17 11:40:00 Outpatient Alejandro RODRIGUEZ [facility] [id number] [facility] 2020-12-06 00:00:00 2020-12-06 00:00:00 Telephone Ann Hernandez [facility] 1.840.114 350.1.13.10 4.2.7.2.686 [id number] 2020-12-06 00:00:00 2020-12-06 00:00:00 Telephone Ann Hernandez [facility] 1.840.114 350.1.13.10 4.2.7.2.686 [id number] [facility] 2020-12-05 15:12:09 2020-12-05 15:55:16 Office Visit Ann Hernandez [facility] 1.2.840.114 350.1.13.10 4.2.7.2.686 [id number] 2020-12-05 15:12:09 2020-12-05 15:55:16 Office Visit Ann Hernandez [facility] 1.2.840.114 350.1.13.10 4.2.7.2.686 [id number] [facility] 2020-12-05 15:20:00 2020-12-05 15:20:00 Outpatient R ANN HERNANDEZ [facility] [id number] [facility] 2020-11-29 10:40:00 2020-11-29 10:40:00 Outpatient Alejandro SOLANO ÁNGEL [facility] [id number] [facility] 2020-11-24 00:00:00 2020-11-24 00:00:00 Telephone Solano [facility] 1.2.840.114 350.1.13.10 4.2.7.2.686 [id number] [facility] 2020-11-16 00:00:00 2020-11-16 00:00:00 Telephone Solano [facility] 1.2.840.114 350.1.13.10 4.2.7.2.686 [id number] [facility] 2020-11-15 10:08:10 2020-11-15 10:46:44 Office Visit Solano Ángel [facility] 1.2.840.114 350.1.13.10 4.2.7.2.686 [id number] [facility] 2020-11-15 10:20:00 2020-11-15 10:20:00 Outpatient Alejandro SOLANO [facility] [id number] [facility] 2020-09-27 16:00:00 2020-09-27 16:00:00 [facility] [id number] [facility] 2020-09-22 13:57:56 2020-09-22 14:12:56 Accounting Clerks Supervisor Visit Sarah Beth, Ira Lab Main [facility] 1.2840.114 350.1.13.10 4.2.7.2.686 [id number] [facility] 2020-09-22 14:00:00 2020-09-22 14:00:00 Outpatient Alejandro SOLANO [facility] [id number] [facility] 2020-09-21 15:08:11 2020-09-21 15:47:29 Office Visit Solano Ángel [facility] 1.20.114 350.1.13.10 4.2.7.2.686 [id number] [facility] 2020-09-21 15:20:00 2020-09-21 15:20:00 Outpatient Alejandro SOLANO ÁNGEL [facility] [id number] [facility] 2020-09-21 08:00:00 2020-09-21 08:00:00 Outpatient Alejandro SOLANO [facility] [id number] [facility] 2020-08-19 00:00:00 2020-08-19 00:00:00 Letter (Out) Dk Ángel [facility] 1.2.114 350.1.13.10 4.2.7.2.686 [id number] [facility] 2020-08-18 00:00:00 2020-08-18 00:00:00 Letter (Out) Ann Hernandez [facility] 1.2840.114 350.1.13.10 4.2.7.2.686 [id number] [facility] 2020-08-18 00:00:00 2020-08-18 00:00:00 Telephone HernandezAnn hinds [facility] 1.2.840.114 350.1.13.10 4.2.7.2.686 [id number] [facility] 2020-08-16 13:22:21 2020-08-16 13:48:03 Office Visit HernandezAnn [facility] 1.2.840.114 350.1.13.10 4.2.7.2.686 [id number] [facility] 2020-08-16 13:20:00 2020-08-16 13:20:00 Outpatient R ANN HERNANDEZ [facility] [id number] [facility] 2020-08-16 00:00:00 2020-08-16 00:00:00 Orders Only Doctor Unassigned, [place] [facility] 1.2.840.114 350.1.13.10 4.2.7.2.686 [id number] [facility] 2020-08-16 00:00:00 2020-08-16 00:00:00 Letter (Out) HernandezAnn george [facility] 1.2.840.114 350.1.13.10 4.2.7.2.686 [id number] [facility] 2020-05-30 00:00:00 2020-05-30 00:00:00 Orders Only Doctor Unassigned, [place] [facility] 1.2.840.114 350.1.13.10 4.2.7.2.686 [id number] [facility] 2020-05-11 00:00:00 2020-05-11 00:00:00 Telephone Ángel Solano [facility] 1.2.840.114 350.1.13.10 4.2.7.2.686 [id number] [facility] 2020-05-11 00:00:00 2020-05-11 00:00:00 Orders Only Doctor Unassigned, [place] [facility] 1.2.840.114 350.1.13.10 4.2.7.2.686 [id number] [facility] 2019-12-10 00:00:00 2019-12-10 00:00:00 Orders Only Doctor Unassigned, [place] [facility] 1.2.840.114 350.1.13.10 4.2.7.2.686 [id number] [facility] 2019-09-04 14:00:09 2019-09-04 14:35:25 Office Visit Ann Hernandez [facility] 1.2.840.114 350.1.13.10 4.2.7.2.686 [id number] [facility] 2019-09-04 00:00:00 2019-09-04 00:00:00 Orders Only Doctor Unassigned, [place] [facility] 1.2.840.114 350.1.13.10 4.2.7.2.686 [id number] [facility] 2019-04-24 15:50:53 2019-04-24 16:37:49 Office Visit Solano [facility] 1.2.840.114 350.1.13.10 4.2.7.2.686 [id number] [facility] 2019-04-23 14:50:35 2019-04-23 15:25:37 Office Visit Solano [facility] 1.2.840.114 350.1.13.10 4.2.7.2.686 [id number] [facility] 2019-04-23 00:00:00 2019-04-23 00:00:00 Letter (Out) Solano [facility] 1.2.840.114 350.1.13.10 4.2.7.2.686 [id number] [facility] 2019-04-23 00:00:00 2019-04-23 00:00:00 Orders Only Doctor Unassigned, [place] [facility] 1.2.840.114 350.1.13.10 4.2.7.2.686 [id number] [facility] 2019-04-20 00:00:00 2019-04-20 00:00:00 Telephone [facility] [facility] [id number] [facility] Results Test Description Test Time Test Comments Results Result Co mments Source [facility]
--- NOTE | 2023-11-16 14:53 | ER ---
[facility] Name: Boni Salgado Age: 23 yrs Sex: Male : 2000 Arrival Date: 11/16/2023 Time: 14:00 Bed IW1 Private MD: Diagnosis: Herpesviral vesicular dermatitis Presentation: 11/15 14:45 Chief complaint: Patient states: Blisters on mouth, noticed this morning. Coronavirus [facility] screen: Vaccine status: Patient reports receiving the 2nd dose of the covid vaccine. Ebola Screen: Patient denies travel to an Ebola-affected area in the 21 days before illness onset. Initial Sepsis Screen: Does the patient meet any 2 criteria? No. Patient's initial sepsis screen is negative. Does the patient have a suspected source of infection? No. Patient's initial sepsis screen is negative. Risk Assessment: Do you want to hurt yourself or someone else? Patient reports no desire to harm self or others. Onset of symptoms was November 16, 2023. 14:45 Method Of Arrival: Ambulatory [facility] 14:45 Acuity: SHERIF 5 [facility] Triage Assessment: 14:50 General: Appears in no apparent distress. comfortable, Behavior is calm, cooperative, nj1 appropriate for age. Historical: - Allergies: 14:49 NKDA; nj1 - PMHx: 14:49 Asthma; nj1 - PSHx: 14:49 Appendectomy; nj1 - Immunization history:: Client reports receiving the 2nd dose of the Covid vaccine. - Infectious Disease History:: Denies. - Social history:: Smoking status: Reported history of juuling and/or vaping. Assessment: 15:15 Reassessment: Patient appears in no apparent distress at this time. Patient is alert, nj1 oriented x 3, equal unlabored respirations, skin warm/dry/pink. Vital Signs: 14:45 BP 137 / 72; Pulse 80; Resp 18; Temp 97.3; Pulse Ox 98% on R/A; Weight 85.73 kg; Height nj1 5 ft. 11 in. ; 14:45 Body Mass Index 26.36 (85.73 kg, 180.34 cm) [facility] ED Course: 14:05 Patient arrived in ED. rg4 14:12 Carol Ann Arauz FNP-C [facility]. kb 14:12 Nino Velázquez MD is Attending Physician. kb 14:49 Triage completed. nj1 14:50 Arm band placed on right wrist. nj1 15:15 No provider procedures requiring assistance completed. nj1 15:15 Patient did not have IV access during this emergency room visit. nj1 Administered Medications: No medications were administered Medication: 15:15 VIS not applicable for this client. nj1 Outcome: 14:53 Discharge ordered by . kb 15:14 Discharged to home ambulatory, nj1 15:14 Condition: stable 15:14 Discharge instructions given to patient, Instructed on discharge instructions, follow up and referral plans. Demonstrated understanding of instructions, follow-up care, 15:15 Patient left the ED. nj1 Signatures: Carol Ann Arauz, [employer]-C [employer]-Marita Ricks rg4 Isaura Bowen, RN RN nj1
--- NOTE | 2023-11-16 14:53 | EDPHYS ---
[facility]ation [facility] Name: Boni Salgado Age: 23 yrs Sex: Male : 2000 Arrival Date: 11/16/2023 Time: 14:00 Bed IW1 Private MD: ED Physician Nino Velázquez HPI: 11/15 17:02 This 23 yrs old Black Male presents to ER via Ambulatory with complaints of Mouth kb Problem. 17:02 Pt is a 23 year old male who presents for blisters on right side of upper lip that kb started this morning. denies any other symptoms. Has never had this before. Historical: - Allergies: 14:49 NKDA; nj1 - PMHx: 14:49 Asthma; nj1 - PSHx: 14:49 Appendectomy; nj1 - Immunization history:: Client reports receiving the 2nd dose of the Covid vaccine. - Infectious Disease History:: Denies. - Social history:: Smoking status: Reported history of juuling and/or vaping. ROS: 17:02 Constitutional: As per HPI kb Exam: 17:02 Constitutional: This is a well developed, well nourished patient who is awake, alert, kb and in no acute distress. Head/Face: Normocephalic, atraumatic. ENT: Moist Mucous membranes Cardiovascular: Regular rate Respiratory: Respirations even and unlabored. No increased work of breathing. Talking in full sentences Abdomen/GI: Soft, non-tender. No distention Skin: Warm, dry with normal turgor. Normal color. MS/ Extremity: Pulses equal, no cyanosis. Neurovascular intact. Full, normal range of motion. Neuro: Awake and alert, GCS 15, oriented to person, place, time, and situation. Moves all extremities. Normal gait. 17:02 ENT: Mouth: Lips: cluster of vesicular lesions to right side of upper lip, Vital Signs: 14:45 BP 137 / 72; Pulse 80; Resp 18; Temp 97.3; Pulse Ox 98% on R/A; Weight 85.73 kg; Height nj1 5 ft. 11 in. ; 14:45 Body Mass Index 26.36 (85.73 kg, 180.34 cm) nj1 MDM: 14:12 Patient medically screened. kb 17:03 Differential diagnosis: herpes, impetigo, abrasion. Data reviewed: vital signs, nurses kb notes. Counseling: I had a detailed discussion with the patient and/or guardian regarding the historical points, exam findings, and any diagnostic results supporting the discharge/admit diagnosis, the need for outpatient follow up, a family practitioner, to return to the emergency department if symptoms worsen or persist or if there are any questions or concerns that arise at home. Administered Medications: No medications were administered Disposition Summary: 11/16/23 14:53 Discharge Ordered Notes: Location: Home kb Condition: Stable kb Diagnosis - Herpesviral vesicular dermatitis kb Followup: kb - With: Emergency Department - When: As needed - Reason: Worsening of condition Followup: kb - With: Private Physician - When: 2 - 3 days - Reason: Recheck today's complaints, Continuance of care, Re-evaluation by your physician Discharge Instructions: - Discharge Summary Sheet kb - Cold Sore, [id number] kb Forms: - Work release form kb - Medication Reconciliation Form kb - Thank You Letter kb - Antibiotic Education kb - Prescription Opioid Use kb - Patient Portal Instructions kb - Leadership Thank You Letter kb Signatures: Carol Ann Arauz FNP-C FNP-Isaura Mazariegos, RN RN nj1
[2023-11-16 18:40] VITALS: BP 137/72; TEMP 97.3; O2SAT 98
== END 2023-11-16 15:15 | disposition home or self-care (01) ==
LOC: ER 14:00
DX: B00.1 Herpesviral vesicular dermatitis (principal)
CPT/HCPCS: 99282

== ENCOUNTER 2024-01-16 23:29 | Emergency (ER) | payer SELFPAY ==
--- OUTSIDE RECORDS SUMMARY | 2024-01-16 23:31 | XMS REPORT | Continuity of Care Document ---
Author Name Unknown Address [address] [place] [address] [facility] thconnect Address [address] [place] [address] Care Team Providers Care Family Helper Name Role Phone ÁNGEL RICHARDSON Primary Care Physician Unava ilJEAN Cates Attending Clinician Unavailab JEAN Potter Attending Clinician Unavailab le 2, Adc Lab Attending Clinician Unavailable Doctor Unassigned, [place] Attending Clinician U navailBHAKTI Childress III Attending Clinician Unavailhina Cooley III, MD, James C Attending Clinician Unknown, Attending Attending Clinician Unavailab pino Provider, [facility] Attending Clinician Unavailable Ame Sinha RN Attending Clinician Unavailable Nurse, [facility] Attending Clinician Un available Only, Prasanna Brown Test Attending Clinician UnavailMillie Chairez MD Attending Clinician [phone] UNKNOWN, ATTENDING Attending Clinician UnavailMILLIE Car Attending Clinician Unavailable Ángel Christensen Attending Clinician ÁNGEL RICHARDSON Attending Clinician UnavailHerlinda Poole Attending Clinician HERLINDA LEMA Attending Clinician Unavailable Nenita Morgan RN Attending Clinician Unavaila Traci Ramirez Attending Clinician TRACI ZHU Attending Clinician Unavailable TERENCE HAN Attending Clinician Unavailable Terence Han MD Attending Clinician [phone] DORINA MILTON Attending Clinician Unavailab Dorina Morris PA-C Attending Clinician [phone] Lab, Adc Fam Pob I Attending Clinician Unavailab Ann Justin MD Attending Clinician [phone] ANN HERNANDEZ Attending Clinician Unavail able Pob, Adc Lab Main Attending Clinician Unavailhina Castillo MD, [place] Attending Clinician + [phone] Payers Payer Name Policy Type Policy Number Effective Date Expirati on Date Source [place] [employer] [id number] 2022 00:00:00 Problems Condition Name Condition Details Condition Category Status Onset Date Resolution Date Last Treatment Date Treating Clinician Comments Source No known active problems No known active problems Disease [facility] Allergies, Adverse Reactions, Alerts Allergy Name Allergy Type Status Severity Reaction(s) Onset Date Inactive Date Treating Clinician Comments Source NO KNOWN ALLERGIE S Drug Class Active [facility] Social History Social Habit Start Date Stop Date Quantity Comments Source Exposure to SARS-CoV-2 (event) 2022-12-14 00:00:00 2022-12-24 14:56:00 Not sure [facility] Tobacco use and exposure 2022-03-06 00:00:00 2022-03-06 00:00:00 Smokeless tobacco non-user [facility] Sex Assigned At 2000 00:00:00 2000 00:00:00 [facility] Smoking Status Start Date Stop Date Source Never smoked tobacco [facility] Medications Ordered Medication Name Filled Medication Name Start Date Stop Date Current Medication? Ordering Clinician Indication Dosage Frequency Signature (SIG) Comments Components Source mupirocin 2 % ointment 12-21 00:00: 00 Yes [id number] Apply to area(s) 3 (three) times daily. [facility] amoxicillin -clavulanat e (AUGMENTIN) 875-125 mg per tablet 12-21 00:00: 00 01-01 04:59 :00 No [id number] 1{tbl} Take 1 tablet by mouth in the morning and 1 tablet in the evening. Do all this for 10 days. [facility] albuterol 90 mcg/actuati on inhaler 08-25 00:00: 00 Yes [id number] 2{puff} Inhale 2 Puffs every 6 (six) hours as needed for Wheezing or Shortness of Breath. [facility] Methylpredn isolone 4 mg tablet 08-25 00:00: 00 08-31 05:59 :00 No [id number] 4mg Take 1 tablet by mouth every 12 (twelve) hours for 5 days. [facility] naproxen 500 mg tablet 2021-08 00:00: 00 Yes [id number] 500mg Take 1 tablet by mouth in the morning and 1 tablet in the evening. Take with meals. [facility] cyclobenzap rine 10 mg tablet 2021-08 00:00: 00 Yes [id number] 10mg Take 1 tablet by mouth at bedtime as needed for Muscle Spasms. [facility] Diclofenac Sodium (VOLTAREN) 1 % gel 2021-08 00:00: 00 Yes [id number] Take 2-4 grams three times a day as needed for pain [facility] clotrimazol e 1 % topical cream 12-18 00:00: 00 Yes [facility] azithromyci n (ZITHROMAX Z-DEANNA) 250 mg tablet 04-24 00:00: 00 Yes [id number] Take 500 mg day 1, then 250 mg days 2 to 5. [facility] acetaminoph en (TYLENOL CHILDREN'S ORAL) 04-23 14:57: 59 Yes Take by mouth. [facility] PROAIR HFA 90 mcg/actuati on inhaler 04-22 00:00: 00 Yes [facility] cetirizine (ZYRTEC) 10 mg tablet 09-10 00:00: 00 Yes [id number] 10mg Take 1 tablet by mouth at bedtime as needed for Allergies or Runny nose. [facility] Vital Signs Vital Name Observation Time Observation Value Francisca farah Systolic blood pressure 2022-12-24 20:14:00 112 mm[Hg] [facility] Diastolic blood pressure 2022-12-24 20:14:00 72 mm[Hg] [facility] Heart rate 2022-12-24 20:14:00 80 /min Un[facility] Body temperature 2022-12-24 20:14:00 36.61 Patricia [facility] Respiratory rate 2022-12-24 20:14:00 18 /min [facility] Body height 2022-12-24 20:14:00 177.8 cm [facility] Body weight 2022-12-24 20:14:00 81.511 kg [facility] BMI 2022-12-24 20:14:00 25.78 kg/m2 [facility] Oxygen saturation in Arterial blood by Pulse oximetry 2022-12-24 20:14:00 99 /min [facility] Systolic blood pressure 2022-12-21 18:06:00 122 mm[Hg] [facility] Diastolic blood pressure 2022-12-21 18:06:00 75 mm[Hg] [facility] Heart rate 2022-12-21 18:06:00 72 /min [facility] Respiratory rate 2022-12-21 18:06:00 18 /min [facility] Body weight 2022-12-21 18:06:00 81.647 kg [facility] Oxygen saturation in Arterial blood by Pulse oximetry 2022-12-21 18:06:00 100 /min [facility] Systolic blood pressure 2022-08-25 16:53:00 132 mm[Hg] [facility] Diastolic blood pressure 2022-08-25 16:53:00 77 mm[Hg] [facility] Heart rate 2022-08-25 16:53:00 89 /min [facility] Body temperature 2022-08-25 16:53:00 36.56 Patricia [facility] Respiratory rate 2022-08-25 16:53:00 18 /min [facility] Body height 2022-08-25 16:53:00 177.8 cm [facility] Body weight 2022-08-25 16:53:00 87.544 kg [facility] BMI 2022-08-25 16:53:00 27.69 kg/m2 [facility] Oxygen saturation in Arterial blood by Pulse oximetry 2022-08-25 16:53:00 96 /min [facility] Systolic blood pressure 2022-06-29 20:38:00 132 mm[Hg] [facility] Diastolic blood pressure 2022-06-29 20:38:00 89 mm[Hg] [facility] Heart rate 2022-06-29 20:38:00 98 /[facility] 2022-06-29 20:38:00 18 /min [facility] Body weight 2022-06-29 20:38:00 86.183 kg [facility] Oxygen saturation in Arterial blood by Pulse oximetry 2022-06-29 20:38:00 99 /min [facility] Systolic blood pressure 2022-03-06 16:11:00 126 mm[Hg] [facility] Diastolic blood pressure 2022-03-06 16:11:00 81 mm[Hg] [facility] Heart rate 2022-03-06 16:11:00 70 /min [facility] Respiratory rate 2022-03-06 16:11:00 18 /min [facility] Body weight 2022-03-06 16:11:00 82.373 kg [facility] Oxygen saturation in Arterial blood by Pulse oximetry 2022-03-06 16:11:00 98 /min [facility] Procedures Procedure Date / Time Performed Performing Clinicia n Source TDAP VACCINE, >11 YRS, IM 2022-12-21 18:59:57 Jean Baumann [facility] ASSIGNMENT OF BENEFITS 2022-12-21 17:37:24 Docto r Unassigned, [place] [facility] POCT MOLECULAR FLU 2022-08-25 17:01:00 Unknown, Attend ing [facility] MEDICAL RELEASE/CLEARANCE FORMS 2022-06-29 06:01:00 Doctor Unassigned, [place] [facility] EXTERNAL PROVIDER RECORDS 2022-03-07 05:01:00 Doctor Unassigned, [place] [facility] Encounters Start Date/Time End Date/Time Encounter Type Admission Type Attending [facility] Care Facility Care Department Encounter ID Source 2023-01-16 13:30:00 2023-01-16 13:30:00 Outpatient R IBISWILLNYLA BAUMANN REJIJAN [facility] [id number] [facility] 2022-12-24 15:45:00 2022-12-24 16:00:00 Life Enrichment Specialist Visit 2, Adc Lab Jean Baumann [facility] 1.2.840.114 350.1.13.10 4.2.7.2.686 [id number] [facility] 2022-12-24 15:00:00 2022-12-24 15:30:00 Office Visit Ibis, Jean [facility] 1.2.840.114 350.1.13.10 4.2.7.2.686 [id number] [facility] 2022-12-24 15:00:00 2022-12-24 15:00:00 Outpatient R IBIS WILLNYLA BAUMANN REJIJAN [facility] [id number] [facility] 2022-12-21 14:15:00 2022-12-21 14:30:00 Life Enrichment Specialist Visit 2, Adc Lab Reji Baumannjeremyhai [facility] 1.2.840.114 350.1.13.10 4.2.7.2.686 [id number] [facility] 2022-12-21 12:00:00 2022-12-21 13:58:34 Outpatient R JEAN BAUMANN OGECHUKWU [facility] [id number] [facility] 2022-12-21 12:00:00 2022-12-21 13:58:34 Office Visit Jean Baumann [facility] 1.2840.114 350.1.13.10 4.2.7.2.686 [id number] [facility] 2022-12-21 00:00:00 2022-12-21 00:00:00 Orders Only Doctor Unassigned, [place] [facility] [id number] 350.1.13.10 4.2.7.2.686 [id number] [facility] 2022-08-25 11:00:00 2022-08-25 11:58:10 Outpatient R BHAKTI COOLEY III [facility] [id number] [facility] 2022-08-25 11:00:00 2022-08-25 11:58:10 Urgent Care Bhakti Cooley Unknown, Attending [facility] [id number] 350.1.13.10 4.2.7.2.686 [id number] [facility] 2022-08-25 00:00:00 2022-08-25 00:00:00 Letter (Out) Bhakti Cooley [facility] 1.284.114 350.1.13.10 4.2.7.2.686 [id number] [facility] 2022-08-25 00:00:00 2022-08-25 00:00:00 Letter (Out) Prasanna Pittman Urgent Care [facility] 1.284.114 350.1.13.10 4.2.7.2.686 [id number] [facility] 2022-07-04 00:00:00 2022-07-04 00:00:00 Letter (Out) Ernestine Ame [facility] 1.840.114 350.1.13.10 4.2.7.2.686 [id number] [facility] 2022-07-04 00:00:00 2022-07-04 00:00:00 Telephone Nurse, Ang Db Urgent Care [facility] 1.840.114 350.1.13.10 4.2.7.2.686 [id number] [facility] 2022-07-04 00:00:00 2022-07-04 00:00:00 Letter (Out) Provider, Prasanna Brown [facility] 1.840.114 350.1.13.10 4.2.7.2.686 [id number] [facility] 2022-07-03 11:00:00 2022-07-03 11:15:00 Laboratory Only Only, Ang Db Test Unknown, Attending Michael Millie [facility] 1.840.114 350.1.13.10 4.2.7.2.686 [id number] [facility] 2022-07-03 11:00:00 2022-07-03 11:00:00 Outpatient R MILLIE RODRIGUEZ [facility] [id number] [facility] 2022-06-29 15:00:00 2022-06-29 15:49:30 Outpatient R JEAN BAUMANN OGECHUKWU [facility] [id number] [facility] 2022-06-29 15:00:00 2022-06-29 15:49:30 Office Visit Jean Baumann [facility] 1.840.114 350.1.13.10 4.2.7.2.686 [id number] [facility] 2022-06-29 09:00:00 2022-06-29 09:00:00 Outpatient R IBIS JEAN BAUMANN JEAN [facility] [id number] [facility] 2022-06-29 00:00:00 2022-06-29 00:00:00 Orders Only Doctor Unassigned, [place] [facility] 1.2840.114 350.1.13.10 4.2.7.2.686 [id number] [facility] 2022-06-05 13:00:00 2022-06-05 13:00:00 Outpatient R SHEA, CHARLES [facility] [id number] [facility] 2022-03-07 00:00:00 2022-03-07 00:00:00 Telephone Debra Ángel [facility] 1.2840.114 350.1.13.10 4.2.7.2.686 [id number] [facility] 2022-03-07 00:00:00 2022-03-07 00:00:00 Orders Only Doctor Unassigned, [place] [facility] 1.2840.114 350.1.13.10 4.2.7.2.686 [id number] [facility] 2022-03-07 00:00:00 2022-03-07 00:00:00 Letter (Out) Debra [facility] [place] [facility] 1.2840.114 350.1.13.10 4.2.7.2.686 [id number] [facility] 2022-03-06 10:40:00 2022-03-06 11:18:26 [facility] [id number] 2022-03-06 10:40:00 2022-03-06 11:18:26 Office Visit Ángel Richardson [facility] 1.2.840.114 350.1.13.10 4.2.7.2.686 [id number] [facility] 2022 00:00:00 2022 00:00:00 Letter (Out) Provider, Prasanna Brown Urgent Care [facility] 1.2840.114 350.1.13.10 4.2.7.2.686 [id number] [facility] 2022-02-01 00:00:00 2022-02-01 00:00:00 Telephone Ángel Richardson [facility] 1.2840.114 350.1.13.10 4.2.7.2.686 [id number] [facility] 2022-01-31 17:20:00 2022-01-31 17:40:00 Urgent Care Pita [facility] 1.2840.114 350.1.13.10 4.2.7.2.686 [id number] [facility] 2022-01-31 17:20:00 2022-01-31 17:11:16 Outpatient R PITA HERLINDA [facility] [id number] [facility] 2021-12-20 00:00:00 2021-12-20 00:00:00 Telephone Nenita Morgan [facility] 1.2840.114 350.1.13.10 4.2.7.2.686 [id number] [facility] 2021-12-20 00:00:00 2021-12-20 00:00:00 Telephone Traci Zhu [facility] 1.2840.114 350.1.13.10 4.2.7.2.686 [id number] [facility] 2021-12-19 17:20:00 2021-12-19 18:27:41 Outpatient R LIZZETTEJONNY TRACI [facility] [id number] [facility] 2021-12-19 17:20:00 2021-12-19 17:40:00 [facility] 1.2.840.114 350.1.13.10 4.2.7.2.686 [id number] [facility] 2021-10-11 14:20:00 2021-10-11 14:48:00 Outpatient R TERENCE HAN [facility] [id number] [facility] 2021-10-11 14:20:00 2021-10-11 14:48:00 Office Visit Terence Han [facility] 1.2.840.114 350.1.13.10 4.2.7.2.686 [id number] [facility] 2021-10-11 00:00:00 2021-10-11 00:00:00 Letter (Out) Emely [facility]ne [facility] 1..840.114 350.1.13.10 4.2.7.2.686 [id number] [facility] 2021-09-12 10:10:00 2021-09-12 10:46:20 Outpatient R DORINA MILTON [facility] [id number] [facility] 2021-09-12 10:10:00 2021-09-12 10:46:20 Office Visit Dorina Milton [facility] 1.2.840.114 350.1.13.10 4.2.7.2.686 [id number] [facility] 2021-09-12 00:00:00 2021-09-12 00:00:00 Orders Only Doctor Unassigned, [place] [facility] 1.2840.114 350.1.13.10 4.2.7.2.686 [id number] [facility] 2021-08-23 16:00:00 2021-08-23 16:00:00 Outpatient TERENCE ACKERMAN [facility] [id number] [facility] 2021-08-23 08:00:00 2021-08-23 08:00:00 Outpatient TERENCE ACKERMAN [facility] [id number] [facility] 2021-07-25 08:00:00 2021-07-25 08:00:00 Outpatient TERENCE ACKERMAN [facility] [id number] [facility] 2021-03-17 11:20:04 2021-03-17 11:40:04 Laboratory Only Lab, Adc [facility] Dano Rodriguez [facility] Office Building [facility] 1..840.114 350.1.13.10 4.2.7.2.686 [id number] [facility] 2021-03-17 11:40:00 2021-03-17 11:40:00 Outpatient Alejandro RODRIGUEZ [facility] [id number] [facility] 2020-12-06 00:00:00 2020-12-06 00:00:[address] [facility] 1.2840.114 350.1.13.10 4.2.7.2.686 [id number] 2020-12-06 00:00:00 2020-12-06 00:00:[address] [facility] 1.2840.114 350.1.13.10 4.2.7.2.686 [id number] [facility] 2020-12-05 15:12:09 2020-12-05 15:55:16 Office Visit Ann Hernandez [facility] 1.2.840.114 350.1.13.10 4.2.7.2.686 [id number] 2020-12-05 15:12:09 2020-12-05 15:55:16 Office Visit Ann Hernandez [facility] 1.2.840.114 350.1.13.10 4.2.7.2.686 [id number] [facility] 2020-12-05 15:20:00 2020-12-05 15:20:00 Outpatient R ANN HERNANDEZ [facility] [id number] [facility] 2020-11-29 10:40:00 2020-11-29 10:40:00 Outpatient Alejandro SOLANO ÁNGEL [facility] [id number] [facility] 2020-11-24 00:00:00 2020-11-24 00:00:[address] [facility] 1.2.840.114 350.1.13.10 4.2.7.2.686 [id number] [facility] 2020-11-16 00:00:00 2020-11-16 00:00:00 Telephone Dk, [facility] 1.2.840.114 350.1.13.10 4.2.7.2.686 [id number] [facility] 2020-11-15 10:08:10 2020-11-15 10:46:44 Office Visit Dk Ángel [facility] 1.2.840.114 350.1.13.10 4.2.7.2.686 [id number] [facility] 2020-11-15 10:20:00 2020-11-15 10:20:00 Outpatient R SOLANO [facility] [id number] [facility] 2020-09-27 16:00:00 2020-09-27 16:00:00 [facility] [id number] [facility] 2020-09-22 13:57:56 2020-09-22 14:12:56 Life Enrichment Specialist Visit Sarah Beth, Ira Lab Main Solano [facility] 1.2840.114 350.1.13.10 4.2.7.2.686 [id number] [facility] 2020-09-22 14:00:00 2020-09-22 14:00:00 Outpatient R SOLANO [facility] [id number] [facility] 2020-09-21 15:08:11 2020-09-21 15:47:29 Office Visit Solano [facility] 1.20.114 350.1.13.10 4.2.7.2.686 [id number] [facility] 2020-09-21 15:20:00 2020-09-21 15:20:00 Outpatient R SOLANO [facility] [id number] [facility] 2020-09-21 08:00:00 2020-09-21 08:00:00 [facility] [id number] [facility] 2020-08-19 00:00:00 2020-08-19 00:00:00 Letter (Out) Dk [facility] 1.20.114 350.1.13.10 4.2.7.2.686 [id number] [facility] 2020-08-18 00:00:00 2020-08-18 00:00:00 Letter (Out) Ann Hernandez [facility] 1.2840.114 350.1.13.10 4.2.7.2.686 [id number] [facility] 2020-08-18 00:00:00 2020-08-18 00:00:[address] [facility] 1.2.840.114 350.1.13.10 4.2.7.2.686 [id number] [facility] 2020-08-16 13:22:21 2020-08-16 13:48:03 Office Visit HernandezAnn george [facility] 1.2.840.114 350.1.13.10 4.2.7.2.686 [id number] [facility] 2020-08-16 13:20:00 2020-08-16 13:20:00 Outpatient R HERNANDEZ ANN [facility] [id number] [facility] 2020-08-16 00:00:00 2020-08-16 00:00:00 Orders Only Doctor Unassigned, [place] [facility] 1.2.840.114 350.1.13.10 4.2.7.2.686 [id number] [facility] 2020-08-16 00:00:00 2020-08-16 00:00:00 Letter (Out) Ann Hernandez [facility] 1.2.840.114 350.1.13.10 4.2.7.2.686 [id number] [facility] 2020-05-30 00:00:00 2020-05-30 00:00:00 Orders Only Doctor Unassigned, [place] [facility] 1.2.840.114 350.1.13.10 4.2.7.2.686 [id number] [facility] 2020-05-11 00:00:00 2020-05-11 00:00:00 Telephone Ángel Solano [facility] 1.2.840.114 350.1.13.10 4.2.7.2.686 [id number] [facility] 2020-05-11 00:00:00 2020-05-11 00:00:00 Orders Only Doctor Unassigned, [place] [facility] 1.2.840.114 350.1.13.10 4.2.7.2.686 [id number] [facility] 2019-12-10 00:00:00 2019-12-10 00:00:00 Orders Only Doctor Unassigned, [place] [facility] 1.2.840.114 350.1.13.10 4.2.7.2.686 [id number] [facility] 2019-09-04 14:00:09 2019-09-04 14:35:25 Office [address] Ann Hernandez [facility] 1.2.840.114 350.1.13.10 4.2.7.2.686 [id number] [facility] 2019-09-04 00:00:00 2019-09-04 00:00:00 Orders Only Doctor Unassigned, [place] [facility] 1.2.840.114 350.1.13.10 4.2.7.2.686 [id number] [facility] 2019-04-24 15:50:53 2019-04-24 16:37:49 Office Visit Solano [facility] 1.2.840.114 350.1.13.10 4.2.7.2.686 [id number] [facility] 2019-04-23 14:50:35 2019-04-23 15:25:37 Office Visit Solano [facility] 1.2.840.114 350.1.13.10 4.2.7.2.686 [id number] [facility] 2019-04-23 00:00:00 2019-04-23 00:00:00 Letter (Out) Solano [facility] 1.2840.114 350.1.13.10 4.2.7.2.686 [id number] [facility] 2019-04-23 00:00:00 2019-04-23 00:00:00 Orders Only Doctor Unassigned, [place] [facility] [id number] [facility] 2019-04-20 00:00:00 2019-04-20 00:00:[address] [facility] [id number] [facility] Results Test Description Test Time Test Comments Results Result Co mments Source [facility]
[2024-01-17] MEDS ORDERED: LIDOCAINE VISCOUS 2% 10ML ORAL SOLN ONE (00:05)
--- NOTE | 2024-01-17 00:38 | ER ---
Nurse's Notes [facility] Name: Boni Salgado Age: 23 yrs Sex: Male : 2000 Arrival Date: 01/16/2024 Time: 23:29 Bed 11 Private MD: Diagnosis: Acute pharyngitis, unspecified;Viral infection, unspecified Presentation: 01/15 23:37 Chief complaint: Patient states: sore throat and diffuse abd pain x2 days. denies n/v/d kc6 or fever. Coronavirus screen: At this time, the client does not indicate any symptoms associated with coronavirus-19. Ebola Screen: No symptoms or risks identified at this time. Initial Sepsis Screen: Does the patient meet any 2 criteria? No. Patient's initial sepsis screen is negative. Does the patient have a suspected source of infection? No. Patient's initial sepsis screen is negative. Risk Assessment: Do you want to hurt yourself or someone else? Patient reports no desire to harm self or others. Onset of symptoms was January 16, 2024. 23:37 Method Of Arrival: Ambulatory [facility] 23:37 Acuity: SHERIF 3 kc6 Triage Assessment: 23:39 General: Appears in no apparent distress. comfortable, well groomed, well developed, [facility] Behavior is calm, cooperative, appropriate for age. Pain: Complains of pain in abdomen. EENT: Reports difficulty swallowing. Historical: - Allergies: 23:39 NKDA; kc6 - PMHx: 23:39 Asthma; kc6 - PSHx: 23:39 Appendectomy; kc6 - Immunization history:: Adult Immunizations up to date. - Infectious Disease History:: Denies. - Social history:: Smoking status: Reported history of juuling and/or vaping. Screenin/07 00:20 [facility] ED Fall Risk Assessment (Adult) History of falling in the last 3 months, kb3 including since admission No falls in past 3 months (0 pts) Confusion or Disorientation No (0 pts) Intoxicated or Sedated No (0 pts) Impaired Gait No (0 pts) Mobility Assist Device Used No (0 pt) Altered Elimination No (0 pt) Score/Fall Risk Level 0 - 2 = Low Risk Oriented to surroundings. Abuse screen: Denies threats or abuse. Denies injuries from another. Nutritional screening: No deficits noted. Tuberculosis screening: No symptoms or risk factors identified. Assessment: 00:20 General: Appears in no apparent distress. Behavior is calm, cooperative. Respiratory: kb3 Airway is patent Respiratory effort is even, unlabored, Breath sounds are clear. EENT: Throat is clear is pink. Vital Signs: 01/15 23:37 BP 133 / 83; Pulse 98; Resp 19 S; Temp 98.6(O); Pulse Ox 99% on R/A; Weight 77.11 kg [facility] (R); Height 5 ft. 11 in. (R); Pain /; 01/16 01:00 BP 127 / 80; Pulse 70; Resp 18; Temp 98; Pulse Ox 100% ; kb3 01/15 23:37 Body Mass Index 23.71 (77.11 kg, 180.34 cm) [facility] 01/15 23:37 Pain Scale: Adult [facility] ED Course: 01/15 23:34 Patient arrived in ED. ra3 23:39 Triage completed. kc6 23:39 Arm band placed on. kc6 23:44 Sisi Das PA-C is PHCP. sb4 23:44 Satinder Sheffield MD is Attending Physician. sb4 01/16 00:12 Strep Sent. kb3 00:20 Patient has correct armband on for positive identification. Provided Education on: kb3 Strep test. 00:20 No provider procedures requiring assistance completed. Patient did not have IV access kb3 during this emergency room visit. Administered Medications: 00:12 Drug: Viscous Lidocaine Mucous Membrane Liquid (4 %) 5 ml Mucous Membrane once Route: kb3 Mucous Membrane; 01:00 Follow up: Response: No adverse reaction; Pain is decreased kb3 Medication: 00:20 VIS not applicable for this client. kb3 Outcome: 00:37 Discharge ordered by . sb4 01:00 Discharged to home ambulatory, kb3 01:00 Condition: stable 01:00 Discharge instructions given to patient, Instructed on discharge instructions, follow up and referral plans. medication usage, Demonstrated understanding of instructions, follow-up care, medications, 01:19 Patient left the ED. kb3 Signatures: Cassidy Biswas RN RN kc6 Elizabeth Allison RN RN kb3 Sisi Das PA-C PA-C sb4 Elizabeth Garcia ra3 Corrections: (The following items were deleted from the chart) 06/06 23:39 23:39 PSHx: Appendectomy; kc6 kc6
--- NOTE | 2024-01-17 00:38 | EDPHYS ---
Physician Documentation [facility] Name: Boni Salgado Age: 23 yrs Sex: Male : 2000 Arrival Date: 01/16/2024 Time: 23:29 Bed 11 Private MD: ED Physician Satinder Sheffield HPI: 01/15 23:55 This 23 yrs old Black Male presents to ER via Ambulatory with complaints of Sore Throat.sb4 23:55 sore throat x 2 days. also reports intermittent abdominal cramping and headache. sb4 girlfriend with similar symptoms. denies any fever or other URI symptoms. no n/v/d. Historical: - Allergies: 23:39 NKDA; kc6 - PMHx: 23:39 Asthma; kc6 - PSHx: 23:39 Appendectomy; kc6 - Immunization history:: Adult Immunizations up to date. - Infectious Disease History:: Denies. - Social history:: Smoking status: Reported history of juuling and/or vaping. ROS: 23:55 Constitutional: Negative for fever, chills, and weight loss, sb4 23:55 ENT: Positive for sore throat, 23:55 Abdomen/GI: Positive for abdominal pain, 23:55 Neuro: Positive for headache, 23:55 All other systems are negative, Exam: 23:55 Constitutional: This is a well developed, well nourished patient who is awake, alert, sb4 and in no acute distress. Head/Face: Normocephalic, atraumatic. Eyes: Extra-ocular motions intact. Periorbital areas with no swelling, redness, or edema. Abdomen/GI: Soft, non-tender, no distension. Skin: Warm, dry with normal turgor. Normal color with no rashes, no lesions, and no evidence of cellulitis. MS/ Extremity: Pulses equal, no cyanosis. Neurovascular intact. Full, normal range of motion. Neuro: Awake and alert, GCS 15, oriented to person, place, time, and situation. Motor strength 5/5 in all extremities. Sensory grossly intact. 23:55 ENT: Posterior pharynx: Airway: normal, no evidence of obstruction, Tonsils: with erythema, erythema, that is moderate, Vital Signs: 23:37 BP 133 / 83; Pulse 98; Resp 19 S; Temp 98.6(O); Pulse Ox 99% on R/A; Weight 77.11 kg kc6 (R); Height 5 ft. 11 in. (R); Pain 11/19; 01/16 01:00 BP 127 / 80; Pulse 70; Resp 18; Temp 98; Pulse Ox 100% ; kb3 01/15 23:37 Body Mass Index 23.71 (77.11 kg, 180.34 cm) kc6 01/15 23:37 Pain Scale: Adult kc6 MDM: 01/15 23:44 Patient medically screened. sb4 01/16 00:37 Data reviewed: vital signs, nurses notes, lab test result(s), and as a result, I will sb4 discharge patient. Counseling: I had a detailed discussion with the patient and/or guardian regarding the historical points, exam findings, and any diagnostic results supporting the discharge/admit diagnosis, lab results, to return to the emergency department if symptoms worsen or persist or if there are any questions or concerns that arise at home. 01/15 23:55 Order name: Strep sb4 01/16 00:35 Order name: Throat Culture EDMS Administered Medications: 00:12 Drug: Viscous Lidocaine Mucous Membrane Liquid (4 %) 5 ml Mucous Membrane once Route: kb3 Mucous Membrane; 01:00 Follow up: Response: No adverse reaction; Pain is decreased kb3 Disposition: 02:05 Co-signature as Attending Physician, Satinder Sheffield MD I agree with the assessment sp4 and plan of care. I reviewed the patient's care provided by the Advanced Practice Provider and agree with the diagnosis and treatment plan. Disposition Summary: 01/17/24 00:37 Discharge Ordered Notes: Location: Home sb4 Problem: new sb4 Symptoms: have improved sb4 Condition: Stable sb4 Diagnosis - Acute pharyngitis, unspecified sb4 - Viral infection, unspecified sb4 Followup: sb4 - With: Emergency Department - When: As needed - Reason: Trouble breathing, Worsening of condition Discharge Instructions: - Discharge Summary Sheet sb4 - Pharyngitis, Fdkg-to-Xuqh sb4 - Viral Illness, Adult sb4 Forms: - Work release form sb4 - Patient Portal Instructions sb4 - Leadership Thank You Letter sb4 Signatures: Dispatcher [employer] Cassidy Ortega RN RN kc6 Elizabeth Allison RN RN kb3 Sisi Das, PA-C PA-C sb4 Satinder Sheffield MD MD sp4 Corrections: (The following items were deleted from the chart) 01/15 23:39 23:39 PSHx: Appendectomy; kc6 kc6
[2024-01-17 01:39] VITALS: BP 127/80; TEMP 98; O2SAT 100
== END 2024-01-17 01:19 | disposition home or self-care (01) ==
LOC: ER 23:29
DX: J02.9 Acute pharyngitis, unspecified (principal); B34.9 Viral infection, unspecified; J45.909 Unspecified asthma, uncomplicated
CPT/HCPCS: 87070; 87081; 99283

== ENCOUNTER 2024-06-02 07:21 | Emergency (ER) | payer SELFPAY ==
--- OUTSIDE RECORDS SUMMARY | 2024-06-02 07:24 | XMS REPORT | Continuity of Care Document ---
Author Name Unknown Address [address] [facility] [address] [place] [address] [facility] thconnect Address [address] [facility] [address] [place] [address] Care Team Providers Care Telephone Lines Repairer Name Role Phone ÁNGEL RICHARDSON Primary Care Physician Unava ilJEAN Cates Attending Clinician Unavailab JEAN Potter Attending Clinician Unavailab le 2, Adc Lab Attending Clinician Unavailable Doctor Unassigned, Dudley Attending Clinician U BHAKTI Feliz III Attending Clinician Unavailhina Cooley III, MD, Bhakti Price Attending Clinician [phone] Unknown, Attending Attending Clinician Unavailab pino Provider, [facility] Attending Clinician Unavailable Ame Sinha RN Attending Clinician Unavailable Nurse, [facility] Attending Clinician Un available Only, [facility] Test Attending Clinician UnavailMillie Chairez MD Attending Clinician [phone] UNKNOWN, ATTENDING Attending Clinician UnavailMILLIE Car Attending Clinician Unavailable Ángel Christensen Attending Clinician [phone] ÁNGEL RICHARDSON Attending Clinician UnavailHerlinda Poole Attending Clinician [phone] HERLINDA ELMA Attending Clinician Unavailable Nenita Morgan RN Attending Clinician Unavaila Traci Ramirez Attending Clinician [phone] TRACI ZHU Attending Clinician Unavailable TERENCE HAN Attending Clinician Unavailable Terence Han MD Attending Clinician [phone] DORINA MILTON Attending Clinician Unavailab Dorina Morris PA-C Attending Clinician [phone] Lab, Adc Fam Pob I Attending Clinician Unavailab Ann Justin MD Attending Clinician [phone] ANN HERNANDEZ Attending Clinician Unavail able Pob, Adc Lab Main Attending Clinician UnavailLexus Castillo MD Attending Clinician + [phone] Payers Payer Name Policy Type Policy Number Effective Date Expirati on Date Source [place] [employer] [id number] 2022 00:00:00 Problems Condition Name Condition Details Condition Category Status Onset Date Resolution Date Last Treatment Date Treating Clinician Comments Source No known active problems No known active problems Disease [facility] Allergies, Adverse Reactions, Alerts Allergy Name Allergy Type Status Severity Reaction(s) Onset Date Inactive Date Treating Clinician Comments Source NO KNOWN ALLERGIE S Drug Class Active [facility] Social History Social Habit Start Date Stop Date Quantity Comments Source Exposure to SARS-CoV-2 (event) 2022-12-14 00:00:00 2022-12-24 14:56:00 Not sure [facility] Tobacco use and exposure 2022-03-06 00:00:00 2022-03-06 00:00:00 Smokeless tobacco non-user [facility] Sex Assigned At 2002 00:00:00 2000 00:00:00 [facility] Smoking Status Start Date Stop Date Source Never smoked tobacco [facility] Medications Ordered Medication Name Filled Medication Name Start Date Stop Date Current Medication? Ordering Clinician Indication Dosage Frequency Signature (SIG) Comments Components Source mupirocin 2 % ointment 12-21 00:00: 00 Yes [id number] Apply to area(s) 3 (three) times daily. [facility] amoxicillin -clavulanat e (AUGMENTIN) 875-125 mg per tablet 12-21 00:00: 00 01-01 04:59 :00 No [id number] 1{tbl} Take 1 tablet by mouth in the morning and 1 tablet in the evening. Do all this for 10 days. [facility] albuterol 90 mcg/actuati on inhaler 08-25 00:00: 00 Yes [id number] 2{puff} Inhale 2 Puffs every 6 (six) hours as needed for Wheezing or Shortness of Breath. [facility] Methylpredn isolone 4 mg tablet 08-25 00:00: 00 08-31 05:59 :00 No [id number] 4mg Take 1 tablet by mouth every 12 (twelve) hours for 5 days. [facility] naproxen 500 mg tablet 2021-08 00:00: 00 Yes [id number] 500mg Take 1 tablet by mouth in the morning and 1 tablet in the evening. Take with meals. [facility] cyclobenzap rine 10 mg tablet 2021-08 00:00: 00 Yes [id number] 10mg Take 1 tablet by mouth at bedtime as needed for Muscle Spasms. [facility] Diclofenac Sodium (VOLTAREN) 1 % gel 2021-08 00:00: 00 Yes [id number] Take 2-4 grams three times a day as needed for pain [facility] clotrimazol e 1 % topical cream 12-18 00:00: 00 Yes [facility] azithromyci n (ZITHROMAX Z-DEANNA) 250 mg tablet 04-24 00:00: 00 Yes [id number] Take 500 mg day 1, then 250 mg days 2 to 5. [facility] acetaminoph en (TYLENOL CHILDREN'S ORAL) 04-23 14:57: 59 Yes Take by mouth. [facility] PROAIR HFA 90 mcg/actuati on inhaler 04-22 00:00: 00 Yes [facility] cetirizine (ZYRTEC) 10 mg tablet 09-10 00:00: 00 Yes [id number] 10mg Take 1 tablet by mouth at bedtime as needed for Allergies or Runny nose. [facility] Vital Signs Vital Name Observation Time Observation Value Comments S gagan Systolic blood pressure 2022-12-24 20:14:00 112 mm[Hg] [facility] Diastolic blood pressure 2022-12-24 20:14:00 72 mm[Hg] [facility] Heart rate 2022-12-24 20:14:00 80 /min Unive [facility] Body temperature 2022-12-24 20:14:00 36.61 Patricia [facility] Respiratory rate 2022-12-24 20:14:00 18 /min [facility] Body height 2022-12-24 20:14:00 177.8 cm [facility] Body weight 2022-12-24 20:14:00 81.511 kg [facility] BMI 2022-12-24 20:14:00 25.78 kg/m2 [facility] Oxygen saturation in Arterial blood by Pulse oximetry 2022-12-24 20:14:00 99 /min [facility] Systolic blood pressure 2022-12-21 18:06:00 122 mm[Hg] [facility] Diastolic blood pressure 2022-12-21 18:06:00 75 mm[Hg] [facility] Heart rate 2022-12-21 18:06:00 72 /min Unive [facility] Respiratory rate 2022-12-21 18:06:00 18 /min [facility] Body weight 2022-12-21 18:06:00 81.647 kg [facility] Oxygen saturation in Arterial blood by Pulse oximetry 2022-12-21 18:06:00 100 /min [facility] Systolic blood pressure 2022-08-25 16:53:00 132 mm[Hg] [facility] Diastolic blood pressure 2022-08-25 16:53:00 77 mm[Hg] [facility] Heart rate 2022-08-25 16:53:00 89 /min Unive [facility] Body temperature 2022-08-25 16:53:00 36.56 Patricia [facility] Respiratory rate 2022-08-25 16:53:00 18 /min [facility] Body height 2022-08-25 16:53:00 177.8 cm [facility] Body weight 2022-08-25 16:53:00 87.544 kg [facility] BMI 2022-08-25 16:53:00 27.69 kg/m2 [facility] Oxygen saturation in Arterial blood by Pulse oximetry 2022-08-25 16:53:00 96 /min [facility] Systolic blood pressure 2022-06-29 20:38:00 132 mm[Hg] [facility] Diastolic blood pressure 2022-06-29 20:38:00 89 mm[Hg] [facility] Heart rate 2022-06-29 20:38:00 98 /min [facility] Respiratory rate 2022-06-29 20:38:00 18 /min [facility] Body weight 2022-06-29 20:38:00 86.183 kg [facility] Oxygen saturation in Arterial blood by Pulse oximetry 2022-06-29 20:38:00 99 /min [facility] Systolic blood pressure 2022-03-06 16:11:00 126 mm[Hg] [facility] Diastolic blood pressure 2022-03-06 16:11:00 81 mm[Hg] [facility] Heart rate 2022-03-06 16:11:00 70 /min [facility] Respiratory rate 2022-03-06 16:11:00 18 /min [facility] Body weight 2022-03-06 16:11:00 82.373 kg [facility] Oxygen saturation in Arterial blood by Pulse oximetry 2022-03-06 16:11:00 98 /min [facility] Procedures Procedure Date / Time Performed Performing Clinicia n Source TDAP VACCINE, >11 YRS, IM 2022-12-21 18:59:57 Jean Baumann [facility] ASSIGNMENT OF BENEFITS 2022-12-21 17:37:24 Docto r Unassigned, Dudley [facility] POCT MOLECULAR FLU 2022-08-25 17:01:00 Unknown, Attend ing [facility] MEDICAL RELEASE/CLEARANCE FORMS 2022-06-29 06:01:00 Doctor Unassigned, Dudley [facility] EXTERNAL PROVIDER RECORDS 2022-03-07 05:01:00 Doctor Unassigned, Dudley [facility] Encounters Start Date/Time End Date/Time Encounter Type Admission Type Attending [facility] Care Facility Care Department Encounter ID Source 2023-01-16 13:30:00 2023-01-16 13:30:00 Outpatient R IBISSRIDHARSRIDHAR ROQUEDANNYJAN [facility] [id number] [facility] 2022-12-24 15:45:00 2022-12-24 16:00:00 Support Services Specialist Visit 2, [facility] 1.2.840.114 350.1.13.10 4.2.7.2.686 [id number] [facility] 2022-12-24 15:00:00 2022-12-24 15:30:00 Office Visit Ibis Sridharjaijonathan [facility] 1.2.840.114 350.1.13.10 4.2.7.2.686 [id number] [facility] 2022-12-24 15:00:00 2022-12-24 15:00:00 Outpatient R JEAN BAUMANN OGJAIJONATHAN [facility] [id number] [facility] 2022-12-21 14:15:00 2022-12-21 14:30:00 Support Services Specialist Visit 2, Adc Lab Fernandez Baumannjeremyhai [facility] 1.2.840.114 350.1.13.10 4.2.7.2.686 [id number] [facility] 2022-12-21 12:00:00 2022-12-21 13:58:34 Outpatient R JEAN BAUMANN OGECHUKWU [facility] [id number] [facility] 2022-12-21 12:00:00 2022-12-21 13:58:34 Office Visit Jean Baumann [facility] 1.2.840.114 350.1.13.10 4.2.7.2.686 [id number] [facility] 2022-12-21 00:00:00 2022-12-21 00:00:00 Orders Only Doctor Unassigned, Dudley [facility] 1.284.114 350.1.13.10 4.2.7.2.686 [id number] [facility] 2022-08-25 11:00:00 2022-08-25 11:58:10 Outpatient BHAKTI OSULLIVAN III [facility] [id number] [facility] 2022-08-25 11:00:00 2022-08-25 11:58:10 Urgent Care Bhakti Cooley Unknown, Attending [facility] 1.84.114 350.1.13.10 4.2.7.2.686 [id number] [facility] 2022-08-25 00:00:00 2022-08-25 00:00:00 Letter (Out) Bhakti Cooley [facility] 1.284.114 350.1.13.10 4.2.7.2.686 [id number] [facility] 2022-08-25 00:00:00 2022-08-25 00:00:00 Letter (Out) Prasanna Pittman [facility] 1.2840.114 350.1.13.10 4.2.7.2.686 [id number] [facility] 2022-07-04 00:00:00 2022-07-04 00:00:00 Letter (Out) Ernestine Ame [facility] 1.84.114 350.1.13.10 4.2.7.2.686 [id number] [facility] 2022-07-04 00:00:00 2022-07-04 00:00:00 Telephone Nurse, [facility] 1.84.114 350.1.13.10 4.2.7.2.686 [id number] [facility] 2022-07-04 00:00:00 2022-07-04 00:00:00 Letter (Out) Provider, [facility] 1.84.114 350.1.13.10 4.2.7.2.686 [id number] [facility] 2022-07-03 11:00:00 2022-07-03 11:15:00 Laboratory Only Only, Ang Db Test Unknown, Attending Michael Millie [facility] 1.84.114 350.1.13.10 4.2.7.2.686 [id number] [facility] 2022-07-03 11:00:00 2022-07-03 11:00:00 Outpatient R MILLIE RODRIGUEZ [facility] [id number] [facility] 2022-06-29 15:00:00 2022-06-29 15:49:30 Outpatient R JEAN BAUMANN OGECHUKWU [facility] [id number] [facility] 2022-06-29 15:00:00 2022-06-29 15:49:30 Office Visit Jean Baumann [facility] 1.840.114 350.1.13.10 4.2.7.2.686 [id number] [facility] 2022-06-29 09:00:00 2022-06-29 09:00:00 Outpatient R JEAN BAUMANN JEAN [facility] [id number] [facility] 2022-06-29 00:00:00 2022-06-29 00:00:00 Orders Only Doctor Unassigned, Dudley [facility] 1.2.840.114 350.1.13.10 4.2.7.2.686 [id number] [facility] 2022-06-05 13:00:00 2022-06-05 13:00:00 Outpatient R UNKNOWN, ATTENDING [facility] [id number] [facility] 2022-03-07 00:00:00 2022-03-07 00:00:00 Telephone [facility] 1.2.840.114 350.1.13.10 4.2.7.2.686 [id number] [facility] 2022-03-07 00:00:00 2022-03-07 00:00:00 Orders Only Doctor Unassigned, Dudley [facility] 1.2.840.114 350.1.13.10 4.2.7.2.686 [id number] [facility] 2022-03-07 00:00:00 2022-03-07 00:00:00 Letter (Out) [facility] 1.2.840.114 350.1.13.10 4.2.7.2.686 [id number] [facility] 2022-03-06 10:40:00 2022-03-06 11:18:26 Outpatient R ZION ÁNEGL [facility] [id number] [facility] 2022-03-06 10:40:00 2022-03-06 11:18:26 Office Visit Ángel Richardson [facility] 1.2.840.114 350.1.13.10 4.2.7.2.686 [id number] [facility] 2022 00:00:00 2022 00:00:00 Letter (Out) Provider, Prasanna [facility] 1.2840.114 350.1.13.10 4.2.7.2.686 [id number] [facility] 2022-02-01 00:00:00 2022-02-01 00:00:00 Telephone Ángel Richardson [facility] 1.2840.114 350.1.13.10 4.2.7.2.686 [id number] [facility] 2022-01-31 17:20:00 2022-01-31 17:40:00 Urgent Care Pita Herlinda [facility] 1.2840.114 350.1.13.10 4.2.7.2.686 [id number] [facility] 2022-01-31 17:20:00 2022-01-31 17:11:16 Outpatient R PITA HERLINDA [facility] [id number] [facility] 2021-12-20 00:00:00 2021-12-20 00:00:00 Telephone Nenita Morgan [facility] 1.20.114 350.1.13.10 4.2.7.2.686 [id number] [facility] 2021-12-20 00:00:00 2021-12-20 00:00:00 Telephone Traci Zhu [facility] 1.2840.114 350.1.13.10 4.2.7.2.686 [id number] [facility] 2021-12-19 17:20:00 2021-12-19 18:27:41 Outpatient R TRACI ZHU [facility] [id number] [facility] 2021-12-19 17:20:00 2021-12-19 17:40:00 [facility] 1..840.114 350.1.13.10 4.2.7.2.686 [id number] [facility] 2021-10-11 14:20:00 2021-10-11 14:48:00 Outpatient R TERENCE HAN [facility] [id number] [facility] 2021-10-11 14:20:00 2021-10-11 14:48:00 Office Visit Terence Han [facility] 1.2.840.114 350.1.13.10 4.2.7.2.686 [id number] [facility] 2021-10-11 00:00:00 2021-10-11 00:00:00 Letter (Out) Emely [facility] 1..840.114 350.1.13.10 4.2.7.2.686 [id number] [facility] 2021-09-12 10:10:00 2021-09-12 10:46:20 Outpatient R DORINA MILTON [facility] [id number] [facility] 2021-09-12 10:10:00 2021-09-12 10:46:20 Office Visit Dorina Milton [facility] 1..840.114 350.1.13.10 4.2.7.2.686 [id number] [facility] 2021-09-12 00:00:00 2021-09-12 00:00:00 Orders Only Doctor Unassigned, Dudley [facility] 1.840.114 350.1.13.10 4.2.7.2.686 [id number] [facility] 2021-08-23 16:00:00 2021-08-23 16:00:00 Outpatient TERENCE ACKERMAN [facility] [id number] [facility] 2021-08-23 08:00:00 2021-08-23 08:00:00 Outpatient TERENCE ACKERMAN [facility] [id number] [facility] 2021-07-25 08:00:00 2021-07-25 08:00:00 Outpatient TERENCE ACKERMAN [facility] [id number] [facility] 2021-03-17 11:20:04 2021-03-17 11:40:04 Laboratory Only Lab, Adc [facility] Dano Rodriguez [facility] 1.840.114 350.1.13.10 4.2.7.2.686 [id number] [facility] 2021-03-17 11:40:00 2021-03-17 11:40:00 Outpatient Alejandro RODRIGUEZ MILLIE [facility] [id number] [facility] 2020-12-06 00:00:00 2020-12-06 00:00:00 Telephone Ann Hernandez [facility] 1.840.114 350.1.13.10 4.2.7.2.686 [id number] 2020-12-06 00:00:00 2020-12-06 00:00:00 Telephone Ann Hernandez [facility] 1.840.114 350.1.13.10 4.2.7.2.686 [id number] [facility] 2020-12-05 15:12:09 2020-12-05 15:55:16 Office Visit Ann Hernandez [facility] 1.2.840.114 350.1.13.10 4.2.7.2.686 [id number] 2020-12-05 15:12:09 2020-12-05 15:55:16 Office Visit Ann Hernandez [facility] 1.2.840.114 350.1.13.10 4.2.7.2.686 [id number] [facility] 2020-12-05 15:20:00 2020-12-05 15:20:00 Outpatient R ANN HERNANDEZ [facility] [id number] [facility] 2020-11-29 10:40:00 2020-11-29 10:40:00 Outpatient R SOLANO [facility] [id number] [facility] 2020-11-24 00:00:00 2020-11-24 00:00:00 Telephone Solano [facility] 1.2.840.114 350.1.13.10 4.2.7.2.686 [id number] [facility] 2020-11-16 00:00:00 2020-11-16 00:00:00 Telephone Dk, [facility] 1.2.840.114 350.1.13.10 4.2.7.2.686 [id number] [facility] 2020-11-15 10:08:10 2020-11-15 10:46:44 Office Visit Solano Ángel [facility] 1.2.840.114 350.1.13.10 4.2.7.2.686 [id number] [facility] 2020-11-15 10:20:00 2020-11-15 10:20:00 Outpatient R SOLANO [facility] [id number] [facility] 2020-09-27 16:00:00 2020-09-27 16:00:00 Outpatient R ÁNGEL SOLANO [facility] [id number] [facility] 2020-09-22 13:57:56 2020-09-22 14:12:56 Support Services Specialist Visit Sarah Beth, [facility] Main Sol[facility] 1.2840.114 350.1.13.10 4.2.7.2.686 [id number] [facility] 2020-09-22 14:00:00 2020-09-22 14:00:00 Outpatient Alejandro SOLANO [facility] [id number] [facility] 2020-09-21 15:08:11 2020-09-21 15:47:29 Office Visit Solano Ángel [facility] 1.20.114 350.1.13.10 4.2.7.2.686 [id number] [facility] 2020-09-21 15:20:00 2020-09-21 15:20:00 Outpatient Alejandro SOLANO ÁNGEL [facility] [id number] [facility] 2020-09-21 08:00:00 2020-09-21 08:00:00 [id number] 2020-08-19 00:00:00 2020-08-19 00:00:00 Letter (Out) Dk [facility] 1.2.114 350.1.13.10 4.2.7.2.686 [id number] [facility] 2020-08-18 00:00:00 2020-08-18 00:00:00 Letter (Out) Ann Hernandez [facility] 1.2840.114 350.1.13.10 4.2.7.2.686 [id number] [facility] 2020-08-18 00:00:00 2020-08-18 00:00:00 Telephone HernandezAnn [facility] 1.2.840.114 350.1.13.10 4.2.7.2.686 [id number] [facility] 2020-08-16 13:22:21 2020-08-16 13:48:03 Office Visit RogerPalAnn Earlene [facility] 1.2.840.114 350.1.13.10 4.2.7.2.686 [id number] [facility] 2020-08-16 13:20:00 2020-08-16 13:20:00 Outpatient R ANN HERNANDEZ [facility] [id number] [facility] 2020-08-16 00:00:00 2020-08-16 00:00:00 Orders Only Doctor Unassigned, Dudley [facility] 1.2.840.114 350.1.13.10 4.2.7.2.686 [id number] [facility] 2020-08-16 00:00:00 2020-08-16 00:00:00 Letter (Out) HernandezAnn george [facility] 1.2.840.114 350.1.13.10 4.2.7.2.686 [id number] [facility] 2020-05-30 00:00:00 2020-05-30 00:00:00 Orders Only Doctor Unassigned, Dudley [facility] 1.2.840.114 350.1.13.10 4.2.7.2.686 [id number] [facility] 2020-05-11 00:00:00 2020-05-11 00:00:00 Telephone Ángel Solano [facility] 1.2.840.114 350.1.13.10 4.2.7.2.686 [id number] [facility] 2020-05-11 00:00:00 2020-05-11 00:00:00 Orders Only Doctor Unassigned, Dudley [facility] 1.2.840.114 350.1.13.10 4.2.7.2.686 [id number] [facility] 2019-12-10 00:00:00 2019-12-10 00:00:00 Orders Only Doctor Unassigned, Dudley [facility] 1.2.840.114 350.1.13.10 4.2.7.2.686 [id number] [facility] 2019-09-04 14:00:09 2019-09-04 14:35:25 Office Visit Ann Hernandez [facility] 1.2.840.114 350.1.13.10 4.2.7.2.686 [id number] [facility] 2019-09-04 00:00:00 2019-09-04 00:00:00 Orders Only Doctor Unassigned, Dudley [facility] 1.2.840.114 350.1.13.10 4.2.7.2.686 [id number] [facility] 2019-04-24 15:50:53 2019-04-24 16:37:49 Office Visit Solano [facility] 1.2.840.114 350.1.13.10 4.2.7.2.686 [id number] [facility] 2019-04-23 14:50:35 2019-04-23 15:25:37 Office Visit Solano [facility] 1.2.840.114 350.1.13.10 4.2.7.2.686 [id number] [facility] 2019-04-23 00:00:00 2019-04-23 00:00:00 Letter (Out) Solano [facility] 1.2.840.114 350.1.13.10 4.2.7.2.686 [id number] 225 [id number] [facility] 2019-04-23 00:00:00 2019-04-23 00:00:00 Orders Only Doctor Unassigned, Dud[facility] 1.2.840.114 350.1.13.10 4.2.7.2.686 [id number] [facility] 2019-04-20 00:00:00 2019-04-20 00:00:00 Telephone Lexus Granado [facility] 1.2840.114 350.1.13.10 4.2.7.2.686 [id number] 225 [id number] [facility] Results Test Description Test Time Test Comments Results Result Co mments Source [facility]
--- NOTE | 2024-06-02 10:10 | EDPHYS ---
Physician Documentation [facility] Name: Boni Salgado Age: 24 yrs Sex: Male : 2000 Arrival Date: 06/02/2024 Time: 07:21 Bed 20 Private MD: ED Physician Cristobal Carr HPI: 06/02 20:25 This 24 yrs old Black Male presents to ER via Ambulatory with complaints of groin pain ms3 with irritation. 20:25 24-year-old male with past medical history of asthma presents to the emergency ms3 department for lower abdominal irritation and pain. Patient states he used Foster to remove his pubic hairs and 3 days ago. He began swelling and is not painful to touch. Patient states the discomfort is an 8/10 and described as aching. Patient states his symptoms are becoming worse. Historical: - Allergies: 07:30 NKDA; ll1 - PMHx: 07:30 Asthma; ll1 - PSHx: 07:42 Appendectomy; ll1 - Immunization history:: Adult Immunizations up to date. - Infectious Disease History:: Denies. - Social history:: Smoking status: Patient denies any tobacco usage or history of. Smoking status: Reported history of juuling and/or vaping. ROS: 20:25 Constitutional: Negative for fever, and chills. Neck: Negative for injury, pain, and ms3 swelling, Cardiovascular: Negative for chest pain, and palpitations. Respiratory: Negative for shortness of breath, cough, wheezing, and pleuritic chest pain, Abdomen/GI: Negative for abdominal pain, nausea, vomiting, diarrhea, and constipation, MS/Extremity: Negative for injury and deformity, 20:25 Skin: Positive for cellulitis, Exam: 20:25 Constitutional: This is a well developed, well nourished patient who is awake, alert, ms3 and in no acute distress. Head/Face: Normocephalic, atraumatic. Chest/axilla: Normal chest wall appearance and motion. Nontender with no deformity. Cardiovascular: Regular rate and rhythm with a normal S1 and S2. No gallops, murmurs, or rubs. Normal PMI, no JVD. No pulse deficits. Respiratory: Lungs have equal breath sounds bilaterally, clear to auscultation and percussion. No rales, rhonchi or wheezes noted. No increased work of breathing, no retractions or nasal flaring. Abdomen/GI: Soft, non-tender, with normal bowel sounds. No distension or tympany. No guarding or rebound. No evidence of tenderness throughout. 20:25 Skin: cellulitis, that is moderate, on the Lower abdominal, induration, that is moderate is noted, located on the Lower abdomen, Bedside ultrasound performed does not show fluid collection. Vital Signs: 07:39 BP 138 / 91; Pulse 79; Resp 16; Temp 97.7; Pulse Ox 99% ; Weight 84.37 kg; Height 5 ft. ll1 11 in. ; Pain 8/10; 07:39 Body Mass Index 25.94 (84.37 kg, 180.34 cm) ll1 07:39 Pain Scale: Adult ll1 MDM: 08:07 Medical Screening Exam initiated ms3 20:25 Differential diagnosis: Cellulitis versus abscess versus folliculitis. Data reviewed: ms3 vital signs, nurses notes, and as a result, I will discharge patient. I considered the following discharge prescriptions or medication management in the emergency department Medications were administered in the Emergency Department. See MAR. Counseling: I had a detailed discussion with the patient and/or guardian regarding the historical points, exam findings, and any diagnostic results supporting the discharge/admit diagnosis, lab results, the need for outpatient follow up, to return to the emergency department if symptoms worsen or persist or if there are any questions or concerns that arise at home. Special discussion: I discussed with the patient/guardian in detail that at this point there is no indication for admission to the hospital. It is understood, however, that if the symptoms persist or worsen the patient needs to return immediately for re-evaluation. ED course: Discussed bedside ultrasound results with patient. Patient to follow-up with primary care physician in 2 to 3 days. All questions were answered. Return precautions discussed include worsening symptoms, or any other concerns. Administered Medications: 10:39 Drug: Ibuprofen PO 600 mg PO once Route: PO; ph 10:39 Follow up: Response: No adverse reaction; Medication administered at discharge. ph 10:39 Drug: Trimethoprim-Sulfamethoxazole PO (160 mg-800 mg (DS) 1 tablet PO once Route: PO; ph 10:39 Follow up: Response: No adverse reaction; Medication administered at discharge. ph Disposition Summary: 06/02/24 10:10 Discharge Ordered Notes: Location: Home ms3 Condition: Stable ms3 Diagnosis - Cellulitis of abdominal wall ms3 Followup: ms3 - With: Flynn Knight DO - When: 2 - 3 days - Reason: Recheck today's complaints Discharge Instructions: - Discharge Summary Sheet ms3 - Cellulitis, Adult ms3 Forms: - Medication Reconciliation Form ms3 - Antibiotic Education ms3 - Prescription Opioid Use ms3 - Patient Portal Instructions ms3 - Leadership Thank You Letter ms3 Prescriptions: - Ibuprofen 600 mg Oral Tablet - take 1 tablet ORAL route every 6 hours As needed take with food; 30 tablet; ms3 Refills: 0, Product Selection Permitted - Bactrim DS 800-160 mg Oral Tablet - take 1 tablet ORAL route every 12 hours for 10 days; 20 tablet; Refills: 0, ms3 Product Selection Permitted Signatures: Mickie Hatfield RN RN Oneil Glass RN RN ll1 Cristobal Carr DO DO ms3 Corrections: (The following items were deleted from the chart) 07:42 07:41 PSHx: None; [email or web address] [facility]
--- NOTE | 2024-06-02 10:10 | ER ---
Nurse's Notes [facility] Name: Boni Salgado Age: 24 yrs Sex: Male : 2000 Arrival Date: 06/02/2024 Time: 07:21 Bed 20 Private MD: Diagnosis: Cellulitis of abdominal wall Presentation: 06/02 07:39 Chief complaint: Patient states: Upper groin area abscess for 2-3 days getting worse ll1 each day. No drainage or fever. Coronavirus screen: Client denies travel out of the [place] in the last 14 days. At this time, the client does not indicate any symptoms associated with coronavirus-19. Ebola Screen: Patient denies travel to an Ebola-affected area in the 21 days before illness onset. Initial Sepsis Screen: Does the patient meet any 2 criteria? No. Patient's initial sepsis screen is negative. Does the patient have a suspected source of infection? No. Patient's initial sepsis screen is negative. Risk Assessment: Do you want to hurt yourself or someone else? Patient reports no desire to harm self or others. Onset of symptoms was May 31, 2024. 07:39 Method Of Arrival: Ambulatory ll1 07:39 Acuity: SHERIF 4 ll1 Triage Assessment: 07:41 General: Appears uncomfortable, Behavior is calm, cooperative, appropriate for age. ll1 Pain: Complains of pain in pelvis Quality of pain is described as aching. Derm: Abscess located on pelvis is nickel sized, has no drainage, is hot to touch, is red, is raised. Historical: - Allergies: 07:30 NKDA; ll1 - PMHx: 07:30 Asthma; ll1 - PSHx: 07:42 Appendectomy; ll1 - Immunization history:: Adult Immunizations up to date. - Infectious Disease History:: Denies. - Social history:: Smoking status: Patient denies any tobacco usage or history of. Smoking status: Reported history of juuling and/or vaping. Screenin:06 [facility] ED Fall Risk Assessment (Adult) History of falling in the last 3 months, ph including since admission No falls in past 3 months (0 pts) Confusion or Disorientation No (0 pts) Intoxicated or Sedated No (0 pts) Impaired Gait No (0 pts) Mobility Assist Device Used No (0 pt) Altered Elimination No (0 pt) Score/Fall Risk Level 0 - 2 = Low Risk Oriented to surroundings, Maintained a safe environment, Hourly rounding (assess needs \T\ fall precautionary measures) done. Abuse screen: Denies threats or abuse. Denies injuries from another. Nutritional screening: No deficits noted. Tuberculosis screening: No symptoms or risk factors identified. Vital Signs: 07:39 BP 138 / 91; Pulse 79; Resp 16; Temp 97.7; Pulse Ox 99% ; Weight 84.37 kg; Height 5 ft. ll1 11 in. ; Pain 8/10; 07:39 Body Mass Index 25.94 (84.37 kg, 180.34 cm) ll1 07:39 Pain Scale: Adult ll1 ED Course: 07:26 Patient arrived in ED. ra3 07:30 Cristobal Carr DO is Attending Physician. ms3 07:30 Arm band placed on Patient placed in an exam room, on a stretcher. ll1 07:41 Triage completed. ll1 07:50 Mickie Hatfield RN is Primary Nurse. ph 08:07 Patient has correct armband on for positive identification. Bed in low position. Call ph light in reach. Side rails up X 1. Pulse ox on. NIBP on. Door closed. Noise minimized. 09:44 No provider procedures requiring assistance completed. Patient did not have IV access ph during this emergency room visit. 10:09 Flynn Knight DO is Referral Physician. ms3 Administered Medications: 10:39 Drug: Ibuprofen PO 600 mg PO once Route: PO; ph 10:39 Follow up: Response: No adverse reaction; Medication administered at discharge. ph 10:39 Drug: Trimethoprim-Sulfamethoxazole PO (160 mg-800 mg (DS) 1 tablet PO once Route: PO; ph 10:39 Follow up: Response: No adverse reaction; Medication administered at discharge. ph Medication: 08:06 VIS not applicable for this client. ph Outcome: 10:10 Discharge ordered by . ms3 10:40 Discharged to home ambulatory, ph 10:40 Condition: good 10:40 Discharge instructions given to patient, Instructed on discharge instructions, follow up and referral plans. medication usage, Demonstrated understanding of instructions, follow-up care, medications, Prescriptions given X 2, 10:40 Patient left the ED. ph Signatures: Mickie Hatfield RN RN ph Oneil Sotelo RN RN ll1 Cristobal Carr DO DO ms3 Elizabeth Garcia ra3 Corrections: (The following items were deleted from the chart) 07:42 07:41 PSHx: None; [email or web address] ll1
[2024-06-02] MEDS ORDERED: SMZ./TMP. 800/160 MG TABLET ONE (10:30)
[2024-06-02] MEDS ORDERED: IBUPROFEN 200 MG TAB PO ONE (10:30)
[2024-06-02] MEDS ORDERED: IBUPROFEN 400 MG TAB ONE (10:30)
[2024-06-02 11:47] VITALS: BP 138/91; TEMP 97.7; O2SAT 99
== END 2024-06-02 10:40 | disposition home or self-care (01) ==
LOC: ER 07:21
DX: L03.311 Cellulitis of abdominal wall (principal)